=== PATIENT | female | born 1945 | race Caucasian/White ===

== ENCOUNTER → 2016-02-26 | Outpatient (CLI) | payer BC ==
[~2016-02-26] MED LIST: ALD2525 PO; ANAS1TAB19 PO; ASPEC81 PO; ATOR-22 PO; BECL1AER5; CLTP PO; EFLO13.925 TOP; KETO0.5S33 OPB; LORA10CA2 PO; MELATAB2 PO; METHPOW7 PO; POLYSOL4 OP
[2016-02-26 09:31] LABS: BASO % 0.6 %; BASO ABS # 0.05 K/uL (0-0.2); COMPLETE YES; EOS % 2.5 %; HEMATOCRIT 47.1 % (37-47); IG% 0.2 %; LYMPH % 18.5 %; LYMPH ABS # 1.62 K/uL (1.2-3.4); MEAN CELL VOLUME 93.3 fL (80-100); MEAN CORPUSCULAR HEMOGLOBIN 31.5 pg (25-34); MEAN CORPUSCULAR HGB CONC 33.8 g/dl (32-36); MEAN PLATELET VOLUME 10.3 fL (7.4-10.4); MONO % 10.3 %; NEUT % 67.9 %; PLATELET COUNT 350 K/uL (130-400); RED BLOOD COUNT 5.05 M/uL (4.2-5.4); WHITE BLOOD COUNT 8.78 K/uL (4.8-10.8)
[2016-02-26 10:05] LABS: ALT/SGPT 47 U/L (12-78); AST/SGOT 28 U/L (15-37); BLOOD UREA NITROGEN 12 mg/dl (7-18); BUN/CREATININE RATIO 15.2 (10-20); CALCIUM 9.2 mg/dl (8.5-10.1); CARBON DIOXIDE 29 mmol/L (21-32); CHLORIDE 101 mmol/L (98-107); CHOLESTEROL 156 mg/dl (0-200); CREATININE 0.79 mg/dl (0.60-1.20); GLUCOSE 99 mg/dl (70-99); MAGNESIUM 2.3 mg/dl (1.8-2.4); POTASSIUM 3.7 mmol/L (3.5-5.1); SODIUM 139 mmol/L (136-145)
[2016-02-26 10:10] LABS: HDL CHOLESTEROL 80 mg/dl; LDL CHOLESTEROL CALCULATED 53 mg/dl; TRIGLYCERIDES 114 mg/dl (0-150); VERY LOW DENSITY LIPOPROT CALC 23 mg/dl
[2016-02-26 10:32] LABS: ESTIMATED AVERAGE GLUCOSE 131 mg/dl; HA1C FLAG Normal (Normal)
== END | disposition home or self-care (01) ==
LOC: C.LAB1850 08:01
PROVIDERS: ATTEND Internal Medicine
DX: E11.9 Type 2 diabetes mellitus without complications (principal)

== ENCOUNTER → 2016-03-31 | Outpatient (CLI) | payer BC ==
[~2016-03-31] MED LIST changes: -EFLO13.925 TOP; +EFLO13.94 TOP
== END | disposition home or self-care (01) ==
LOC: C.PAPS 16:40
PROVIDERS: ATTEND Obstetrics & Gynecology
DX: N85.02 Endometrial intraepithelial neoplasia [EIN] (principal)

== ENCOUNTER → 2016-05-26 | Outpatient (CLI) | payer BC ==
[~2016-05-26] MED LIST changes: +EFLO13.925 TOP; -EFLO13.94 TOP
[2016-05-26 13:30] LABS: ESTIMATED AVERAGE GLUCOSE 131 mg/dl; HA1C FLAG Normal (Normal)
== END | disposition home or self-care (01) ==
LOC: C.LABPBG 08:09
PROVIDERS: ATTEND Internal Medicine
DX: E11.9 Type 2 diabetes mellitus without complications (principal)

== ENCOUNTER → 2016-07-14 | Outpatient (CLI) | payer BC | END | disposition home or self-care (01) | LOC: C.PAPS 16:27 | PROVIDERS: ATTEND Obstetrics & Gynecology | DX: N85.02 Endometrial intraepithelial neoplasia [EIN] (principal) ==

== ENCOUNTER → 2016-09-01 | Outpatient (CLI) | payer BC ==
[~2016-09-01] MED LIST changes: -EFLO13.925 TOP; +EFLO13.94 TOP
[2016-09-01 12:25] LABS: BASO % 1.1 %; BASO ABS # 0.07 K/uL (0-0.2); COMPLETE YES; EOS % 3.6 %; IG% 0.2 %; LYMPH % 24.2 %; LYMPH ABS # 1.53 K/uL (1.2-3.4); MEAN CELL VOLUME 93.6 fL (80-100); MEAN CORPUSCULAR HEMOGLOBIN 31.6 pg (25-34); MEAN CORPUSCULAR HGB CONC 33.8 g/dl (32-36); MEAN PLATELET VOLUME 10.4 fL (7.4-10.4); NEUT % 60.9 %; PLATELET COUNT 315 K/uL (130-400); RED BLOOD COUNT 5.34 M/uL (4.2-5.4); WHITE BLOOD COUNT 6.32 K/uL (4.8-10.8)
[2016-09-01 12:56] LABS: ESTIMATED AVERAGE GLUCOSE 126 mg/dl; HA1C FLAG Normal (Normal)
[2016-09-01 13:06] LABS: ALT/SGPT 38 U/L (12-78); AST/SGOT 25 U/L (15-37); BLOOD UREA NITROGEN 13 mg/dl (7-18); BUN/CREATININE RATIO 14.9 (10-20); CALCIUM 9.5 mg/dl (8.5-10.1); CARBON DIOXIDE 29 mmol/L (21-32); CHLORIDE 102 mmol/L (98-107); CHOLESTEROL 149 mg/dl (0-200); CREATININE 0.85 mg/dl (0.60-1.20); GLUCOSE 109 mg/dl (70-99); POTASSIUM 3.5 mmol/L (3.5-5.1); SODIUM 138 mmol/L (136-145); TRIGLYCERIDES 94 mg/dl (0-150); VERY LOW DENSITY LIPOPROT CALC 19 mg/dl
[2016-09-01 13:16] LABS: CHOLESTEROL/HDL RATIO 1.9; HDL CHOLESTEROL 79 mg/dl; LDL CHOLESTEROL CALCULATED 51 mg/dl
== END | disposition home or self-care (01) ==
LOC: C.LABPBG 08:07
PROVIDERS: ATTEND Physician Assistant
DX: E78.5 Hyperlipidemia, unspecified (principal); I10 Essential (primary) hypertension; E11.9 Type 2 diabetes mellitus without complications

== ENCOUNTER → 2016-10-04 | Outpatient (CLI) | payer BC ==
[2016-10-04 12:22] LABS: BASO % 0.9 %; BASO ABS # 0.07 K/uL (0-0.2); COMPLETE YES; HEMATOCRIT 49.3 % (37-47); IG% 0.1 %; LYMPH % 21.1 %; MEAN CELL VOLUME 92.8 fL (80-100); MEAN CORPUSCULAR HEMOGLOBIN 30.9 pg (25-34); MEAN CORPUSCULAR HGB CONC 33.3 g/dl (32-36); MEAN PLATELET VOLUME 10.8 fL (7.4-10.4); MONO % 11.4 %; NEUT % 62.5 %; PLATELET COUNT 323 K/uL (130-400); RED BLOOD COUNT 5.31 M/uL (4.2-5.4); WHITE BLOOD COUNT 7.57 K/uL (4.8-10.8)
[2016-10-04 12:52] LABS: ALB/GLOB RATIO 1.2 (0.9-2); ALKALINE PHOSPHATASE 102 U/L (45-117); AST/SGOT 27 U/L (15-37); BLOOD UREA NITROGEN 12 mg/dl (7-18); BUN/CREATININE RATIO 17.4 (10-20); CALCIUM 9.3 mg/dl (8.5-10.1); CARBON DIOXIDE 28 mmol/L (21-32); CHLORIDE 103 mmol/L (98-107); CREATININE 0.71 mg/dl (0.60-1.20); GLUCOSE 105 mg/dl (70-99); POTASSIUM 3.6 mmol/L (3.5-5.1); SODIUM 138 mmol/L (136-145)
[2016-10-04 12:59] LABS: ALT/SGPT 39 U/L (12-78)
== END | disposition home or self-care (01) ==
LOC: C.LABPBG 07:46
PROVIDERS: ATTEND Nurse Practitioner Family
DX: C50.919 Malignant neoplasm of unspecified site of unspecified female breast (principal)

== ENCOUNTER → 2016-11-04 | Outpatient (CLI) | payer BC ==
[2015-10-23 13:08] VITALS: BP 149/93; PULSE 74
[2016-11-04 13:03] VITALS: BP 137/79; PULSE 80; TEMP 36.8; O2SAT 98
--- NOTE | 2016-11-04 14:26 | Radiation Oncology Follow-Up ---
Radiation Oncology Follow-Up Date of Visit Nov 04, 2016. Reason For Visit Annual follow-up Radiation Completion Date 03/15/14 Diagnosis (1) Personal history of breast cancer Status: Resolved Onset Date: ~ 1988 Stage: l Permanent Comment: Status post ductal carcinoma in situ 1988, status post partial mastectomy with sentinel lymph node biopsy, status post radiation therapy completed June 1988 received 4930 cGy Abnormal mammogram 05/09/2012. 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 She has noticed no changes to her chest wall. She has noted no masses or tenderness and no changes of the axilla. She's had no problems with swelling of her arm. With a bilateral nipple sparing mastectomies she does not require mammography. She is seen regularly by medical oncology. She is on Arimidex. She denies any side effects. DEXA scanning is being followed by medical oncology. She recently had a pelvic examination and Pap smear by her functional skills tutor Dr. Vásquez. This was performed on 07/14/2016. Pap smear was negative for intraepithelial lesion or malignancy. Specimen [id number]. Allergies Coded Allergies: Chlorhexidine (Verified Allergy, Severe, ITCHING, 12/11/15) Cephalexin (Verified Allergy, Unknown, SICK, 12/11/15) Edetic Acid (Verified Allergy, Unknown, nausea, 12/11/15) Propylene Glycol (Verified Allergy, Unknown, nausea, 12/11/15) Regadenoson (Verified Allergy, Unknown, nausea, 12/11/15) Codeine (Verified Adverse Reaction, Intermediate, N/V, 12/11/15) Home Medications Scheduled Anastrozole (Arimidex), 1 MG PO QAM Aspirin Enteric Coated (Ecotrin Or Generic *), 81 MG PO QAM Atorvastatin (Lipitor), 20 MG PO QPM Calcium/Vitamin D (Caltrate 600 Plus *), 1 TAB PO BID Hctz/Spironolactone (Aldactazide 25MG/25MG *), 1 TAB PO BID Loratadine (Claritin), 10 MG PO QAM Methylcellulose (Laxative) (Citrucel Fiber Laxative), 1 TBS PO TID Polyethylene Glycol-Propylene (Systane), 1 DROPS OP BID Scheduled PRN Beclomethasone Dipropionate (N (Qnasl), 1-2 SPRAY NA DAILY PRN for ALLERGIES Ketorolac Tromethamine (Ophth) (Acular Oph), 1 DROPS OPB DAILY PRN for ALLERGIES Melatonin (Melatonin Maximum Strengt), 1 TAB PO HS PRN for Sleep Review of Systems Gastrointestinal: Symptoms: WNL Oral: Symptoms: No Problems Respiratory: Symptoms: WNL Urinary: Symptoms: WNL Skin: Symptoms: No Problems Breast: Right Upper Arm Measurement: 32.0 Right Mid Arm Measurement: 26.5 Right Wrist Measurement: 16.0 Left Upper Arm Measurement: 32.0 Left Mid Arm Measurement: 26.5 Left Wrist Measurement: 16.5 Arm Dominence: Right Physical Exam Vital Signs Date Time Temp Pulse Resp B/P (MAP) Pulse Ox O2 Delivery O2 Flow Rate FiO2 11/04/16 13:03 36.8 80 12 137/79 98 Pain: Pain Onset: 6 months Pain Duration: intermet Side: Bilateral Pain Location: Ribs Patient Pain Scale: 0 - 10 Initial Pain Intensity: 0.0 Pain Description: Soreness Additional Comments: pain ranges 2-6 Fatigue: None General Appearance: no apparent distress, + pertinent finding (slight facial droop on the right from her previous parotid surgery. This is improved compared to last year.) Eyes: normal inspection, EOMI ENT: normal ENT inspection, hearing grossly normal Neck: no adenopathy, thyroid normal Respiratory/Chest: lungs clear, no respiratory distress, no accessory muscle use Breast: Breast examination reveals bilateral breast implants. There are no masses or tenderness no axillary adenopathy. There is no tenderness. There is no telangiectasia. She has no axillary adenopathy. Using the Taylor score cosmesis she has a good outcome. Cardiovascular: regular rate, rhythm, no gallop, no murmur Extremities: no pedal edema Neurologic/Psychiatric: no motor/sensory deficits, alert, normal mood/affect Skin: warm/dry Laboratory Studies Test 09/01/16 08:09 10/04/16 07:56 White Blood Count 6.32 K/uL (4.8-10.8) 7.57 K/uL (4.8-10.8) Red Blood Count 5.34 M/uL (4.2-5.4) 5.31 M/uL (4.2-5.4) Hemoglobin 16.9 g/dL (12.0-16.0) 16.4 g/dL (12.0-16.0) Hematocrit 50.0 % (37-47) 49.3 % (37-47) Mean Corpuscular Volume 93.6 fL (80-100) 92.8 fL (80-100) Mean Corpuscular Hemoglobin 31.6 pg (25-34) 30.9 pg (25-34) Mean Corpuscular Hemoglobin Concent 33.8 g/dl (32-36) 33.3 g/dl (32-36) Platelet Count 315 K/uL (130-400) 323 K/uL (130-400) Mean Platelet Volume 10.4 fL (7.4-10.4) 10.8 fL (7.4-10.4) Neutrophils (%) (Auto) 60.9 % 62.5 % Lymphocytes (%) (Auto) 24.2 % 21.1 % Monocytes (%) (Auto) 10.0 % 11.4 % Eosinophils (%) (Auto) 3.6 % 4.0 % Basophils (%) (Auto) 1.1 % 0.9 % Neutrophils # (Auto) 3.85 K/uL (1.4-6.5) 4.73 K/uL (1.4-6.5) Lymphocytes # (Auto) 1.53 K/uL (1.2-3.4) 1.60 K/uL (1.2-3.4) Monocytes # (Auto) 0.63 K/uL (0.11-0.59) 0.86 K/uL (0.11-0.59) Eosinophils # (Auto) 0.23 K/uL (0-0.5) 0.30 K/uL (0-0.5) Basophils # (Auto) 0.07 K/uL (0-0.2) 0.07 K/uL (0-0.2) RDW Standard Deviation 47.1 fL (36.4-46.3) 45.8 fL (36.4-46.3) RDW Coefficient of Variation 13.7 % (11.5-14.5) 13.4 % (11.5-14.5) Immature Granulocyte % (Auto) 0.2 % 0.1 % Immature Granulocyte # (Auto) 0.01 K/uL (0.00-0.02) 0.01 K/uL (0.00-0.02) Sodium Level 138 mmol/L (136-145) 138 mmol/L (136-145) Potassium Level 3.5 mmol/L (3.5-5.1) 3.6 mmol/L (3.5-5.1) Chloride Level 102 mmol/L (98-107) 103 mmol/L (98-107) Carbon Dioxide Level 29 mmol/L (21-32) 28 mmol/L (21-32) Anion Gap 7.0 mmol/L (3-11) 7.0 mmol/L (3-11) Blood Urea Nitrogen 13 mg/dl (7-18) 12 mg/dl (7-18) Creatinine 0.85 mg/dl (0.60-1.20) 0.71 mg/dl (0.60-1.20) Estimated GFR () 81.0 100.7 Estimated GFR (Non- 69.9 86.9 BUN/Creatinine Ratio 14.9 (10-20) 17.4 (10-20) Random Glucose 109 mg/dl (70-99) 105 mg/dl (70-99) Estimated Average Glucose 126 mg/dl Hemoglobin A1c 6.0 % (4.5-5.6) Calcium Level 9.5 mg/dl (8.5-10.1) 9.3 mg/dl (8.5-10.1) Aspartate Amino Transferase (AST) 25 U/L (15-37) 27 U/L (15-37) Alanine Aminotransferase (ALT) 38 U/L (12-78) 39 U/L (12-78) Total Creatine Kinase 89 U/L (26-192) Triglycerides Level 94 mg/dl (0-150) Cholesterol Level 149 mg/dl (0-200) HDL Cholesterol 79 mg/dl LDL Cholesterol, Calculated 51 mg/dl VLDL Cholesterol, Calculated 19 mg/dl Cholesterol/HDL Ratio 1.9 Thyroid Stimulating Hormone (TSH) 3.300 uIu/ml (0.300-4.500) Total Bilirubin 0.7 mg/dl (0.2-1) Alkaline Phosphatase 102 U/L (45-117) Lactate Dehydrogenase 203 U/L (84-246) Total Protein 7.1 gm/dl (6.4-8.2) Albumin 3.9 gm/dl (3.4-5.0) Globulin 3.2 gm/dl (2.5-4.0) Albumin/Globulin Ratio 1.2 (0.9-2) Assessment & Plan Plan: Continue regular follow-up with medical oncology and her primary care physician. She continues on anastrozole. We asked her to return to our office in 1 year. She may call if she has any questions or concerns in the interim. Total Time In Follow-Up I spent 20 minutes speaking to the patient and performing examination. I spent 15 minutes reviewing information and completing this note. Copy To Rad Tobias M.D.; Emile Griffin D.O.
== END | disposition home or self-care (01) ==
LOC: C.ONC 12:40
PROVIDERS: ATTEND Physician Assistant Medical
DX: Z08 Encounter for follow-up examination after completed treatment for malignant neoplasm (principal); Z92.3 Personal history of irradiation; Z86.000 Personal history of in-situ neoplasm of breast

== ENCOUNTER → 2017-01-17 | Outpatient (CLI) | payer BC ==
[~2017-01-17] MED LIST changes: -EFLO13.94 TOP
== END | disposition home or self-care (01) ==
LOC: C.PATHSPEC 16:21
PROVIDERS: ATTEND Dermatology
DX: L82.1 Other seborrheic keratosis (principal); L91.8 Other hypertrophic disorders of the skin

== ENCOUNTER → 2017-01-18 | Outpatient (CLI) | payer BC | END | disposition home or self-care (01) | LOC: C.PAPS 14:05 | PROVIDERS: ATTEND Obstetrics & Gynecology | DX: N85.02 Endometrial intraepithelial neoplasia [EIN] (principal) ==

== ENCOUNTER → 2017-03-29 | Outpatient (CLI) | payer BC ==
[2017-03-29 12:58] LABS: BASO % 1.1 %; BASO ABS # 0.07 K/uL (0-0.2); EOS % 3.5 %; EOS ABS # 0.23 K/uL (0-0.5); HEMATOCRIT 47.9 % (37-47); HEMOGLOBIN 16.4 g/dL (12.0-16.0); IG# 0.01 K/uL (0.00-0.02); LYMPH % 22.3 %; LYMPH ABS # 1.46 K/uL (1.2-3.4); MEAN CELL VOLUME 94.1 fL (80-100); MEAN CORPUSCULAR HEMOGLOBIN 32.2 pg (25-34); MEAN CORPUSCULAR HGB CONC 34.2 g/dl (32-36); MEAN PLATELET VOLUME 11.1 fL (7.4-10.4); MONO ABS # 0.72 K/uL (0.11-0.59); NEUT % 61.9 %; NEUT ABS # 4.05 K/uL (1.4-6.5); PLATELET COUNT 303 K/uL (130-400); RED CELL DISTRIBUTION WIDTH CV 13.3 % (11.5-14.5); WHITE BLOOD COUNT 6.54 K/uL (4.8-10.8)
[2017-03-29 13:09] LABS: HEMOGLOBIN A1C 6.1 % (4.5-5.6)
[2017-03-29 14:27] LABS: ALKALINE PHOSPHATASE 92 U/L (45-117); ALT/SGPT 42 U/L (12-78); AST/SGOT 29 U/L (15-37); BLOOD UREA NITROGEN 15 mg/dl (7-18); CALCIUM 9.3 mg/dl (8.5-10.1); CARBON DIOXIDE 29 mmol/L (21-32); CREATININE 0.78 mg/dl (0.60-1.20); GLUCOSE 106 mg/dl (70-99); POTASSIUM 3.3 mmol/L (3.5-5.1); SODIUM 136 mmol/L (136-145); TOTAL PROTEIN 7.5 gm/dl (6.4-8.2)
== END | disposition home or self-care (01) ==
LOC: C.LABPBG 07:57
PROVIDERS: ATTEND Internal Medicine
DX: C50.911 Malignant neoplasm of unspecified site of right female breast (principal); E11.9 Type 2 diabetes mellitus without complications

== ENCOUNTER → 2017-04-25 | Outpatient (CLI) | payer BC ==
--- NOTE | 2017-04-25 15:57 | DIAGNOSTIC IMAGING REPORT ---
CHEST 2 VIEWS ROUTINE HISTORY: 71 years-old Female R05 [id number] acute cough with headache COMPARISON: Chest radiographs 01/09/2015 TECHNIQUE: PA and lateral views of the chest FINDINGS: Cardiomediastinal and hilar silhouettes are within normal limits. There is no pneumothorax, pleural effusion, focal airspace consolidation or overt pulmonary edema. Surgical clips project over the right axillary chest wall. Surgical clips are also seen within the abdominal right upper quadrant suggesting prior cholecystectomy. Bones of the chest appear grossly intact. IMPRESSION: No acute process. The above report was generated using voice recognition software. It may contain grammatical, syntax or spelling errors. Electronically signed by: Tadeo Farfan M.D. 04/25/2017 3:55 PM Dictated Date/Time: 04/25/2017 3:54 PM
== END | disposition home or self-care (01) ==
LOC: C.RAD1850 15:45
PROVIDERS: ATTEND Physician Assistant Medical
DX: R05 Cough (principal)

== ENCOUNTER → 2017-04-25 | Outpatient (CLI) | payer BC ==
[2017-04-25 18:19] LABS: INFLUENZA B ANTIGEN POS for Influ B (NEG)
== END | disposition home or self-care (01) ==
LOC: C.LAB1850 16:04
PROVIDERS: ATTEND Physician Assistant Medical
DX: R68.89 Other general symptoms and signs (principal)

== ENCOUNTER → 2017-05-02 | Outpatient (CLI) | payer BC ==
--- NOTE | 2017-05-02 16:52 | DIAGNOSTIC IMAGING REPORT ---
CHEST 2 VIEWS ROUTINE HISTORY: 71 years-old Female J10.1 acute influenza COMPARISON: Chest radiographs 04/25/2017 TECHNIQUE: PA and lateral views of the chest FINDINGS: Cardiomediastinal and hilar silhouettes are within normal limits. There is no pneumothorax, pleural effusion, focal airspace consolidation or overt pulmonary edema. Surgical clips project over the bilateral axillary regions. Bones of the chest appear grossly intact. IMPRESSION: No acute process. The above report was generated using voice recognition software. It may contain grammatical, syntax or spelling errors. Electronically signed by: Tadeo Farfan M.D. 05/02/2017 4:50 PM Dictated Date/Time: 05/02/2017 4:49 PM
[2017-05-02 16:54] LABS: BASO % 0.2 %; BASO ABS # 0.03 K/uL (0-0.2); EOS % 1.8 %; EOS ABS # 0.25 K/uL (0-0.5); HEMATOCRIT 43.6 % (37-47); HEMOGLOBIN 15.2 g/dL (12.0-16.0); IG# 0.05 K/uL (0.00-0.02); LYMPH % 16.4 %; LYMPH ABS # 2.24 K/uL (1.2-3.4); MEAN CELL VOLUME 91.4 fL (80-100); MEAN CORPUSCULAR HEMOGLOBIN 31.9 pg (25-34); MEAN CORPUSCULAR HGB CONC 34.9 g/dl (32-36); MEAN PLATELET VOLUME 9.8 fL (7.4-10.4); MONO % 11.7 %; NEUT % 69.5 %; NEUT ABS # 9.53 K/uL (1.4-6.5); PLATELET COUNT 313 K/uL (130-400); RED CELL DISTRIBUTION WIDTH CV 12.7 % (11.5-14.5)
== END | disposition home or self-care (01) ==
LOC: C.RAD1850 15:52
PROVIDERS: ATTEND Internal Medicine
DX: J10.1 Influenza due to other identified influenza virus with other respiratory manifestations (principal)

== ENCOUNTER → 2017-10-04 | Outpatient (CLI) | payer BC ==
[~2017-10-04] MED LIST changes: -ANAS1TAB19 PO; +ANAS1TAB59 PO
== END | disposition home or self-care (01) ==
LOC: C.MAMM 15:08
PROVIDERS: ATTEND Nurse Practitioner Family
DX: R92.8 Other abnormal and inconclusive findings on diagnostic imaging of breast (principal); Z85.3 Personal history of malignant neoplasm of breast

== ENCOUNTER → 2017-10-05 | Outpatient (CLI) | payer BC ==
[2017-10-05 13:05] LABS: BASO % 1.1 %; BASO ABS # 0.07 K/uL (0-0.2); EOS % 3.4 %; EOS ABS # 0.22 K/uL (0-0.5); HEMATOCRIT 50.4 % (37-47); HEMOGLOBIN 17.2 g/dL (12.0-16.0); IG# 0.01 K/uL (0.00-0.02); LYMPH % 27.4 %; LYMPH ABS # 1.79 K/uL (1.2-3.4); MEAN CELL VOLUME 92.5 fL (80-100); MEAN CORPUSCULAR HEMOGLOBIN 31.6 pg (25-34); MEAN CORPUSCULAR HGB CONC 34.1 g/dl (32-36); MEAN PLATELET VOLUME 11.3 fL (7.4-10.4); MONO % 10.9 %; MONO ABS # 0.71 K/uL (0.11-0.59); NEUT ABS # 3.73 K/uL (1.4-6.5); PLATELET COUNT 278 K/uL (130-400); RED CELL DISTRIBUTION WIDTH CV 13.5 % (11.5-14.5); RED CELL DISTRIBUTION WIDTH SD 45.5 fL (36.4-46.3); WHITE BLOOD COUNT 6.53 K/uL (4.8-10.8)
[2017-10-05 13:39] LABS: ALBUMIN 3.9 gm/dl (3.4-5.0); ALKALINE PHOSPHATASE 93 U/L (45-117); ALT/SGPT 34 U/L (12-78); AST/SGOT 29 U/L (15-37); BLOOD UREA NITROGEN 15 mg/dl (7-18); CALCIUM 9.3 mg/dl (8.5-10.1); CARBON DIOXIDE 28 mmol/L (21-32); CREATININE 0.74 mg/dl (0.60-1.20); GLUCOSE 91 mg/dl (70-99); POTASSIUM 3.7 mmol/L (3.5-5.1); SODIUM 136 mmol/L (136-145); TOTAL PROTEIN 7.5 gm/dl (6.4-8.2)
== END | disposition home or self-care (01) ==
LOC: C.LABPBG 07:47
PROVIDERS: ATTEND Internal Medicine Hematology & Oncology
DX: C50.911 Malignant neoplasm of unspecified site of right female breast (principal)

== ENCOUNTER 2019-02-15 14:40 | Observation (INO) ==
[2019-02-15 16:44] LABS: Basophils # (auto) 0.07 K/uL (0-0.2); Eosinophils # (auto) 0.25 K/uL (0-0.5); Eosinophils % (auto) 3.4 %; Hematocrit (blood only) 45.4 % (37-47); Hemoglobin 15.1 g/dL (12.0-16.0); Immature Granulocytes # (auto) 0.01 K/uL (0.00-0.02); Immature Granulocytes % (auto) 0.1 %; Lymphocytes # (auto) 1.64 K/uL (1.2-3.4); Lymphocytes % (auto) 22.6 %; Mean Corpuscular Hemoglobin 31.2 pg (25-34); Mean Corpuscular Hgb Conc 33.3 g/dL (32-36); Mean Corpuscular Volume 93.8 fL (80-100); Mean Platelet Volume 9.8 fL (7.4-10.4); Monocytes # (auto) 0.73 K/uL (0.11-0.59); Monocytes % (auto) 10.1 %; Neutrophils # (auto) 4.55 K/uL (1.4-6.5); Neutrophils % (auto) 62.8 %; Platelet Count 330 K/uL (130-400); RDW Coefficient of Variation 13.7 % (11.5-14.5); RDW Standard Deviation 46.9 fL (36.4-46.3); Red Blood Count 4.84 M/uL (4.2-5.4); White Blood Count 7.25 K/uL (4.8-10.8)
[2019-02-15 16:44] LABS: Appearance Urine Clear (Clear); Bilirubin Urine Negative (Negative); Blood Urine Negative (Negative); Color Urine Yellow; Glucose Urine UA Negative (Negative); Ketones Urine Negative (Negative); Leukocyte Esterase Urine Negative (Negative); Nitrite Urine Negative (Negative); Protein Urine Negative (Negative); Specific Gravity Urine 1.009 (1.000-1.030); Urobilinogen Urine Negative (Negative); pH Urine 7.5 (4.5-7.5)
[2019-02-15 16:57] LABS: Albumin Level 3.8 gm/dl (3.4-5.0); BUN Creatinine Ratio 17.7 (10-20); Calcium 9.6 mg/dl (8.5-10.1); Creatinine Clr Calc Pharmacy 61.9 ml/min; Est GFR (African American) 88.6; Est GFR (Non-African American) 76.5; Potassium 3.4 mmol/L (3.5-5.1)
[2019-02-15 17:00] LABS: Bilirubin,Total 0.4 mg/dl (0.2-1); Globulin 3.8 gm/dl (2.5-4.0); Total Protein 7.6 gm/dl (6.4-8.2)
[2019-02-15] MEDS ORDERED: IOVERSOL 100ml IV PRN (17:17)
--- NOTE | 2019-02-15 17:49 | CT Scan Report ---
CT OF THE ABDOMEN AND PELVIS WITH CONTRAST CLINICAL HISTORY: Right upper quadrant abdominal pain. COMPARISON STUDY: Right upper quadrant ultrasound August 01, 2007. PET/CT April 03, 2014 TECHNIQUE: Following IV administration of 94 mL of Optiray-320, axial images of the abdomen and pelvi s were obtained from the lung bases to the proximal femurs. Images were reviewed in the axial, sagitt al, and coronal planes. IV contrast was administered without complication. Automated exposure contro l was utilized for the study. A dose lowering technique was utilized adhering to the principles of A RIVER. CT DOSE: 283.65 mGy.cm FINDINGS: Numerous liver lesions are noted, including a 2.2 cm segment 8 lesion, a 1.2 cm segment 6 l esion and a 1.6 cm segment 8 lesion. Several these lesions were present on prior ultrasound and PET/C T. A lateral segment hepatic cyst is noted. The spleen, adrenal glands, kidneys and pancreas are norm al. There is no evidence for a bowel obstruction. A moderate amount of stool within the colon is note d. The appendix is normal. No pneumatosis, free air or portal venous gas is present. No enlarged abdo víctor or pelvic lymph nodes are present. A previous left femoral internal fixation is partially image d. The hardware has been removed. Innumerable lytic lesions are noted within visualized skeletal stru ctures which are new since PET/CT of April 03, 2014. There is a mild fracture with minimal adjacen t infiltration of the T12 vertebral body. There is a suspected additional pathologic fracture of the anterior aspect of the T10 vertebral body. No additional pathologic fractures are noted. A large femo ral neck lesion is noted. IMPRESSION: 1. Interval development of innumerable lytic skeletal lesions since PET/CT of April 03, 2014. Give n the history of breast cancer, metastatic disease is favored. Multiple myeloma could appear similar. Pathologic fracture of T12 with suspected additional pathologic fracture of T10. 2. Numerous hepatic lesions, many of which were present on prior PET/CT of April 03, 2014. While n ot definitive, these favor hemangiomas. 3. Moderate amount stool within the colon. No bowel obstruction. Normal appendix. ACT 112: Negative or not required by law. Electronically signed by: Jay Jay Roldan M.D. 02/15/2019 5:48 PM
[2019-02-15] MEDS ORDERED: HYDROmorphone INJ 0.5 MG/0.5 ML SYR IV PRN (19:11)
[2019-02-15] MEDS ORDERED: ONDANSETRON INJ 2 MG/ML 2 ML VIAL IV STA (19:11)
--- NOTE | 2019-02-15 21:06 | Emergency Department Note ---
Entered by Tahira Angulo acting as a scribe for Trevor Lechuga MD ED Provider Note CHIEF COMPLAINT: abdominal pain HISTORY OF PRESENT ILLNESS: The patient is a 73 year old F who presents to the Emergency Room with complaints of intermittent abdominal pain that started 3-4 weeks ago. She notes that her abdominal pain is located in her LLQ and RUQ. She states that her pain radiates into her shoulder and neck. She adds that her pain is worse at night. She denies that her pain gets worse with eating and exertion. She adds that she always takes a Tylenol at night. She notes that she had a cholecystectomy, in 1997, after a blockage was found. She denies a history of cardiac issues. Pt denies LOC, headache, fevers, chills, diaphoresis, visual changes, chest pain, breathing difficulties, nausea, vomiting, back pain, melena, hematochezia, urinary symptoms, numbness, weakness, lymphadenopathy, rash, or other complaints. REVIEW OF SYSTEMS: See HPI for pertinent positives and negatives. A total of ten systems were reviewed and were otherwise negative. PMHx/PSHx: GERD, breast cancer, hyperglycemia SOCIAL HISTORY: Patient lives at home. PHYSICAL EXAM: GENERAL: Awake, alert, well-appearing, in no distress HENT: Normocephalic, atraumatic. Oropharynx unremarkable. EYES: PERRL. Normal conjunctiva. Sclera non-icteric. NECK: Inspection normal. Non-tender. Supple. No nuchal rigidity. FROM. No masses. RESPIRATORY: Clear to auscultation. No wheezes. No rales. Normal respiratory effort. CARDIAC: Normal rate. Normal rhythm. No murmurs. No rubs. Extremities warm and well perfused. Pulses equal. No JVD. GI: Soft, non-distended. Left lower and right upper abdominal tenderness to palpation. No rebound or guarding. No masses. RECTAL: Deferred. MUSCULOSKELETAL: Atraumatic. Chest examination reveals no tenderness. The back is symmetrical on inspection without obvious abnormality. There is no CVA tenderness to palpation. No joint edema. LOWER EXTREMITIES: Calves are equal size bilaterally and non-tender. No edema. No discoloration. NEURO: Normal sensorium. No sensory or motor deficits noted. SKIN: No rash or jaundice noted. EMERGENCY DEPARTMENT COURSE: 1627: The patient was evaluated in room C9, and a complete history and physical examination were performed. 183: I re-checked the patient and updated her on her test results. 1934: I reviewed the patient's case with Dr. Michael Flores, [facility] Hospitalist. He will evaluate the patient for further management. MEDICAL DECISION MAKING: Triage Nursing notes reviewed and agree them. Additional history obtained from patient's . The patient's history was concerning for abdominal pain. Differential diagnosis: Etiologies such as biliary pathology, appendicitis, diverticulitis, PUD, UTI, pancreatitis, obstruction, mesenteric ischemia, aortic pathology, infections, inflammatory bowel disease, renal colic, as well as others were entertained. Physical examination findings: As above. ER treatment provided: IV Dilaudid IV Zofran On reassessment the patient felt better. Diagnostics interpreted by me: ECG: No ischemia The labs revealed an unremarkable CBC and chemistry panel except for elevation of alkaline phosphatase. Urinalysis negative. Imaging studies: CT scan of the abdomen pelvis was performed. There are numerous lesions in the liver. Skeletal findings and compression fractures that are pathologic concerning for malignancy. Consultation: A consultation was placed with the oncologist on-call, Dr. Griffin. Given the findings he recommended pain management, liver biopsy, and consultation with orthopedic spine/radiation oncology. Consultation was made with internal medicine. Patient was evaluated in the ER for further management. The case was discussed and diagnostics were reviewed. The patient was evaluated in the ER for further treatment. IMPRESSION: upper abdominal pain, multiple liver lesions, pathologic compression fracture t 12 and t10, back pain, hx of breast cancer PLAN: Admitted as inpatient The scribe's documentation has been prepared under my direction and personally reviewed by me in its entirety. I confirm that the note above accurately reflects all work, treatment, procedures, and medical decision making performed by me. Impression & Plan Upper abdominal pain, History of breast cancer, Liver lesion, Pathologic compression fracture of spine, Back pain Past Med/Surg History Medical History (Updated 02/15/19 @ 20:57 by Tahira Angulo) GERD (gastroesophageal reflux disease) History of breast cancer (Chronic) Hyperglycemia (Chronic) Surgical History (Updated 01/06/19 @ 14:37 by CAROL Schmidt) History of hysterectomy with bilateral oophorectomy History of total left knee replacement Hx of cholecystectomy Hx of tonsillectomy S/P bilateral mastectomy (Resolved 07/06/13) Family History (Updated 01/06/19 @ 14:16 by CAROL Schmidt) Other Breast cancer Melanoma Social History (Updated 01/06/19 @ 14:22 by CAROL Schmidt) Preferred Language: Uzbek Communication Ability: Effective marital status: Current Living Situation: Spouse Feels Safe at Home: Yes Smoking Status: Never smoker Hx Alcohol Use: Yes ( social) Dental Care, Regularly: Yes Results & Data Vital Signs Vital Signs - 24 hr 02/15/19 15:17 02/15/19 16:28 02/15/19 16:30 Temperature 36.9 C Temperature Source Oral Pulse Rate 78 78 Pulse Rate [Finger] Pulse Rhythm Regular Pulse Strength Normal Respiratory Rate 20 18 Respiratory Effort / Characteristics Non-Labored Spontaneous Respiratory Depth Normal Respiratory Pattern Regular Blood Pressure 168/78 H 162/99 H Blood Pressure [Left Arm] Blood Pressure Mean 108 110 Blood Pressure Mean [Left Arm] Blood Pressure Position Sitting Pulse Oximetry 100 100 Oxygen Delivery Method Room Air Room Air Sepsis Recent Fever Within 48 Hours No Sepsis New/Unexplained Change in Mental Status No Sepsis Action Taken by Nursing No Action Required 02/15/19 16:33 02/15/19 19:27 Temperature Temperature Source Pulse Rate 73 Pulse Rate [Finger] 84 Pulse Rhythm Pulse Strength Respiratory Rate 16 20 Respiratory Effort / Characteristics Non-Labored Respiratory Depth Normal Respiratory Pattern Blood Pressure Blood Pressure [Left Arm] 152/88 H Blood Pressure Mean Blood Pressure Mean [Left Arm] 109 Blood Pressure Position Pulse Oximetry 97 Oxygen Delivery Method Room Air Sepsis Recent Fever Within 48 Hours Sepsis New/Unexplained Change in Mental Status Sepsis Action Taken by Usp Medications Current Medication List: was personally reviewed by me Laboratory Data Attestation: I reviewed the patient's lab results. Result diagrams: 02/15/19 16:23 02/15/19 16:23 Lab Results 02/15/19 02/15/19 02/15/19 Range/Units 16:23 16:23 16:24 WBC 7.25 (4.8-10.8) K/uL RBC 4.84 (4.2-5.4) M/uL Hgb 15.1 (12.0-16.0) g/dL Hct 45.4 (37-47) % MCV 93.8 (80-100) fL MCH 31.2 (25-34) pg MCHC 33.3 (32-36) g/dL RDW Std Deviation 46.9 H (36.4-46.3) fL RDW Coeff of Jermaine 13.7 (11.5-14.5) % Plt Count 330 (130-400) K/uL MPV 9.8 (7.4-10.4) fL Immature Gran % (Auto) 0.1 % Neut % (Auto) 62.8 % Lymph % (Auto) 22.6 % Harper % (Auto) 10.1 % Eos % (Auto) 3.4 % Baso % (Auto) 1.0 % Immature Gran # (Auto) 0.01 (0.00-0.02) K/uL Neut # (Auto) 4.55 (1.4-6.5) K/uL Lymph # (Auto) 1.64 (1.2-3.4) K/uL Harper # (Auto) 0.73 H (0.11-0.59) K/uL Eos # (Auto) 0.25 (0-0.5) K/uL Baso # (Auto) 0.07 (0-0.2) K/uL Sodium 140 (136-145) mmol/L Potassium 3.4 L (3.5-5.1) mmol/L Chloride 103 (98-107) mmol/L Carbon Dioxide 31 (21-32) mmol/L Anion Gap 5.0 (3-11) BUN 14 (7-18) mg/dl Creatinine 0.78 (0.6-1.2) mg/dl Est Cr Clr Drug Dosing 61.9 ml/min Est GFR ( Amer) 88.6 Est GFR (Non-Af Amer) 76.5 BUN/Creatinine Ratio 17.7 (10-20) Glucose 91 (70-99) mg/dl Calcium 9.6 (8.5-10.1) mg/dl Total Bilirubin 0.4 (0.2-1) mg/dl AST 29 (15-37) U/L ALT 27 (12-78) U/L Alkaline Phosphatase 204 H (45-117) U/L Total Protein 7.6 (6.4-8.2) gm/dl Albumin 3.8 (3.4-5.0) gm/dl Globulin 3.8 (2.5-4.0) gm/dl Albumin/Globulin Ratio 1.0 (0.9-2) Lipase 194 (73-393) U/L Urine Color Yellow Urine Appearance Clear (Clear) Urine pH 7.5 (4.5-7.5) Ur Specific [place] 1.009 (1.000-1.030) Urine Protein Negative (Negative) Urine Glucose (UA) Negative (Negative) Urine Ketones Negative (Negative) Urine Blood Negative (Negative) Urine Nitrite Negative (Negative) Urine Bilirubin Negative (Negative) Urine Urobilinogen Negative (Negative) Ur Leukocyte Esterase Negative (Negative) Administered Medications Hydromorphone HCl (Dilaudid) 0.5 mg IV Q15M PRN PRN Reason: Pain Stop: 03/01/19 19:10 Last Admin: 02/15/19 19:21 Dose: 0.5 mg Documented by: [id number] Ioversol (Optiray 320 100ml) 94 ml IV ONCE PRN PRN Reason: Interaction Checking Stop: 02/19/19 17:16 Last Admin: 02/15/19 17:18 Dose: 94 ml Documented by: [id number] Discontinued Medications Ondansetron HCl (Zofran) 4 mg IV NOW STA Stop: 02/15/19 19:12 Last Admin: 02/15/19 19:21 Dose: 4 mg Documented by: [id number] Imaging Data Radiologist's Impression: Radiology results as stated below per my review and the radiologist's interpretation: CT OF THE ABDOMEN AND PELVIS WITH CONTRAST CLINICAL HISTORY: Right upper quadrant abdominal pain. COMPARISON STUDY: Right upper quadrant ultrasound August 01, 2007. PET/CT April 03, 2014 TECHNIQUE: Following IV administration of 94 mL of Optiray-320, axial images of the abdomen and pelvis were obtained from the lung bases to the proximal femurs. Images were reviewed in the axial, sagittal, and coronal planes. IV contrast was administered without complication. Automated exposure control was utilized for the study. A dose lowering technique was utilized adhering to the principles of ALARA. CT DOSE: 283.65 mGy.cm FINDINGS: Numerous liver lesions are noted, including a 2.2 cm segment 8 lesion, a 1.2 cm segment 6 lesion and a 1.6 cm segment 8 lesion. Several these lesions were present on prior ultrasound and PET/CT. A lateral segment hepatic cyst is noted. The spleen, adrenal glands, kidneys and pancreas are normal. There is no evidence for a bowel obstruction. A moderate amount of stool within the colon is noted. The appendix is normal. No pneumatosis, free air or portal venous gas is present. No enlarged abdominal or pelvic lymph nodes are present. A previous left femoral internal fixation is partially imaged. The hardware has been removed. Innumerable lytic lesions are noted within visualized skeletal structures which are new since PET/CT of April 03, 2014. There is a mild fracture with minimal adjacent infiltration of the T12 vertebral body. There is a suspected additional pathologic fracture of the anterior aspect of the T10 vertebral body. No additional pathologic fractures are noted. A large femoral neck lesion is noted. IMPRESSION: 1. Interval development of innumerable lytic skeletal lesions since PET/CT of April 03, 2014. Given the history of breast cancer, metastatic disease is favored. Multiple myeloma could appear similar. Pathologic fracture of T12 with suspected additional pathologic fracture of T10. 2. Numerous hepatic lesions, many of which were present on prior PET/CT of April 03, 2014. While not definitive, these favor hemangiomas. 3. Moderate amount stool within the colon. No bowel obstruction. Normal appendix. ACT 112: Negative or not required by law. Electronically signed by: Jay Jay Roldan M.D. 02/15/2019 5:48 PM ECG Data Attestation: I personally reviewed and interpreted this ECG as follows: Indication: + abdominal pain Rate (beats per minute): 71 Rhythm: normal sinus ECG Intervals/blocks: + Normal QRS ECG [place]: + Normal ECG ST segments: no ST depression and no ST elevation ECG Findings: no PACs and no PVCs Blood Pressure Blood Pressure Findings: Elevated blood pressure Blood Pressure Disposition: further management by hospitalist Discharge Plan Visit Data Chief Complaint: Abdominal Pain Stated Complaint: STOMACH, SIDE, NECK PAIN ED Provider: Trevor Lechuga Discharge Problem: Upper abdominal pain, History of breast cancer, Liver lesion, Pathologic compression fracture of spine, Back pain Patient Disposition: Admitted As Inpatient Forms Stand Alone Forms: Call Back Authorization, [facility] Prescriptions Prescriptions: No Action fluticasone propionate 50 mcg/actuation spray,suspension 2 sprays INTNAS DAILY PRN (Reason: allergy symptoms) RF: 0 atorvastatin 20 mg tablet 20 mg PO QPM Qty: 90 RF: 0 spironolacton-hydrochlorothiaz 25-25 mg tablet 1 tab PO BID Qty: 180 RF: 0 ketorolac 0.5 % drops 1 drp OP DIRECTED PRN (Reason: Pain) RF: 0 anastrozole 1 mg tablet 1 mg PO DAILY RF: 0 calcium citrate-vitamin D3 [Citracal Regular] 250 mg calcium- 200 unit tablet 1 tab PO QID RF: 0 loratadine 10 mg tablet 10 mg PO DAILY RF: 0 melatonin 5 mg capsule 5 mg PO HS PRN (Reason: sleep) RF: 0 acetaminophen [Tylenol Extra Strength] 500 mg Tablet 1,000 mg PO Q6H RF: 0 diphenhydramine-acetaminophen [Tylenol PM Extra Strength] 25-500 mg Tablet 2 tab PO HS PRN (Reason: Sleep) RF: 0 Calcium 600 + D(3) 600 mg calcium- 200 unit Capsule 1 cap PO BID RF: 0 ibuprofen-diphenhydramine cit [Advil PM] 200-38 mg Tablet 1 cap PO HS PRN (Reason: Sleep) RF: 0 Referrals Referrals: Rad Tobias MD [Primary Care Provider] - Discharge Problem: Pathologic compression fracture of spine Qualifiers: Encounter type: initial encounter Qualified Code(s): M48.50XA - Collapsed vertebra, not elsewhere classified, site unspecified, initial encounter for fracture Back pain Qualifiers: Back pain location: thoracic back pain Chronicity: unspecified Back pain laterality: unspecified Qualified Code(s): M54.6 - Pain in thoracic spine The scribe's documentation has been prepared under my direction and personally reviewed by me in its entirety. I confirm that the note above accurately reflects all work, treatment, procedures, and medical decision making performed by me.
[2019-02-15] MEDS ORDERED: KETOROLAC 0.5% OP SOLN PER DROP CHARGE OP PRN (21:57)
[2019-02-15] MEDS ORDERED: ONDANSETRON INJ 2 MG/ML 2 ML VIAL IV PRN (21:57)
[2019-02-15] MEDS ORDERED: POLYETHYLENE (MIRALAX) 17 GM PACK PO PRN (21:57)
[2019-02-15] MEDS ORDERED: NON-FORMULARY MEDICATION (Melatonin 5 MG) PO PRN (21:57)
[2019-02-15] MEDS ORDERED: FLUTICASONE PROPIONATE NA SPR 16 GM BTL NAE PRN (21:57)
[2019-02-15] MEDS ORDERED: ATORVASTATIN 20 MG TAB PO SCH (21:57)
[2019-02-15] MEDS ORDERED: ACETAMINOPHEN 500 MG TAB PO PRN (22:21)
--- NOTE | 2019-02-15 23:20 | History & Physical Report ---
Date of Service February 15, 2019 Assessment & Plan (1) History of breast cancer: The patient last underwent radiation therapy in 2014, and since that time is been on anastrozole. Her last PET/CT of reference was in 2014. She presents to the emergency department with abdominal discomfort, which is likely related to fecal load. She also presents with multiple areas of bone pain, which are noted on imaging as lytic bone lesions suggestive of metastases. The liver lesions that are noted, many of which were present on previous CT of 2014, per radiology are more suggestive of hemangiomas. We will consult oncology Dr. Mccabe, who has asked that radiology be consulted for possible biopsy of liver lesions. Present on Admission?: Yes (2) Lytic bone lesions on xray: See above Present on Admission?: Yes (3) Liver lesion: See above Present on Admission?: Yes (4) Pathologic compression fracture of spine: There are new T12 and possibly T10 pathologic compression fractures. Present on Admission?: Yes (5) GERD (gastroesophageal reflux disease): No active medications or complaints at this time. Present on Admission?: Yes (6) Hypercholesteremia: Continue atorvastatin 20 mg daily. Present on Admission?: Yes (7) Hypertension: Hold spironolactone/HCTZ, as patient is relatively dehydrated, and potassium is borderline low at 3.4. Present on Admission?: Yes History of Present Illness Chief Complaint: The patient presents to the emergency department with abdominal pain that began about 4 weeks ago that spreads across her upper abdomen to both sides.she also reports pain in her right shoulder and neck. Primary Care Provider: Rad Tobias MD The patient is a 73-year-old female with a past medical history including breast cancer, hyperlipidemia, allergic rhinitis, hypertension, and insomnia, who presents with the above symptoms. She reports that her pain is worse at nighttime and worse with exertion. She has not had any recent travels or sick exposures. She does take either Tylenol PM or Advil PM at nighttime to help with sleep Allergies Allergy/AdvReac Type Severity Reaction Status Date / Time chlorhexidine Allergy Severe ITCHING Verified 02/15/19 15:57 cephalexin Allergy Unknown SICK Verified 02/15/19 15:57 edetic acid Allergy Unknown nausea Verified 02/15/19 15:57 propylene glycol Allergy Unknown nausea Verified 02/15/19 15:57 regadenoson Allergy Unknown nausea Verified 02/15/19 15:57 codeine AdvReac Intermediate N/V Verified 02/15/19 15:57 Home Medications Home Medications Medication Instructions Recorded Confirmed Type anastrozole 1 mg tablet 1 mg PO DAILY 11/16/18 02/15/19 History atorvastatin 20 mg tablet 20 mg PO QPM #90 tab 11/16/18 02/15/19 History calcium citrate 250 mg 1 tab PO QID tab 11/16/18 02/15/19 History calcium-vitamin D3 200 unit tablet ketorolac 0.5 % eye drops 1 drp OP DIRECTED PRN ml 11/16/18 02/15/19 History loratadine 10 mg tablet 10 mg PO DAILY tab 11/16/18 02/15/19 History spironolactone 25 1 tab PO BID #180 tab 11/16/18 02/15/19 History mg-hydrochlorothiazide 25 mg tablet fluticasone propionate 50 2 sprays INTNAS DAILY PRN 01/04/19 02/15/19 History mcg/actuation nasal spray,suspension melatonin 5 mg capsule 5 mg PO HS PRN cap 01/04/19 02/15/19 History acetaminophen [Tylenol Extra 1,000 mg PO Q6H 02/15/19 02/15/19 History Strength] calcium carbonate-vitamin D3 1 cap PO BID 02/15/19 02/15/19 History [Calcium 600 + D(3)] diphenhydramine-acetaminophen 2 tab PO HS PRN 02/15/19 02/15/19 History [Tylenol PM Extra Strength] ibuprofen-diphenhydramine cit 1 cap PO HS PRN 02/15/19 02/15/19 History [Advil PM] Past Med/Surg History Medical History (Updated 02/16/19 @ 03:58 by Michael Flores MD) GERD (gastroesophageal reflux disease) History of breast cancer (Chronic) Hyperglycemia (Chronic) Surgical History (Updated 01/06/19 @ 14:37 by CAROL Schmidt) History of hysterectomy with bilateral oophorectomy History of total left knee replacement Hx of cholecystectomy Hx of tonsillectomy S/P bilateral mastectomy (Resolved 07/06/13) Family History (Updated 01/06/19 @ 14:16 by CAROL Schmidt) Other Breast cancer Melanoma Social History (Updated 01/06/19 @ 14:22 by KEV Schmidt Preferred Language: Belarusian Communication Ability: Effective 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: No Beliefs That Will Affect Care: Nondenominational Nondenominational Beliefs: Adventist marital status: Current Living Situation: Spouse Other Information That Helps Us Care for You: No Feels Safe at Home: Yes Safety Concerns: Feels Safe At This Time Smoking Status: Never smoker Do You Dip or Chew Tobacco: No ; Second Hand Exposure: Yes ; Tobacco Cessation Education Requested by Patient: No Hx Alcohol Use: Yes Alcohol type: wine Hx Substance Use: No Dental Care, Regularly: Yes Review of Systems Review of Systems: The patient denies chest pain, palpitations, cough, lower extremity swelling, sore throat, fevers, chills, sweats, nausea, vomiting, diarrhea , constipation, pelvic pain, blood in urine or stool, dysuria, urinary frequency or urgency, lightheadedness, dizziness, headache, memory loss, loss of consciousness, rash, abnormal bruising or bleeding, imbalance, focal or generalized weakness, numbness or tingling in arms or legs, generalized arthralgias or myalgias, or night sweats. The review of systems is otherwise negative other than for that already noted above, and at least 10 systems have been reviewed. Physical Exam Physical Exam: The patient is awake, alert and oriented 3, well developed and well nourished, normocephalic and atraumatic, lying in bed and in no acute dist ress. HEENT--PERRL, EOMI, mucous membranes and oropharynx normal. Neck--supple. No JVD. No bruits. Thyroid normal, trachea midline, no adenopathy. Heart--normal S1 and S2. No murmurs, rubs or gallops. Lungs--clear bilaterally, no respiratory distress, no accessory muscle use. Abdomen--normal bowel sounds and soft. Nontender. Nondistended. Extremities--no cyanosis or clubbing. No edema. Dermatologic--normal skin turgor, normal color, no abnormal lymph nodes, no rash. Neurologic--cranial nerves II through XII grossly intact. Rheumatologic--normal range of motion. Psychiatric--normal affect. Results & Data Vital Signs (Past 12 Hours) Vital Signs Temp Pulse Pulse Resp BP BP Pulse Ox 02/15/19 21:58 97.7 F 84 20 162/89 H 99 12/26/19 21:00 80 20 120/81 97 02/15/19 19:27 84 20 152/88 H 97 02/15/19 16:33 73 16 02/15/19 16:30 78 18 162/99 H 02/15/19 16:28 100 02/15/19 15:17 98.4 F 78 20 168/78 H 100 Laboratory Results Laboratory Results WBC 7.25 K/uL (4.8-10.8) 02/15/19 16:23 RBC 4.84 M/uL (4.2-5.4) 02/15/19 16:23 Hgb 15.1 g/dL (12.0-16.0) 02/15/19 16:23 Hct 45.4 % (37-47) 02/15/19 16:23 MCV 93.8 fL (80-100) 02/15/19 16:23 MCH 31.2 pg (25-34) 02/15/19 16:23 MCHC 33.3 g/dL (32-36) 02/15/19 16:23 RDW Std Deviation 46.9 fL (36.4-46.3) H 02/15/19 16:23 RDW Coeff of Jermaine 13.7 % (11.5-14.5) 02/15/19 16:23 Plt Count 330 K/uL (130-400) 02/15/19 16:23 MPV 9.8 fL (7.4-10.4) 02/15/19 16:23 Immature Gran % (Auto) 0.1 % 02/15/19 16:23 Neut % (Auto) 62.8 % 02/15/19 16:23 Lymph % (Auto) 22.6 % 02/15/19 16:23 [place] % (Auto) 10.1 % 02/15/19 16:23 Eos % (Auto) 3.4 % 02/15/19 16:23 Baso % (Auto) 1.0 % 02/15/19 16:23 Immature Gran # (Auto) 0.01 K/uL (0.00-0.02) 02/15/19 16:23 Neut # (Auto) 4.55 K/uL (1.4-6.5) 02/15/19 16:23 Lymph # (Auto) 1.64 K/uL (1.2-3.4) 02/15/19 16:23 [place] # (Auto) 0.73 K/uL (0.11-0.59) H 02/15/19 16:23 Eos # (Auto) 0.25 K/uL (0-0.5) 02/15/19 16:23 Baso # (Auto) 0.07 K/uL (0-0.2) 02/15/19 16:23 Sodium 140 mmol/L (136-145) 02/15/19 16:23 Potassium 3.4 mmol/L (3.5-5.1) L 02/15/19 16:23 Chloride 103 mmol/L (98-107) 02/15/19 16:23 Carbon Dioxide 31 mmol/L (21-32) 02/15/19 16:23 Anion Gap 5.0 (3-11) 02/15/19 16:23 BUN 14 mg/dl (7-18) 02/15/19 16:23 Creatinine 0.78 mg/dl (0.6-1.2) 02/15/19 16:23 Est Cr Clr Drug Dosing 61.9 ml/min 02/15/19 16:23 Est GFR ( Amer) 88.6 02/15/19 16:23 Est GFR (Non-Af Amer) 76.5 02/15/19 16:23 BUN/Creatinine Ratio 17.7 (10-20) 02/15/19 16:23 Glucose 91 mg/dl (70-99) 02/15/19 16:23 Calcium 9.6 mg/dl (8.5-10.1) 02/15/19 16:23 Total Bilirubin 0.4 mg/dl (0.2-1) 02/15/19 16:23 AST 29 U/L (15-37) 02/15/19 16:23 ALT 27 U/L (12-78) 02/15/19 16:23 Alkaline Phosphatase 204 U/L (45-117) H 02/15/19 16:23 Total Protein 7.6 gm/dl (6.4-8.2) 02/15/19 16:23 Albumin 3.8 gm/dl (3.4-5.0) 02/15/19 16:23 Globulin 3.8 gm/dl (2.5-4.0) 02/15/19 16:23 Albumin/Globulin Ratio 1.0 (0.9-2) 02/15/19 16:23 Lipase 194 U/L (73-393) 02/15/19 16:23 Urine Color Yellow 02/15/19 16:24 Urine Appearance Clear (Clear) 02/15/19 16:24 Urine pH 7.5 (4.5-7.5) 02/15/19 16:24 Ur Specific [place] 1.009 (1.000-1.030) 02/15/19 16:24 Urine Protein Negative (Negative) 02/15/19 16:24 Urine Glucose (UA) Negative (Negative) 02/15/19 16:24 Urine Ketones Negative (Negative) 02/15/19 16:24 Urine Blood Negative (Negative) 02/15/19 16:24 Urine Nitrite Negative (Negative) 02/15/19 16:24 Urine Bilirubin Negative (Negative) 02/15/19 16:24 Urine Urobilinogen Negative (Negative) 02/15/19 16:24 Ur Leukocyte Esterase Negative (Negative) 02/15/19 16:24 Diagnostic Findings [place], [place] [phone] CT Scan Report Patient: TORRIE KERN Date: 02/15/19 MR#: [id number]: [address] Acct ID:[id number]: Date: 1945[facility] Zip: [place] [address] Age: 73Location: ED Sex: F Room/Bed: Att Phy:Diagnosis: STOMACH, SIDE, NECK PAIN Tori Phy: Rad Tobias MDService Date: 02/15/19 Fam Phy:Interpreting Phy: Jay Jay Roldan MD Admit Phy: Ordering Phy: Trevor Lechuga MD cc: ~ CT OF THE ABDOMEN AND PELVIS WITH CONTRAST CLINICAL HISTORY: Right upper quadrant abdominal pain. COMPARISON STUDY: Right upper quadrant ultrasound August 01, 2007. PET/CT April 03, 2014 TECHNIQUE: Following IV administration of 94 mL of Optiray-320, axial images of the abdomen and pelvis were obtained from the lung bases to the proximal femurs. Images were reviewed in the axial, sagittal, and coronal planes. IV contrast was administered without complication. Automated exposure control was utilized for the study. A dose lowering technique was utilized adhering to the principles of ALARA. CT DOSE: 283.65 mGy.cm FINDINGS: Numerous liver lesions are noted, including a 2.2 cm segment 8 lesion, a 1.2 cm segment 6 lesion and a 1.6 cm segment 8 lesion. Several these lesions were present on prior ultrasound and PET/CT. A lateral segment hepatic cyst is noted. The spleen, adrenal glands, kidneys and pancreas are normal. There is no evidence for a bowel obstruction. A moderate amount of stool within the colon is noted. The appendix is normal. No pneumatosis, free air or portal venous gas is present. No enlarged abdominal or pelvic lymph nodes are present. A previous left femoral internal fixation is partially imaged. The hardware has been removed. Innumerable lytic lesions are noted within visualized skeletal structures which are new since PET/CT of April 03, 2014. There is a mild fracture with minimal adjacent infiltration of the T12 vertebral body. There is a suspected additional pathologic fracture of the anterior aspect of the T10 vertebral body. No additional pathologic fractures are noted. A large femoral neck lesion is noted. IMPRESSION: 1. Interval development of innumerable lytic skeletal lesions since PET/CT of April 03, 2014. Given the history of breast cancer, metastatic disease is favored. Multiple myeloma could appear similar. Pathologic fracture of T12 with suspected additional pathologic fracture of T10. 2. Numerous hepatic lesions, many of which were present on prior PET/CT of April 03, 2014. While not definitive, these favor hemangiomas. 3. Moderate amount stool within the colon. No bowel obstruction. Normal appendix. ACT 112: Negative or not required by law. Electronically signed by: Jay Jay Roldan M.D. 02/15/2019 5:48 PM Dictated: 02/15/19 1725 Transcribed: 02/15/19 172 Code Status & VTE Plan Code Status Full code VTE Prophylaxis Plan VTE Prophylaxis will be ordered: Yes PG Care Time/CCT Total # of Minutes Spent Total Time Spent with Patient: Total time spent is greater than 50% in coordination of care (as documented) at patient's floor/unit and/or counseling patient: (1) Pathologic compression fracture of spine Encounter type: initial encounter Qualified Code(s): M48.50XA - Collapsed vertebra, not elsewhere classified, site unspecified, initial encounter for fracture
[2019-02-15] MEDS: ACETAMINOPHEN 500 MG TAB PO SCH (23:29)
[2019-02-15] MEDS: CALCIUM 600MG + VIT D 400 IU TAB PO SCH (23:29)
[2019-02-16] MEDS: ACETAMINOPHEN 500 MG TAB PO SCH ×2 (06:01→13:49)
[2019-02-16] MEDS ORDERED: bisacodyL 5 MG TABEC PO PRN (08:05)
[2019-02-16] MEDS ORDERED: POLYETHYLENE (MIRALAX) 17 GM PACK PO PRN (08:05)
[2019-02-16] MEDS ORDERED: LORATADINE 10 MG TAB PO SCH (09:00)
[2019-02-16] MEDS ORDERED: ANASTROZOLE 1 MG TAB PO SCH (09:00)
--- NOTE | 2019-02-16 09:11 | Radiation OncologyConsultation ---
Date of Consultation February 16, 2019 Assessment & Plan (1) History of breast cancer: Assessment: Ms. Golden is a 73-year-old female who presents with potential metastatic breast cancer to bone and potentially to liver as well. The patient was recently doing quite well with no evidence of recurrence however she presented several days ago with midepigastric pain and back pain as well too and was directed to the emergency room. Imaging studies revealed metastatic disease involving the thoracic spine with potential involvement of the liver as well. Dr. Griffin from medical oncology has seen the patient and recommended completion of the staging work-up and a biopsy of a bone metastasis for metastasis to confirm metastatic disease. I have been asked to evaluate the patient for consideration of radiation therapy. During my examination, the patient did not present with any significant tenderness to palpation in her cervical or thoracic spine. She does continue to complain of midepigastric pain radiating around her entire abdomen. Recommendations/Plan: 1. Completion of staging work-up including MRI of thoracic spine. CT of neck may also be warranted given patient's complaints of neck pain. Will defer to medical oncology at this point. 2. Biopsy of bone metastasis and/or liver metastasis. 3. Dr. Griffin has requested orthopedic surgery consultation for consideration of bone biopsy as well as kyphoplasty. 4. Radiation oncology will reevaluate patient on Tuesday after completion of studies and consultations from orthopedic surgery. There is no urgent need for radiation therapy at this point. 5. Continue all other medical management as per primary team. 6. Please call us with any further questions or concerns. History of Present Illness Attending Physician: Michael Flores MD History of Present Illness Status post ductal carcinoma in situ 1988, status post partial mastectomy with sentinel lymph node biopsy, status post radiation therapy completed June 1988 received 4930 cGy Abnormal mammogram 05/09/2012. Recheck in 6 months 11/13/2012 biopsy recommended Status post bilateral biopsies revealing invasive ductal carcinoma Status post bilateral mastectomies revealing invasive ductal carcinoma on the right [id number] Invasive ductal carcinoma on the left [id number](i+) M0 Status post systemic chemotherapy with 4 cycles of Taxol and Cytoxan 03/15/2014. Status post completion of radiation therapy to left chest wall and regional lymph nodes. Patient received 6120 cGy. 04/03/2014. PET/CT. IMPRESSION:1. No convincing PET CT evidence of metastatic disease.2. Stable 1 cm sclerotic lesion within the T9 vertebral body. This isunchanged since prior PET CT. This remains nonspecific and should beassessed on subsequent imaging studies to ensure stability. 10/18/2018. Medical oncology follow-up with Georgie Cobb. Recommendation was to continue on anastrozole. No evidence of recurrence. 02/15/2019. Patient presents to emergency room due to abdominal pain and discomfort. Patient admitted to hospital for further work-up and evaluation. 02/15/2019. CT of abdomen/pelvis. IMPRESSION: 1. Interval development of innumerable lytic skeletal lesions since PET/CT of April 03, 2014. Given the history of breast cancer, metastatic disease is favored. Multiple myeloma could appear similar. Pathologic fracture of T12 with suspected additional pathologic fracture of T10. 2. Numerous hepatic lesions, many of which were present on prior PET/CT of April 03, 2014. While not definitive, these favor hemangiomas. 3. Moderate amount stool within the colon. No bowel obstruction. Normal appendix. Patient does complain of some neck pain and does complain of mid epigastric pain that wraps around her entire abdomen. Allergies Allergy/AdvReac Type Severity Reaction Status Date / Time chlorhexidine Allergy Severe ITCHING Verified 02/15/19 15:57 cephalexin Allergy Unknown SICK Verified 02/15/19 15:57 edetic acid Allergy Unknown nausea Verified 02/15/19 15:57 propylene glycol Allergy Unknown nausea Verified 02/15/19 15:57 regadenoson Allergy Unknown nausea Verified 02/15/19 15:57 codeine AdvReac Intermediate N/V Verified 02/15/19 15:57 Home Medications Home Medications Medication Instructions Recorded Confirmed Type anastrozole 1 mg tablet 1 mg PO DAILY 11/16/18 02/15/19 History atorvastatin 20 mg tablet 20 mg PO QPM #90 tab 11/16/18 02/15/19 History calcium citrate 250 mg 1 tab PO QID tab 11/16/18 02/15/19 History calcium-vitamin D3 200 unit tablet ketorolac 0.5 % eye drops 1 drp OP DIRECTED PRN ml 11/16/18 02/15/19 History loratadine 10 mg tablet 10 mg PO DAILY tab 11/16/18 02/15/19 History spironolactone 25 1 tab PO BID #180 tab 11/16/18 02/15/19 History mg-hydrochlorothiazide 25 mg tablet fluticasone propionate 50 2 sprays INTNAS DAILY PRN 01/04/19 02/15/19 History mcg/actuation nasal spray,suspension melatonin 5 mg capsule 5 mg PO HS PRN cap 01/04/19 02/15/19 History acetaminophen [Tylenol Extra 1,000 mg PO Q6H 02/15/19 02/15/19 History Strength] calcium carbonate-vitamin D3 1 cap PO BID 02/15/19 02/15/19 History [Calcium 600 + D(3)] diphenhydramine-acetaminophen 2 tab PO HS PRN 02/15/19 02/15/19 History [Tylenol PM Extra Strength] ibuprofen-diphenhydramine cit 1 cap PO HS PRN 02/15/19 02/15/19 History [Advil PM] Patient History Medical History (Updated 02/16/19 @ 03:58 by Michael Flores MD) GERD (gastroesophageal reflux disease) History of breast cancer (Chronic) Hyperglycemia (Chronic) Surgical History (Updated 01/06/19 @ 14:37 by CAROL Schmidt) History of hysterectomy with bilateral oophorectomy History of total left knee replacement Hx of cholecystectomy Hx of tonsillectomy S/P bilateral mastectomy (Resolved 07/06/13) Family History (Updated 01/06/19 @ 14:16 by CAROL Schmidt) Other Breast cancer Melanoma Social History (Updated 01/06/19 @ 14:22 by CAROL Schmidt) Preferred Language: Romansh Communication Ability: Effective 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 Beliefs That Will Affect Care: Restorationism Restorationism Beliefs: Oriental Orthodox marital status: Current Living Situation: Spouse Other Information That Helps Us Care for You: No Feels Safe at Home: Yes Safety Concerns: Feels Safe At This Time Smoking Status: Never smoker Do You Dip or Chew Tobacco: No ; Second Hand Exposure: Yes ; Tobacco Cessation Education Requested by Patient: No Hx Alcohol Use: Yes Alcohol type: wine Hx Substance Use: No Dental Care, Regularly: Yes Review of Systems Review of Systems: All systems reviewed & are unremarkable except as noted in HPI & below Physical Exam Constitutional: WD/WN, vitals as above well developed and well nourished Eyes: PERRL, conjunctivae normal, anicteric sclerae ENMT: external ear and nose normal, oropharynx normal Neck: trachea midline, no thyromegaly Respiratory: normal respiratory effort, lungs clear to auscultation Cardiovascular: RRR, no murmur, no edema Gastrointestinal (Abdomen): normal bowel sounds, soft, nontender, no hepatosplenomegaly Musculoskeletal: no cyanosis or clubbing, extremities motor strength 5/5 Skin: no rashes, warm and dry Neurologic: patellar DTR's 2+ bilat, sensation intact and PERRL, EOMI, accommodation nl, no face palsy, no dysarthria Psychiatric: A+Ox3, euthymic affect Results Additional Studies 02/15/19 16:03 ECG 12 lead EKG Stat 02/15/19 16:35 CT abd pelvis IV con only Stat 02/16/19 07:47 MR thoracic spine wo/w con Routine Time Spent Attending This documentation has been prepared in part by, Guera Bee PA-C, acting as a scribe under my direction. I, Clement Vásquez MD, personally performed the services described and have reviewed the documentation to ensure its accuracy. I spent 35 minutes for this consultation, which included obtaining clinical information, performing a physical exam, recommending a plan of action and answering questions. I did also spent 15 minutes discussing the case with Dr. Griffin. Greater than 50% of the time spent was direct face to face interaction with the patient.
--- NOTE | 2019-02-16 09:18 | Consultation Report ---
DATE OF CONSULTATION: 02/16/2019 REASON FOR CONSULTATION: Musculoskeletal pain with new diagnosis of bony metastatic disease. HISTORY OF PRESENT ILLNESS: Brittney is a very pleasant 73-year-old postmenopausal female well known to [facility], currently under my care for remotely diagnosed breast cancer and history of DCIS. Brittney presented yesterday because of worsening skeletal pain. She estimates battling for several weeks leading up to admission. She describes her pain as dull ache which is not improved and tends to be migratory. 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 The patient had been compliant with anastrozole. Her disease was stage I at diagnosis. She was given adjuvant chemotherapy consisting of Taxol and Cytoxan x4 cycles followed by radiation therapy. On presentation, the patient underwent a CT scan of the abdomen and pelvis which revealed interval development of numeral lytic skeletal lesions as compared to a PET scan done in 2014. There is also a pathologic fracture of T12 and also a T11. Numerous hepatic lesions, many of these which were present on previous PET from 2014, well not definite favor hemangiomas. I was subsequently contacted by the Emergency Room doctor and thought because it is a holiday time, be best served to admit her for pain management and to start working her up for suspected metastatic breast cancer. She is otherwise clinically doing well, maintaining a vigorous appetite and denies weight loss. PAST MEDICAL HISTORY: Again, positive for invasive breast cancer, hypercholesterolemia, hypertension and gastroesophageal reflux disease. 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 PAST SURGICAL HISTORY: Includes hysterectomy, bilateral oophorectomy, total bilateral knee replacements, cholecystectomy, tonsillectomy and bilateral mastectomies. MEDICATIONS: Prior to admission include anastrozole 1 mg p.o. daily, atorvastatin 20 mg p.o. daily, calcium citrate 1 tablet p.o. q.i.d., loratadine 10 mg p.o. daily, spironolactone/hydrochlorothiazide 1 tablet p.o. b.i.d., Flonase 2 sprays intranasally p.r.n., melatonin 5 mg p.o. at bedtime p.r.n., Extra strength Tylenol 1000 mg p.o. q. 6 hours p.r.n. ALLERGIES: CHLORHEXIDINE, CEPHALEXIN, PROPYLENE GLYCOL, REGADENOSON AND CODEINE. FAMILY HISTORY: Positive for both breast cancer and melanoma. SOCIAL HISTORY: The patient is and lives with her spouse. She is retired. She is nonsmoker. Positive for social alcohol, negative for substance abuse. REVIEW OF SYSTEMS: GENERAL: Negative for fevers, chills or sweats. Her appetite and weight are stable. SKIN: No rashes or lesions. No history of dermatoses. HEENT: Negative for headaches, lightheadedness or dizziness. No acute visual or hearing deficits. No sinus symptoms, sore throat or dysphagia. LYMPH: No history of lymphoproliferative disease. CARDIAC: Negative for coronary artery disease, no angina or palpitations. PULMONARY: Negative for COPD. She is not short of breath, dyspneic or orthopneic. No cough or hemoptysis. GASTROINTESTINAL: Negative for abdominal pain, nausea, vomiting, diarrhea or constipation, hematochezia or melena stools. GENITOURINARY: No hematuria, dysuria, urinary incontinence. PSYCHIATRIC: Negative for anxiety, depression or psychoses. ENDOCRINE: Positive for hypothyroidism. MUSCULOSKELETAL: Diffuse musculoskeletal pain with a documented radiographic compression fractures at T10 and T12. NEUROLOGIC: Negative for seizure, stroke, or migraine headache. HEMATOLOGIC: Negative for anemia, thrombophilia or bleeding diathesis. PHYSICAL EXAMINATION: GENERAL: A very pleasant 73-year-old female, awake, alert and appropriate, in no acute distress. VITAL SIGNS: Temperature 36.6, pulse 66, respiratory rate 18, blood pressure 138/85. SKIN: Warm, dry, noncyanotic without petechia, rash or ecchymosis. HEENT: Head is atraumatic, normocephalic. Eyes: PERRLA, EOMI. Sclerae nonicteric. No conjunctival injection. Nares are patent without rhinorrhea or discharge. Throat is clear. Tongue is midline. Mucous membranes are moist. NECK: Supple without JVD or thyromegaly. LYMPHATICS: No cervical, supraclavicular, axillary or inguinal palpable nodes. HEART: Regular rate and rhythm. No clicks, rubs or murmurs or gallops. LUNGS: Clear to auscultation bilaterally. ABDOMEN: Soft, nontender, nondistended, without palpable hepatosplenomegaly. EXTREMITIES: No calf tenderness or swelling. No clubbing, cyanosis or edema. NEUROLOGICALLY: She is awake, alert and oriented x3. Cranial nerves II-XII are intact. No gross motor or sensory deficits are noted. LABORATORY DATA: WBC count 7250, hemoglobin 15.1, platelet count 330,000. Sodium 140, potassium 3.4, chloride 103, carbon dioxide 31, creatinine 0.78, BUN 14. IMPRESSION: 1. Intractable musculoskeletal pain. 2. Suspected osseous metastatic disease. 3. History of breast cancer. 4. History of ductal carcinoma in situ. PLAN: I had the pleasure of visiting Brittney at bedside this morning. I last saw Brittney in the outpatient clinic in late September at which time she was doing well and compliant with anastrozole. I am somewhat surprised that she now presents to [facility] with what appears to be diffuse skeletal disease. The patient had been experiencing skeletal pain over the past several weeks and finally got to the point that she sought medical attention. CT scan of the abdomen and pelvis reveals scattered osseous disease including pathologic fractures of T10 and T12. The lesions in question are characterized as lytic which is not necessarily consistent with metastatic breast cancer. Bony lesions are generally sclerotic. Lytic disease is associated with multiple myeloma; however, with the patient's hemoglobin at 15.1, the likelihood of an underlying plasma cell dyscrasia is remote. Nonetheless, we will pursue a biopsy, perhaps one of these vertebral bodies involved. I have asked Dr. Sherman to see her to biopsy and kyphoplasty if indicated. Additionally, I have asked radiation oncology to evaluate her films and perhaps provide palliative relief for her pain, specifically at either a T10 or T12. From an oncologic standpoint, if breast cancer is confirmed, we will need to consider a salvage therapy moving forward with the addition of bisphosphonate therapy. I have nothing further to add at this time. We will continue to follow Brittney periodically during her hospital stay. We will also ensure she has appropriate outpatient followup. Thank you very much for allowing me to participate in her care. MIGUEL
[2019-02-16] MEDS ORDERED: GADOBUTROL 65ML VIAL IV PRN (09:52)
--- NOTE | 2019-02-16 10:13 | Magnetic Resonance Report ---
MR thoracic spine wo/w con CLINICAL HISTORY: Long-standing back pain. History of breast carcinoma. COMPARISON STUDY: CT scan abdomen pelvis dated 02/15/2019 FINDINGS: Imaging was performed in the axial and sagittal planes, before and after the administration of 6.5 cc of intravenous Gadavist. There are foci of pathologic marrow replacement involving nearly all of the thoracic vertebral bodies . These lesions demonstrate post gadolinium enhancement and are consistent with widespread metastatic disease. No spinal cord lesions are visualized. There is no evidence of pathologic cord enhancement. There is no evidence for significant epidural spread of neoplasm. No disc herniations are visualized. There is an L1-2 disc bulge with minor spinal canal narrowing. Th ere is a minor T8-9 disc bulge. There is a minor T6-7 disc bulge. There is no significant spinal sten osis within the thoracic spine. Posterior element neoplastic involvement is also visualized at several levels. IMPRESSION: 1. Extensive multifocal areas of pathologic marrow replacement consistent with widespread skeletal me tastasis 2. No evidence of significant epidural tumor spread 3. No cord lesions identified. ACT 112: Negative or not required by law. Electronically signed by: Renato Gates M.D. 02/16/2019 10:12 AM
[2019-02-16] MEDS: CALCIUM CITRATE 950 MG TAB PO SCH ×2 (10:38→13:48)
[2019-02-16] MEDS: CALCIUM 600MG + VIT D 400 IU TAB PO SCH (10:38)
--- NOTE | 2019-02-16 12:29 | Orthopedic Progress Note ---
Date of Service February 16, 2019 Assessment & Plan (1) Thoracic back pain: Images: No evidence of acute compression fracture of the thoracic spine. Unfortunate there is some evidence of some fairly widespread metastatic disease Plan: I would hold off on the kyphoplasty procedure. It is not indicated and there is a risk quotient with the procedure itself. If tissue biopsy is required in the future could be some help with that aspect to her care if radiology could not do a needle aspirate I spoke at length with the patient here today. Like her to get back into the office to be seen and evaluated in 6 days. The office number is [phone] Subjective Chief complaint: Midthoracic back pain Streak: Is delightful and meeting her for the first time 16 February. He has midthoracic back pain for 3 to 4 weeks in duration. Also history of breast carcinoma. I was consulted and that there are some lytic lesions the thoracic area could be degenerative or could be a metastatic focus. I was asked to see her in regard to the possibility of a kyphoplasty procedure to the thoracic spine which certainly is possible Review of Systems Review of Systems: She denies any fever sweats chills. Weight loss gain negative. HEENT examination normal No chest pain or shortness of breath No bowel bladder dysfunction Is musculoskeletal back pain as described No neurological deficits Physical Exam Physical Exam: Vital signs stable and she is afebrile 36 6 temperature HEENT examination essentially normal Heart lungs not auscultated Is musculoskeletal back pain slight pain with percussion Neuro sensory intact including perfect reflexes without deficit Skin intact and no lymphadenopathy Results & Data Vital Signs (Past 12 Hours) Vital Signs Temp Pulse Resp BP Pulse Ox 02/16/19 08:03 36.6 C 66 18 138/85 97 PG Care Time/CCT Total # of Minutes Spent Total Time Spent with Patient: Total time spent is greater than 50% in coordination of care (as documented) at patient's floor/unit and/or counseling patient:
[2019-02-16 15:58] VITALS: BP 152/84; PULSE 73; TEMP 98.4; O2SAT 95
--- NOTE | 2019-02-16 18:47 | Discharge Summary ---
Date of Service February 16, 2019 Admission HPI Per Admitting Provider The patient is a 73-year-old female with a past medical history including breast cancer, hyperlipidemia, allergic rhinitis, hypertension, and insomnia, who presents with the above symptoms. She reports that her pain is worse at nighttime and worse with exertion. She has not had any recent travels or sick exposures. She does take either Tylenol PM or Advil PM at nighttime to help with sleep Principal Diagnosis Pathological Fx of T12 and possible T10; Constipation; Discharge Exam Constitutional WD/WN, vitals as above Eyes + anicteric sclerae ENMT Ears: + hearing impairment Neck trachea midline Respiratory normal respiratory effort, lungs clear to auscultation Cardiovascular RRR, no murmur, no edema Gastrointestinal (Abdomen) Inspection/Auscultation: normal bowel sounds Percussion/Palpation: abdomen soft; abdomen nontender Musculoskeletal Head/Neck/Chest: normocephalic and head atraumatic Skin no rashes, warm and dry Neurologic moves all extremities Psychiatric A+Ox3, euthymic affect Discharge Data Allergies Allergy/AdvReac Type Severity Reaction Status Date / Time chlorhexidine Allergy Severe ITCHING Verified 02/15/19 15:57 cephalexin Allergy Unknown SICK Verified 02/15/19 15:57 edetic acid Allergy Unknown nausea Verified 02/15/19 15:57 propylene glycol Allergy Unknown nausea Verified 02/15/19 15:57 regadenoson Allergy Unknown nausea Verified 02/15/19 15:57 codeine AdvReac Intermediate N/V Verified 02/15/19 15:57 Consultations 02/15/19 19:53 ED Decision to Admit Stat 02/15/19 21:57 Consult Hematology Routine 02/16/19 07:38 Consult Radiation Oncology Routine 02/16/19 07:43 Consult Orthopedic Surgery Routine Ordered Studies 02/15/19 16:35 CT abd pelvis IV con only Stat 02/16/19 07:47 MR thoracic spine wo/w con Routine Hospital Course (1) History of breast cancer: - Last radiation in 2014 and last PET/CT of reference was in 2014; Current treatment with anastrozole - Discussed with Dr. Griffin who is familiar with her case and will continue to follow and arrange further workup - ultimately will need a bx whether bone maybe even liver is possible to determine if this could be her breast primary -- Per his note - lytic lesions not commonly consistent with metastatic breast CA and tend to be more sclerotic; low suspicion for plasma cell dyscrasia given labs but lytic lesions common with multiple myeloma - CA 15-3/CA 27-29 ordered and reference labs - Will discuss with Dr. Griffin as patient was feeling better and would like to return home about arranging outpatient bx as currently no plan for surgical intervention on her back (2) Upper abdominal pain: - Does not seem to correlate with her discovered thoracic fractures - Reviewed CT with patient and the moderate stool on imaging - Reports having regular bowel movements and remains very active - Did discuss options such as Miralax or Dulcolax over the next couple days to try and promote further BMs and see if this resolves her pain - She has been utilizing Tylenol with relief. Did provide Rx for Tramadol PRN for more severe pain but did warn about constipation (3) Lytic bone lesions on xray: - MRI with extensive multifocal areas of pathologic marrow replacement consistent with widespread skeletal metastasis; no evidence of significant epidural tumor spread; no cord lesions (4) Liver lesion: CT - numerous hepatic lesions many which were present on prior PET/CT (2014) - possibility of hemangiomas (5) Pathologic compression fracture of spine: - There are new T12 and possibly T10 pathologic compression fractures - Dr Sherman consulted - discussed with him - no current indication for surgery at this time - would like to F/U in 6 days and will assist with arrangements for patient -- States may be able to assist with biopsy if radiology cannot perform needle aspiration (6) Hypercholesteremia: - Continue atorvastatin 20 mg daily (7) Hypertension: - Continue spironolactone/HCTZ Total Time Total Time Spent Total Time Spent (In Minutes): Greater than 30 minutes Discharge Plan Discharge Items Patient Disposition: Home - Self-Care Reason For Visit: METASTATIC BREAST CA Discharge Diagnosis: Constipation; Fracture of T12/T10 Vertebrae Activity: Resume your previous activity Non-emergency contact: Primary Care Provider Call non-emergency contact if: you have any medication questions, your symptoms worsen and you have a fever Follow-up/Referrals: Rad Tobias MD [Primary Care Provider] - Diet: Regular Addtl Attending Provider Instructions: Constipation: - It appears you have a moderate amount of stool in your colon as shown on your images. Recommend to try and stay active (walking) and to have a healthy diet with good fiber. - For the next couple days you might want to use Miralax which is over the counter. You can do this once or twice a day every day until you have more bowel movements. If you pain completely resolves after these bowel movements then it is likely the main reason for your pain. Your CAT scan did not reveal any other issues in the abdomen. - Another option would be to use Dulcolax as another laxative option Fracture of T12 and Possible T10: - This is the lower part of your mid back vertebrae. This is not surgical but Dr. Sherman (orthopedic back surgeon) would like to see you in a close follow-up. - You could try a back brace to see if this help with any pain - YOu can continue to use Tylenol to help with your pain. If this does the trick then I would stick with this. - Will give a prescription for Tramadol as needed for more severe pain. Be mindful that this can increase constipation Spine Lesions: - Your images are concerning for lytic skeletal lesions. Given a history of breast cancer we need to be more mindful of a cancerous process in the back. Your oncologist (cancer doctor) sent out some tests to look at this. Ultimately will need a full workup to better understand what this is in the back. This may include some biopsies to take a look at the cells. Pending Studies at Discharge: No Stand-Alone Forms: Call Back Authorization, [facility], Smoking Cessation Medications and DC Order Prescriptions: New tramadol 50 mg tablet 50 mg PO Q6H PRN (Reason: pain) 3 Days Qty: 12 RF: 0 Continued fluticasone propionate 50 mcg/actuation spray,suspension 2 sprays INTNAS DAILY PRN (Reason: allergy symptoms) RF: 0 atorvastatin 20 mg tablet 20 mg PO QPM Qty: 90 RF: 0 spironolacton-hydrochlorothiaz 25-25 mg tablet 1 tab PO BID Qty: 180 RF: 0 ketorolac 0.5 % drops 1 drp OP DIRECTED PRN (Reason: Pain) RF: 0 anastrozole 1 mg tablet 1 mg PO DAILY RF: 0 calcium citrate-vitamin D3 [Citracal Regular] 250 mg calcium- 200 unit tablet 1 tab PO QID RF: 0 loratadine 10 mg tablet 10 mg PO DAILY RF: 0 melatonin 5 mg capsule 5 mg PO HS PRN (Reason: sleep) RF: 0 acetaminophen [Tylenol Extra Strength] 500 mg Tablet 1,000 mg PO Q6H RF: 0 diphenhydramine-acetaminophen [Tylenol PM Extra Strength] 25-500 mg Tablet 2 tab PO HS PRN (Reason: Sleep) RF: 0 Calcium 600 + D(3) 600 mg calcium- 200 unit Capsule 1 cap PO BID RF: 0 ibuprofen-diphenhydramine cit [Advil PM] 200-38 mg Tablet 1 cap PO HS PRN (Reason: Sleep) RF: 0 Discharge Orders: Discharge Order (Routine); Ordered 02/16/19 Ordered By: Ximena Allen Admission Data Admit Date/Time: 02/15/19 20:36 Attending Provider: Michael Flores Admit Provider: Michael Flores Primary Care Provider: Rad Tobias Other Providers: Michael Flores ; Emile Griffin V ; Clement Vásquez ; Trevor Sherman Other Interventions: Discharge Summary Assessment (RN) Last Done: 02/16/19 16:41 DC Date/Time DO NOT enter until pt leaves facility: 02/16/19 16:57 Supervising Physician Co-Signing Physician Notes Pt chart reviewed and d/w PA Ortho with no plans for OR intervention for compression fx Pt initially planning for overnight, however appears to have decided for d/c late in the day Bowel regimen for abd pain Uncertain etiology of anabela met, Dr. Griffin feels this can be worked up as an outpt
[2019-02-18 22:55] LABS: CA 27.29 36 U/mL (<38); CA15-3 Breast Antigen 19 U/mL (<32)
== END 2019-02-16 16:57 | disposition home or self-care (01) ==
LOC: 4W 14:40 → ED 14:40 → 4W 21:23

== ENCOUNTER 2020-08-07 10:11 | Inpatient (IN) ==
[2020-08-07] MEDS ORDERED: PIPERACILLIN/TAZOBACTAM 4.5 GM/120 ML BAG IV ONE (11:05)
[2020-08-07] MEDS ORDERED: VANCOMYCIN HCL 1,500 MG in SODIUM CHLORIDE 0.9% 500 ML IV ONE (11:05)
[2020-08-07] MEDS ORDERED: PIPERACILL/TAZOBAC CONSULT ACTIVE PRN ×2 (11:05→17:00)
[2020-08-07] MEDS ORDERED: VANCOMYCIN CONSULT ACTIVE PRN ×2 (11:05→17:00)
[2020-08-07] MEDS ORDERED: ONDANSETRON INJ 2 MG/ML 2 ML VIAL IV STA ×2 (11:05→11:50)
[2020-08-07] MEDS ORDERED: SODIUM CHLORIDE 0.9% 1000ML 2,000 ML IV ONE (11:05)
--- NOTE | 2020-08-07 11:10 | Emergency Department Note ---
Impression & Plan Sepsis, Acute hypokalemia, Acute knee pain, Acute hip pain ED Provider Note NAME: TORRIE KERN AGE: 75 SEX: F : 1945 ARRIVES VIA: Walk-In INFORMANT: Patient ED PROVIDER(S): Jerzy Sanchez DO CHIEF COMPLAINT: Right leg pain and fever HPI: Patient is a 75-year-old female with a past medical history of metastatic breast cancer undergoing chemo and has not started radiation yet. She presents the ER as she has not been feeling well having significant worsening right leg pain. She is having right leg pain for quite some time now but had an MRI yesterday as the pain got worse. Pain is focal in the right femur and tracks down to the right knee. She does have some swelling. She denies any tingling or numbness. Pain is worsened with movement. She denies any chest pain or shortness of breath. No cough or runny nose. No loss of taste or smell. No belly pain. No dysuria, urgency, or frequency. She does note a new rash over her anterior chest and neck and has some new redness over the right hip. ROS: See above HPI for pertinent positives & negatives. A total of 10 systems reviewed and were otherwise negative. PAST MEDICAL HISTORY:See Below PAST SURGICAL HISTORY:See Below FAMILY HISTORY:See Below SOCIAL HISTORY:See Below HOME MEDICATIONS:See Below ALLERGIES:See Below VITALS:See Below PHYSICAL EXAMINATION: GENERAL: Sitting up in bed, alert, chronically ill-appearing, disheveled EYE EXAM: normal conjunctiva. PERRL and EOM's grossly intact. OROPHARYNX: no exudate, no erythema, lips, buccal mucosa, and tongue normal and mucous membranes are dry NECK: supple, no nuchal rigidity, no adenopathy, non-tender LUNGS: Clear to auscultation. Normal chest wall mechanics HEART: no murmurs, S1 normal and S2 normal ABDOMEN: abdomen soft, non-tender, normo-active bowel sounds, no masses, no rebound or guarding. SKIN: Erythema over the anterior neck tracking up over to the right cheek of the face. Patient also has a subtle blanching erythema over the right anterior thigh UPPER EXTREMITIES: upper extremities are grossly normal. LOWER EXTREMITIES: Calves are equal bilateral. DPs are 2 out of 4. Gross sensation intact. Significant pain over right hip/thigh and right knee with knee held in partial flexion at 30 degrees. NEURO EXAM: Normal sensorium, cranial nerves II-XII grossly intact, normal speech, no gross weakness of arms, no gross weakness of legs. MEDICAL DECISION MAKING: Patient is a 75-year-old female who presents ER febrile tachycardic with right leg pain. IV was established blood was obtained.Labs show leukocytosis of 15,000. No significant anemia. BMP with mild hyponatremia 131 and mild hypokalemia 3.1. LFTs bilirubin was slightly elevated at 1.6. CRP and sed were up. Pro-Luis was up at 0.9. UA had trace leuks but was slightly contaminated. Patient was covered with Zosyn and vancomycin. Discussed with hospitalist admitted for further work-up. Patient was given IV morphine and pain medications will while in the ER. Triage Nursing notes reviewed. Limited review of prior medical records performed Vital Signs: reviewed and remarkable for febrile tachycardic Differential diagnosis: Differential diagnosis includes etiologies such as sepsis, UTI, pneumonia, metabolic, electrolyte abnormalities, cardiac sources, intracerebral event, toxicologic, neurological, as well as others were entertained. ER treatment provided: See below Diagnostics interpreted by me: ECG: Sinus rhythm rate of 87 Left axis No PVCs QTC 447 Cardiac Monitoring: An order was placed for continuous cardiac monitoring. The monitor shows a rate of 92 with Sinus rhythm. Laboratory studies: As stated above and show below. Imaging studies: Portable AP upright 1 view chest shows no focal infiltrate or pneumothorax Consultation(s): Discussed with Dr. 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; Ductal carcinoma dx'ed per bx again in 2012- s/p bilateral mastectomy with chemo; XRT in 2014 Hyperlipidemia Hypertension Liver lesion JUST WATCHING Lytic bone lesions on xray Pathologic compression fracture of spine 01/2019 abdominal/pelvis CT report Surgical History History of breast biopsy History of colonoscopy History of dilatation and curettage History of esophagogastroduodenoscopy (EGD) History of hysterectomy with bilateral oophorectomy History of loop electrosurgical excision procedure (LEEP) History of myringotomy History of tooth extraction History of total left knee replacement History of tubal ligation Hx of cholecystectomy Hx of fracture of femur WITH REPAIR TO LEFT Hx of tonsillectomy Port-A-Cath in place (04/09/19) Insertion of Mediport Left Cephalic vein Dr. Gabriel 04/09/19 S/P bilateral mastectomy (07/06/13) Family History Other Breast cancer Melanoma Denies family history of Ovarian cancer Colorectal cancer Social History Smoking Status: Never smoker Second Hand Exposure: No; Hx Alcohol Use: Yes Alcohol type: wine Hx Substance Use: No Preferred Language: Syriac Communication Ability: Effective Visual Impairment: No Limitations Rubber Washer Required: No Beliefs That Will Affect Care: None marital status: Current Living Situation: Spouse Feels Safe at Home: Yes Dental Care, Regularly: Yes Assistive Devices: Hearing Aid - Bilateral Allergies Allergies Allergy/AdvReac Type Severity Reaction Status Date / Time chlorhexidine Allergy Intermediate ITCHING Verified 08/07/20 13:52 cephalexin Allergy Mild SICK Verified 08/07/20 13:52 edetic acid Allergy Mild nausea Verified 08/07/20 13:52 propylene glycol Allergy Mild nausea Verified 08/07/20 13:52 regadenoson Allergy Mild nausea Verified 08/07/20 13:52 codeine AdvReac Intermediate N/V Verified 08/07/20 13:52 Home Meds Home Medications Medication Instructions Recorded Confirmed fluticasone propionate 50 2 sprays INTNAS DAILY PRN 01/04/19 08/07/20 mcg/actuation nasal spray,suspension Calcium 600 + D(3) 1 cap PO BID 02/15/19 08/07/20 diphenhydramine-acetaminophen 2 tab PO HS PRN 02/15/19 08/07/20 [Tylenol PM Extra Strength] Systane (PF) 1 drp OPHTHALMIC (EYE) BID 04/06/19 08/07/20 prochlorperazine maleate 10 mg 10 mg PO Q6H PRN 10/25/19 08/07/20 tablet vit C 250 mg-vit E 90 mg-zinc 40 1 tab PO BID 10/25/19 08/07/20 mg-copper 1 [id number] capsule fentanyl 25 mcg/hr transdermal 1 patch TRANSDERMAL Q72H 03/17/20 08/07/20 patch tramadol 50 mg tablet 50 mg PO DAILY PRN 05/26/20 08/07/20 atorvastatin 20 mg PO DAILY 08/07/20 08/07/20 cetirizine 10 mg PO DAILY 08/07/20 08/07/20 clobetasol 1 applic TOPICAL BID PRN 08/07/20 08/07/20 denosumab [Xgeva] 120 mg SUBCUT UD 08/07/20 08/07/20 fentanyl 1 patch TRANSDERMAL Q72H 08/07/20 08/07/20 gabapentin 300 mg PO TID 08/07/20 08/07/20 methylcellulose (laxative) 500 mg PO QID 08/07/20 08/07/20 [Citrucel] ondansetron HCl 8 mg PO DAILY PRN 08/07/20 08/07/20 oxycodone 10 mg PO Q6 PRN 08/07/20 08/07/20 pantoprazole 40 mg PO DAILY 08/07/20 08/07/20 potassium chloride 20 meq PO BID 08/07/20 08/07/20 sennosides-docusate sodium 1 tab-cap PO HS PRN 08/07/20 08/07/20 [Senokot-S] triamcinolone acetonide 1 applic TOPICAL DAILY PRN 08/07/20 08/07/20 vitamin B comp and C no.3 [B 1 cap PO DAILY 08/07/20 08/07/20 Complex Plus Vitamin C] Previous Rx's Medication Instructions Recorded spironolactone 25 1 tab PO BID #180 tab 12/12/19 mg-hydrochlorothiazide 25 mg tablet Results & Data (ED) Vital Signs Vital Signs - 24 hr 08/07/20 10:14 08/07/20 12:15 08/07/20 12:16 Temperature 38.1 C H Temperature Source Oral Pulse Rate 104 H 94 H Pulse Rate from SpO2 Sensor Pulse Rhythm Regular Regular Pulse Strength Normal Respiratory Rate 18 19 17 Respiratory Effort / Characteristics Non-Labored Spontaneous Non-Labored Respiratory Depth Normal Respiratory Pattern Regular Blood Pressure 133/73 Blood Pressure Mean 93 Blood Pressure Position Sitting Pulse Oximetry 96 92 94 Oxygen Delivery Method Room Air Room Air Room Air Sepsis Recent Fever Within 48 Hours No Sepsis New/Unexplained Change in Mental Status No Sepsis Action Taken by Nursing No Action Required 08/07/20 12:26 08/07/20 12:30 08/07/20 13:10 Temperature Temperature Source Pulse Rate 97 H 94 H 99 H Pulse Rate from SpO2 Sensor 97 H 96 H 98 H Pulse Rhythm Pulse Strength Respiratory Rate 22 16 20 Respiratory Effort / Characteristics Respiratory Depth Respiratory Pattern Blood Pressure 129/74 126/66 156/68 H Blood Pressure Mean 92 86 97 Blood Pressure Position Pulse Oximetry 98 95 99 Oxygen Delivery Method Sepsis Recent Fever Within 48 Hours Sepsis New/Unexplained Change in Mental Status Sepsis Action Taken by Nursing 08/07/20 13:30 08/07/20 14:01 08/07/20 14:30 Temperature Temperature Source Pulse Rate 94 H 91 H 90 Pulse Rate from SpO2 Sensor 94 H 90 89 Pulse Rhythm Pulse Strength Respiratory Rate 16 16 20 Respiratory Effort / Characteristics Respiratory Depth Respiratory Pattern Blood Pressure 137/71 128/64 130/75 Blood Pressure Mean 93 85 93 Blood Pressure Position Pulse Oximetry 97 95 98 Oxygen Delivery Method Sepsis Recent Fever Within 48 Hours Sepsis New/Unexplained Change in Mental Status Sepsis Action Taken by Nursing 08/07/20 15:01 Temperature Temperature Source Pulse Rate 87 Pulse Rate from SpO2 Sensor 88 Pulse Rhythm Pulse Strength Respiratory Rate 16 Respiratory Effort / Characteristics Respiratory Depth Respiratory Pattern Blood Pressure 144/65 H Blood Pressure Mean 91 Blood Pressure Position Pulse Oximetry 98 Oxygen Delivery Method Sepsis Recent Fever Within 48 Hours Sepsis New/Unexplained Change in Mental Status Sepsis Action Taken by Nursing Laboratory Data Result diagrams: 08/07/20 12:07 08/07/20 11:39 Lab Results 08/07/20 08/07/20 08/07/20 Range/Units 11:39 11:39 11:55 WBC (4.8-10.8) K/uL RBC (4.2-5.4) M/uL Hgb (12.0-16.0) g/dL Hct (37-47) % MCV (80-100) fL MCH (25-34) pg MCHC (32-36) g/dL RDW Std Deviation (36.4-46.3) fL RDW Coeff of Jermaine (11.5-14.5) % Plt Count (130-400) K/uL MPV (7.4-10.4) fL Immature Gran % (Auto) % Neut % (Auto) % Lymph % (Auto) % [place] % (Auto) % Eos % (Auto) % Baso % (Auto) % Neut # (Auto) (1.4-6.5) K/uL Lymph # (Auto) (1.2-3.4) K/uL [place] # (Auto) (0.11-0.59) K/uL Eos # (Auto) (0-0.5) K/uL Baso # (Auto) (0-0.2) K/uL Immature Gran # (Auto) (0.00-0.02) K/uL ESR (0-30) mm/hr PT 11.3 (9.0-12.0) Seconds INR 1.1 (0.9-1.1) APTT 27.5 (21.0-31.0) Seconds PTT Ratio 1.0 Sodium 131 L (136-145) mmol/L Potassium 3.1 L (3.5-5.1) mmol/L Chloride 93 L (98-107) mmol/L Carbon Dioxide 28 (21-32) mmol/L Anion Gap 10.0 (3-11) BUN 18 (7-18) mg/dl Creatinine 0.72 (0.6-1.2) mg/dl Est Cr Clr Drug Dosing 65.1 ml/min Est GFR ( Amer) 96.3 ml/min Est GFR (Non-Af Amer) 83.1 ml/min BUN/Creatinine Ratio 25.2 H (10-20) Glucose 156 H (70-99) mg/dl Lactate (0.4-2.0) mmol/L Uric Acid (2.6-7.2) mg/dl Calcium 9.0 (8.5-10.1) mg/dl Magnesium 2.0 (1.8-2.4) mg/dl Total Bilirubin 1.6 H (0.2-1) mg/dl AST 35 (15-37) U/L ALT 35 (12-78) U/L Alkaline Phosphatase 121 H (45-117) U/L C-Reactive Protein (0-0.29) mg/dl Total Protein 6.8 (6.4-8.2) gm/dl Albumin 3.1 L (3.4-5.0) gm/dl Globulin 3.7 (2.5-4.0) gm/dl Albumin/Globulin Ratio 0.8 L (0.9-2) Procalcitonin (0-0.5) ng/ml Urine Color Urine Appearance (Clear) Urine pH (4.5-7.5) Ur Specific Clancy (1.000-1.030) Urine Protein (Negative) Urine Glucose (UA) (Negative) Urine Ketones (Negative) Urine Blood (Negative) Urine Nitrite (Negative) Urine Bilirubin (Negative) Urine Urobilinogen (Negative) Ur Leukocyte Esterase (Negative) Urine WBC (Auto) (0-5) /hpf Urine RBC (Auto) (0-4) /hpf U Hyaline Cast (Auto) (0-5) /lpf U Epithel Cells (Auto) (0-5) /lpf Urine Bacteria (Auto) (Negative) Fluid Comment COVID-19 Eval Order Covid19 at [facility] SARS-CoV-2 (PCR) (Negative) 08/07/20 08/07/20 08/07/20 Range/Units 11:55 12:07 12:07 WBC 15.83 H (4.8-10.8) K/uL RBC 3.91 L (4.2-5.4) M/uL Hgb 12.7 (12.0-16.0) g/dL Hct 38.3 (37-47) % MCV 98.0 (80-100) fL MCH 32.5 (25-34) pg MCHC 33.2 (32-36) g/dL RDW Std Deviation 54.5 H (36.4-46.3) fL RDW Coeff of Jermaine 15.4 H (11.5-14.5) % Plt Count 238 (130-400) K/uL MPV 9.4 (7.4-10.4) fL Immature Gran % (Auto) 0.3 % Neut % (Auto) 79.0 % Lymph % (Auto) 6.9 % [place] % (Auto) 13.7 % Eos % (Auto) 0.0 % Baso % (Auto) 0.1 % Neut # (Auto) 12.50 H (1.4-6.5) K/uL Lymph # (Auto) 1.09 L (1.2-3.4) K/uL [place] # (Auto) 2.17 H (0.11-0.59) K/uL Eos # (Auto) 0.00 (0-0.5) K/uL Baso # (Auto) 0.02 (0-0.2) K/uL Immature Gran # (Auto) 0.05 H (0.00-0.02) K/uL ESR (0-30) mm/hr PT (9.0-12.0) Seconds INR (0.9-1.1) APTT (21.0-31.0) Seconds PTT Ratio Sodium (136-145) mmol/L Potassium (3.5-5.1) mmol/L Chloride (98-107) mmol/L Carbon Dioxide (21-32) mmol/L Anion Gap (3-11) BUN (7-18) mg/dl Creatinine (0.6-1.2) mg/dl Est Cr Clr Drug Dosing ml/min Est GFR ( Amer) ml/min Est GFR (Non-Af Amer) ml/min BUN/Creatinine Ratio (10-20) Glucose (70-99) mg/dl Lactate 2.7 H* (0.4-2.0) mmol/L Uric Acid (2.6-7.2) mg/dl Calcium (8.5-10.1) mg/dl Magnesium (1.8-2.4) mg/dl Total Bilirubin (0.2-1) mg/dl AST (15-37) U/L ALT (12-78) U/L Alkaline Phosphatase (45-117) U/L C-Reactive Protein (0-0.29) mg/dl Total Protein (6.4-8.2) gm/dl Albumin (3.4-5.0) gm/dl Globulin (2.5-4.0) gm/dl Albumin/Globulin Ratio (0.9-2) Procalcitonin (0-0.5) ng/ml Urine Color Urine Appearance (Clear) Urine pH (4.5-7.5) Ur Specific Clancy (1.000-1.030) Urine Protein (Negative) Urine Glucose (UA) (Negative) Urine Ketones (Negative) Urine Blood (Negative) Urine Nitrite (Negative) Urine Bilirubin (Negative) Urine Urobilinogen (Negative) Ur Leukocyte Esterase (Negative) Urine WBC (Auto) (0-5) /hpf Urine RBC (Auto) (0-4) /hpf U Hyaline Cast (Auto) (0-5) /lpf U Epithel Cells (Auto) (0-5) /lpf Urine Bacteria (Auto) (Negative) Fluid Comment COVID-19 Eval Order SARS-CoV-2 (PCR) NEGATIVE (Negative) 08/07/20 08/07/20 08/07/20 Range/Units 13:12 14:52 14:52 WBC (4.8-10.8) K/uL RBC (4.2-5.4) M/uL Hgb (12.0-16.0) g/dL Hct (37-47) % MCV (80-100) fL MCH (25-34) pg MCHC (32-36) g/dL RDW Std Deviation (36.4-46.3) fL RDW Coeff of Jermaine (11.5-14.5) % Plt Count (130-400) K/uL MPV (7.4-10.4) fL Immature Gran % (Auto) % Neut % (Auto) % Lymph % (Auto) % [place] % (Auto) % Eos % (Auto) % Baso % (Auto) % Neut # (Auto) (1.4-6.5) K/uL Lymph # (Auto) (1.2-3.4) K/uL [place] # (Auto) (0.11-0.59) K/uL Eos # (Auto) (0-0.5) K/uL Baso # (Auto) (0-0.2) K/uL Immature Gran # (Auto) (0.00-0.02) K/uL ESR (0-30) mm/hr PT (9.0-12.0) Seconds INR (0.9-1.1) APTT (21.0-31.0) Seconds PTT Ratio Sodium (136-145) mmol/L Potassium (3.5-5.1) mmol/L Chloride (98-107) mmol/L Carbon Dioxide (21-32) mmol/L Anion Gap (3-11) BUN (7-18) mg/dl Creatinine (0.6-1.2) mg/dl Est Cr Clr Drug Dosing ml/min Est GFR ( Amer) ml/min Est GFR (Non-Af Amer) ml/min BUN/Creatinine Ratio (10-20) Glucose (70-99) mg/dl Lactate 1.4 (0.4-2.0) mmol/L Uric Acid 4.0 (2.6-7.2) mg/dl Calcium (8.5-10.1) mg/dl Magnesium (1.8-2.4) mg/dl Total Bilirubin (0.2-1) mg/dl AST (15-37) U/L ALT (12-78) U/L Alkaline Phosphatase (45-117) U/L C-Reactive Protein 11.70 H (0-0.29) mg/dl Total Protein (6.4-8.2) gm/dl Albumin (3.4-5.0) gm/dl Globulin (2.5-4.0) gm/dl Albumin/Globulin Ratio (0.9-2) Procalcitonin (0-0.5) ng/ml Urine Color Dark Yellow Urine Appearance Clear (Clear) Urine pH 7.0 (4.5-7.5) Ur Specific Clancy 1.015 (1.000-1.030) Urine Protein Negative (Negative) Urine Glucose (UA) Negative (Negative) Urine Ketones Trace H (Negative) Urine Blood 1+ H (Negative) Urine Nitrite Negative (Negative) Urine Bilirubin Negative (Negative) Urine Urobilinogen Negative (Negative) Ur Leukocyte Esterase Trace H (Negative) Urine WBC (Auto) 1-5 (0-5) /hpf Urine RBC (Auto) 5-10 H (0-4) /hpf U Hyaline Cast (Auto) 1-5 (0-5) /lpf U Epithel Cells (Auto) 5-10 H (0-5) /lpf Urine Bacteria (Auto) Negative (Negative) Fluid Comment COVID-19 Eval Order SARS-CoV-2 (PCR) (Negative) 08/07/20 08/07/20 08/07/20 Range/Units 14:52 14:52 Unknown WBC (4.8-10.8) K/uL RBC (4.2-5.4) M/uL Hgb (12.0-16.0) g/dL Hct (37-47) % MCV (80-100) fL MCH (25-34) pg MCHC (32-36) g/dL RDW Std Deviation (36.4-46.3) fL RDW Coeff of Jermaine (11.5-14.5) % Plt Count (130-400) K/uL MPV (7.4-10.4) fL Immature Gran % (Auto) % Neut % (Auto) % Lymph % (Auto) % [place] % (Auto) % Eos % (Auto) % Baso % (Auto) % Neut # (Auto) (1.4-6.5) K/uL Lymph # (Auto) (1.2-3.4) K/uL [place] # (Auto) (0.11-0.59) K/uL Eos # (Auto) (0-0.5) K/uL Baso # (Auto) (0-0.2) K/uL Immature Gran # (Auto) (0.00-0.02) K/uL ESR 55 H (0-30) mm/hr PT (9.0-12.0) Seconds INR (0.9-1.1) APTT (21.0-31.0) Seconds PTT Ratio Sodium (136-145) mmol/L Potassium (3.5-5.1) mmol/L Chloride (98-107) mmol/L Carbon Dioxide (21-32) mmol/L Anion Gap (3-11) BUN (7-18) mg/dl Creatinine (0.6-1.2) mg/dl Est Cr Clr Drug Dosing ml/min Est GFR ( Amer) ml/min Est GFR (Non-Af Amer) ml/min BUN/Creatinine Ratio (10-20) Glucose (70-99) mg/dl Lactate (0.4-2.0) mmol/L Uric Acid (2.6-7.2) mg/dl Calcium (8.5-10.1) mg/dl Magnesium (1.8-2.4) mg/dl Total Bilirubin (0.2-1) mg/dl AST (15-37) U/L ALT (12-78) U/L Alkaline Phosphatase (45-117) U/L C-Reactive Protein (0-0.29) mg/dl Total Protein (6.4-8.2) gm/dl Albumin (3.4-5.0) gm/dl Globulin (2.5-4.0) gm/dl Albumin/Globulin Ratio (0.9-2) Procalcitonin 0.91 H (0-0.5) ng/ml Urine Color Urine Appearance (Clear) Urine pH (4.5-7.5) Ur Specific Clancy (1.000-1.030) Urine Protein (Negative) Urine Glucose (UA) (Negative) Urine Ketones (Negative) Urine Blood (Negative) Urine Nitrite (Negative) Urine Bilirubin (Negative) Urine Urobilinogen (Negative) Ur Leukocyte Esterase (Negative) Urine WBC (Auto) (0-5) /hpf Urine RBC (Auto) (0-4) /hpf U Hyaline Cast (Auto) (0-5) /lpf U Epithel Cells (Auto) (0-5) /lpf Urine Bacteria (Auto) (Negative) Fluid Comment COVID-19 Eval Order SARS-CoV-2 (PCR) (Negative) Administered Medications Discontinued Medications Acetaminophen (Acetaminophen 325 Mg Tab) 650 mg PO NOW STA Stop: 08/07/20 11:51 Last Admin: 08/07/20 11:57 Dose: 650 mg Documented by: [id number] Piperacillin Sod/Tazobactam Sod (Zosyn) 4.5 gm in 120 mls @ 240 mls/hr IV NOW ONE Stop: 08/07/20 11:34 Last Infusion: 08/07/20 13:16 Dose: 0 mls/hr Documented by: [id number] Admin: 08/07/20 11:56 Dose: 240 mls/hr Documented by: [id number] Sodium Chloride (Nss 1000ml) 2,000 mls @ 999 mls/hr IV .Q2H1M ONE Stop: 08/07/20 13:05 Last Admin: 08/07/20 11:30 Dose: 999 mls/hr Documented by: [id number] Vancomycin HCl 1,500 mg/ (Sodium Chloride) 530 mls @ 200 mls/hr IV NOW ONE Stop: 08/07/20 13:43 Last Infusion: 08/07/20 15:44 Dose: 0 mls/hr Documented by: [id number] Admin: 08/07/20 12:52 Dose: 200 mls/hr Documented by: [id number] Ioversol (Optiray 320 125ml) 93 ml IV ONCE ONE Stop: 08/07/20 15:55 Last Admin: 08/07/20 15:56 Dose: 93 ml Documented by: [id number] Morphine Sulfate (Morphine Sulfate 4 Mg/Ml 1 Ml Carp\Vial) 4 mg IV NOW STA Stop: 08/07/20 11:51 Last Admin: 08/07/20 11:57 Dose: 4 mg Documented by: [id number] Ondansetron HCl (Ondansetron Inj 2 Mg/Ml 2 Ml Vial) 4 mg IV NOW STA Stop: 08/07/20 11:06 Last Admin: 08/07/20 11:58 Dose: 4 mg Documented by: [id number] Ondansetron HCl (Ondansetron Inj 2 Mg/Ml 2 Ml Vial) 4 mg IV NOW STA Stop: 08/07/20 11:51 Last Admin: 08/07/20 13:34 Dose: Not Given Documented by: [id number] Imaging Data Radiologist's Impression: Chest X-Ray 08/07/20 10:52 XR chest 1V portable CLINICAL HISTORY: SEPSIS COMPARISON STUDY: Chest CT June 06, 2020. PET/CT July 14, 2020. FINDINGS: Left subclavian Bhyjrs-h-Vaix is in place. Bilateral accessory surgical clips are noted. Bilateral breast implants account for hazy densities projecting over the chest. There are old left rib fractures. There is no consolidation or evidence for pulmonary edema. There is no pneumothorax or pleural effusion. IMPRESSION: No acute cardiopulmonary findings. ACT 112: Negative or not required by law. Electronically signed by: Jay Jay Roldan M.D. 08/07/2020 1:22 PM Discharge Plan Visit Data Chief Complaint: Leg Injury/Pain Stated Complaint: R LEG PAIN/ESPECIALLY PAINFUL FROM THE KNEE DOWN ED Provider: Jerzy Sanchez Discharge Problem: Sepsis, Acute hypokalemia, Acute knee pain, Acute hip pain Patient Disposition: Admitted As Inpatient Forms Stand Alone Forms: My [facility] Prescriptions Prescriptions: No Action fluticasone propionate 50 mcg/actuation spray,suspension 2 sprays INTNAS DAILY PRN (Reason: allergy symptoms) RF: 0 fentanyl 25 mcg/hr patch 72 hour 1 patch transdermal Q72H RF: 0 spironolacton-hydrochlorothiaz 25-25 mg tablet 1 tab PO BID Qty: 180 RF: 3 prochlorperazine maleate 10 mg tablet 10 mg PO Q6H PRN (Reason: Nausea And Vomiting) RF: 0 PreserVision AREDS-2 [id number] yb-[id number]-hw-mg capsule 1 tab PO BID RF: 0 tramadol 50 mg tablet 50 mg PO DAILY PRN (Reason: Pain) RF: 0 Systane (PF) 0.4-0.3 % Dropperette 1 drp OPHTHALMIC (EYE) BID RF: 0 diphenhydramine-acetaminophen [Tylenol PM Extra Strength] 25-500 mg Tablet 2 tab PO HS PRN (Reason: Sleep) RF: 0 Calcium 600 + D(3) 600 mg calcium- 200 unit Capsule 1 cap PO BID RF: 0 fentanyl 50 mcg/hr patch 72 hour 1 patch transdermal Q72H RF: 0 ondansetron HCl 8 mg tablet 8 mg PO DAILY PRN (Reason: Nausea And Vomiting) RF: 0 sennosides-docusate sodium [Senokot-S] 8.6-50 mg Tablet 1 tab-cap PO HS PRN (Reason: Constipation) RF: 0 pantoprazole 40 mg tablet,delayed release (DR/EC) 40 mg PO DAILY RF: 0 gabapentin 300 mg capsule 300 mg PO TID RF: 0 clobetasol 0.05 % Ointment 1 applic TOPICAL BID PRN (Reason: Skin Irritation) RF: 0 B Complex Plus Vitamin C 24-56-68-5-300 mg Capsule 1 cap PO DAILY RF: 0 oxycodone 10 mg tablet 10 mg PO Q6 PRN (Reason: Pain) RF: 0 Xgeva 120 mg/1.7 mL (70 mg/mL) Solution 120 mg SUBCUT UD RF: 0 potassium chloride 20 mEq tablet extended release 20 meq PO BID RF: 0 cetirizine 10 mg Tablet 10 mg PO DAILY RF: 0 triamcinolone acetonide 0.1 % Ointment 1 applic TOPICAL DAILY PRN (Reason: Skin Irritation) RF: 0 atorvastatin 20 mg tablet 20 mg PO DAILY RF: 0 Citrucel 500 mg tablet 500 mg PO QID RF: 0 Referrals Referrals: Rad Tobias MD [Primary Care Provider] - Discharge Problem: Sepsis Qualifiers: Sepsis type: sepsis due to unspecified organism Sepsis acute organ dysfunction status: unspecified Qualified Code(s): A41.9 - Sepsis, unspecified organism Acute knee pain Qualifiers: Laterality: right Qualified Code(s): M25.561 - Pain in right knee Acute hip pain Qualifiers: Laterality: right Qualified Code(s): M25.551 - Pain in right hip
[2020-08-07] MEDS ORDERED: ACETAMINOPHEN 325 MG TAB PO STA (11:50)
[2020-08-07] MEDS ORDERED: MoRPHine SULFATE 4 MG/ML 1 ML CARP\\VIAL IV STA (11:50)
[2020-08-07 12:08] LABS: INR 1.1 (0.9-1.1); Partial Thromboplastin Time 27.5 Seconds (21.0-31.0); Prothrombin Time 11.3 Seconds (9.0-12.0)
[2020-08-07 12:15] LABS: Hematocrit (blood only) 38.3 % (37-47); Hemoglobin 12.7 g/dL (12.0-16.0); Mean Corpuscular Hemoglobin 32.5 pg (25-34); Mean Corpuscular Hgb Conc 33.2 g/dL (32-36); Mean Platelet Volume 9.4 fL (7.4-10.4); Platelet Count 238 K/uL (130-400); RDW Coefficient of Variation 15.4 % (11.5-14.5); RDW Standard Deviation 54.5 fL (36.4-46.3); Red Blood Count 3.91 M/uL (4.2-5.4); White Blood Count 15.83 K/uL (4.8-10.8)
[2020-08-07 12:29] LABS: Albumin Level 3.1 gm/dl (3.4-5.0); BUN Creatinine Ratio 25.2 (10-20); Creatinine Clr Calc Pharmacy 65.1 ml/min; Est GFR (African American) 96.3 ml/min; Est GFR (Non-African American) 83.1 ml/min; Potassium 3.1 mmol/L (3.5-5.1)
[2020-08-07 12:32] LABS: Albumin Globulin Ratio 0.8 (0.9-2); Bilirubin,Total 1.6 mg/dl (0.2-1); Globulin 3.7 gm/dl (2.5-4.0); Total Protein 6.8 gm/dl (6.4-8.2)
[2020-08-07 12:37] LABS: Basophils # (auto) 0.02 K/uL (0-0.2); Basophils % (auto) 0.1 %; Immature Granulocytes # (auto) 0.05 K/uL (0.00-0.02); Immature Granulocytes % (auto) 0.3 %; Lymphocytes # (auto) 1.09 K/uL (1.2-3.4); Lymphocytes % (auto) 6.9 %; Monocytes # (auto) 2.17 K/uL (0.11-0.59); Monocytes % (auto) 13.7 %
--- NOTE | 2020-08-07 13:24 | XRay Report ---
XR chest 1V portable CLINICAL HISTORY: SEPSIS COMPARISON STUDY: Chest CT June 06, 2020. PET/CT July 14, 2020. FINDINGS: Left subclavian Okyvey-d-Cmqb is in place. Bilateral accessory surgical clips are noted. Bi lateral breast implants account for hazy densities projecting over the chest. There are old left rib fractures. There is no consolidation or evidence for pulmonary edema. There is no pneumothorax or ple ural effusion. IMPRESSION: No acute cardiopulmonary findings. ACT 112: Negative or not required by law. Electronically signed by: Jay Jay Roldan M.D. 08/07/2020 1:22 PM
[2020-08-07 13:34] LABS: Appearance Urine Clear (Clear); Bacteria Urine Automated Negative (Negative); Bilirubin Urine Negative (Negative); Blood Urine 1+ (Negative); Color Urine Dark Yellow; Glucose Urine UA Negative (Negative); Ketones Urine Trace (Negative); Leukocyte Esterase Urine Trace (Negative); Nitrite Urine Negative (Negative); Protein Urine Negative (Negative); Specific Gravity Urine 1.015 (1.000-1.030); Urobilinogen Urine Negative (Negative)
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
[2020-08-07 15:28] LABS: C Reactive Protein 11.7 mg/dl (0-0.29)
[2020-08-07] MEDS ORDERED: OPTIRAY 320 125ml IV ONE (15:54)
--- NOTE | 2020-08-07 15:59 | Orthopedic Consultation ---
Date of Consultation August 07, 2020 Assessment & Plan (1) Septic arthritis of knee, right: Discussed diagnosis and treatment options with patient. Recommend right knee arthroscopy, irrigation and debridement. Reviewed risks/benefits of surgery, alternatives, and expected outcomes. All questions answered. Patient elects to proceed with surgery. Informed consent signed. Spoke with her , Teja, , by phone. He agrees with the plan. Proceed to OR this evening. Re-admit to floor after surgery. Will plan on leaving a drain in. Present on Admission?: Yes Supervising Physician Co-Signing Physician Notes I saw and examined the patient, agree with the above note. I reviewed her CT scan and synovial fluid analysis, and formulated the plan. History of Present Illness Reason for Consultation: right knee swelling, and fever History of Present Illness 75 y/o female KTH metastatic breast Ca on chemo, (last session in june), presenting to the ED with right knee swelling that started yesterday in the afternoon. the patient experienced fever and night sweats with inability to bear weight. she has a history of a left TKA and right knee unknown surgery(attributed to a fall)but no hardware can be seen on a xray done in february. Allergies Allergy/AdvReac Type Severity Reaction Status Date / Time chlorhexidine Allergy Intermediate ITCHING Verified 08/07/20 13:52 cephalexin Allergy Mild SICK Verified 08/07/20 13:52 edetic acid Allergy Mild nausea Verified 08/07/20 13:52 propylene glycol Allergy Mild nausea Verified 08/07/20 13:52 regadenoson Allergy Mild nausea Verified 08/07/20 13:52 codeine AdvReac Intermediate N/V Verified 08/07/20 13:52 Home Medications Medication Instructions Recorded Confirmed Type fluticasone propionate 50 2 sprays INTNAS DAILY PRN 01/04/19 08/07/20 History mcg/actuation nasal spray,suspension Calcium 600 + D(3) 1 cap PO BID 02/15/19 08/07/20 History diphenhydramine-acetaminophen 2 tab PO HS PRN 02/15/19 08/07/20 History [Tylenol PM Extra Strength] Systane (PF) 1 drp OPHTHALMIC (EYE) BID 04/06/19 08/07/20 History prochlorperazine maleate 10 mg 10 mg PO Q6H PRN 10/25/19 08/07/20 History tablet vit C 250 mg-vit E 90 mg-zinc 40 1 tab PO BID 10/25/19 08/07/20 History mg-copper 1 [id number] capsule spironolactone 25 1 tab PO BID #180 tab 12/12/19 08/07/20 Rx mg-hydrochlorothiazide 25 mg tablet fentanyl 25 mcg/hr transdermal 1 patch TRANSDERMAL Q72H 03/17/20 08/07/20 History patch tramadol 50 mg tablet 50 mg PO DAILY PRN 05/26/20 08/07/20 History atorvastatin 20 mg PO DAILY 08/07/20 08/07/20 History cetirizine 10 mg PO DAILY 08/07/20 08/07/20 History clobetasol 1 applic TOPICAL BID PRN 08/07/20 08/07/20 History denosumab [Xgeva] 120 mg SUBCUT UD 08/07/20 08/07/20 History fentanyl 1 patch TRANSDERMAL Q72H 08/07/20 08/07/20 History gabapentin 300 mg PO TID 08/07/20 08/07/20 History methylcellulose (laxative) 500 mg PO QID 08/07/20 08/07/20 History [Citrucel] ondansetron HCl 8 mg PO DAILY PRN 08/07/20 08/07/20 History oxycodone 10 mg PO Q6 PRN 08/07/20 08/07/20 History pantoprazole 40 mg PO DAILY 08/07/20 08/07/20 History potassium chloride 20 meq PO BID 08/07/20 08/07/20 History sennosides-docusate sodium 1 tab-cap PO HS PRN 08/07/20 08/07/20 History [Senokot-S] triamcinolone acetonide 1 applic TOPICAL DAILY PRN 08/07/20 08/07/20 History vitamin B comp and C no.3 [B 1 cap PO DAILY 08/07/20 08/07/20 History Complex Plus Vitamin C] Patient History Medical History BRCA1 positive GERD (gastroesophageal reflux disease) Hearing deficit History of breast cancer 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; Ductal carcinoma dx'ed per bx again in 2012- s/p bilateral mastectomy with chemo; XRT in 2014 Hyperlipidemia Hypertension Liver lesion JUST WATCHING Lytic bone lesions on xray Pathologic compression fracture of spine 01/2019 abdominal/pelvis CT report Surgical History History of breast biopsy History of colonoscopy History of dilatation and curettage History of esophagogastroduodenoscopy (EGD) History of hysterectomy with bilateral oophorectomy History of loop electrosurgical excision procedure (LEEP) History of myringotomy History of tooth extraction History of total left knee replacement History of tubal ligation Hx of cholecystectomy Hx of fracture of femur WITH REPAIR TO LEFT Hx of tonsillectomy Port-A-Cath in place (04/09/19) Insertion of Mediport Left Cephalic vein Dr. 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 range of motion could be examined properly due to severe swelling. she has the knee in 20 dgrees of flexion over a pillow. neurovascularly intact. Results & Data ([facility]) Vital Signs (Past 12 Hours) Vital Signs Temp Pulse Resp BP Pulse Ox 08/07/20 15:01 87 16 144/65 H 98 08/07/20 14:30 90 20 130/75 98 08/07/20 14:01 91 H 16 128/64 95 06/17/21 13:30 94 H 16 137/71 97 08/07/20 13:10 99 H 20 156/68 H 99 08/07/20 12:30 94 H 16 126/66 95 08/07/20 12:26 97 H 22 129/74 98 08/07/20 12:16 94 H 17 94 08/07/20 12:15 19 92 08/07/20 10:14 38.1 C H 104 H 18 133/73 96 Laboratory Results Synovial fluid analysis: turbid, WBC 67,000, 98% PMN's. Findings consistent with septic arthritis.
--- NOTE | 2020-08-07 16:30 | CT Scan Report ---
CT femur RT w con CT DOSE: 414.59 mGy.cm CLINICAL HISTORY: effusion, trauma, sepsis R/O INECTION/EFFUSION TECHNIQUE: A dose lowering technique was utilized adhering to the principles of ALARA. COMPARISON STUDY: None. FINDINGS: No acute fracture or dislocation seen. Multiple blastic and lytic lesions are seen within visualized aspect of the right and left pubic/feliciano c bones and within right femoral head and intratrochanteric area. No significant hip joint effusion is seen. Subcutaneous edema is seen of the right thigh is seen. Visualized portion of the pelvic viscera shows fluid-filled urinary bladder and nondilated loops of b owel. There is possible mesenteric edema within lower pelvic region versus partial volume averaging. IMPRESSION: 1. No definite acute fracture or dislocation. 2. Multiple extensive blastic and lytic metastatic disease. No significant right hip joint effusion is seen. 3. Soft tissue edema. 4. Additional findings as detailed above. ACT 112: Negative or not required by law. The above report was generated using voice recognition software. It may contain grammatical, syntax o r spelling errors. Electronically signed by: Valery Johnson DO 08/07/2020 4:29 PM
[2020-08-07] MEDS ORDERED: ONDANSETRON INJ 2 MG/ML 2 ML VIAL IV PRN ×4 (16:31→20:33)
[2020-08-07] MEDS ORDERED: diphenhydrAMINE 50 MG/ML VIAL IV PRN (16:31)
[2020-08-07] MEDS ORDERED: METOCLOPRAMIDE HCL INJ 5 MG/ML 2 ML VIAL IV PRN ×2 (16:31→20:33)
[2020-08-07] MEDS ORDERED: SODIUM CHLORIDE 0.9% 1000ML 1,000 ML IV SCH ×2 (16:45→20:45)
--- NOTE | 2020-08-07 16:54 | Ultrasound Report ---
ULTRASOUND RIGHT LOWER EXTREMITY VENOUS CLINICAL HISTORY: Right leg pain and erythema. COMPARISON STUDY: No priors. TECHNIQUE: Real-time, grayscale, and color Doppler sonography of the deep veins of the right lower ex tremity was performed from the inguinal crease to the calf. Compression and augmentation were utilize d. FINDINGS: There is no sonographic evidence of deep venous thrombosis identified in the right lower ex tremity. The common femoral, superficial femoral, and popliteal veins are patent and normally jeaneth sible. The greater saphenous vein and the profunda femoris vein at the junction with the common femor al vein are clear. The visualized calf veins are patent. IMPRESSION: There is no sonographic evidence of deep venous thrombosis identified in the right lower extremity. ACT 112: Negative or not required by law. Electronically signed by: Jose Moore M.D. 08/07/2020 4:52 PM
[2020-08-07] MEDS ORDERED: DEXTROSE 50% 50 ML SYRINGE IV PRN (17:00)
[2020-08-07] MEDS ORDERED: GLUCOSE 40% GEL 15 GM TUBE PO PRN (17:00)
[2020-08-07] MEDS ORDERED: GLUCOSE 10 TABS/TUBE PO PRN (17:00)
[2020-08-07] MEDS ORDERED: FLUTICASONE PROPIONATE NA SPR 16 GM BTL PRN (17:00)
[2020-08-07] MEDS ORDERED: PROCHLORPERAZINE MALEATE 10 MG TAB PO PRN (17:00)
[2020-08-07] MEDS ORDERED: fentaNYL 25 MCG/HR TDSY TD SCH (17:00)
[2020-08-07] MEDS ORDERED: CARBOHYDRATES FOR HYPOGLYCEMIA PO PRN (17:00)
[2020-08-07] MEDS ORDERED: GLUCAGON FOR INJ 1 MG VIAL SQ PRN (17:00)
[2020-08-07 17:07] LABS: Appearance Synovial Fluid TURBID; Color Synovial Fluid YELLOW; Mononuclear WBC Synovial 6.6 %; Polynuclear WBC Synovial 93.4 %; RBC Synovial Fluid (A) 3000 /uL; Source Synovial Fluid KNEE; WBC Synovial Fluid (A) 67533 /ul (0-200)
[2020-08-07] MEDS ORDERED: ePHEDrine sulfate 50 MG/ML AMP IV PRN (17:07)
[2020-08-07] MEDS ORDERED: fentaNYL citrate 100 MCG/2 ML VIAL IV PRN (17:07)
[2020-08-07] MEDS ORDERED: ATROPINE SULFATE 0.1 MG/ML 10ML SYR IV PRN (17:07)
--- NOTE | 2020-08-07 17:13 | Anesthesiology Consultation ---
Date of Service August 07, 2020 Assessment & Plan (1) Encounter for pre-operative examination: Chart Review Chart Review: Acceptable Risk for Surgery and Patient NOT seen in Pre Admission Testing Consults Requested none History Surgery Operation Date: 08/07/20 17:30 Proposed Procedures p Incision and Drainage Right Knee(Right) - Evangelist Booker MD Height/Weight Height: 5 ft 6 in Weight: 64.6 kg Allergies Allergy/AdvReac Type Severity Reaction Status Date / Time chlorhexidine Allergy Intermediate ITCHING Verified 08/07/20 13:52 cephalexin Allergy Mild SICK Verified 08/07/20 13:52 edetic acid Allergy Mild nausea Verified 08/07/20 13:52 propylene glycol Allergy Mild nausea Verified 08/07/20 13:52 regadenoson Allergy Mild nausea Verified 08/07/20 13:52 codeine AdvReac Intermediate N/V Verified 08/07/20 13:52 Medications Home Medications Medication Instructions Recorded Confirmed Last Taken fluticasone propionate 50 2 sprays INTNAS DAILY PRN 01/04/19 08/07/20 04/07/19 mcg/actuation nasal spray,suspension Calcium 600 + D(3) 1 cap PO BID 02/15/19 08/07/20 08/07/20 diphenhydramine-acetaminophen 2 tab PO HS PRN 02/15/19 08/07/20 02/13/19 [Tylenol PM Extra Strength] Systane (PF) 1 drp OPHTHALMIC (EYE) BID 04/06/19 08/07/20 08/07/20 prochlorperazine maleate 10 mg 10 mg PO Q6H PRN 10/25/19 08/07/20 Unknown tablet vit C 250 mg-vit E 90 mg-zinc 40 1 tab PO BID 10/25/19 08/07/20 08/07/20 mg-copper 1 [id number]-njuqjh-owcsyi capsule spironolactone 25 1 tab PO BID #180 tab 12/12/19 08/07/20 08/07/20 mg-hydrochlorothiazide 25 mg tablet fentanyl 25 mcg/hr transdermal 1 patch TRANSDERMAL Q72H 03/17/20 08/07/20 08/07/20 patch tramadol 50 mg tablet 50 mg PO DAILY PRN 05/26/20 08/07/20 Unknown atorvastatin 20 mg PO DAILY 08/07/20 08/07/2021 cetirizine 10 mg PO DAILY 08/07/20 08/07/20 08/07/20 clobetasol 1 applic TOPICAL BID PRN 08/07/20 08/07/20 Unknown denosumab [Xgeva] 120 mg SUBCUT UD 08/07/20 08/07/20 07/15/20 fentanyl 1 patch TRANSDERMAL Q72H 08/07/20 08/07/20 Unknown gabapentin 300 mg PO TID 08/07/20 08/07/20 08/07/20 methylcellulose (laxative) 500 mg PO QID 08/07/20 08/07/20 08/07/20 [Citrucel] ondansetron HCl 8 mg PO DAILY PRN 08/07/20 08/07/20 Unknown oxycodone 10 mg PO Q6 PRN 08/07/20 08/07/20 08/07/20 pantoprazole 40 mg PO DAILY 08/07/20 08/07/20 08/07/20 potassium chloride 20 meq PO BID 08/07/20 08/07/20 08/07/20 sennosides-docusate sodium 1 tab-cap PO HS PRN 08/07/20 08/07/20 Unknown [Senokot-S] triamcinolone acetonide 1 applic TOPICAL DAILY PRN 08/07/20 08/07/20 Unknown vitamin B comp and C no.3 [B 1 cap PO DAILY 08/07/20 08/07/20 08/07/20 Complex Plus Vitamin C] Active Medications Generic Name Dose Route Start Last Admin Trade Name Kulwinder PRN Reason Stop Dose Admin Gabapentin 300 mg 08/07/20 17:00 08/07/20 18:15 Gabapentin 300 Mg Cap PO 09/06/20 16:59 Not Given TID ISHA Lactated Ringer's 1,000 mls @ 80 mls/hr 08/07/20 17:00 08/07/20 18:14 Lr IV 09/06/20 16:59 80 mls/hr .[id number] ISHA Administration Miscellaneous 1 ea 08/07/20 18:00 08/07/20 18:15 Check Fentanyl Patch Placement N/A 09/06/20 17:59 1 ea QS ISHA Administration Past Medical History Medical History BRCA1 positive GERD (gastroesophageal reflux disease) Hearing deficit History of breast cancer 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; Ductal carcinoma dx'ed per bx again in 2012- s/p bilateral mastectomy with chemo; XRT in 2014 Hyperlipidemia Hypertension Liver lesion JUST WATCHING Lytic bone lesions on xray Pathologic compression fracture of spine 01/2019 abdominal/pelvis CT report Exercise / Class Metabolic Activity II 4-5 Yardwork/Stairs/Walk up hill Past Family History Family History Other Breast cancer Melanoma Denies family history of Ovarian cancer Colorectal cancer Past Surgical History Surgical History History of breast biopsy History of colonoscopy History of dilatation and curettage History of esophagogastroduodenoscopy (EGD) History of hysterectomy with bilateral oophorectomy History of loop electrosurgical excision procedure (LEEP) History of myringotomy History of tooth extraction History of total left knee replacement History of tubal ligation Hx of cholecystectomy Hx of fracture of femur WITH REPAIR TO LEFT Hx of tonsillectomy Port-A-Cath in place (04/09/19) Insertion of Mediport Left Cephalic vein Dr. Gabriel 04/09/19 S/P bilateral mastectomy (07/06/13) Social History Smoking Status: Never smoker Hx Alcohol Use: Yes Alcohol type: wine alcohol intake frequency: holidays/special occasions only Hx Substance Use: Yes substance use type: painkillers and prescription drug Physical Exam Vital Signs Last Vital Signs Temp 37.2 C 08/07/20 16:53 Pulse 102 H 08/07/20 16:53 Resp 20 08/07/20 16:53 BP 164/70 H 08/07/20 16:53 Pulse Ox 96 08/07/20 16:53 Testing Laboratory Results 08/07/20 12:07 08/07/20 11:39 PT 11.3 Seconds (9.0-12.0) 08/07/20 11:39 INR 1.1 (0.9-1.1) 08/07/20 11:39 APTT 27.5 Seconds (21.0-31.0) 08/07/20 11:39 Urine Color Dark Yellow 08/07/20 13:12 Urine Appearance Clear (Clear) 08/07/20 13:12 Urine pH 7.0 (4.5-7.5) 08/07/20 13:12 Ur Specific [place] 1.015 (1.000-1.030) 08/07/20 13:12 Urine Protein Negative (Negative) 08/07/20 13:12 Urine Glucose (UA) Negative (Negative) 08/07/20 13:12 Urine Ketones Trace (Negative) H 08/07/20 13:12 Urine Nitrite Negative (Negative) 08/07/20 13:12 Ur Leukocyte Esterase Trace (Negative) H 08/07/20 13:12 Urine WBC (Auto) 1-5 /hpf (0-5) 08/07/20 13:12 Urine RBC (Auto) 5-10 /hpf (0-4) H 08/07/20 13:12 U Hyaline Cast (Auto) 1-5 /lpf (0-5) 08/07/20 13:12 U Epithel Cells (Auto) 5-10 /lpf (0-5) H 08/07/20 13:12 Urine Bacteria (Auto) Negative (Negative) 08/07/20 13:12 08/07/20 Unknown Gram Stain - Final Joint Fluid,Knee Electrocardiogram Date: 08/07/20 HR 97. Accelerated junctional rhythm. Septal infarct, age undetermined. Chest X-Ray Date: 08/07/20 XR chest 1V portable CLINICAL HISTORY: SEPSIS COMPARISON STUDY: Chest CT June 06, 2020. PET/CT July 14, 2020. FINDINGS: Left subclavian Dkdphm-y-Hddi is in place. Bilateral accessory surgical clips are noted. Bilateral breast implants account for hazy densities projecting over the chest. There are old left rib fractures. There is no consolidation or evidence for pulmonary edema. There is no pneumothorax or pleural effusion. IMPRESSION: No acute cardiopulmonary findings.
[2020-08-07] MEDS ORDERED: PROPOFOL IV EMULSION 10 MG/ML 20 ML VIAL IV ONE (17:19)
[2020-08-07] MEDS ORDERED: SUCCINYLCHOLINE CHLORIDE 20 MG/ML 10 ML VIAL IV ONE (17:19)
[2020-08-07] MEDS ORDERED: ONDANSETRON INJ 2 MG/ML 2 ML VIAL ONE (17:19)
[2020-08-07] MEDS ORDERED: fentaNYL citrate 100 MCG/2 ML VIAL ONE ×4 (17:20→20:49)
[2020-08-07] MEDS ORDERED: MIDAZOLAM HCL 1 MG/ML 2ML VIAL ONE (17:20)
[2020-08-07] MEDS ORDERED: CLOBETASOL PROPIONATE 0.05% OINT 15 GM TUBE EXT PRN (17:23)
[2020-08-07] MEDS ORDERED: ONDANSETRON 8MG OD TAB PO PRN (17:23)
[2020-08-07] MEDS: LACTATED RINGER'S 1,000 ML IV SCH (18:14)
[2020-08-07] MEDS: CHECK fentaNYL PATCH PLACEMENT SCH ×2 (18:15→23:10)
[2020-08-07] MEDS: GABAPENTIN 300 MG CAP PO SCH ×2 (18:15→21:50)
[2020-08-07] MEDS ORDERED: LIDOCAINE/EPINEPHRINE 1% 20 ML VIAL ONE (18:29)
[2020-08-07] MEDS ORDERED: EpINEphrine HCL INJ 1 MG/ML 1ML SYRINGE ONE (18:30)
--- NOTE | 2020-08-07 20:35 | Post Operative Brief Note ---
Immediate Post Op Note v1 Date of Surgery August 07, 2020 Pre & Post Diagnosis Operation Date: 08/07/20 17:30 Pre-Op Diagnosis: Septic arthritis of knee, right Post-Op Diagnosis: Septic arthritis of knee, right; Medial and Lateral Meniscus Tears I identified the patient and participated in the time-out.: Yes Procedure Operation Date: 08/07/20 17:30 Actual Procedures p Right Arthroscopy Knee Irrigation and Debridement, Partial Medial and Lateral Menisectomies(Right) - Evangelist Booker MD Surgeon Evangelist Booker MD Inspector Coated Fabrics Rita Villalpando MD Estimated Blood Loss 25 Findings Consistent with Post-Op Diagnosis Fluids 600 Drains Hemovac Drain (10fr, right knee) Anesthesia Type General Complications none Disposition Accompanied Patient To Recovery: No Disposition: Recovery Room
[2020-08-07] MEDS ORDERED: ROPIVACAINE 0.5% 5 MG/ML 30 ML VIAL INSTIL ONE (20:40)
--- NOTE | 2020-08-07 20:47 | Operative Report ---
Post Operative Report Pre & Post Diagnosis Operation Date: 08/07/20 17:30 Pre-Op Diagnosis: Septic arthritis of knee, right Post-Op Diagnosis: Septic arthritis of knee, right; Medial and Lateral Meniscus Tears I identified the patient and participated in the time-out.: Yes Procedure Operation Date: 08/07/20 17:30 Actual Procedures p Right Arthroscopy Knee Irrigation and Debridement, Partial Medial and Lateral Menisectomies(Right) - Evangelist Booker MD Surgeon Evangelist Booker MD Podiatric Technician Rita Villalpando MD Estimated Blood Loss 25 Findings Consistent with Post-Op Diagnosis Specimens culture and stain Drains hemovac Anesthesia Type General Complications none Disposition Accompanied Patient To Recovery: Yes Disposition: Recovery Room Description of Procedure As per 's note, I assisted in prepping and draping, instruments handling certain parts of the procedure and wound closure. I attest to the content of the Intraoperative Record and any orders documented therein. Any exceptions are noted below.
--- NOTE | 2020-08-07 20:52 | Anesthesiology Progress Note ---
Date of Service August 07, 2020 Anesthesia Post Procedure Vital Signs Vital Signs: Temp Pulse Pulse Pulse Resp BP BP 08/07/20 20:40 104 H 15 156/87 H 08/07/20 20:33 36.4 C L 111 H 18 178/107 H 08/07/20 18:45 37.4 C 101 H 20 156/75 H 08/07/20 16:53 37.2 C 102 H 20 164/70 H 08/07/20 15:30 90 23 108/90 08/07/20 15:01 87 16 144/65 H 08/07/20 14:30 90 20 130/75 08/07/20 14:01 91 H 16 128/64 08/07/20 13:30 94 H 16 137/71 08/07/20 13:10 99 H 20 156/68 H 08/07/20 12:30 94 H 16 126/66 08/07/20 12:26 97 H 22 129/74 08/07/20 12:16 94 H 17 08/07/20 12:15 19 08/07/20 10:14 38.1 C H 104 H 18 133/73 Pulse Ox 08/07/20 20:40 100 08/07/20 20:33 100 08/07/20 18:45 98 08/07/20 16:53 96 08/07/20 15:30 99 08/07/20 15:01 98 08/07/20 14:30 98 08/07/20 14:01 95 08/07/20 13:30 97 08/07/20 13:10 99 08/07/20 12:30 95 08/07/20 12:26 98 08/07/20 12:16 94 08/07/20 12:15 92 08/07/20 10:14 96 Pain Intensity Right Hip: Pain Intensity: 4 Transfer of Care Handoff Completed per policy Notes Mental Status: alert / awake / arousable and participated in evaluation Patient Amnestic to Procedure: Yes Nausea / Vomiting: adequately controlled Pain: adequately controlled Airway Patency, RR, SpO2: stable & adequate BP & HR: stable & adequate Hydration State: stable & adequate Anesthetic Complications: no major complications apparent and Pt Satisfied with anesthetic care
[2020-08-07] MEDS: cefTRIAXone SODIUM 2,000 MG/70 ML BAG IV SCH (21:48)
[2020-08-07] MEDS: fentaNYL 50 MCG/HR TDSY TD SCH (21:49)
[2020-08-07] MEDS: POTASSIUM CHLORIDE CRTAB 20 MEQ TABCR PO SCH (21:49)
[2020-08-07] MEDS: DOCUSATE SODIUM/SENNA 50/8.6MG TAB PO PRN ×2 (21:50→21:59)
[2020-08-07] MEDS: INSULIN ASPART 100 UNITS/ML 3 ML PEN SC SCH (21:55)
[2020-08-07] MEDS: METHYLCELLULOSE POWDER 454 GM JAR PO SCH (21:55)
[2020-08-07] MEDS: HEPARIN SOD 5,000 UNIT/0.5 ML VIAL SQ SCH (21:59)
[2020-08-07] MEDS: SENNA 8.6 MG TAB PO SCH (22:01)
[2020-08-08] MEDS ORDERED: VANCOMYCIN HCL 1,000 MG in SODIUM CHLORIDE 0.9% 250 ML IV SCH (01:00)
[2020-08-08] MEDS: LACTATED RINGER'S 1,000 ML IV SCH ×2 (02:49→18:11)
[2020-08-08] MEDS: HEPARIN SOD 5,000 UNIT/0.5 ML VIAL SQ SCH ×3 (05:32→21:47)
[2020-08-08] MEDS: oxyCODONE HCL IR 5 MG TAB (IMMEDIATE RELEASE) PO PRN ×2 (05:35→13:40)
[2020-08-08] MEDS ORDERED: ceFAZolin 2000MG 2,000 MG/15 ML SYR IV SCH (06:00)
[2020-08-08 06:02] LABS: Basophils # (auto) 0.01 K/uL (0-0.2); Basophils % (auto) 0.1 %; Eosinophils # (auto) 0.02 K/uL (0-0.5); Eosinophils % (auto) 0.2 %; Hematocrit (blood only) 32.1 % (37-47); Hemoglobin 10.1 g/dL (12.0-16.0); Immature Granulocytes # (auto) 0.02 K/uL (0.00-0.02); Immature Granulocytes % (auto) 0.2 %; Lymphocytes # (auto) 1.15 K/uL (1.2-3.4); Lymphocytes % (auto) 13.2 %; Mean Corpuscular Hemoglobin 31.6 pg (25-34); Mean Corpuscular Hgb Conc 31.5 g/dL (32-36); Mean Corpuscular Volume 100.3 fL (80-100); Mean Platelet Volume 9.5 fL (7.4-10.4); Monocytes # (auto) 1.08 K/uL (0.11-0.59); Monocytes % (auto) 12.4 %; Neutrophils # (auto) 6.43 K/uL (1.4-6.5); Neutrophils % (auto) 73.9 %; Platelet Count 228 K/uL (130-400); RDW Coefficient of Variation 15.2 % (11.5-14.5); RDW Standard Deviation 56.1 fL (36.4-46.3); White Blood Count 8.71 K/uL (4.8-10.8)
[2020-08-08 06:35] LABS: BUN Creatinine Ratio 28.2 (10-20); Calcium 8.2 mg/dl (8.5-10.1); Creatinine Clr Calc Pharmacy 114.4 ml/min; Est GFR (African American) 118.8 ml/min; Est GFR (Non-African American) 102.5 ml/min; Potassium 2.9 mmol/L (3.5-5.1)
--- NOTE | 2020-08-08 07:24 | Orthopedic Progress Note ---
Date of Service August 08, 2020 Assessment & Plan (1) Septic arthritis of knee, right: 1. Ordered Daily C-reactive protein labs to start this AM 2. Drain left in place 3. Spoke with Dr. Hernandez, who will be injection molding process technician this weekend, covering for me. Plan is to put her on OR schedule for tomorrow for repeat right knee arthroscopy, irrigation and debridement. He will see her Tuesday AM and make the final call as to whether to proceed tomorrow AM with surgery. NPO after midnight tonight. 4. Continue IV antibiotics as per internal medicine. 5. WBAT RLE, but limit activity bed to chair/bathroom. Admission and Anticipated Discharge Date Admission Date: August 07, 2020 Subjective Did well overnight. No fevers/chills. Pain well controlled. Physical Exam Physical Exam: No drain output. Dressing c/d/i. Distally NVI. Results & Data ([facility]) Vital Signs (Past 12 Hours) Vital Signs Temp Pulse Pulse Resp BP Pulse Ox 08/08/20 03:04 36.7 C 91 H 17 127/72 96 08/07/20 23:22 94 H 08/07/20 21:10 37.6 C H 99 H 15 156/75 H 99 08/07/20 21:03 37.2 C 105 H 20 153/79 H 100 08/07/20 21:00 97 H 12 143/77 H 100 08/07/20 20:50 104 H 18 143/80 H 100 08/07/20 20:40 104 H 15 156/87 H 100 08/07/20 20:33 36.4 C L 111 H 18 178/107 H 100 Laboratory Results WBC count down to 8 this morning (normal)
--- NOTE | 2020-08-08 07:55 | Operative Report (OR) ---
DATE OF PROCEDURE: 08/07/2020 PREOPERATIVE DIAGNOSIS: Right knee septic arthritis. POSTOPERATIVE DIAGNOSIS: Right knee septic arthritis and medial and lateral meniscus tears. OPERATIONS PERFORMED: 1. Right knee arthroscopic irrigation and debridement. 2. Right knee partial medial and lateral meniscectomies. SURGEON: Evangelist Booker MD LACE WINDER: Rita Villalpando MD ESTIMATED BLOOD LOSS: 25 mL. INTRAVENOUS FLUIDS: 600 mL of crystalloid. SPECIMENS: Right knee joint fluid sent for aerobic and anaerobic cultures as well as for fungal and AFB. COMPLICATIONS: None. IMPLANTS: None. INDICATIONS: Ms. Golden is a 75-year-old female with a medical history significant for breast cancer, metastatic disease since 1988. She is on chemotherapy. she started getting fevers as well as knee pain yesterday following an MRI of her spine. This worsened to the point where she is having difficulty to bear weight. She presented to the emergency room this afternoon where she had laboratories drawn that showed an elevated white count as well as elevated sed rate. She was noted to have a warm and tense knee with limited range of motion. Orthopedics was consulted for concern of septic arthritis. We tapped the knee in the ER. The knee aspiration showed 67,000 white blood cells with 98% polys. The fluid was turbid and purulent. All these findings were consistent with a septic joint. She did have a CT scan as well as recent x-rays that showed a moderately severe arthritis in the knee. However, she definitely had an acute change in her symptoms within the last 48 hours. I had a long discussion with her about the risks and benefits of surgery, alternatives to surgery, and expected outcomes. After reviewing all these, she elected to proceed with surgery. All questions were answered, informed consent was signed. OPERATIVE FINDINGS: 1. The knee was aspirated at the beginning of the case and again the fluid had a purulent appearance. 2. The suprapatellar pouch showed some calcification likely from previous corticosteroid injections. There was extensive synovitis. 3. Undersurface of the patella showed diffuse grade 1-2 chondromalacia. 4. The trochlea showed grade 2 chondromalacia. 5. Medial and lateral gutters were free of any loose bodies. 6. The medial compartment of the knee showed grade 4 chondromalacia of the medial tibial plateau. This involved approximately 30% of the medial tibial plateau. The remainder was grade 3 chondromalacia. The medial femoral condyle had diffuse grade 1 chondromalacia. She had degenerative meniscus tear of the posterior horn and body as well as fraying of the anterior horn. 7. The notch showed the ACL to be intact. PCL was intact as well. 8. Lateral compartment showed degenerative tear of the lateral meniscus posterior horn. There was grade 1 chondromalacia of the lateral femoral condyle and lateral tibial plateau. The medial and lateral meniscus tears were debrided back to a stable margin. The areas of calcification within the knee were debrided with the arthroscopic shaver. We ran a total of 12 liters of fluid through the knee and debrided any pathologic appearing tissue. A medium Hemovac drain was placed at the conclusion of the case. DESCRIPTION OF THE OPERATION: The patient was identified in the preoperative holding area where surgical site was marked. She was brought back to the main operating room where she was placed on the operating room table and general anesthesia was administered. All bony prominences were padded. Perioperative antibiotics were administered. She was prepped and draped in normal sterile fashion. Prior to incision, a multidisciplinary timeout was called. All in the room were in agreement. We began by performing a sterile aspiration of the knee. A 12 mL of purulent- appearing fluid was aspirated through a superolateral approach. This was sent off for cultures as stated above. Next, an anterolateral portal was created. The arthroscope was placed up in the suprapatellar pouch. A superolateral outflow portal was created. An anteromedial portal was created under direct visualization. A diagnostic arthroscopy was then performed revealing the above findings. Once our diagnostic arthroscopy was complete, we then introduced the arthroscopic shaver, which was used to debride the medial meniscus tear back to a stable margin. The remainder of the meniscus was probed and there were no further unstable flaps, although the tissue was somewhat degenerated. We then moved into the notch. The ligamentum mucosum was debrided until we had reached a healthy-appearing ACL. There were some small calcifications within the ligamentum mucosum. We then moved into the lateral compartment where we used arthroscopic shaver to debride the lateral meniscus tear back to a stable margin. The shaver was then introduced through the superolateral portal and was used to shave any calcifications up in the suprapatellar pouch. We then passed a medium Hemovac drain through the anteromedial portal up into the suprapatellar pouch and pulled this out through the superolateral portal. This was hooked up to the medium Hemovac drain. Portals were closed with 3-0 nylon sutures. The drain was held with a pursestring. Sterile dressings were then applied. Of note, 0.5% Naropin 20 mL was injected in the subcutaneous tissue at the portal sites for postoperative pain control. The patient was then awoken from anesthesia and transferred to the recovery room in stable condition. POSTOPERATIVE COURSE: The patient will be readmitted to the floor. She will continue on IV antibiotics per the internal medicine service. We will monitor drain output and plan on pulling the drain sometime in the next 24-48 hours. She was counseled that she may need a repeat irrigation and debridement depending on her clinical response. Job ID: [id number] [facility]
[2020-08-08] MEDS: CHECK fentaNYL PATCH PLACEMENT SCH ×3 (08:55→23:10)
[2020-08-08] MEDS: INSULIN ASPART 100 UNITS/ML 3 ML PEN SC SCH ×4 (08:55→22:13)
[2020-08-08] MEDS: ATORVASTATIN 20 MG TAB PO SCH (08:56)
[2020-08-08] MEDS: CETIRIZINE HCL 10 MG TABLET PO SCH (08:56)
[2020-08-08] MEDS: GABAPENTIN 300 MG CAP PO SCH ×3 (08:56→21:47)
[2020-08-08] MEDS: PANTOprazole 40 MG TAB PO SCH (08:56)
[2020-08-08] MEDS: METHYLCELLULOSE POWDER 454 GM JAR PO SCH ×4 (08:57→21:46)
[2020-08-08] MEDS: POTASSIUM CHLORIDE CRTAB 20 MEQ TABCR PO SCH ×2 (08:57→21:48)
[2020-08-08] MEDS: MULTIVITAMIN TAB PO SCH (08:57)
--- NOTE | 2020-08-08 09:21 | Pharmacy Report ---
Pharmacy Abx Dose Short Note - Date of Service August 08, 2020 - Assessment & Plan Assessment 75 year old F started on vancomycin and rocephin for possible septic knee. PMHx significant for breast cancer. Presenting with increased pain in R knee and R hip and febrile on admission. Ortho consulted and plan for OR tomorrow. Cultures pending. Plan Vancomycin * Received loading dose of vancomycin 1500 mg x 1 yesterday in ED (~23 mg/kg/dose) * Was started on vancomycin 1 gm iv q 12 hr based upon vanco AUC nomogram dosing. Scr improving today 0.72 to 0.41 mg/dL - estimated t1/2~ closer to 8 hr. Appears baseline Scr 0.5-0.6 mg/dL. Will adjust vancomycin interval to Q10 hr to target higher trough level (goal 15-20 mcg/ml for bone/joint infection) * Plan to obtain a level prior to the 0700 dose tomorrow to ensure therapeutic Pharmacy will continue to follow and will adjust dose/frequency as necessary. Thank you.
[2020-08-08] MEDS: VANCOMYCIN HCL 1,000 MG in SODIUM CHLORIDE 0.9% 250 ML IV SCH ×2 (11:06→21:46)
--- NOTE | 2020-08-08 16:54 | Electrocardiogram Report ---
Test Reason : Blood Pressure : / mmHG Vent. Rate : 097 BPM Atrial Rate : 096 BPM P-R Int : 000 ms QRS Dur : 078 ms QT Int : 352 ms P-R-T Axes : 000 -06 013 degrees QTc Int : 447 ms Poor data quality, interpretation may be adversely affected Normal sinus rhythm Nonspecific ST abnormality Abnormal ECG When compared with ECG of 15-FEB-2019 16:14, Nonspecific T wave abnormality now evident in Inferior leads Confirmed by Maximo Calix ([id number]) on 08/08/2020 4:54:22 PM Referred By: REFERRED SELF Confirmed By:Slick Calix
[2020-08-08] MEDS: ACETAMINOPHEN 325 MG TAB PO PRN (18:42)
[2020-08-08] MEDS: cefTRIAXone SODIUM 2,000 MG/70 ML BAG IV SCH (21:46)
[2020-08-08] MEDS: SENNA 8.6 MG TAB PO SCH (21:47)
--- NOTE | 2020-08-08 22:06 | Hospitalist Progress Note ---
Date of Service August 08, 2020 Assessment & Plan (1) Sepsis: Immunocompromised- septic knee vs. hip necrosis vs. skin/soft tissue - Blood Cultures pending - Urine non-specific - Received Zosyn and Vancomycin in the EMD - Will change Zosyn to Rocephin 2GM daily start tomorrow for bone/joint - Her medi-port site looks good with no surrounding errythema - De-access her port for now and obtain peripheral - Continue Vancomycin while cultures are pending - PIV access Will re-evaluate her chest erythema following defervesce- currently covered with Vanc and Rocephin - de-escalate Vanc when appropriate On 08/08 1. Right knee arthroscopic irrigation and debridement. 2. Right knee partial medial and lateral meniscectomies. Patient tolerated the procedure. (2) Acute knee pain: Sepsis vs. Gout As above - presumably source as of now - Uric acid sent pending - Orthopaedics consulted- appreciate their assistance and recommendations (3) Metastatic breast cancer: As per HPI- Continues on Gemcitabine and Paclitaxel - Continue with Oncology (4) Back pain: Chronic with metastatic disease - 25mcg fentanyl patch on her back - 50 mcg fentanyl patch this evening - Continue with oxycodone - Continue with Tramadol (5) Liver lesion: As above (6) GERD (gastroesophageal reflux disease): Continue pantoprazole 40 mg daily - patient feels as symptoms are controlled (7) Hypokalemia: She is on home potassium chloride with her spironolactone - will continue to- follow daily with BMP- currently 3.1 (8) Hyperglycemia: Place on loose sliding scale with infection- follow - Aspart sliding scale - CF 35, 0 carb coverage for now - Goal <180 Admission and Anticipated Discharge Date Admission Date: August 07, 2020 Subjective Patient is 75 yo female who reports feeling well. Her knee has some pain but it is better than earlier. Review of Systems Review of Systems: All systems reviewed & are unremarkable except as noted in HPI & below Physical Exam Physical Exam: General: awake, alert, no apparent distress Head: Normocephalic, atraumatic ENT: PERRL, EOMI, no pharyngeal exudate, mucous membranes dry Neuro: AAO x 3, speech clear and appropriate, strength intact bilaterally 5/5, sensation intact and equal all extremities and dermatomes, no pronator drift Chest: equal rise and fall of the chest, no accessory muscle use, no heaves or thrills, Clear to auscultation, on room air, Cardiac: Regular rate and rhythm, telemetry reviewed, skin warm dry, cap refill <3 seconds, peripheral pulses +2 no JVD, no murmur, no edema GI: NABS x 4 quadrants, soft, nontender to palpation, no rebound, guarding or tenderness Psych: Normal mood and affect Skin: erythema to chest, non tender, right leg erythema to medial aspect upper 1/3. Results & Data Results & Data ([facility]) Vital Signs (Past 12 Hours) Vital Signs Temp Pulse Resp BP Pulse Ox 08/08/20 19:48 38.2 C H 111 H 18 114/67 93 08/08/20 19:12 38.1 C H 08/08/20 18:41 38.4 C H 08/08/20 16:43 37.6 C H 112 H 20 117/68 92 08/08/20 12:31 36.7 C 111 H 18 121/65 97 PG Care Time/CCT Total # of Minutes Spent Total Time Spent with Patient: Total time spent is greater than 50% in coordination of care (as documented) at patient's floor/unit and/or counseling patient: Coding Level of Care Code 22801 Subseq Hosp Care Lvl 2 Diagnoses Sepsis A41.9 Sepsis acute organ dysfunction status: unspecified Sepsis type: sepsis due to unspecified organism Acute knee pain M25.561 Laterality: right Metastatic breast cancer C50.919 Back pain M54.6 Back pain laterality: unspecified Back pain location: thoracic back pain Chronicity: unspecified Liver lesion K76.9 GERD (gastroesophageal reflux disease) K21.9 Esophagitis presence: with esophagitis Hypokalemia E87.6 Hyperglycemia R73.9 Time Spent (min) 25 (1) Acute knee pain Laterality: right Qualified Code(s): M25.561 - Pain in right knee (2) Back pain Back pain laterality: unspecified Back pain location: thoracic back pain Chronicity: unspecified Qualified Code(s): M54.6 - Pain in thoracic spine (3) Sepsis Sepsis acute organ dysfunction status: unspecified Sepsis type: sepsis due to unspecified organism Qualified Code(s): A41.9 - Sepsis, unspecified organism (4) GERD (gastroesophageal reflux disease) Esophagitis presence: with esophagitis
[2020-08-09] MEDS ORDERED: VANCOMYCIN TROUGH ONE ×2 (00:30→06:30)
[2020-08-09] MEDS: HEPARIN SOD 5,000 UNIT/0.5 ML VIAL SQ SCH ×3 (05:02→21:38)
[2020-08-09 06:41] LABS: Basophils # (auto) 0.02 K/uL (0-0.2); Basophils % (auto) 0.2 %; Eosinophils # (auto) 0.01 K/uL (0-0.5); Eosinophils % (auto) 0.1 %; Hematocrit (blood only) 34.2 % (37-47); Immature Granulocytes # (auto) 0.02 K/uL (0.00-0.02); Immature Granulocytes % (auto) 0.2 %; Lymphocytes % (auto) 5.3 %; Mean Corpuscular Hgb Conc 32.2 g/dL (32-36); Mean Corpuscular Volume 99.4 fL (80-100); Monocytes # (auto) 1.48 K/uL (0.11-0.59); Monocytes % (auto) 15.7 %; Neutrophils # (auto) 7.41 K/uL (1.4-6.5); Neutrophils % (auto) 78.5 %; Platelet Count 252 K/uL (130-400); RDW Coefficient of Variation 15.1 % (11.5-14.5); RDW Standard Deviation 54.5 fL (36.4-46.3); Red Blood Count 3.44 M/uL (4.2-5.4); White Blood Count 9.44 K/uL (4.8-10.8)
--- NOTE | 2020-08-09 07:11 | Anesthesiology Consultation ---
Date of Service August 09, 2020 Assessment & Plan (1) Encounter for pre-operative examination: Chart Review Chart Review: Acceptable Risk for Surgery History Surgery Operation Date: 08/07/20 17:30 Proposed Procedures p Incision and Drainage Right Knee(Right) - Evangelist Booker MD Operation Date: 08/09/20 07:30 Proposed Procedures p Right Knee Arthroscopic Incision and Drainage - Yoseph Hernandez MD Height/Weight Height: 5 ft 6 in Weight: 64.6 kg Allergies Allergy/AdvReac Type Severity Reaction Status Date / Time chlorhexidine Allergy Intermediate ITCHING Verified 08/07/20 13:52 cephalexin Allergy Mild SICK Verified 08/07/20 13:52 edetic acid Allergy Mild nausea Verified 08/07/20 13:52 propylene glycol Allergy Mild nausea Verified 08/07/20 13:52 regadenoson Allergy Mild nausea Verified 08/07/20 13:52 codeine AdvReac Intermediate N/V Verified 08/07/20 13:52 Medications Home Medications Medication Instructions Recorded Confirmed Last Taken fluticasone propionate 50 2 sprays INTNAS DAILY PRN 01/04/19 08/07/20 04/07/19 mcg/actuation nasal spray,suspension Calcium 600 + D(3) 1 cap PO BID 02/15/19 08/07/20 08/07/20 diphenhydramine-acetaminophen 2 tab PO HS PRN 02/15/19 08/07/20 02/13/19 [Tylenol PM Extra Strength] Systane (PF) 1 drp OPHTHALMIC (EYE) BID 04/06/19 08/07/20 08/07/20 prochlorperazine maleate 10 mg 10 mg PO Q6H PRN 10/25/19 08/07/20 Unknown tablet vit C 250 mg-vit E 90 mg-zinc 40 1 tab PO BID 10/25/19 08/07/20 08/07/20 mg-copper 1 [id number] capsule spironolactone 25 1 tab PO BID #180 tab 12/12/19 08/07/20 08/07/20 mg-hydrochlorothiazide 25 mg tablet fentanyl 25 mcg/hr transdermal 1 patch TRANSDERMAL Q72H 03/17/20 08/07/20 patch tramadol 50 mg tablet 50 mg PO DAILY PRN 05/26/20 08/07/20 Unknown atorvastatin 20 mg PO DAILY 08/07/20 08/07/20 08/07/20 cetirizine 10 mg PO DAILY 08/07/20 08/07/20 08/07/20 clobetasol 1 applic TOPICAL BID PRN 08/07/20 08/07/20 Unknown denosumab [Xgeva] 120 mg SUBCUT UD 08/07/20 08/07/20 07/15/20 fentanyl 1 patch TRANSDERMAL Q72H 08/07/20 08/07/20 Unknown gabapentin 300 mg PO TID 08/07/20 08/07/20 08/07/20 methylcellulose (laxative) 500 mg PO QID 08/07/20 08/07/20 08/07/20 [Citrucel] ondansetron HCl 8 mg PO DAILY PRN 08/07/20 08/07/20 Unknown oxycodone 10 mg PO Q6 PRN 08/07/20 08/07/20 08/07/20 pantoprazole 40 mg PO DAILY 08/07/20 08/07/20 08/07/20 potassium chloride 20 meq PO BID 08/07/20 08/07/20 08/07/20 sennosides-docusate sodium 1 tab-cap PO HS PRN 08/07/20 08/07/20 Unknown [Senokot-S] triamcinolone acetonide 1 applic TOPICAL DAILY PRN 08/07/20 08/07/20 Unknown vitamin B comp and C no.3 [B 1 cap PO DAILY 08/07/20 08/07/20 08/07/20 Complex Plus Vitamin C] Active Medications Generic Name Dose Route Start Last Admin Trade Name Freq PRN Reason Stop Dose Admin Acetaminophen 650 mg 08/07/20 17:00 08/08/20 18:42 Acetaminophen 325 Mg Tab PO 09/06/20 16:59 650 mg Q4H PRN Administration Pain or Fever Atorvastatin Calcium 20 mg 08/08/20 09:00 08/08/20 08:56 Atorvastatin 20 Mg Tab PO 09/07/20 08:59 20 mg DAILY ISHA Administration Cetirizine HCl 10 mg 08/08/20 09:00 08/08/20 08:56 Cetirizine Hcl 10 Mg Tablet PO 09/07/20 08:59 10 mg DAILY ISHA Administration Fentanyl 50 mcg 08/07/20 21:00 08/07/20 21:49 Fentanyl 50 Mcg/Hr Tdsy TD 08/21/20 20:59 50 mcg Q3D@2100 ISHA Administration Gabapentin 300 mg 08/07/20 17:00 08/08/20 21:47 Gabapentin 300 Mg Cap PO 09/06/20 16:59 300 mg TID ISHA Administration Heparin Sodium (Porcine) 5,000 units 08/07/20 22:00 08/09/20 05:02 Heparin Sod 5,000 Unit/0.5 Ml Vial SQ 09/06/20 21:59 Not Given Q8 ISHA Protocol Ceftriaxone Sodium 2,000 mg in 70 mls @ 140 mls/hr 08/07/20 22:00 08/08/20 22:20 Rocephin IV 09/18/20 21:59 Infused Q24H ISHA Infusion Vancomycin HCl 1,000 mg/ 270 mls @ 200 mls/hr 08/08/20 11:00 08/08/20 23:10 Sodium Chloride IV 08/15/20 10:59 Infused Q10H [facility] Infusion Protocol Insulin Aspart 0 units 08/07/20 21:00 08/08/20 22:13 Insulin Aspart 100 Units/Ml 3 Ml Pen SC 09/06/20 20:59 Not Given ACHS ISHA Methylcellulose 2 gm 08/07/20 21:00 08/08/20 21:46 Methylcellulose Powder 454 Gm Jar PO 09/06/20 20:59 2 gm QID ISHA Administration Miscellaneous 1 ea 08/07/20 20:59 08/07/20 21:49 Fentanyl Patch Remove & Waste N/A 09/06/20 20:58 1 ea Q3D@2059 ISHA Administration Miscellaneous 1 ea 08/07/20 18:00 08/08/20 23:10 Check Fentanyl Patch Placement N/A 09/06/20 17:59 1 ea QS ISHA Administration Multivitamins 1 tab 08/08/20 09:00 08/08/20 08:57 Multivitamin Tab PO 09/07/20 08:59 1 tab QAM ISHA Administration Oxycodone HCl 10 mg 08/07/20 17:00 08/08/20 13:40 Oxycodone Hcl Ir 5 Mg Tab (Immediate Release) PO 08/21/20 16:59 10 mg Q6 PRN Administration Pain Pantoprazole Sodium 40 mg 08/08/20 09:00 08/08/20 08:56 Pantoprazole 40 Mg Tab PO 09/07/20 08:59 40 mg DAILY ISHA Administration Potassium Chloride 20 meq 08/07/20 21:00 08/08/20 21:48 Potassium Chloride Crtab 20 Meq Tabcr PO 09/06/20 20:59 20 meq BID ISHA Administration Senna/Docusate Sodium 1 tab 08/07/20 17:00 08/07/20 21:59 Docusate Sodium/Senna 50/8.6mg Tab PO 09/06/20 16:59 1 tab HS PRN Administration Constipation Sennosides 17.2 mg 08/07/20 21:00 08/08/20 21:47 Senna 8.6 Mg Tab PO 09/06/20 20:59 17.2 mg HS ISHA Administration NPO Date Last Intake of Fluids: 08/07/20 Time Last Intake of Fluids: 12:00 Date Last Intake of Solids: 08/07/20 Time Last Intake of Solids: 09:00 Past Medical History Medical History BRCA1 positive GERD (gastroesophageal reflux disease) Hearing deficit History of breast cancer 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; Ductal carcinoma dx'ed per bx again in 2012- s/p bilateral mastectomy with chemo; XRT in 2014 Hyperlipidemia Hypertension Liver lesion JUST WATCHING Lytic bone lesions on xray Pathologic compression fracture of spine 01/2019 abdominal/pelvis CT report Past Family History Family History Other Breast cancer Melanoma Denies family history of Ovarian cancer Colorectal cancer Past Surgical History Surgical History History of breast biopsy History of colonoscopy History of dilatation and curettage History of esophagogastroduodenoscopy (EGD) History of hysterectomy with bilateral oophorectomy History of loop electrosurgical excision procedure (LEEP) History of myringotomy History of tooth extraction History of total left knee replacement History of tubal ligation Hx of cholecystectomy Hx of fracture of femur WITH REPAIR TO LEFT Hx of tonsillectomy Port-A-Cath in place (04/09/19) Insertion of Mediport Left Cephalic vein Dr. Gabriel 04/09/19 S/P bilateral mastectomy (07/06/13) Social History Smoking Status: Never smoker Hx Alcohol Use: Yes Alcohol type: wine alcohol intake frequency: holidays/special occasions only Hx Substance Use: Yes substance use type: painkillers and prescription drug Physical Exam Vital Signs Last Vital Signs Temp 36.9 C 08/09/20 03:24 Pulse 102 H 08/09/20 03:24 Resp 16 08/09/20 03:24 BP 131/76 08/09/20 03:24 Pulse Ox 96 08/09/20 03:24 Testing Laboratory Results 08/09/20 06:24 PT 11.3 Seconds (9.0-12.0) 08/07/20 11:39 INR 1.1 (0.9-1.1) 08/07/20 11:39 APTT 27.5 Seconds (21.0-31.0) 08/07/20 11:39 Urine Color Dark Yellow 08/07/20 13:12 Urine Appearance Clear (Clear) 08/07/20 13:12 Urine pH 7.0 (4.5-7.5) 08/07/20 13:12 Ur Specific [place] 1.015 (1.000-1.030) 08/07/20 13:12 Urine Protein Negative (Negative) 08/07/20 13:12 Urine Glucose (UA) Negative (Negative) 08/07/20 13:12 Urine Ketones Trace (Negative) H 08/07/20 13:12 Urine Nitrite Negative (Negative) 08/07/20 13:12 Ur Leukocyte Esterase Trace (Negative) H 08/07/20 13:12 Urine WBC (Auto) 1-5 /hpf (0-5) 08/07/20 13:12 Urine RBC (Auto) 5-10 /hpf (0-4) H 08/07/20 13:12 U Hyaline Cast (Auto) 1-5 /lpf (0-5) 08/07/20 13:12 U Epithel Cells (Auto) 5-10 /lpf (0-5) H 08/07/20 13:12 Urine Bacteria (Auto) Negative (Negative) 08/07/20 13:12 08/07/20 11:39 Aerobic Blood Culture - Preliminary Blood No growth in Aerobic bottle after 24 hours. Anaerobic Blood Culture - Final 08/07/20 11:35 Aerobic Blood Culture - Preliminary Blood No growth in Aerobic bottle after 24 hours. Anaerobic Blood Culture - Final 08/07/20 19:22 Gram Stain - Final Knee,Right Aerobic and Anaerobic Culture - Preliminary No growth to date. 08/07/20 Unknown Gram Stain - Final Joint Fluid,Knee Aerobic and Anaerobic Culture - Preliminary No growth to date. 08/07/20 19:22 Fungal Smear - Final Knee,Right 08/08/20 21:56 POC Glucose 146 H Electrocardiogram Date: 08/07/20 Findings: + NSR @ (97) and + NSST changes Chest X-Ray Date: 08/07/20 Findings: + NAD Echocardiogram Date: 04/04/19 EF: 55-60% LV Function: normal Valvular Disease: + no significant valvular disease
[2020-08-09] MEDS: VANCOMYCIN HCL 1,000 MG in SODIUM CHLORIDE 0.9% 250 ML IV SCH ×3 (07:15→21:37)
[2020-08-09 07:23] LABS: BUN Creatinine Ratio 24.5 (10-20); C Reactive Protein 15.7 mg/dl (0-0.29); Calcium 7.8 mg/dl (8.5-10.1); Creatinine Clr Calc Pharmacy 109.1 ml/min; Est GFR (African American) 116.9 ml/min; Est GFR (Non-African American) 100.9 ml/min; Magnesium 2.2 mg/dl (1.8-2.4); Potassium 3.4 mmol/L (3.5-5.1)
[2020-08-09] MEDS: GABAPENTIN 300 MG CAP PO SCH ×3 (07:30→21:39)
[2020-08-09] MEDS: INSULIN ASPART 100 UNITS/ML 3 ML PEN SC SCH ×4 (07:30→20:29)
--- NOTE | 2020-08-09 07:49 | Orthopedic Progress Note ---
Date of Service August 09, 2020 Assessment & Plan (1) Septic arthritis of knee, right: Brittney is postop day 2 from a knee arthroscopy for irrigation debridement by Dr. Olsen. Clinically she is improved, but she still remains today with significant warmth, persistent pain, knee irritability on exam, edema, and uptrending white count and CRP. We discussed that often septic arthritis require serial irrigation debridement. Today's findings and her history of chemotherapeutics and likely depressed immune system, I recommend repeat irrigation debridement for her today to eradicate the infection. There are no cultured agents yet. Plan for right knee arthroscopy and extensive debridement this morning. Will consider need for drain after the washout. Plan to remain on inpatient IV antibiotics. We discussed risk-benefit surgery in detail, and the risk profile similar to what she has been through already. Informed consent was documented in the preop area. Subjective Brittney reports that the knee remains achy. She denies any feelings of fevers or chills since yesterday. She has not been able to move the knee much due to discomfort. Review of Systems All systems reviewed & are unremarkable except as noted in HPI & below. Physical Exam Right knee: The right knee has diffuse edema about it. Wounds are well approximated with nylon suture with no active drainage. The Hemovac drain appears to be clotted with no evidence of purulent material. Output has been minimal. She is extremely irritable with any attempts at range of motion and she directs the pain in the suprapatellar pouch. She is diffusely tender along the joint lines. She is neurovascularly intact distally with free range of motion about the ankle and toes. Constitutional WD/WN, vitals as above no acute distress and not intoxicated appearing Respiratory normal respiratory effort; no labored breathing Cardiovascular Extremities: normal capillary refill Results & Data Results & Data Laboratory Results . H & H 08/07/20 08/08/20 08/09/20 Range/Units 12:07 05:20 06:24 Hgb 12.7 10.1 L 11.0 L (12.0-16.0) g/dL Hct 38.3 32.1 L 34.2 L (37-47) % Coagulation 08/07/20 Range/Units 11:39 INR 1.1 (0.9-1.1) Laboratory Tests 08/07/20 08/07/20 08/08/20 12:07 14:52 05:20 WBC 15.83 H 8.71 Neut # (Auto) 12.50 H 6.43 C-Reactive Protein 11.70 H 08/08/20 08/09/20 08/09/20 05:20 06:24 06:24 WBC 9.44 Neut # (Auto) 7.41 H C-Reactive Protein 15.20 H 15.70 H Diagnostic Findings . PG Care Time/CCT Total # of Minutes Spent Total Time Spent with Patient: Total time spent is greater than 50% in coordination of care (as documented) at patient's floor/unit and/or counseling patient: Coding Level of Care Code 90148 Subseq Hosp Care Lvl 3 Diagnoses Septic arthritis of knee, right M00.9
[2020-08-09] MEDS ORDERED: LIDOCAINE 2% 2 ML VIAL/AMP(20MG/ML) INFIL ONE (07:51)
[2020-08-09] MEDS ORDERED: PROPOFOL IV EMULSION 10 MG/ML 20 ML VIAL IV ONE (07:51)
[2020-08-09] MEDS ORDERED: ONDANSETRON INJ 2 MG/ML 2 ML VIAL ONE (07:51)
[2020-08-09] MEDS ORDERED: fentaNYL citrate 100 MCG/2 ML VIAL ONE ×4 (07:52→10:08)
[2020-08-09] MEDS ORDERED: ATROPINE SULFATE 0.1 MG/ML 10ML SYR IV PRN (08:08)
[2020-08-09] MEDS ORDERED: ONDANSETRON INJ 2 MG/ML 2 ML VIAL IV PRN (08:08)
[2020-08-09] MEDS ORDERED: fentaNYL citrate 100 MCG/2 ML VIAL IV PRN (08:08)
[2020-08-09] MEDS ORDERED: EPINEPHrine INJ 1 MG/ML AMP ONE (08:20)
[2020-08-09] MEDS ORDERED: BUPIVACAINE 0.25% 30 ML VIAL ONE (08:21)
--- NOTE | 2020-08-09 08:32 | Pharmacy Report ---
Pharmacy Abx Dose Short Note - Date of Service August 09, 2020 - Assessment & Plan Assessment 75 year old F receiving vancomycin and rocephin for treatment of septic knee. Day #3 of antimicrobial therapy. Blood and knee cultures show no growth to date. Ortho consulted- plan for right knee arthroscopy and extensive debridement today. Plan Vancomycin * Trough level of 11.6 mcg/mL is subtherapeutic * Change to 1000 mg IV every 8 hours * Goal trough level: 15 to 20 mcg/mL * Trough ordered for: 08/10 @1330 Pharmacy will continue to follow and will adjust dose/frequency as necessary. Thank you.
--- NOTE | 2020-08-09 09:43 | Operative Report ---
PG Post Operative Report Pre & Post Diagnosis Operation Date: 08/09/20 07:30 Pre-Op Diagnosis: Septic arthritis of knee, right Post-Op Diagnosis: Septic arthritis of knee, right I identified the patient and participated in the time-out.: Yes Procedure Operation Date: 08/09/20 07:30 Actual Procedures p Right Knee Arthroscopic Incision and Drainage(Right) - Yoseph Hernandez MD Surgeon Yoseph Hernandez MD Metal Furnace Operator Rita Villalpando MD Estimated Blood Loss 25 Findings See Below The knee had full passive range of motion of EUA. The knee was aspirated to the superior lateral incision preoperatively and this produced 15 cc of mostly bloody aspirate with some flocculent purulent material. Knee arthroscopy without extensive synovitis once again which was debrided back -the most involvement was the suprapatellar pouch and medial lateral gutters. The intracondylar notch was pristine. There was a single 1 cm round loose body that was debrided from the joint. 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 Specimens None Anesthesia Type General Complications none Disposition Accompanied Patient To Recovery: Yes Disposition: Recovery Room Indications 75-year-old female with a history of chemotherapy related immune suppression and development of the knee septic arthritis that undergone previous arthroscopic irrigation debridement 2 days prior. This morning on exam, she has recurrent and persistent pain, warmth, and edema. Her laboratory evaluation was concerning for persistent infection. Given the previous findings on arthroscopy and the recommendations of Dr. Olsen, there was a low threshold to repeat this arthroscopy. I discussed the indications, risks and benefits with the patient this morning at the bedside. I did recommend repeat irrigation debridement and arthroscopic procedure. She was agreeable to proceed. Informed consent was documented this morning. Description of Procedure On the day of surgery was greeted in the preoperative holding area with informed consent was reviewed and confirmed. The surgical site was identified by the patient and signed by myself. The patient was turned over to the anesthesia team. The patient was taken to the operating place upon the OR table and anesthesia was induced. The position was supine for knee arthroscopy with a lateral post. All bony prominences what were well-padded. A nonsterile tourniquet was placed high in the thigh. Brief timeout was called. All were in agreement on the procedure. The nylon sutures were removed in the arthroscopic portals and the drain was removed. I then performed an aspiration using a sterile 18-gauge needle and syringe. The operative extremity was prepped and draped in usual sterile fashion for knee arthroscopy. Surgical timeout was called by the circulating nurse verified all present. Antibiotics been infused, and equipment was available and functional. Using the previously established portals incisions, the trocar was used to enter the joint and the camera was then introduced. The medial portal was established using a motorized shaver. Diagnostic arthroscopy was carried out. Immediately begun irrigation using a motorized shaver and generalized debridement of synovitis that was evident in the suprapatellar pouch. Once adequate visualization was established, I proceeded to the diagnostic arthroscopy. Attention was directed to the medial compartment. The previous arthroscopic findings were noted. A motorized shaver was introduced to clear out fibrinous clot. The medial gutter was entered and the shaver was placed in the area to ensure no loose bodies introducing a synovitis in the gutter. The lateral compartment was entered in the [id number] position. Similarly, there was some clotted material that was cleared out using a motorized shaver. There was extensive chondromalacia as noted previously. The intracondylar notch was evaluated in this position as well. There is no synovitis about the cruciate ligaments. The anterior compartment was addressed. This is where the majority irrigation debridement was conducted using motorized shaver and high flow irrigation. The synovitis on the anterior capsule was debrided back all the way through the retropatellar fat pad. There was a loose body that was round and osteochondral nature. It was debrided back using the double cut motorized shaver while I continue with the irrigation. The superior lateral portal was used for additional access with a motorized shaver and high suction. The diagnostic arthroscopy was completed in the anterior compartment, the gutters, and the lateral compartment. The knee was then thoroughly irrigated with arthroscopic fluid and drained of arthroscopic fluid. A total of 9 L of arthroscopic fluid was used to irrigate the knee during the synovectomy. The wounds were then closed with interrupted 3-0 nylon suture. 10 [place] round drain was placed into the knee and exiting the superior lateral portal that was previously established. Drain was secured with 3-0 nylon suture. The wounds are dressed with sterile Xeroform, sterile gauze, ABD, and contained by web roll followed by an Michael wrap. The patient tolerated procedure well, was asked with the operative without complication, and transferred to the recovery area in stable condition. Disposition: The patient will be weightbearing and range of motion as tolerated. She will remain an inpatient for parenteral IV therapy for her infection. Drain will remain for 24-48 hours depending on output. She returned to her previous pain and VTE prophylaxis regimen. Follow-up is scheduled in 10 to 14 days for postoperative examination. I attest to the content of the Intraoperative Record and any orders documented therein. Any exceptions are noted below.
[2020-08-09] MEDS ORDERED: diphenhydrAMINE Capsule 25 MG CAP PO PRN (11:06)
[2020-08-09] MEDS: oxyCODONE HCL IR 5 MG TAB (IMMEDIATE RELEASE) PO PRN ×2 (11:08→17:04)
--- NOTE | 2020-08-09 12:02 | Anesthesiology Progress Note ---
Date of Service August 09, 2020 Anesthesia Post Procedure Vital Signs Vital Signs: Temp Pulse Pulse Resp BP Pulse Ox 08/09/20 11:58 36.6 C 110 H 119/62 96 08/09/20 11:00 37.6 C H 103 H 20 134/73 96 08/09/20 10:25 94 H 14 157/87 H 96 08/09/20 10:15 37.5 C 96 H 19 147/86 H 99 08/09/20 10:07 103 H 18 144/82 H 98 08/09/20 07:06 36.6 C 104 H 16 132/83 96 08/09/20 03:24 36.9 C 102 H 16 131/76 96 08/08/20 23:16 89 08/08/20 22:55 37.4 C 93 H 18 125/72 96 08/08/20 19:48 38.2 C H 111 H 18 114/67 93 08/08/20 19:12 38.1 C H 08/08/20 18:41 38.4 C H 08/08/20 16:43 37.6 C H 112 H 20 117/68 92 08/08/20 12:31 36.7 C 111 H 18 121/65 97 Pain Intensity Right Hip: Pain Intensity: 4 Right Knee: Pain Intensity: 4 Transfer of Care Handoff Completed per policy Notes Mental Status: alert / awake / arousable Patient Amnestic to Procedure: Yes Nausea / Vomiting: adequately controlled Pain: adequately controlled Airway Patency, RR, SpO2: stable & adequate BP & HR: stable & adequate Hydration State: stable & adequate Anesthetic Complications: no major complications apparent
[2020-08-09] MEDS: METHYLCELLULOSE POWDER 454 GM JAR PO SCH ×4 (12:20→21:40)
[2020-08-09] MEDS: CHECK fentaNYL PATCH PLACEMENT SCH ×2 (12:20→17:05)
[2020-08-09] MEDS: CETIRIZINE HCL 10 MG TABLET PO SCH (12:21)
[2020-08-09] MEDS: ATORVASTATIN 20 MG TAB PO SCH (12:21)
[2020-08-09] MEDS: POTASSIUM CHLORIDE CRTAB 20 MEQ TABCR PO SCH ×2 (12:21→21:38)
[2020-08-09] MEDS: PANTOprazole 40 MG TAB PO SCH (12:23)
[2020-08-09] MEDS: MULTIVITAMIN TAB PO SCH (12:23)
[2020-08-09] MEDS: traMADol HCL 50 MG TABLET PO PRN (14:52)
[2020-08-09] MEDS: SENNA 8.6 MG TAB PO SCH (21:38)
[2020-08-09] MEDS: SPIRONOLACTONE/HCTZ 25-25 PO SCH (21:38)
--- NOTE | 2020-08-09 22:53 | Hospitalist Progress Note ---
Date of Service August 09, 2020 Assessment & Plan (1) Sepsis: Immunocompromised- septic knee vs. hip necrosis vs. skin/soft tissue - Blood Cultures pending - Urine non-specific - Received Zosyn and Vancomycin in the EMD - Will change Zosyn to Rocephin 2GM daily start tomorrow for bone/joint - Her medi-port site looks good with no surrounding errythema - De-access her port for now and obtain peripheral - Continue Vancomycin while cultures are pending - PIV access Will re-evaluate her chest erythema following defervesce- currently covered with Vanc and Rocephin - de-escalate Vanc when appropriate On 08/08 1. Right knee arthroscopic irrigation and debridement. 2. Right knee partial medial and lateral meniscectomies. Patient tolerated the procedure. On 08/09 Right Knee Arthroscopic Incision and Drainage(Right) Patient tolerated this procedure. Will continue to monitor Continue current antibiotics. (2) Acute knee pain: Sepsis vs. Gout As above - presumably source as of now - Uric acid sent pending - Orthopaedics consulted- appreciate their assistance and recommendations (3) Metastatic breast cancer: As per HPI- Continues on Gemcitabine and Paclitaxel - Continue with Oncology (4) Back pain: Chronic with metastatic disease - 25mcg fentanyl patch on her back - 50 mcg fentanyl patch this evening - Continue with oxycodone - Continue with Tramadol (5) Liver lesion: As above (6) GERD (gastroesophageal reflux disease): Continue pantoprazole 40 mg daily - patient feels as symptoms are controlled (7) Hypokalemia: She is on home potassium chloride with her spironolactone - will continue to- follow daily with BMP (8) Hyperglycemia: Place on loose sliding scale with infection- follow - Aspart sliding scale - CF 35, 0 carb coverage for now - Goal <180 Admission and Anticipated Discharge Date Admission Date: August 07, 2020 Subjective Patient is a 75 yo female who reports feeling well. She has no new complaints. Review of Systems Review of Systems: All systems reviewed & are unremarkable except as noted in HPI & below Physical Exam Physical Exam: General: awake, alert, no apparent distress Head: Normocephalic, atraumatic ENT: PERRL, EOMI, no pharyngeal exudate, mucous membranes dry Neuro: AAO x 3, speech clear and appropriate, strength intact bilaterally 5/5, sensation intact and equal all extremities and dermatomes, no pronator drift Chest: equal rise and fall of the chest, no accessory muscle use, no heaves or thrills, Clear to auscultation, on room air, Cardiac: Regular rate and rhythm, telemetry reviewed, skin warm dry, cap refill <3 seconds, peripheral pulses +2 no JVD, no murmur, no edema GI: NABS x 4 quadrants, soft, nontender to palpation, no rebound, guarding or tenderness Psych: Normal mood and affect Skin: erythema to chest, non tender, right leg erythema to medial aspect upper 1/3. Results & Data Results & Data ([facility]) Vital Signs (Past 12 Hours) Vital Signs Temp Pulse Resp BP Pulse Ox 08/09/20 19:51 37.1 C 101 H 20 122/64 98 08/09/20 16:30 36.7 C 105 H 18 120/64 95 08/09/20 12:46 36.8 C 102 H 20 115/61 96 08/09/20 12:05 36.6 C 100 H 20 129/76 97 08/09/20 11:58 36.6 C 110 H 119/62 96 08/09/20 11:10 37.6 C H 103 H 20 134/73 96 08/09/20 11:00 37.6 C H 103 H 20 134/73 96 PG Care Time/CCT Total # of Minutes Spent Total Time Spent with Patient: Total time spent is greater than 50% in coordination of care (as documented) at patient's floor/unit and/or counseling patient: Coding Level of Care Code 95125 Subseq Hosp Care Lvl 3 Diagnoses Sepsis A41.9 Sepsis acute organ dysfunction status: unspecified Sepsis type: sepsis due to unspecified organism Acute knee pain M25.561 Laterality: right Metastatic breast cancer C50.919 Back pain M54.6 Back pain laterality: unspecified Back pain location: thoracic back pain Chronicity: unspecified Liver lesion K76.9 GERD (gastroesophageal reflux disease) K21.9 Esophagitis presence: with esophagitis Hypokalemia E87.6 Hyperglycemia R73.9 Time Spent (min) 35 (1) Acute knee pain Laterality: right Qualified Code(s): M25.561 - Pain in right knee (2) Back pain Back pain laterality: unspecified Back pain location: thoracic back pain Chronicity: unspecified Qualified Code(s): M54.6 - Pain in thoracic spine (3) Sepsis Sepsis acute organ dysfunction status: unspecified Sepsis type: sepsis due to unspecified organism Qualified Code(s): A41.9 - Sepsis, unspecified organism (4) GERD (gastroesophageal reflux disease) Esophagitis presence: with esophagitis
[2020-08-10 06:04] LABS: Basophils # (auto) 0.02 K/uL (0-0.2); Basophils % (auto) 0.3 %; Eosinophils # (auto) 0.06 K/uL (0-0.5); Eosinophils % (auto) 0.8 %; Immature Granulocytes # (auto) 0.01 K/uL (0.00-0.02); Immature Granulocytes % (auto) 0.1 %; Lymphocytes # (auto) 0.63 K/uL (1.2-3.4); Mean Corpuscular Hemoglobin 31.5 pg (25-34); Mean Corpuscular Hgb Conc 32.1 g/dL (32-36); Mean Corpuscular Volume 97.9 fL (80-100); Mean Platelet Volume 8.6 fL (7.4-10.4); Monocytes # (auto) 1.29 K/uL (0.11-0.59); Monocytes % (auto) 16.3 %; Neutrophils # (auto) 5.88 K/uL (1.4-6.5); Neutrophils % (auto) 74.5 %; Platelet Count 237 K/uL (130-400); RDW Standard Deviation 54.4 fL (36.4-46.3); Red Blood Count 2.86 M/uL (4.2-5.4); White Blood Count 7.89 K/uL (4.8-10.8)
[2020-08-10] MEDS: HEPARIN SOD 5,000 UNIT/0.5 ML VIAL SQ SCH ×3 (06:15→21:42)
[2020-08-10] MEDS: VANCOMYCIN HCL 1,000 MG in SODIUM CHLORIDE 0.9% 250 ML IV SCH ×2 (06:15→14:07)
[2020-08-10 06:36] LABS: BUN Creatinine Ratio 24.8 (10-20); Calcium 7.3 mg/dl (8.5-10.1); Creatinine Clr Calc Pharmacy 113.2 ml/min; Est GFR (African American) 115.2 ml/min; Est GFR (Non-African American) 99.4 ml/min; Magnesium 2.4 mg/dl (1.8-2.4); Potassium 3.6 mmol/L (3.5-5.1)
[2020-08-10 06:37] LABS: C Reactive Protein 15.6 mg/dl (0-0.29)
[2020-08-10] MEDS: INSULIN ASPART 100 UNITS/ML 3 ML PEN SC SCH ×3 (08:56→16:49)
--- NOTE | 2020-08-10 08:57 | Orthopedic Progress Note ---
Date of Service August 10, 2020 Assessment & Plan (1) Septic arthritis of knee, right: Making uncomplicated progress on postoperative day 1 from her second arthroscopic irrigation debridement for right knee septic arthritis. -Continue to monitor cultures. Continue current antibiotics. -Continue daily laboratory exam. Would like to see CRP decreased before transitioning to an oral antibiotic regimen. -Appreciate hospitalist care and and the medical assistance with her septic arthritis. -Is cleared to begin PT/OT for gentle active assisted range of motion to that knee. She can be weightbearing as tolerated but pain will be inhibiting for some time. Ambulation should be limited at this point for activities of daily living. -We will continue to follow. Subjective Reports tolerable pain and minimal drain output. She has not been out of bed. She reports she is had some left ankle pain, but it is similar to her previous peripheral neuropathy-like pain. She said her left ankle pain is not like her right knee pain that she presented with when it was infected. Review of Systems All systems reviewed & are unremarkable except as noted in HPI & below. Physical Exam Right lower extremity: The knee had a clean and dry dressing. Given the low drain output, I rolled back the Michael wrap to expose the drain site. The sutured tail was clipped and the drain was removed. She is guarded but active range of motion through the ankle and toes. She is neurovascular intact. I reposition the pillows to allow her knee to fall into more extension and asked her to continue work on achieving full extension. Left lower extremity: The ankle has no erythema or warmth. She is full active range of motion. Constitutional WD/WN, vitals as above no acute distress and not intoxicated appearing Respiratory normal respiratory effort; no labored breathing Cardiovascular Extremities: normal capillary refill Results & Data Results & Data Laboratory Results . Diagnostic Findings Microbiology 08/07/20 11:39 Blood Aerobic Blood Culture - Preliminary No growth in Aerobic bottle after 48 hours. 08/07/20 11:39 Blood Anaerobic Blood Culture - Final 08/07/20 11:35 Blood Aerobic Blood Culture - Preliminary No growth in Aerobic bottle after 48 hours. 08/07/20 11:35 Blood Anaerobic Blood Culture - Final 08/09/20 Unknown Knee,Right Gram Stain - Final 08/07/20 19:22 Knee,Right Gram Stain - Final 08/07/20 19:22 Knee,Right Aerobic and Anaerobic Culture - Preliminary No growth to date. 08/07/20 Unknown Joint Fluid,Knee Gram Stain - Final 08/07/20 Unknown Joint Fluid,Knee Aerobic and Anaerobic Culture - Preliminary No growth to date. 08/07/20 19:22 Knee,Right Fungal Smear - Final Laboratory Tests 08/09/20 08/09/20 08/10/20 06:24 06:24 05:54 WBC 9.44 7.89 Neut # (Auto) 7.41 H 5.88 C-Reactive Protein 15.70 H 08/10/20 05:54 WBC Neut # (Auto) C-Reactive Protein 15.60 H PG Care Time/CCT Total # of Minutes Spent Total Time Spent with Patient: Total time spent is greater than 50% in coordination of care (as documented) at patient's floor/unit and/or counseling patient: Coding Level of Care Code 19874 Post Operative Follow-Up Diagnoses Septic arthritis of knee, right M00.9
[2020-08-10] MEDS: GABAPENTIN 300 MG CAP PO SCH ×3 (09:28→20:08)
[2020-08-10] MEDS: oxyCODONE HCL IR 5 MG TAB (IMMEDIATE RELEASE) PO PRN ×2 (09:28→16:02)
[2020-08-10] MEDS: SPIRONOLACTONE/HCTZ 25-25 PO SCH ×2 (09:29→20:08)
[2020-08-10] MEDS: VITAMIN B COMPLEX TAB PO SCH (09:29)
[2020-08-10] MEDS: POTASSIUM CHLORIDE CRTAB 20 MEQ TABCR PO SCH ×2 (09:29→20:08)
[2020-08-10] MEDS: CETIRIZINE HCL 10 MG TABLET PO SCH (09:29)
[2020-08-10] MEDS: MULTIVITAMIN TAB PO SCH (09:29)
[2020-08-10] MEDS: CHECK fentaNYL PATCH PLACEMENT SCH ×4 (09:29→23:58)
[2020-08-10] MEDS: PANTOprazole 40 MG TAB PO SCH (09:29)
[2020-08-10] MEDS: METHYLCELLULOSE POWDER 454 GM JAR PO SCH ×4 (09:29→20:09)
[2020-08-10] MEDS: ATORVASTATIN 20 MG TAB PO SCH (09:29)
[2020-08-10] MEDS ORDERED: VANCOMYCIN TROUGH ONE (13:30)
--- NOTE | 2020-08-10 14:49 | Pharmacy Report ---
Pharmacy Abx Dose Short Note - Date of Service August 10, 2020 - Assessment & Plan Assessment 75 year old F receiving vancomycin for treatment of septic knee. Day #4 of antimicrobial therapy. Blood and knee cultures show no growth to date. Ortho consulted- plans to transition to PO antibiotics once CRP decreases Plan Vancomycin * Trough level of 21.0 mcg/mL is supratherapeutic * Change to 1000 mg IV every 10 hours * Goal trough level: 15 to 20 mcg/mL * Trough ordered for: 0730 on 08/12 Pharmacy will continue to follow and will adjust dose/frequency as necessary. Thank you.
[2020-08-10] MEDS: HEPARIN 100 UNIT/ML 5ML FLUSH FLUSH PRN (15:58)
[2020-08-10] MEDS: NALOXONE HCL 0.4 MG/1 ML VIAL/CARP IV PRN ×2 (17:10→18:41)
[2020-08-10] MEDS ORDERED: OPTIRAY 320 125ml IV ONE (17:18)
[2020-08-10 17:21] LABS: Basophils # (auto) 0.02 K/uL (0-0.2); Basophils % (auto) 0.2 %; Eosinophils # (auto) 0.08 K/uL (0-0.5); Hematocrit (blood only) 28.4 % (37-47); Hemoglobin 9.1 g/dL (12.0-16.0); Immature Granulocytes # (auto) 0.01 K/uL (0.00-0.02); Immature Granulocytes % (auto) 0.1 %; Lymphocytes # (auto) 0.84 K/uL (1.2-3.4); Lymphocytes % (auto) 10.2 %; Mean Corpuscular Hemoglobin 31.7 pg (25-34); Mean Platelet Volume 8.7 fL (7.4-10.4); Monocytes # (auto) 0.83 K/uL (0.11-0.59); Monocytes % (auto) 10.1 %; Neutrophils # (auto) 6.45 K/uL (1.4-6.5); Neutrophils % (auto) 78.4 %; Platelet Count 284 K/uL (130-400); RDW Coefficient of Variation 14.8 % (11.5-14.5); RDW Standard Deviation 53.6 fL (36.4-46.3); Red Blood Count 2.87 M/uL (4.2-5.4); White Blood Count 8.23 K/uL (4.8-10.8)
[2020-08-10 17:22] LABS: Base Excess VBG 3.4 mEq/L; pH VBG 7.46 (7.36-7.41)
[2020-08-10 17:41] LABS: Creatinine Clr Calc Pharmacy 115.7 ml/min; Est GFR (African American) 116.1 ml/min; Est GFR (Non-African American) 100.1 ml/min; Potassium 3.6 mmol/L (3.5-5.1)
--- NOTE | 2020-08-10 18:07 | CT Scan Report ---
HEAD CTA HISTORY: CONFUSION/ SYNCOPE TECHNIQUE: Multiaxial CT images of the head were performed both before and after the intravenous admi nistration of contrast to evaluate the major cerebral vessels. Maximum intensity projection images we re also obtained. A dose lowering technique was utilized adhering to the principles of ALARA. COMPARISON: None. FINDINGS: There is no mass, hematoma, midline shift, or acute infarct. Visualized intracranial pr intern al carotid arteries, distal vertebral arteries, and basilar artery are widely patent. There is no sig nificant stenosis, occlusion, or aneurysm seen within the bilateral ACAs, MCAs, or loan operations manager. The major du ral venous sinuses are patent. Mild calcified plaque within the bilateral carotid siphons. IMPRESSION: No acute intracranial abnormality. No significant stenosis, occlusion, or aneurysm within the [place]. ACT 112: Negative or not required by law. Electronically signed by: Edgardo Reina M.D. 08/10/2020 6:05 PM
--- NOTE | 2020-08-10 18:09 | CT Scan Report ---
NECK CTA HISTORY: CONFUSION TECHNIQUE: Multiaxial CT images of the neck were performed following the intravenous administration o f contrast to evaluate the major cervical vessels. Maximum intensity projection images were also obta ined. All measurements were calculated based on NASCET criteria. A dose lowering technique was utili zed adhering to the principles of ALARA. COMPARISON STUDY: None. FINDINGS: The aortic arch and proximal great vessels are widely patent. There is no significant sten osis, occlusion, or dissection identified within the bilateral common carotid, internal carotid, or v ertebral arteries. Next lytic and sclerotic skeletal metastases are again noted. IMPRESSION: No significant stenosis, occlusion, or dissection identified within the carotid or vertebral arteries . Scattered skeletal metastases are again noted. ACT 112: Negative or not required by law. Electronically signed by: Edgardo Reina M.D. 08/10/2020 6:08 PM
--- NOTE | 2020-08-10 18:15 | CT Scan Report ---
CHEST CTA for PULMONARY ARTERIES CT DOSE: 1129.65 mGy.cm HISTORY: Confusion. Syncope. Breast cancer. TECHNIQUE: Multiaxial CT images of the chest were performed following the intravenous administration of contrast to evaluate the pulmonary arteries. Maximal intensity projection images were also obtaine d. A dose lowering technique was utilized adhering to the principles of ALARA. COMPARISON STUDY: Chest CT 06/06/2020. FINDINGS: The patient's previously identified hepatic metastases have essentially resolved in the int erval. The visualized adrenal glands and spleen are unremarkable. Bilateral breast implant reconstruc tion is again noted. There are small bilateral pleural effusions. Left subclavian Port-A-Cath termina ayaan at the right atrium. The heart is normal in size. Subcentimeter mediastinal and bilateral hilar l ymph nodes are not simply changed. Normal esophagus. Normal caliber thoracic aorta with no evidence f or dissection. No filling defects within the pulmonary arteries to suggest a pulmonary embolus. Densi ties within the lower lobes posteriorly favor compressive atelectasis from the effusions. No pneumoth orax. The central airways are patent. Mild subpleural reticulation within the left upper lobe favors post radiation changes. IMPRESSION: 1. No evidence for pulmonary embolus. 2. Interval development of small bilateral pleural effusions with associated atelectasis within the b ilateral lower lobes. 3. No significant change in the scattered skeletal metastases. ACT 112: Negative or not required by law. Electronically signed by: Edgardo Reina M.D. 08/10/2020 6:14 PM
[2020-08-10] MEDS: ACETAMINOPHEN 325 MG TAB PO PRN (20:06)
[2020-08-10] MEDS: SENNA 8.6 MG TAB PO SCH (20:08)
[2020-08-10] MEDS: SYSTANE OP SCH (21:43)
[2020-08-10] MEDS: fentaNYL 50 MCG/HR TDSY TD SCH (21:43)
--- NOTE | 2020-08-10 23:39 | Hospitalist Progress Note ---
Date of Service August 10, 2020 Assessment & Plan (1) Sepsis: Immunocompromised- septic knee vs. hip necrosis vs. skin/soft tissue - Blood Cultures pending - Urine non-specific - Received Zosyn and Vancomycin in the EMD - Will change Zosyn to Rocephin 2GM daily start tomorrow for bone/joint - Her medi-port site looks good with no surrounding errythema - De-access her port for now and obtain peripheral - Continue Vancomycin while cultures are pending - PIV access Will re-evaluate her chest erythema following defervesce- currently covered with Vanc and Rocephin - de-escalate Vanc when appropriate On 08/08 1. Right knee arthroscopic irrigation and debridement. 2. Right knee partial medial and lateral meniscectomies. Patient tolerated the procedure. On 08/09 Right Knee Arthroscopic Incision and Drainage(Right) Patient tolerated this procedure. Will continue to monitor Continue current antibiotics On 08/10 Patient has been getting intermittent fevers, will obtain repeat blood cultures. (2) Acute knee pain: Sepsis vs. Gout As above - presumably source as of now - Uric acid sent pending - Orthopaedics consulted- appreciate their assistance and recommendations (3) Metastatic breast cancer: As per HPI- Continues on Gemcitabine and Paclitaxel - Continue with Oncology (4) Back pain: Chronic with metastatic disease - 25mcg fentanyl patch on her back - 50 mcg fentanyl patch this evening - Continue with oxycodone - Continue with Tramadol (5) Liver lesion: As above (6) GERD (gastroesophageal reflux disease): Continue pantoprazole 40 mg daily - patient feels as symptoms are controlled (7) Hypokalemia: She is on home potassium chloride with her spironolactone - will continue to- follow daily with BMP (8) Hyperglycemia: Place on loose sliding scale with infection- follow - Aspart sliding scale - CF 35, 0 carb coverage for now - Goal <180 (9) Acute metabolic encephalopathy: Perhaps may be a combination of sepsis and medications. will give narcan and monitor. also ordered multiple images CTA head and neck. Updated . Admission and Anticipated Discharge Date Admission Date: August 07, 2020 Subjective Patient reports feelig well. However during the afternoon, patient was having episodes of being intermittently confused. Nurse felt her face was grayish for a few seconds but she responded. Ordered CTA-head neck and P/E protoco. Patient was also given narcan. She appears to have responded to the narcan. Will try to hold some medications Review of Systems Review of Systems: All systems reviewed & are unremarkable except as noted in HPI & below Physical Exam Physical Exam: General: awake, alert, no apparent distress Head: Normocephalic, atraumatic ENT: PERRL, EOMI, no pharyngeal exudate, mucous membranes dry Neuro: AAO x 3, speech clear and appropriate, strength intact bilaterally 5/5, sensation intact and equal all extremities and dermatomes, no pronator drift Chest: equal rise and fall of the chest, no accessory muscle use, no heaves or thrills, Clear to auscultation, on room air, Cardiac: Regular rate and rhythm, telemetry reviewed, skin warm dry, cap refill <3 seconds, peripheral pulses +2 no JVD, no murmur, no edema GI: NABS x 4 quadrants, soft, nontender to palpation, no rebound, guarding or tenderness Psych: Normal mood and affect Results & Data Results & Data ([facility]) Vital Signs (Past 12 Hours) Vital Signs Temp Pulse Pulse Resp BP Pulse Ox 08/10/20 19:59 38 C H 112 H 18 131/70 93 08/10/20 16:14 37.9 C H 104 H 20 132/71 97 08/10/20 11:42 37.3 C 92 H 18 112/69 93 PG Care Time/CCT Total # of Minutes Spent Total Time Spent with Patient: Total time spent is greater than 50% in coordination of care (as documented) at patient's floor/unit and/or counseling patient: Coding Level of Care Code 09113 Subseq Hosp Care Lvl 3 Diagnoses Sepsis A41.9 Sepsis acute organ dysfunction status: unspecified Sepsis type: sepsis due to unspecified organism Acute knee pain M25.561 Laterality: right Metastatic breast cancer C50.919 Back pain M54.6 Back pain laterality: unspecified Back pain location: thoracic back pain Chronicity: unspecified Liver lesion K76.9 GERD (gastroesophageal reflux disease) K21.9 Esophagitis presence: with esophagitis Hypokalemia E87.6 Hyperglycemia R73.9 Acute metabolic encephalopathy G93.41 Time Spent (min) 35 (1) Acute knee pain Laterality: right Qualified Code(s): M25.561 - Pain in right knee (2) Back pain Back pain laterality: unspecified Back pain location: thoracic back pain Chronicity: unspecified Qualified Code(s): M54.6 - Pain in thoracic spine (3) Sepsis Sepsis acute organ dysfunction status: unspecified Sepsis type: sepsis due to unspecified organism Qualified Code(s): A41.9 - Sepsis, unspecified organism (4) GERD (gastroesophageal reflux disease) Esophagitis presence: with esophagitis
[2020-08-11] MEDS: VANCOMYCIN HCL 1,000 MG in SODIUM CHLORIDE 0.9% 250 ML IV SCH ×3 (02:35→20:36)
[2020-08-11] MEDS: HEPARIN SOD 5,000 UNIT/0.5 ML VIAL SQ SCH ×3 (06:22→20:37)
[2020-08-11 06:40] LABS: Hematocrit (blood only) 28.5 % (37-47); Hemoglobin 9.4 g/dL (12.0-16.0); Mean Corpuscular Hemoglobin 31.6 pg (25-34); Mean Platelet Volume 8.9 fL (7.4-10.4); Platelet Count 293 K/uL (130-400); RDW Coefficient of Variation 14.8 % (11.5-14.5); RDW Standard Deviation 52.4 fL (36.4-46.3); Red Blood Count 2.97 M/uL (4.2-5.4); White Blood Count 7.48 K/uL (4.8-10.8)
[2020-08-11 07:07] LABS: Basophils # (auto) 0.03 K/uL (0-0.2); Basophils % (auto) 0.4 %; Eosinophils # (auto) 0.14 K/uL (0-0.5); Eosinophils % (auto) 1.9 %; Immature Granulocytes # (auto) 0.02 K/uL (0.00-0.02); Immature Granulocytes % (auto) 0.3 %; Lymphocytes # (auto) 0.88 K/uL (1.2-3.4); Lymphocytes % (auto) 11.8 %; Monocytes # (auto) 0.83 K/uL (0.11-0.59); Monocytes % (auto) 11.1 %; Neutrophils # (auto) 5.58 K/uL (1.4-6.5); Neutrophils % (auto) 74.5 %; Polychromasia 1+; Tear Drop Cells 1+
[2020-08-11 07:12] LABS: BUN Creatinine Ratio 22.6 (10-20); Calcium 7.5 mg/dl (8.5-10.1); Creatinine Clr Calc Pharmacy 134.3 ml/min; Est GFR (African American) 121.8 ml/min; Est GFR (Non-African American) 105.1 ml/min; Potassium 3.6 mmol/L (3.5-5.1)
[2020-08-11 07:15] LABS: Albumin Globulin Ratio 0.6 (0.9-2); Bilirubin,Total 0.7 mg/dl (0.2-1); Globulin 3.3 gm/dl (2.5-4.0); Total Protein 5.3 gm/dl (6.4-8.2)
[2020-08-11] MEDS: VITAMIN B COMPLEX TAB PO SCH (08:23)
[2020-08-11] MEDS: PANTOprazole 40 MG TAB PO SCH (08:23)
[2020-08-11] MEDS: CHECK fentaNYL PATCH PLACEMENT SCH ×3 (08:23→23:30)
[2020-08-11] MEDS: ATORVASTATIN 20 MG TAB PO SCH (08:23)
[2020-08-11] MEDS: GABAPENTIN 300 MG CAP PO SCH ×3 (08:24→20:35)
[2020-08-11] MEDS: POTASSIUM CHLORIDE CRTAB 20 MEQ TABCR PO SCH ×2 (08:24→20:36)
[2020-08-11] MEDS: CETIRIZINE HCL 10 MG TABLET PO SCH (08:24)
[2020-08-11] MEDS: MULTIVITAMIN TAB PO SCH (08:24)
[2020-08-11] MEDS: METHYLCELLULOSE POWDER 454 GM JAR PO SCH ×4 (08:25→20:36)
[2020-08-11] MEDS: SYSTANE OP SCH ×2 (08:25→20:34)
[2020-08-11] MEDS: SPIRONOLACTONE/HCTZ 25-25 PO SCH ×2 (09:41→20:36)
[2020-08-11] MEDS: ACETAMINOPHEN 325 MG TAB PO PRN ×2 (09:41→18:34)
--- NOTE | 2020-08-11 13:07 | Orthopedic Progress Note ---
Date of Service August 11, 2020 Assessment & Plan (1) Septic arthritis of knee, right: Making progress on postoperative day 2 from her second arthroscopic irrigation debridement for right knee septic arthritis. -Recommend mobilizing to see if she can tolerate it. ROMAT, WBAT. -Continue daily laboratory exam. Would like to see CRP decreased before transitioning to an oral antibiotic regimen. -Appreciate hospitalist care and and the medical assistance with her septic arthritis. -Is cleared to begin PT/OT for gentle active assisted range of motion to that knee. She can be weightbearing as tolerated but pain will be inhibiting for some time. Ambulation should be limited at this point for activities of daily living. -We will continue to follow. Subjective Reports improvement. Less pain overall. Left ankle pain is 'getting better'. Review of Systems All systems reviewed & are unremarkable except as noted in HPI & below. Physical Exam RLE: knee dressing take down. Can achieve full passive ROM. ROM 0-25. Mild edema. Trace effusion. DNVI. Constitutional WD/WN, vitals as above no acute distress and not intoxicated appearing Respiratory normal respiratory effort; no labored breathing Cardiovascular Extremities: normal capillary refill Results & Data Results & Data Laboratory Results . Diagnostic Findings H & H 08/07/20 08/08/20 08/09/20 Range/Units 12:07 05:20 06:24 Hgb 12.7 10.1 L 11.0 L (12.0-16.0) g/dL Hct 38.3 32.1 L 34.2 L (37-47) % 08/10/20 08/10/20 08/11/20 Range/Units 05:54 17:05 06:27 Hgb 9.0 L 9.1 L 9.4 L (12.0-16.0) g/dL Hct 28.0 L 28.4 L 28.5 L (37-47) % Coagulation 08/07/20 Range/Units 11:39 INR 1.1 (0.9-1.1) WBC normal CRP ? PG Care Time/CCT Total # of Minutes Spent Total Time Spent with Patient: Total time spent is greater than 50% in coordination of care (as documented) at patient's floor/unit and/or counseling patient: Coding Level of Care Code 17618 Post Operative Follow-Up Diagnoses Septic arthritis of knee, right M00.9
[2020-08-11] MEDS: SENNA 8.6 MG TAB PO SCH (20:35)
--- NOTE | 2020-08-11 22:08 | Hospitalist Progress Note ---
Date of Service August 11, 2020 Assessment & Plan (1) Sepsis: Immunocompromised- septic knee most likely source - Blood Cultures have been negative, twice - continue Vancomycin, was going to place on Rocephin but has ceph allergy - Her medi-port site looks good with no surrounding erythema - De-access her port for now - PIV access On 08/08 1. Right knee arthroscopic irrigation and debridement. 2. Right knee partial medial and lateral meniscectomies. Patient tolerated the procedure. On 08/09 Right Knee Arthroscopic Incision and Drainage(Right) Patient tolerated this procedure. synovial fluid cultures have all been NEGATIVE although initial tap with 67k WBC h/o trauma to the right knee and patella fracture repair (2) Acute knee pain: Sepsis vs. Gout As above - presumably source as of now - Uric acid sent pending - Orthopaedics consulted- appreciate their assistance and recommendations order PT/OT, WBAT on right leg (3) Metastatic breast cancer: As per HPI- Continues on Gemcitabine and Paclitaxel - Continue with Oncology (4) Back pain: Chronic with metastatic disease - Fentanyl had been increased to 50mcg - Continue with oxycodone - Continue with Tramadol needed Narcan over the weekend, she and her request pain management consultation (5) Liver lesion: As above (6) GERD (gastroesophageal reflux disease): Continue pantoprazole 40 mg daily - patient feels as symptoms are controlled (7) Hypokalemia: She is on home potassium chloride with her spironolactone - will continue to- follow daily with BMP, K is 3.6 (8) Hyperglycemia: Place on loose sliding scale with infection- follow - Aspart sliding scale - CF 35, 0 carb coverage for now - Goal <180 monitor for hypoglycemia, no episodes (9) Acute metabolic encephalopathy: though to be due to narcotic toxic encephalopathy treated with Narcan mental status is normal today Admission and Anticipated Discharge Date Admission Date: August 07, 2020 Subjective overall patient says she is doing better, pain in right knee reduced she is eating better, no chest pain, no cough, no dyspnea, no fever she would like to start therapy, per ortho she can be WBAT on the right leg, limit walking to ADL reviewed chart, irrigation of right knee for septic joint, no growth on cultures no fever she and her would like a pain management consultation as she needed Narcan the other day Review of Systems Review of Systems: All systems reviewed & are unremarkable except as noted in Subjective Musculoskeletal: + joint pain (right knee) Physical Exam Constitutional: WD/WN, vitals as above Neck: trachea midline, no thyromegaly Respiratory: normal respiratory effort, lungs clear to auscultation Cardiovascular: RRR, no murmur, no edema Gastrointestinal (Abdomen): normal bowel sounds, soft, nontender, no hepatosplenomegaly Musculoskeletal: Head/Neck/Chest: normocephalic, head atraumatic and neck supple Extremities: strength 5/5 throughout; + extremities abnormal to inspection (right knee swollen, tender), no cyanosis, no clubbing and no petechiae Skin: no rashes, warm and dry Neurologic: patellar DTR's 2+ bilat, sensation intact and PERRL, EOMI, accommodation nl, no face palsy, no dysarthria Psychiatric: A+Ox3, euthymic affect Lymphatic: no cervical or axillary lymphadenopathy Results & Data Results & Data ([facility]) Vital Signs (Past 12 Hours) Vital Signs Temp Pulse Pulse Resp BP Pulse Ox 08/11/20 19:30 37.3 C 101 H 18 139/82 96 08/11/20 15:42 36.9 C 90 18 133/78 98 08/11/20 15:40 88 08/11/20 10:26 37.2 C 92 H 17 123/77 97 08/11/20 10:22 90 Laboratory Results Laboratory Results - last 24 hr 08/11/20 08/11/20 08/11/20 06:27 06:27 11:21 WBC 7.48 RBC 2.97 L Hgb 9.4 L Hct 28.5 L MCV 96.0 MCH 31.6 MCHC 33.0 RDW Std Deviation 52.4 H RDW Coeff of Jermaine 14.8 H Plt Count 293 MPV 8.9 Immature Gran % (Auto) 0.3 Neut % (Auto) 74.5 Lymph % (Auto) 11.8 Randolph % (Auto) 11.1 Eos % (Auto) 1.9 Baso % (Auto) 0.4 Neut # (Auto) 5.58 Lymph # (Auto) 0.88 L Randolph # (Auto) 0.83 H Eos # (Auto) 0.14 Baso # (Auto) 0.03 Immature Gran # (Auto) 0.02 Polychromasia 1+ Tear Drop Cells 1+ Sodium 135 L Potassium 3.6 Chloride 101 Carbon Dioxide 31 Anion Gap 3.0 BUN 8 Creatinine 0.38 L Est Cr Clr Drug Dosing 134.3 Est GFR ( Amer) 121.8 Est GFR (Non-Af Amer) 105.1 BUN/Creatinine Ratio 22.6 H Glucose 98 Calcium 7.5 L Total Bilirubin 0.7 AST 169 H ALT 155 H Alkaline Phosphatase 124 H Total Protein 5.3 L Albumin 2.0 L Globulin 3.3 Albumin/Globulin Ratio 0.6 L Vancomycin Trough 13.1 Medications Administered Current Inpatient Medications Acetaminophen (Acetaminophen 325 Mg Tab) 650 mg PO Q4H PRN PRN Reason: Pain or Fever Stop: 09/06/20 16:59 Last Admin: 08/11/20 18:34 Dose: 650 mg Documented by: Acetaminophen (Acetaminophen 500 Mg Tab) 1,000 mg PO HS PRN PRN Reason: Sleep Stop: 09/08/20 11:05 Atorvastatin Calcium (Atorvastatin 20 Mg Tab) 20 mg PO DAILY ISHA Stop: 09/07/20 08:59 Last Admin: 08/11/20 08:23 Dose: 20 mg Documented by: Cetirizine HCl (Cetirizine Hcl 10 Mg Tablet) 10 mg PO DAILY ISHA Stop: 09/07/20 08:59 Last Admin: 08/11/20 08:24 Dose: 10 mg Documented by: Clobetasol Propionate (Clobetasol Propionate 0.05% Oint 15 Gm Tube) 1 appln EXT BID PRN PRN Reason: Skin Irritation Stop: 09/06/20 17:22 Diphenhydramine HCl (Diphenhydramine 50 Mg/Ml Vial) 25 mg IV Q8H PRN PRN Reason: Itching Stop: 09/06/20 16:30 Diphenhydramine HCl (Diphenhydramine Capsule 25 Mg Cap) 50 mg PO HS PRN PRN Reason: Sleep Stop: 09/08/20 11:05 Fentanyl (Fentanyl 50 Mcg/Hr Tdsy) 50 mcg TD Q3D@2100 ISHA Stop: 08/21/20 20:59 Last Admin: 08/10/20 21:43 Dose: 50 mcg Documented by: Fluticasone Propionate (Fluticasone Propionate Na Spr 16 Gm Btl) 2 sprays NA DAILY PRN PRN Reason: allergy symptoms Stop: 09/06/20 16:59 Gabapentin (Gabapentin 300 Mg Cap) 300 mg PO TID [facility] Stop: 09/06/20 16:59 Last Admin: 08/11/20 20:35 Dose: 300 mg Documented by: HCTZ/Spironolactone (Spironolactone/Hctz 25-25) 1 tab PO BID [facility] Stop: 09/08/20 20:59 Last Admin: 08/11/20 20:36 Dose: 1 tab Documented by: Heparin Sodium (Porcine) (Heparin Sod 5,000 Unit/0.5 Ml Vial) 5,000 units SQ Q8 [facility]; Protocol Stop: 09/06/20 21:59 Last Admin: 08/11/20 20:37 Dose: 5,000 units Documented by: Heparin Sodium (Porcine) (Heparin 100 Unit/Ml 5ml Flush) 5 ml FLUSH PRN PRN PRN Reason: Flush Stop: 09/07/20 08:05 Last Admin: 08/10/20 15:58 Dose: 5 ml Documented by: Vancomycin HCl 1,000 mg/ (Sodium Chloride) 270 mls @ 200 mls/hr IV Q10H [facility]; Protocol Stop: 08/15/20 01:59 Last Admin: 08/11/20 20:36 Dose: 200 mls/hr Documented by: Methylcellulose (Methylcellulose Powder 454 Gm Jar) 2 gm PO QID [facility] Stop: 09/06/20 20:59 Last Admin: 08/11/20 20:36 Dose: Not Given Documented by: Metoclopramide HCl (Metoclopramide Hcl Inj 5 Mg/Ml 2 Ml Vial) 10 mg IV Q6H PRN PRN Reason: Nausea And Vomiting Stop: 09/06/20 20:32 Miscellaneous (Denosumab [Xgeva] - Order Awaiting Action) 1 ea N/A QS [facility] Stop: 09/10/20 00:00 Last Admin: 08/11/20 15:41 Dose: Not Given Documented by: Miscellaneous (Fentanyl Patch Remove & Waste) 1 ea N/A Q3D@2058 [facility] Stop: 09/06/20 20:58 Last Admin: 08/10/20 21:43 Dose: 1 ea Documented by: Miscellaneous (Check Fentanyl Patch Placement) 1 ea N/A QS [facility] Stop: 09/06/20 17:59 Last Admin: 08/11/20 15:41 Dose: 1 ea Documented by: Miscellaneous Information (Vancomycin Consult Active) 1 ea N/A UD PRN PRN Reason: Consult Stop: 09/06/20 16:59 Multivitamins (Multivitamin Tab) 1 tab PO QAM [facility] Stop: 09/07/20 08:59 Last Admin: 08/11/20 08:24 Dose: 1 tab Documented by: Naloxone HCl (Naloxone Hcl 0.4 Mg/1 Ml Vial/Carp) 0.1 mg IV Q5M PRN PRN Reason: Oversedation/Resp Depression Stop: 09/06/20 20:32 Last Admin: 08/10/20 18:41 Dose: 0.1 mg Documented by: Systane: Non- Formulary Patient's Own Med 1 ea OP BID [facility] Stop: 09/09/20 20:59 Last Admin: 08/11/20 20:34 Dose: 1 drops Documented by: Ondansetron HCl (Ondansetron Inj 2 Mg/Ml 2 Ml Vial) 4 mg IV Q6H PRN PRN Reason: Nausea And Vomiting Stop: 09/06/20 20:32 Oxycodone HCl (Oxycodone Hcl Ir 5 Mg Tab (Immediate Release)) 10 mg PO Q6 PRN PRN Reason: Pain Stop: 08/21/20 16:59 Last Admin: 08/10/20 16:02 Dose: 10 mg Documented by: Pantoprazole Sodium (Pantoprazole 40 Mg Tab) 40 mg PO DAILY [facility] Stop: 09/07/20 08:59 Last Admin: 08/11/20 08:23 Dose: 40 mg Documented by: Potassium Chloride (Potassium Chloride Crtab 20 Meq Tabcr) 20 meq PO BID [facility] Stop: 09/06/20 20:59 Last Admin: 08/11/20 20:36 Dose: 20 meq Documented by: Prochlorperazine (Prochlorperazine Maleate 10 Mg Tab) 10 mg PO Q6H PRN PRN Reason: Nausea And Vomiting Stop: 09/06/20 16:59 Senna/Docusate Sodium (Docusate Sodium/Senna 50/8.6mg Tab) 1 tab PO HS PRN PRN Reason: Constipation Stop: 09/06/20 16:59 Last Admin: 08/07/20 21:59 Dose: 1 tab Documented by: Sennosides (Senna 8.6 Mg Tab) 17.2 mg PO HS ISHA Stop: 09/06/20 20:59 Last Admin: 08/11/20 20:35 Dose: 17.2 mg Documented by: Tramadol HCl (Tramadol Hcl 50 Mg Tablet) 50 mg PO DAILY PRN PRN Reason: Pain Stop: 09/06/20 16:59 Last Admin: 08/09/20 14:52 Dose: 50 mg Documented by: Vitamin B Complex (Vitamin B Complex Tab) 1 tab PO DAILY ISHA Stop: 09/09/20 08:59 Last Admin: 08/11/20 08:23 Dose: 1 tab Documented by: PG Care Time/CCT Total # of Minutes Spent Total Time Spent with Patient: Total time spent is greater than 50% in coordination of care (as documented) at patient's floor/unit and/or counseling patient: Coding Level of Care Code 27077 Subseq Hosp Care Lvl 3 Diagnoses Sepsis A41.9 Sepsis acute organ dysfunction status: unspecified Sepsis type: sepsis due to unspecified organism Acute knee pain M25.561 Laterality: right Metastatic breast cancer C50.919 Back pain M54.6 Back pain laterality: unspecified Back pain location: thoracic back pain Chronicity: unspecified Liver lesion K76.9 GERD (gastroesophageal reflux disease) K21.9 Esophagitis presence: with esophagitis Hypokalemia E87.6 Hyperglycemia R73.9 Acute metabolic encephalopathy G93.41 (1) Sepsis Sepsis acute organ dysfunction status: unspecified Sepsis type: sepsis due to unspecified organism Qualified Code(s): A41.9 - Sepsis, unspecified organism (2) Acute knee pain Laterality: right Qualified Code(s): M25.561 - Pain in right knee (3) Back pain Back pain laterality: unspecified Back pain location: thoracic back pain Chronicity: unspecified Qualified Code(s): M54.6 - Pain in thoracic spine (4) GERD (gastroesophageal reflux disease) Esophagitis presence: with esophagitis
[2020-08-12] MEDS: HEPARIN SOD 5,000 UNIT/0.5 ML VIAL SQ SCH ×3 (06:11→20:40)
[2020-08-12] MEDS ORDERED: VANCOMYCIN TROUGH ONE (07:30)
[2020-08-12 07:53] LABS: Hematocrit (blood only) 28.4 % (37-47); Mean Corpuscular Hemoglobin 31.3 pg (25-34); Mean Corpuscular Hgb Conc 31.7 g/dL (32-36); Mean Corpuscular Volume 98.6 fL (80-100); Mean Platelet Volume 8.9 fL (7.4-10.4); Platelet Count 344 K/uL (130-400); RDW Coefficient of Variation 15.1 % (11.5-14.5); Red Blood Count 2.88 M/uL (4.2-5.4); White Blood Count 7.66 K/uL (4.8-10.8)
[2020-08-12 08:18] LABS: BUN Creatinine Ratio 24.5 (10-20); Calcium 7.9 mg/dl (8.5-10.1); Creatinine Clr Calc Pharmacy 134.1 ml/min; Est GFR (African American) 121.8 ml/min; Est GFR (Non-African American) 105.1 ml/min
[2020-08-12] MEDS: VANCOMYCIN HCL 1,000 MG in SODIUM CHLORIDE 0.9% 250 ML IV SCH (09:52)
[2020-08-12] MEDS: SPIRONOLACTONE/HCTZ 25-25 PO SCH ×2 (10:05→20:39)
[2020-08-12] MEDS: ATORVASTATIN 20 MG TAB PO SCH (10:05)
[2020-08-12] MEDS: POTASSIUM CHLORIDE CRTAB 20 MEQ TABCR PO SCH ×2 (10:05→20:39)
[2020-08-12] MEDS: MULTIVITAMIN TAB PO SCH (10:06)
[2020-08-12] MEDS: CETIRIZINE HCL 10 MG TABLET PO SCH (10:06)
[2020-08-12] MEDS: GABAPENTIN 300 MG CAP PO SCH ×3 (10:06→20:39)
[2020-08-12] MEDS: VITAMIN B COMPLEX TAB PO SCH (10:06)
[2020-08-12] MEDS: PANTOprazole 40 MG TAB PO SCH (10:06)
[2020-08-12] MEDS: SYSTANE OP SCH ×2 (10:07→20:40)
[2020-08-12] MEDS: cefTRIAXone SODIUM 2,000 MG in DEXTROSE 5% 50 ML IV SCH (10:08)
[2020-08-12] MEDS: METHYLCELLULOSE POWDER 454 GM JAR PO SCH ×4 (10:08→20:40)
[2020-08-12] MEDS: fentaNYL 12 MCG/HR TDSY TD SCH (10:10)
[2020-08-12] MEDS: fentaNYL 25 MCG/HR TDSY TD SCH (10:11)
[2020-08-12] MEDS: CHECK fentaNYL PATCH PLACEMENT SCH ×3 (10:12→23:09)
--- NOTE | 2020-08-12 11:01 | Pain Management Consultation ---
Date of Consultation August 12, 2020 Assessment & Plan (1) Septic arthritis of knee, right: (2) Metastatic breast cancer: The recent increase of the Fentanyl dosage may be the cause to the confusion episode 2 days ago. I have decreased the Fentanyl dosage down to 37mcg/hr. She will continue Tylenol and Oxycodone if needed for breakthrough pain. Given the history, I would recommend that the patient be discharged with a Narcan prescription. Patient is agreeable to this plan. That you for the consultation. Please call with any questions or concerns. History of Present Illness Reason for Consultation: accidental opioid overdose Attending Physician: Diogo Nava DO History of Present Illness Mrs. Golden is a 75 year old female with a significant history of breast cancer. She has had multiple bouts of breast cancer since 1988 and with the most recent recurrence in 2012. Last year she developed metastatic disease into the bones and liver. For these pains she has been on Fentanyl patch for 6 months. It was increased from 25 to 50mcg/hr on 08/06/20, the day before admission. She has been admitted for septic right knee joint that has required #3 debridement procedures and a drain placement. The drain has been removed and she is to work with physical therapy today to work on weight bearing and ROM. She does have Oxycodone 10mg ordered x 6 hours which she typically takes twice daily. She will also supplement with Tylenol for pain. Over the weekend she was shell in color of the face and confused. She was allow to respond and was not aware of the correct time. Person and place was appropriate. She was given two doses of Narcan and responded well. Patient does not recall this episode at all. Today the patient states that her pain in the knee is tolerable, improved over the past 3 days. 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 Pain Assessment Full Body Front + Back: 1. Allergies Allergy/AdvReac Type Severity Reaction Status Date / Time chlorhexidine Allergy Intermediate ITCHING Verified 08/07/20 13:52 cephalexin Allergy Mild SICK Verified 08/07/20 13:52 edetic acid Allergy Mild nausea Verified 08/07/20 13:52 propylene glycol Allergy Mild nausea Verified 08/07/20 13:52 regadenoson Allergy Mild nausea Verified 08/07/20 13:52 codeine AdvReac Intermediate N/V Verified 08/07/20 13:52 Home Medications Medication Instructions Recorded Confirmed Type fluticasone propionate 50 2 sprays INTNAS DAILY PRN 01/04/19 08/07/20 History mcg/actuation nasal spray,suspension Calcium 600 + D(3) 1 cap PO BID 02/15/19 08/07/20 History diphenhydramine-acetaminophen 2 tab PO HS PRN 02/15/19 08/07/20 History [Tylenol PM Extra Strength] Systane (PF) 1 drp OPHTHALMIC (EYE) BID 04/06/19 08/07/20 History prochlorperazine maleate 10 mg 10 mg PO Q6H PRN 10/25/19 08/07/20 History tablet vit C 250 mg-vit E 90 mg-zinc 40 1 tab PO BID 10/25/19 08/07/20 History mg-copper 1 [id number] capsule spironolactone 25 1 tab PO BID #180 tab 12/12/19 08/07/20 Rx mg-hydrochlorothiazide 25 mg tablet fentanyl 25 mcg/hr transdermal 1 patch TRANSDERMAL Q72H 03/17/20 08/07/20 History patch tramadol 50 mg tablet 50 mg PO DAILY PRN 05/26/20 08/07/20 History atorvastatin 20 mg PO DAILY 08/07/20 08/07/20 History cetirizine 10 mg PO DAILY 08/07/20 08/07/20 History clobetasol 1 applic TOPICAL BID PRN 08/07/20 08/07/20 History denosumab [Xgeva] 120 mg SUBCUT UD 08/07/20 08/07/20 History fentanyl 1 patch TRANSDERMAL Q72H 08/07/20 08/07/20 History gabapentin 300 mg PO TID 08/07/20 08/07/20 History methylcellulose (laxative) 500 mg PO QID 08/07/20 08/07/20 History [Citrucel] ondansetron HCl 8 mg PO DAILY PRN 08/07/20 08/07/20 History oxycodone 10 mg PO Q6 PRN 08/07/20 08/07/20 History pantoprazole 40 mg PO DAILY 08/07/20 08/07/20 History potassium chloride 20 meq PO BID 08/07/20 08/07/20 History sennosides-docusate sodium 1 tab-cap PO HS PRN 08/07/20 08/07/20 History [Senokot-S] triamcinolone acetonide 1 applic TOPICAL DAILY PRN 08/07/20 08/07/20 History vitamin B comp and C no.3 [B 1 cap PO DAILY 08/07/20 08/07/20 History Complex Plus Vitamin C] Patient History Medical History BRCA1 positive GERD (gastroesophageal reflux disease) Hearing deficit History of breast cancer 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; Ductal carcinoma dx'ed per bx again in 2012- s/p bilateral mastectomy with chemo; XRT in 2014 Hyperlipidemia Hypertension Liver lesion JUST WATCHING Lytic bone lesions on xray Pathologic compression fracture of spine 01/2019 abdominal/pelvis CT report Surgical History History of breast biopsy History of colonoscopy History of dilatation and curettage History of esophagogastroduodenoscopy (EGD) History of hysterectomy with bilateral oophorectomy History of loop electrosurgical excision procedure (LEEP) History of myringotomy History of tooth extraction History of total left knee replacement History of tubal ligation Hx of cholecystectomy Hx of fracture of femur WITH REPAIR TO LEFT Hx of tonsillectomy Port-A-Cath in place (04/09/19) Insertion of Mediport Left Cephalic vein Dr. 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 Nontoxic. Does not appear in acute distress. HEAD/FACE: Normocephalic and atraumatic. EYES: No drainage or conjunctival injection. ENT: Nose without bleeding or discharge. Oral mucosa moist. NECK: Full ROM without apparent pain. No swelling or masses noted. RESPIRATORY: Patient with unlabored breathing. No signs of respiratory distress. CHEST/AXILLA: Chest movement symmetrical. No deformities noted. BACK: Moves without difficulty SKIN: [place], warm and dry. No rash noted. MS/EXTREMITY: Right leg is wrapped/bandaged. No warmth of the leg to the touch. NEURO: Alert and appears oriented. Speech is fluent. Cranial Nerves are grossly intact. PSYCH: Alert, pleasant, affect is calm
[2020-08-12] MEDS: ACETAMINOPHEN 325 MG TAB PO PRN (12:38)
--- NOTE | 2020-08-12 17:59 | Hospitalist Progress Note ---
Date of Service August 12, 2020 Assessment & Plan (1) Sepsis: Immunocompromised- septic knee most likely source - Blood Cultures have been negative, twice - continue Rocephin 2gm IV daily - Her medi-port site looks good with no surrounding erythema - De-access her port for now - PIV access On 08/08 1. Right knee arthroscopic irrigation and debridement. 2. Right knee partial medial and lateral meniscectomies. Patient tolerated the procedure. On 08/09 Right Knee Arthroscopic Incision and Drainage(Right) Patient tolerated this procedure. synovial fluid cultures have all been NEGATIVE although initial tap with 67k WBC h/o trauma to the right knee and patella fracture repair will discuss with orthopedics how long they want antibiotics move to medical floor today (2) Acute knee pain: Sepsis vs. Gout As above - presumably source as of now - serum Uric acid only 4 - Orthopaedics consulted- appreciate their assistance and recommendations order PT/OT, WBAT on right leg (3) Metastatic breast cancer: As per HPI- Continues on Gemcitabine and Paclitaxel - Continue with Oncology (4) Back pain: Chronic with metastatic disease appreciate pain management consultation decrease Fentanyl to 37mcg, use Tylenol and Oxycodone for breakthrough give prescription for Narcan on discharge (5) Liver lesion: As above (6) GERD (gastroesophageal reflux disease): Continue pantoprazole 40 mg daily - patient feels as symptoms are controlled (7) Hypokalemia: She is on home potassium chloride with her spironolactone - will continue to- follow daily with BMP, K is 4.0 (8) Hyperglycemia: Place on loose sliding scale with infection- follow - Aspart sliding scale - CF 35, 0 carb coverage for now - Goal <180 monitor for hypoglycemia, no episodes (9) Acute metabolic encephalopathy: thought to be due to narcotic toxic encephalopathy treated with Narcan mental status is normal today Admission and Anticipated Discharge Date Admission Date: August 07, 2020 Subjective patient feeling a little better today, only pain is in her right knee, no pain in hip d/w Dr. Vásquez with radiation oncology, no further need for radiation treatment she is eating well, big lunch, no nausea, no constipation no dyspnea, no fever, no chest pain reviewed labs, WBC and plts normal, Hb 9 Cr and electrolytes stable she is doing more with PT/OT, will move her to medical floor Review of Systems Review of Systems: All systems reviewed & are unremarkable except as noted in Subjective Musculoskeletal: + joint pain (right knee) Physical Exam Constitutional: WD/WN, vitals as above Neck: trachea midline, no thyromegaly Respiratory: normal respiratory effort, lungs clear to auscultation Cardiovascular: RRR, no murmur, no edema Gastrointestinal (Abdomen): normal bowel sounds, soft, nontender, no hepatosplenomegaly Musculoskeletal: Head/Neck/Chest: normocephalic, head atraumatic and neck supple Extremities: strength 5/5 throughout; + extremities abnormal to inspection (right knee swollen, tender), no cyanosis, no clubbing and no petec hiae Skin: no rashes, warm and dry Neurologic: patellar DTR's 2+ bilat, sensation intact and PERRL, EOMI, accommodation nl, no face palsy, no dysarthria Psychiatric: A+Ox3, euthymic affect Lymphatic: no cervical or axillary lymphadenopathy Results & Data Results & Data ([facility]) Vital Signs (Past 12 Hours) Vital Signs Temp Pulse Pulse Resp BP Pulse Ox 08/12/20 15:01 36.8 C 96 H 16 116/67 96 08/12/20 10:31 36.8 C 98 H 17 148/81 H 99 08/12/20 08:00 90 08/12/20 07:32 37.1 C 90 18 117/71 97 Laboratory Results Laboratory Results - last 24 hr 08/12/20 08/12/20 08/12/20 07:40 07:40 07:40 WBC 7.66 RBC 2.88 L Hgb 9.0 L Hct 28.4 L MCV 98.6 MCH 31.3 MCHC 31.7 L RDW Std Deviation 54.0 H RDW Coeff of Jermaine 15.1 H Plt Count 344 MPV 8.9 Sodium 135 L Potassium 4.0 Chloride 102 Carbon Dioxide 27 Anion Gap 5.0 BUN 9 Creatinine 0.38 L Est Cr Clr Drug Dosing 134.1 Est GFR ( Amer) 121.8 Est GFR (Non-Af Amer) 105.1 BUN/Creatinine Ratio 24.5 H Glucose 94 Calcium 7.9 L Vancomycin Trough 13.2 Medications Administered Current Inpatient Medications Acetaminophen (Acetaminophen 325 Mg Tab) 650 mg PO Q4H PRN PRN Reason: Pain or Fever Stop: 09/06/20 16:59 Last Admin: 08/12/20 12:38 Dose: 650 mg Documented by: Acetaminophen (Acetaminophen 500 Mg Tab) 1,000 mg PO HS PRN PRN Reason: Sleep Stop: 09/08/20 11:05 Atorvastatin Calcium (Atorvastatin 20 Mg Tab) 20 mg PO DAILY [facility] Stop: 09/07/20 08:59 Last Admin: 08/12/20 10:05 Dose: 20 mg Documented by: Cetirizine HCl (Cetirizine Hcl 10 Mg Tablet) 10 mg PO DAILY [facility] Stop: 09/07/20 08:59 Last Admin: 08/12/20 10:06 Dose: 10 mg Documented by: Clobetasol Propionate (Clobetasol Propionate 0.05% Oint 15 Gm Tube) 1 appln EXT BID PRN PRN Reason: Skin Irritation Stop: 09/06/20 17:22 Diphenhydramine HCl (Diphenhydramine 50 Mg/Ml Vial) 25 mg IV Q8H PRN PRN Reason: Itching Stop: 09/06/20 16:30 Diphenhydramine HCl (Diphenhydramine Capsule 25 Mg Cap) 50 mg PO HS PRN PRN Reason: Sleep Stop: 09/08/20 11:05 Fentanyl (Fentanyl 25 Mcg/Hr Tdsy) 25 mcg TD Q3D@0900 [facility] Stop: 08/26/20 08:59 Last Admin: 08/12/20 10:11 Dose: 25 mcg Documented by: Fentanyl (Fentanyl 12 Mcg/Hr Tdsy) 12 mcg TD Q3D@0900 [facility] Stop: 08/26/20 08:59 Last Admin: 08/12/20 10:10 Dose: 12 mcg Documented by: Fluticasone Propionate (Fluticasone Propionate Na Spr 16 Gm Btl) 2 sprays NA DAILY PRN PRN Reason: allergy symptoms Stop: 09/06/20 16:59 Gabapentin (Gabapentin 300 Mg Cap) 300 mg PO TID [facility] Stop: 09/06/20 16:59 Last Admin: 08/12/20 14:06 Dose: 300 mg Documented by: HCTZ/Spironolactone (Spironolactone/Hctz 25-25) 1 tab PO BID [facility] Stop: 09/08/20 20:59 Last Admin: 08/12/20 10:05 Dose: 1 tab Documented by: Heparin Sodium (Porcine) (Heparin Sod 5,000 Unit/0.5 Ml Vial) 5,000 units SQ Q8 [facility]; Protocol Stop: 09/06/20 21:59 Last Admin: 08/12/20 14:06 Dose: 5,000 units Documented by: Heparin Sodium (Porcine) (Heparin 100 Unit/Ml 5ml Flush) 5 ml FLUSH PRN PRN PRN Reason: Flush Stop: 09/07/20 08:05 Last Admin: 08/10/20 15:58 Dose: 5 ml Documented by: Ceftriaxone Sodium 2,000 mg/ (Dextrose) 70 mls @ 140 mls/hr IV Q24H [facility] Stop: 09/23/20 09:59 Last Infusion: 08/12/20 10:55 Dose: Infused Documented by: Methylcellulose (Methylcellulose Powder 454 Gm Jar) 2 gm PO QID [facility] Stop: 09/06/20 20:59 Last Admin: 08/12/20 17:38 Dose: Not Given Documented by: Metoclopramide HCl (Metoclopramide Hcl Inj 5 Mg/Ml 2 Ml Vial) 10 mg IV Q6H PRN PRN Reason: Nausea And Vomiting Stop: 09/06/20 20:32 Miscellaneous (Denosumab [Xgeva] - Order Awaiting Action) 1 ea N/A QS [facility] Stop: 09/10/20 00:00 Last Admin: 08/12/20 17:36 Dose: Not Given Documented by: Miscellaneous (Check Fentanyl Patch Placement) 1 ea N/A QS [facility] Stop: 09/06/20 17:59 Last Admin: 08/12/20 17:35 Dose: 1 ea Documented by: Miscellaneous (Fentanyl Patch Remove & Waste) 1 ea N/A Q3D@0859 [facility] Stop: 09/11/20 08:58 Last Admin: 08/12/20 10:12 Dose: 1 ea Documented by: Multivitamins (Multivitamin Tab) 1 tab PO QAM [facility] Stop: 09/07/20 08:59 Last Admin: 08/12/20 10:06 Dose: 1 tab Documented by: Naloxone HCl (Naloxone Hcl 0.4 Mg/1 Ml Vial/Carp) 0.1 mg IV Q5M PRN PRN Reason: Oversedation/Resp Depression Stop: 09/06/20 20:32 Last Admin: 08/10/20 18:41 Dose: 0.1 mg Documented by: Systane: Non- Formulary Patient's Own Med 1 ea OP BID [facility] Stop: 09/09/20 20:59 Last Admin: 08/12/20 10:07 Dose: 1 drops Documented by: Ondansetron HCl (Ondansetron Inj 2 Mg/Ml 2 Ml Vial) 4 mg IV Q6H PRN PRN Reason: Nausea And Vomiting Stop: 09/06/20 20:32 Oxycodone HCl (Oxycodone Hcl Ir 5 Mg Tab (Immediate Release)) 10 mg PO Q6 PRN PRN Reason: Pain Stop: 08/21/20 16:59 Last Admin: 08/10/20 16:02 Dose: 10 mg Documented by: Pantoprazole Sodium (Pantoprazole 40 Mg Tab) 40 mg PO DAILY [facility] Stop: 09/07/20 08:59 Last Admin: 08/12/20 10:06 Dose: 40 mg Documented by: Potassium Chloride (Potassium Chloride Crtab 20 Meq Tabcr) 20 meq PO BID [facility] Stop: 09/06/20 20:59 Last Admin: 08/12/20 10:05 Dose: 20 meq Documented by: Prochlorperazine (Prochlorperazine Maleate 10 Mg Tab) 10 mg PO Q6H PRN PRN Reason: Nausea And Vomiting Stop: 09/06/20 16:59 Senna/Docusate Sodium (Docusate Sodium/Senna 50/8.6mg Tab) 1 tab PO HS PRN PRN Reason: Constipation Stop: 09/06/20 16:59 Last Admin: 08/07/20 21:59 Dose: 1 tab Documented by: Sennosides (Senna 8.6 Mg Tab) 17.2 mg PO HS [facility] Stop: 09/06/20 20:59 Last Admin: 08/11/20 20:35 Dose: 17.2 mg Documented by: Tramadol HCl (Tramadol Hcl 50 Mg Tablet) 50 mg PO DAILY PRN PRN Reason: Pain Stop: 09/06/20 16:59 Last Admin: 08/09/20 14:52 Dose: 50 mg Documented by: Vitamin B Complex (Vitamin B Complex Tab) 1 tab PO DAILY [facility] Stop: 09/09/20 08:59 Last Admin: 08/12/20 10:06 Dose: 1 tab Documented by: PG Care Time/CCT Total # of Minutes Spent Total Time Spent with Patient: Total time spent is greater than 50% in coordination of care (as documented) at patient's floor/unit and/or counseling patient: Coding Level of Care Code 18076 Subseq Hosp Care Lvl 2 Diagnoses Sepsis A41.9 Sepsis acute organ dysfunction status: unspecified Sepsis type: sepsis due to unspecified organism Acute knee pain M25.561 Laterality: right Metastatic breast cancer C50.919 Back pain M54.6 Back pain laterality: unspecified Back pain location: thoracic back pain Chronicity: unspecified Liver lesion K76.9 GERD (gastroesophageal reflux disease) K21.9 Esophagitis presence: with esophagitis Hypokalemia E87.6 Hyperglycemia R73.9 Acute metabolic encephalopathy G93.41 (1) Sepsis Sepsis acute organ dysfunction status: unspecified Sepsis type: sepsis due to unspecified organism Qualified Code(s): A41.9 - Sepsis, unspecified organism (2) Acute knee pain Laterality: right Qualified Code(s): M25.561 - Pain in right knee (3) Back pain Back pain laterality: unspecified Back pain location: thoracic back pain Chronicity: unspecified Qualified Code(s): M54.6 - Pain in thoracic spine (4) GERD (gastroesophageal reflux disease) Esophagitis presence: with esophagitis
[2020-08-12] MEDS: SENNA 8.6 MG TAB PO SCH (21:09)
--- NOTE | 2020-08-12 22:02 | Orthopedic Progress Note ---
Date of Service August 12, 2020 Assessment & Plan (1) Septic arthritis of knee, right: Making progress on postoperative day 3 from her second arthroscopic irrigation debridement for right knee septic arthritis. -Continue to mobilize with PT/OT: ROMAT, WBAT. -Consider transition to oral antibiotic. -Consider consistent anti-inflammatory treatment for CPPD -Appreciate hospitalist care and and the medical assistance with her septic arthritis. -We will continue to follow, call with questions. Subjective Seen this afternoon in her bed. She reports overall improvement. She thinks her knee pain has lessened. She is encouraged. She says her left ankle pain is much better. Denies any fevers. Review of Systems All systems reviewed & are unremarkable except as noted in HPI & below. Physical Exam RLE: The CALISTA hose was rolled back to expose her dressing. There is no active drainage from her portal sites. Sutures are intact. There is diffuse but improving edema. There is no dried drainage on her ABD dressing from yesterday. She can passively achieve full extension with coaching. She can flex about 30 degrees intensity is limited by discomfort, as expected. Left ankle: Left ankle has near full active range of motion with minimal discomfort. There is no increased edema. Constitutional WD/WN, vitals as above no acute distress and not intoxicated appearing Respiratory normal respiratory effort; no labored breathing Cardiovascular Extremities: normal capillary refill Results & Data Results & Data Laboratory Results . Diagnostic Findings Stable white blood cell count PG Care Time/CCT Total # of Minutes Spent Total Time Spent with Patient: Total time spent is greater than 50% in coordination of care (as documented) at patient's floor/unit and/or counseling patient: Coding Level of Care Code 38986 Post Operative Follow-Up Diagnoses Septic arthritis of knee, right M00.9
[2020-08-12] MEDS: ACETAMINOPHEN 500 MG TAB PO PRN (22:47)
[2020-08-13] MEDS: HEPARIN SOD 5,000 UNIT/0.5 ML VIAL SQ SCH ×3 (05:54→21:58)
[2020-08-13] MEDS: METHYLCELLULOSE POWDER 454 GM JAR PO SCH ×4 (08:48→21:55)
[2020-08-13] MEDS: SYSTANE OP SCH ×2 (08:49→21:58)
[2020-08-13] MEDS: SPIRONOLACTONE/HCTZ 25-25 PO SCH ×2 (08:50→21:56)
[2020-08-13] MEDS: MULTIVITAMIN TAB PO SCH (08:50)
[2020-08-13] MEDS: CETIRIZINE HCL 10 MG TABLET PO SCH (08:50)
[2020-08-13] MEDS: PANTOprazole 40 MG TAB PO SCH (08:50)
[2020-08-13] MEDS: POTASSIUM CHLORIDE CRTAB 20 MEQ TABCR PO SCH ×2 (08:50→22:13)
[2020-08-13] MEDS: GABAPENTIN 300 MG CAP PO SCH ×3 (08:50→21:57)
[2020-08-13] MEDS: CHECK fentaNYL PATCH PLACEMENT SCH ×3 (08:50→22:15)
[2020-08-13] MEDS: VITAMIN B COMPLEX TAB PO SCH (08:50)
[2020-08-13] MEDS: ATORVASTATIN 20 MG TAB PO SCH (08:50)
[2020-08-13] MEDS: ACETAMINOPHEN 325 MG TAB PO PRN ×2 (08:56→13:25)
[2020-08-13] MEDS: cefTRIAXone SODIUM 2,000 MG in DEXTROSE 5% 50 ML IV SCH (09:01)
[2020-08-13] MEDS: HEPARIN 100 UNIT/ML 5ML FLUSH FLUSH PRN (09:38)
[2020-08-13] MEDS: SENNA 8.6 MG TAB PO SCH (21:56)
[2020-08-13] MEDS: ACETAMINOPHEN 500 MG TAB PO PRN (22:12)
--- NOTE | 2020-08-13 22:47 | Hospitalist Progress Note ---
Date of Service August 13, 2020 Assessment & Plan (1) Sepsis: Immunocompromised- septic knee most likely source - Blood Cultures have been negative, twice - continue Rocephin 2gm IV daily, will change to PO on discharge, continue for a few weeks - Her medi-port site looks good with no surrounding erythema On 08/08 1. Right knee arthroscopic irrigation and debridement. 2. Right knee partial medial and lateral meniscectomies. Patient tolerated the procedure. On 08/09 Right Knee Arthroscopic Incision and Drainage(Right) Patient tolerated this procedure. synovial fluid cultures have all been NEGATIVE although initial tap with 67k WBC h/o trauma to the right knee and patella fracture repair (2) Acute knee pain: Sepsis as well as pseudogout As above - presumably source as of now - serum Uric acid only 4 - Orthopaedics consulted- appreciate their assistance and recommendations will treat CPPD with NSAIDs order PT/OT, WBAT on right leg (3) Metastatic breast cancer: As per HPI- Continues on Gemcitabine and Paclitaxel - Continue with Oncology (4) Back pain: Chronic with metastatic disease appreciate pain management consultation decrease Fentanyl to 37mcg, use Tylenol and Oxycodone for breakthrough give prescription for Narcan on discharge (5) Liver lesion: As above (6) GERD (gastroesophageal reflux disease): Continue pantoprazole 40 mg daily - patient feels as symptoms are controlled (7) Hypokalemia: She is on home potassium chloride with her spironolactone (8) Hyperglycemia: Place on loose sliding scale with infection- follow - Aspart sliding scale - CF 35, 0 carb coverage for now - Goal <180 monitor for hypoglycemia, no episodes (9) Acute metabolic encephalopathy: thought to be due to narcotic toxic encephalopathy treated with Narcan mental status is normal today Admission and Anticipated Discharge Date Admission Date: August 07, 2020 Subjective patient doing well today, minimal pain in knee eating very well, moving her bowels, making urine appreciate note from ortho, can change to PO antibiotics, use anti-inflammatory for CPPD discussed disposition with patient and her , they would like to refer to [facility] and then go to [facility] as back up option spoke with CM about plan would be ready to discharge tomorrow Review of Systems Review of Systems: All systems reviewed & are unremarkable except as noted in Subjective Physical Exam Constitutional: WD/WN, vitals as above Neck: trachea midline, no thyromegaly Respiratory: normal respiratory effort, lungs clear to auscultation Cardiovascular: RRR, no murmur, no edema Gastrointestinal (Abdomen): normal bowel sounds, soft, nontender, no hepatosplenomegaly Musculoskeletal: Head/Neck/Chest: normocephalic, head atraumatic and neck supple Extremities: strength 5/5 throughout; + extremities abnormal to inspection (right knee swollen, tender), no cyanosis, no clubbing and no petechiae Skin: no rashes, warm and dry Neurologic: patellar DTR's 2+ bilat, sensation intact and PERRL, EOMI, accommodation nl, no face palsy, no dysarthria Psychiatric: A+Ox3, euthymic affect Lymphatic: no cervical or axillary lymphadenopathy Results & Data Results & Data ([facility]) Vital Signs (Past 12 Hours) Vital Signs Temp Pulse Pulse Resp BP Pulse Ox 08/13/20 21:53 98 H 128/72 08/13/20 15:16 36.5 C 79 18 114/71 95 Medications Administered Current Inpatient Medications Acetaminophen (Acetaminophen 325 Mg Tab) 650 mg PO Q4H PRN PRN Reason: Pain or Fever Stop: 09/06/20 16:59 Last Admin: 08/13/20 13:25 Dose: 650 mg Documented by: Acetaminophen (Acetaminophen 500 Mg Tab) 1,000 mg PO HS PRN PRN Reason: Sleep Stop: 09/08/20 11:05 Last Admin: 08/13/20 22:12 Dose: 1,000 mg Documented by: Atorvastatin Calcium (Atorvastatin 20 Mg Tab) 20 mg PO DAILY ISHA Stop: 09/07/20 08:59 Last Admin: 08/13/20 08:50 Dose: 20 mg Documented by: Cetirizine HCl (Cetirizine Hcl 10 Mg Tablet) 10 mg PO DAILY ISHA Stop: 09/07/20 08:59 Last Admin: 08/13/20 08:50 Dose: 10 mg Documented by: Clobetasol Propionate (Clobetasol Propionate 0.05% Oint 15 Gm Tube) 1 appln EXT BID PRN PRN Reason: Skin Irritation Stop: 09/06/20 17:22 Diphenhydramine HCl (Diphenhydramine 50 Mg/Ml Vial) 25 mg IV Q8H PRN PRN Reason: Itching Stop: 09/06/20 16:30 Diphenhydramine HCl (Diphenhydramine Capsule 25 Mg Cap) 50 mg PO HS PRN PRN Reason: Sleep Stop: 09/08/20 11:05 Fentanyl (Fentanyl 25 Mcg/Hr Tdsy) 25 mcg TD Q3D@0900 [facility] Stop: 08/26/20 08:59 Last Admin: 08/12/20 10:11 Dose: 25 mcg Documented by: Fentanyl (Fentanyl 12 Mcg/Hr Tdsy) 12 mcg TD Q3D@0900 [facility] Stop: 08/26/20 08:59 Last Admin: 08/12/20 10:10 Dose: 12 mcg Documented by: Fluticasone Propionate (Fluticasone Propionate Na Spr 16 Gm Btl) 2 sprays NA DAILY PRN PRN Reason: allergy symptoms Stop: 09/06/20 16:59 Gabapentin (Gabapentin 300 Mg Cap) 300 mg PO TID [facility] Stop: 09/06/20 16:59 Last Admin: 08/13/20 21:57 Dose: 300 mg Documented by: HCTZ/Spironolactone (Spironolactone/Hctz 25-25) 1 tab PO BID [facility] Stop: 09/08/20 20:59 Last Admin: 08/13/20 21:56 Dose: 1 tab Documented by: Heparin Sodium (Porcine) (Heparin Sod 5,000 Unit/0.5 Ml Vial) 5,000 units SQ Q8 [facility]; Protocol Stop: 09/06/20 21:59 Last Admin: 08/13/20 21:58 Dose: 5,000 units Documented by: Heparin Sodium (Porcine) (Heparin 100 Unit/Ml 5ml Flush) 5 ml FLUSH PRN PRN PRN Reason: Flush Stop: 09/07/20 08:05 Last Admin: 08/13/20 09:38 Dose: 5 ml Documented by: Ceftriaxone Sodium 2,000 mg/ (Dextrose) 70 mls @ 140 mls/hr IV Q24H [facility] Stop: 09/23/20 09:59 Last Infusion: 08/13/20 09:37 Dose: Infused Documented by: Methylcellulose (Methylcellulose Powder 454 Gm Jar) 2 gm PO QID [facility] Stop: 09/06/20 20:59 Last Admin: 08/13/20 21:55 Dose: Not Given Documented by: Metoclopramide HCl (Metoclopramide Hcl Inj 5 Mg/Ml 2 Ml Vial) 10 mg IV Q6H PRN PRN Reason: Nausea And Vomiting Stop: 09/06/20 20:32 Miscellaneous (Denosumab [Xgeva] - Order Awaiting Action) 1 ea N/A QS [facility] Stop: 09/10/20 00:00 Last Admin: 08/13/20 15:13 Dose: Not Given Documented by: Fificellaneous (Check Fentanyl Patch Placement) 1 ea N/A QS [facility] Stop: 09/06/20 17:59 Last Admin: 08/13/20 22:15 Dose: 1 ea Documented by: Fificellaneous (Fentanyl Patch Remove & Waste) 1 ea N/A Q3D@0859 [facility] Stop: 09/11/20 08:58 Last Admin: 08/12/20 10:12 Dose: 1 ea Documented by: Multivitamins (Multivitamin Tab) 1 tab PO QAM [facility] Stop: 09/07/20 08:59 Last Admin: 08/13/20 08:50 Dose: 1 tab Documented by: Naloxone HCl (Naloxone Hcl 0.4 Mg/1 Ml Vial/Carp) 0.1 mg IV Q5M PRN PRN Reason: Oversedation/Resp Depression Stop: 09/06/20 20:32 Last Admin: 08/10/20 18:41 Dose: 0.1 mg Documented by: Systane: Non- Formulary Patient's Own Med 1 ea OP BID [facility] Stop: 09/09/20 20:59 Last Admin: 08/13/20 21:58 Dose: 1 drops Documented by: Ondansetron HCl (Ondansetron Inj 2 Mg/Ml 2 Ml Vial) 4 mg IV Q6H PRN PRN Reason: Nausea And Vomiting Stop: 09/06/20 20:32 Oxycodone HCl (Oxycodone Hcl Ir 5 Mg Tab (Immediate Release)) 10 mg PO Q6 PRN PRN Reason: Pain Stop: 08/21/20 16:59 Last Admin: 08/10/20 16:02 Dose: 10 mg Documented by: Pantoprazole Sodium (Pantoprazole 40 Mg Tab) 40 mg PO DAILY [facility] Stop: 09/07/20 08:59 Last Admin: 08/13/20 08:50 Dose: 40 mg Documented by: Potassium Chloride (Potassium Chloride Crtab 20 Meq Tabcr) 20 meq PO BID [facility] Stop: 09/06/20 20:59 Last Admin: 08/13/20 22:13 Dose: 20 meq Documented by: Prochlorperazine (Prochlorperazine Maleate 10 Mg Tab) 10 mg PO Q6H PRN PRN Reason: Nausea And Vomiting Stop: 09/06/20 16:59 Senna/Docusate Sodium (Docusate Sodium/Senna 50/8.6mg Tab) 1 tab PO HS PRN PRN Reason: Constipation Stop: 09/06/20 16:59 Last Admin: 08/07/20 21:59 Dose: 1 tab Documented by: Sennosides (Senna 8.6 Mg Tab) 17.2 mg PO HS [facility] Stop: 09/06/20 20:59 Last Admin: 08/13/20 21:56 Dose: 17.2 mg Documented by: Tramadol HCl (Tramadol Hcl 50 Mg Tablet) 50 mg PO DAILY PRN PRN Reason: Pain Stop: 09/06/20 16:59 Last Admin: 08/09/20 14:52 Dose: 50 mg Documented by: Vitamin B Complex (Vitamin B Complex Tab) 1 tab PO DAILY [facility] Stop: 09/09/20 08:59 Last Admin: 08/13/20 08:50 Dose: 1 tab Documented by: PG Care Time/CCT Total # of Minutes Spent Total Time Spent with Patient: Total time spent is greater than 50% in coordination of care (as documented) at patient's floor/unit and/or counseling patient: Coding Level of Care Code 56949 Subseq Hosp Care Lvl 2 Diagnoses Sepsis A41.9 Sepsis acute organ dysfunction status: unspecified Sepsis type: sepsis due to unspecified organism Acute knee pain M25.561 Laterality: right Metastatic breast cancer C50.919 Back pain M54.6 Back pain laterality: unspecified Back pain location: thoracic back pain Chronicity: unspecified Liver lesion K76.9 GERD (gastroesophageal reflux disease) K21.9 Esophagitis presence: with esophagitis Hypokalemia E87.6 Hyperglycemia R73.9 Acute metabolic encephalopathy G93.41 (1) Sepsis Sepsis acute organ dysfunction status: unspecified Sepsis type: sepsis due to unspecified organism Qualified Code(s): A41.9 - Sepsis, unspecified organism (2) Acute knee pain Laterality: right Qualified Code(s): M25.561 - Pain in right knee (3) Back pain Back pain laterality: unspecified Back pain location: thoracic back pain Chronicity: unspecified Qualified Code(s): M54.6 - Pain in thoracic spine (4) GERD (gastroesophageal reflux disease) Esophagitis presence: with esophagitis
[2020-08-14] MEDS: HEPARIN SOD 5,000 UNIT/0.5 ML VIAL SQ SCH ×3 (06:16→21:31)
[2020-08-14] MEDS: CHECK fentaNYL PATCH PLACEMENT SCH ×2 (07:48→15:34)
[2020-08-14] MEDS: METHYLCELLULOSE POWDER 454 GM JAR PO SCH ×4 (07:49→21:37)
[2020-08-14] MEDS: SPIRONOLACTONE/HCTZ 25-25 PO SCH ×2 (07:49→21:33)
[2020-08-14] MEDS: CETIRIZINE HCL 10 MG TABLET PO SCH (07:50)
[2020-08-14] MEDS: VITAMIN B COMPLEX TAB PO SCH (07:50)
[2020-08-14] MEDS: MULTIVITAMIN TAB PO SCH (07:50)
[2020-08-14] MEDS: SYSTANE OP SCH ×2 (07:51→21:32)
[2020-08-14] MEDS: PANTOprazole 40 MG TAB PO SCH (07:51)
[2020-08-14] MEDS: ATORVASTATIN 20 MG TAB PO SCH (07:51)
[2020-08-14] MEDS: GABAPENTIN 300 MG CAP PO SCH ×3 (07:51→21:32)
[2020-08-14] MEDS: POTASSIUM CHLORIDE CRTAB 20 MEQ TABCR PO SCH ×2 (07:55→21:30)
[2020-08-14] MEDS ORDERED: NAPROXEN 250 MG TAB PO STA (08:43)
[2020-08-14] MEDS ORDERED: NAPROXEN 250 MG TAB PO SCH (09:00)
[2020-08-14] MEDS: cefTRIAXone SODIUM 2,000 MG in DEXTROSE 5% 50 ML IV SCH (09:25)
[2020-08-14] MEDS: traMADol HCL 50 MG TABLET PO PRN (10:03)
[2020-08-14] MEDS: HEPARIN 100 UNIT/ML 5ML FLUSH FLUSH PRN (10:04)
--- NOTE | 2020-08-14 16:28 | Hospitalist Progress Note ---
Date of Service August 14, 2020 Assessment & Plan (1) Sepsis: Immunocompromised- septic knee most likely source - Blood Cultures have been negative, twice - treated with Rocephin 2gm IV daily, change to Cefdinir, complete 4 weeks total - Her medi-port site looks good with no surrounding erythema On 08/08 1. Right knee arthroscopic irrigation and debridement. 2. Right knee partial medial and lateral meniscectomies. Patient tolerated the procedure. On 08/09 Right Knee Arthroscopic Incision and Drainage(Right) Patient tolerated this procedure. synovial fluid cultures have all been NEGATIVE although initial tap with 67k WBC h/o trauma to the right knee and patella fracture repair (2) Acute knee pain: Sepsis as well as pseudogout As above - presumably source as of now - serum Uric acid only 4 - Orthopaedics consulted- appreciate their assistance and recommendations will treat CPPD with Naproxen 500mg BID order PT/OT, WBAT on right leg (3) Pseudogout of knee: diagnosed on synovial fluid analysis treat with Naproxen 500mg BID with food (4) Metastatic breast cancer: As per HPI- Continues on Gemcitabine and Paclitaxel - Continue with Oncology (5) Back pain: Chronic with metastatic disease appreciate pain management consultation decrease Fentanyl to 37mcg, use Tylenol and Oxycodone for breakthrough give prescription for Narcan on discharge (6) Liver lesion: As above (7) GERD (gastroesophageal reflux disease): Continue pantoprazole 40 mg daily - patient feels as symptoms are controlled (8) Hypokalemia: She is on home potassium chloride with her spironolactone (9) Hyperglycemia: Place on loose sliding scale with infection- follow - Aspart sliding scale - CF 35, 0 carb coverage for now - Goal <180 monitor for hypoglycemia, no episodes (10) Acute metabolic encephalopathy: thought to be due to narcotic toxic encephalopathy treated with Narcan mental status is normal today Admission and Anticipated Discharge Date Admission Date: August 07, 2020 Subjective patient doing well, pain in knee controlled, ambulating in room with therapy eating well again today changed Rocephin to Cefdinir after discussing options with pharmacy explained to patient that we will use Naproxen for knee pseudogout spoke with CM, [facility] will not be able to take her, [facility] has no female beds until next week will try for [facility] tomorrow Review of Systems Review of Systems: All systems reviewed & are unremarkable except as noted in Subjective Physical Exam Constitutional: WD/WN, vitals as above Neck: trachea midline, no thyromegaly Respiratory: normal respiratory effort, lungs clear to auscultation Cardiovascular: RRR, no murmur, no edema Gastrointestinal (Abdomen): normal bowel sounds, soft, nontender, no hepatosplenomegaly Musculoskeletal: Head/Neck/Chest: normocephalic, head atraumatic and neck supple Extremities: strength 5/5 throughout; + extremities abnormal to inspection (right knee swollen, tender), no cyanosis, no clubbing and no petechiae Skin: no rashes, warm and dry Neurologic: patellar DTR's 2+ bilat, sensation intact and PERRL, EOMI, accommodation nl, no face palsy, no dysarthria Psychiatric: A+Ox3, euthymic affect Lymphatic: no cervical or axillary lymphadenopathy Results & Data Results & Data ([facility]) Vital Signs (Past 12 Hours) Vital Signs Temp Pulse Resp BP Pulse Ox 08/14/20 15:50 36.4 C L 80 17 127/73 99 08/14/20 07:35 36.6 C 88 18 118/71 99 Medications Administered Current Inpatient Medications Acetaminophen (Acetaminophen 325 Mg Tab) 650 mg PO Q4H PRN PRN Reason: Pain or Fever Stop: 09/06/20 16:59 Last Admin: 08/13/20 13:25 Dose: 650 mg Documented by: Acetaminophen (Acetaminophen 500 Mg Tab) 1,000 mg PO HS PRN PRN Reason: Sleep Stop: 09/08/20 11:05 Last Admin: 08/13/20 22:12 Dose: 1,000 mg Documented by: Atorvastatin Calcium (Atorvastatin 20 Mg Tab) 20 mg PO DAILY ISHA Stop: 09/07/20 08:59 Last Admin: 08/14/20 07:51 Dose: 20 mg Documented by: Cefdinir (Cefdinir 300 Mg Cap) 300 mg PO Q12 [facility] Stop: 08/22/20 08:59 Cetirizine HCl (Cetirizine Hcl 10 Mg Tablet) 10 mg PO DAILY [facility] Stop: 09/07/20 08:59 Last Admin: 08/14/20 07:50 Dose: 10 mg Documented by: Clobetasol Propionate (Clobetasol Propionate 0.05% Oint 15 Gm Tube) 1 appln EXT BID PRN PRN Reason: Skin Irritation Stop: 09/06/20 17:22 Diphenhydramine HCl (Diphenhydramine 50 Mg/Ml Vial) 25 mg IV Q8H PRN PRN Reason: Itching Stop: 09/06/20 16:30 Diphenhydramine HCl (Diphenhydramine Capsule 25 Mg Cap) 50 mg PO HS PRN PRN Reason: Sleep Stop: 09/08/20 11:05 Fentanyl (Fentanyl 25 Mcg/Hr Tdsy) 25 mcg TD Q3D@0900 [facility] Stop: 08/26/20 08:59 Last Admin: 08/12/20 10:11 Dose: 25 mcg Documented by: Fentanyl (Fentanyl 12 Mcg/Hr Tdsy) 12 mcg TD Q3D@0900 [facility] Stop: 08/26/20 08:59 Last Admin: 08/12/20 10:10 Dose: 12 mcg Documented by: Fluticasone Propionate (Fluticasone Propionate Na Spr 16 Gm Btl) 2 sprays NA DAILY PRN PRN Reason: allergy symptoms Stop: 09/06/20 16:59 Gabapentin (Gabapentin 300 Mg Cap) 300 mg PO TID [facility] Stop: 09/06/20 16:59 Last Admin: 08/14/20 13:22 Dose: 300 mg Documented by: HCTZ/Spironolactone (Spironolactone/Hctz 25-25) 1 tab PO BID [facility] Stop: 09/08/20 20:59 Last Admin: 08/14/20 07:49 Dose: 1 tab Documented by: Heparin Sodium (Porcine) (Heparin Sod 5,000 Unit/0.5 Ml Vial) 5,000 units SQ Q8 [facility]; Protocol Stop: 09/06/20 21:59 Last Admin: 08/14/20 13:22 Dose: 5,000 units Documented by: Heparin Sodium (Porcine) (Heparin 100 Unit/Ml 5ml Flush) 5 ml FLUSH PRN PRN PRN Reason: Flush Stop: 09/07/20 08:05 Last Admin: 08/14/20 10:04 Dose: 5 ml Documented by: Methylcellulose (Methylcellulose Powder 454 Gm Jar) 2 gm PO QID [facility] Stop: 09/06/20 20:59 Last Admin: 08/14/20 15:34 Dose: Not Given Documented by: Metoclopramide HCl (Metoclopramide Hcl Inj 5 Mg/Ml 2 Ml Vial) 10 mg IV Q6H PRN PRN Reason: Nausea And Vomiting Stop: 09/06/20 20:32 Miscellaneous (Denosumab [Xgeva] - Order Awaiting Action) 1 ea N/A QS [facility] Stop: 09/10/20 00:00 Last Admin: 08/14/20 15:33 Dose: Not Given Documented by: Miscellaneous (Check Fentanyl Patch Placement) 1 ea N/A QS [facility] Stop: 09/06/20 17:59 Last Admin: 08/14/20 15:34 Dose: 1 ea Documented by: Miscellaneous (Fentanyl Patch Remove & Waste) 1 ea N/A Q3D@0859 [facility] Stop: 09/11/20 08:58 Last Admin: 08/12/20 10:12 Dose: 1 ea Documented by: Multivitamins (Multivitamin Tab) 1 tab PO QAM [facility] Stop: 09/07/20 08:59 Last Admin: 08/14/20 07:50 Dose: 1 tab Documented by: Naloxone HCl (Naloxone Hcl 0.4 Mg/1 Ml Vial/Carp) 0.1 mg IV Q5M PRN PRN Reason: Oversedation/Resp Depression Stop: 09/06/20 20:32 Last Admin: 08/10/20 18:41 Dose: 0.1 mg Documented by: Naproxen (Naproxen 250 Mg Tab) 500 mg PO BID [facility] Stop: 09/13/20 20:59 Systane: Non- Formulary Patient's Own Med 1 ea OP BID [facility] Stop: 09/09/20 20:59 Last Admin: 08/14/20 07:51 Dose: 1 drops Documented by: Ondansetron HCl (Ondansetron Inj 2 Mg/Ml 2 Ml Vial) 4 mg IV Q6H PRN PRN Reason: Nausea And Vomiting Stop: 09/06/20 20:32 Oxycodone HCl (Oxycodone Hcl Ir 5 Mg Tab (Immediate Release)) 10 mg PO Q6 PRN PRN Reason: Pain Stop: 08/21/20 16:59 Last Admin: 08/10/20 16:02 Dose: 10 mg Documented by: Pantoprazole Sodium (Pantoprazole 40 Mg Tab) 40 mg PO DAILY [facility] Stop: 09/07/20 08:59 Last Admin: 08/14/20 07:51 Dose: 40 mg Documented by: Potassium Chloride (Potassium Chloride Crtab 20 Meq Tabcr) 20 meq PO BID [facility] Stop: 09/06/20 20:59 Last Admin: 08/14/20 07:55 Dose: 20 meq Documented by: Prochlorperazine (Prochlorperazine Maleate 10 Mg Tab) 10 mg PO Q6H PRN PRN Reason: Nausea And Vomiting Stop: 09/06/20 16:59 Senna/Docusate Sodium (Docusate Sodium/Senna 50/8.6mg Tab) 1 tab PO HS PRN PRN Reason: Constipation Stop: 09/06/20 16:59 Last Admin: 08/07/20 21:59 Dose: 1 tab Documented by: Sennosides (Senna 8.6 Mg Tab) 17.2 mg PO HS [facility] Stop: 09/06/20 20:59 Last Admin: 08/13/20 21:56 Dose: 17.2 mg Documented by: Tramadol HCl (Tramadol Hcl 50 Mg Tablet) 50 mg PO DAILY PRN PRN Reason: Pain Stop: 09/06/20 16:59 Last Admin: 08/14/20 10:03 Dose: 50 mg Documented by: Vitamin B Complex (Vitamin B Complex Tab) 1 tab PO DAILY [facility] Stop: 09/09/20 08:59 Last Admin: 08/14/20 07:50 Dose: 1 tab Documented by: PG Care Time/CCT Total # of Minutes Spent Total Time Spent with Patient: Total time spent is greater than 50% in coordination of care (as documented) at patient's floor/unit and/or counseling patient: Coding Level of Care Code 12595 Subseq Hosp Care Lvl 2 Diagnoses Sepsis A41.9 Sepsis acute organ dysfunction status: unspecified Sepsis type: sepsis due to unspecified organism Acute knee pain M25.561 Laterality: right Pseudogout of knee M11.269 Metastatic breast cancer C50.919 Back pain M54.6 Back pain laterality: unspecified Back pain location: thoracic back pain Chronicity: unspecified Liver lesion K76.9 GERD (gastroesophageal reflux disease) K21.9 Esophagitis presence: with esophagitis Hypokalemia E87.6 Hyperglycemia R73.9 Acute metabolic encephalopathy G93.41 (1) Acute knee pain Laterality: right Qualified Code(s): M25.561 - Pain in right knee (2) Back pain Back pain laterality: unspecified Back pain location: thoracic back pain Chronicity: unspecified Qualified Code(s): M54.6 - Pain in thoracic spine (3) Sepsis Sepsis acute organ dysfunction status: unspecified Sepsis type: sepsis due to unspecified organism Qualified Code(s): A41.9 - Sepsis, unspecified organism (4) GERD (gastroesophageal reflux disease) Esophagitis presence: with esophagitis
[2020-08-14] MEDS: ACETAMINOPHEN 500 MG TAB PO PRN (19:56)
[2020-08-14] MEDS: NAPROXEN 250 MG TAB PO SCH (21:31)
[2020-08-14] MEDS: SENNA 8.6 MG TAB PO SCH (21:32)
[2020-08-15] MEDS: CHECK fentaNYL PATCH PLACEMENT SCH ×4 (00:04→23:20)
[2020-08-15] MEDS: HEPARIN SOD 5,000 UNIT/0.5 ML VIAL SQ SCH ×3 (05:59→21:00)
[2020-08-15] MEDS: fentaNYL 25 MCG/HR TDSY TD SCH (08:48)
[2020-08-15] MEDS: fentaNYL 12 MCG/HR TDSY TD SCH (08:49)
[2020-08-15] MEDS: CEFDINIR 300 MG CAP PO SCH ×2 (08:55→20:54)
[2020-08-15] MEDS: ATORVASTATIN 20 MG TAB PO SCH (08:55)
[2020-08-15] MEDS: GABAPENTIN 300 MG CAP PO SCH ×3 (08:56→20:56)
[2020-08-15] MEDS: SPIRONOLACTONE/HCTZ 25-25 PO SCH ×2 (08:56→20:56)
[2020-08-15] MEDS: CETIRIZINE HCL 10 MG TABLET PO SCH (08:56)
[2020-08-15] MEDS: MULTIVITAMIN TAB PO SCH (08:57)
[2020-08-15] MEDS: METHYLCELLULOSE POWDER 454 GM JAR PO SCH ×4 (08:57→21:01)
[2020-08-15] MEDS: PANTOprazole 40 MG TAB PO SCH (08:57)
[2020-08-15] MEDS: NAPROXEN 250 MG TAB PO SCH ×2 (08:58→20:57)
[2020-08-15] MEDS: VITAMIN B COMPLEX TAB PO SCH (08:58)
[2020-08-15] MEDS: POTASSIUM CHLORIDE CRTAB 20 MEQ TABCR PO SCH ×2 (08:58→20:54)
[2020-08-15] MEDS: SYSTANE OP SCH ×2 (09:05→20:52)
[2020-08-15] MEDS: ACETAMINOPHEN 500 MG TAB PO PRN (20:51)
[2020-08-15] MEDS: SENNA 8.6 MG TAB PO SCH (20:54)
--- NOTE | 2020-08-15 22:32 | Hospitalist Progress Note ---
Date of Service August 15, 2020 Assessment & Plan (1) Sepsis: Immunocompromised- septic knee most likely source - Blood Cultures have been negative, twice - treated with Rocephin 2gm IV daily, change to Cefdinir, complete 4 weeks total from 08/08/20 last day at home would be 09/05 - Her medi-port site looks good with no surrounding erythema On 08/08 1. Right knee arthroscopic irrigation and debridement. 2. Right knee partial medial and lateral meniscectomies. Patient tolerated the procedure. On 08/09 Right Knee Arthroscopic Incision and Drainage(Right) Patient tolerated this procedure. synovial fluid cultures have all been NEGATIVE although initial tap with 67k WBC h/o trauma to the right knee and patella fracture repair (2) Acute knee pain: Septic joint as well as pseudogout - serum Uric acid only 4 - Orthopaedics consulted- appreciate their assistance and recommendations will treat CPPD with Naproxen 500mg BID order PT/OT, WBAT on right leg (3) Pseudogout of knee: diagnosed on synovial fluid analysis treat with Naproxen 500mg BID with food (4) Metastatic breast cancer: As per HPI- Continues on Gemcitabine and Paclitaxel - Continue with Oncology next treatment due some time in August (5) Back pain: Chronic with metastatic disease appreciate pain management consultation decrease Fentanyl to 37mcg, use Tylenol and Oxycodone for breakthrough give prescription for Narcan on discharge (6) Liver lesion: As above (7) GERD (gastroesophageal reflux disease): Continue pantoprazole 40 mg daily - patient feels as symptoms are controlled (8) Hypokalemia: She is on home potassium chloride with her spironolactone (9) Hyperglycemia: Place on loose sliding scale with infection- follow - Aspart sliding scale - CF 35, 0 carb coverage for now - Goal <180 monitor for hypoglycemia, no episodes (10) Acute metabolic encephalopathy: thought to be due to narcotic toxic encephalopathy treated with Narcan mental status is normal today Admission and Anticipated Discharge Date Admission Date: August 07, 2020 Subjective no luck in getting patient to [facility] today, no beds she is doing better, less pain in right knee but still weak, only walking in the room tolerating diet, tolerating PO antibiotics and Naproxen hoping she can go this weekend, not sure Review of Systems Review of Systems: All systems reviewed & are unremarkable except as noted in Subjective Musculoskeletal: + joint pain (right knee) Physical Exam Constitutional: WD/WN, vitals as above Neck: trachea midline, no thyromegaly Respiratory: normal respiratory effort, lungs clear to auscultation Cardiovascular: RRR, no murmur, no edema Gastrointestinal (Abdomen): normal bowel sounds, soft, nontender, no hepatosplenomegaly Musculoskeletal: Head/Neck/Chest: normocephalic, head atraumatic and neck supple Extremities: strength 5/5 throughout; + extremities abnormal to inspection (right knee swollen, tender), no cyanosis, no clubbing and no petechiae Skin: no rashes, warm and dry Neurologic: patellar DTR's 2+ bilat, sensation intact and PERRL, EOMI, accommodation nl, no face palsy, no dysarthria Psychiatric: A+Ox3, euthymic affect Lymphatic: no cervical or axillary lymphadenopathy Results & Data Results & Data ([facility]) Vital Signs (Past 12 Hours) Vital Signs Temp Pulse Pulse Resp BP Pulse Ox 08/15/20 22:02 36.5 C 82 16 126/76 98 08/15/20 17:08 36.7 C 82 16 108/67 98 08/15/20 11:15 36.4 C L 76 14 123/75 99 Medications Administered Current Inpatient Medications Acetaminophen (Acetaminophen 325 Mg Tab) 650 mg PO Q4H PRN PRN Reason: Pain or Fever Stop: 09/06/20 16:59 Last Admin: 08/13/20 13:25 Dose: 650 mg Documented by: Acetaminophen (Acetaminophen 500 Mg Tab) 1,000 mg PO HS PRN PRN Reason: Sleep Stop: 09/08/20 11:05 Last Admin: 08/15/20 20:51 Dose: 1,000 mg Documented by: Atorvastatin Calcium (Atorvastatin 20 Mg Tab) 20 mg PO DAILY ISHA Stop: 09/07/20 08:59 Last Admin: 08/15/20 08:55 Dose: 20 mg Documented by: Cefdinir (Cefdinir 300 Mg Cap) 300 mg PO Q12 ISHA Stop: 08/22/20 08:59 Last Admin: 08/15/20 20:54 Dose: 300 mg Documented by: Cetirizine HCl (Cetirizine Hcl 10 Mg Tablet) 10 mg PO DAILY ISHA Stop: 09/07/20 08:59 Last Admin: 08/15/20 08:56 Dose: 10 mg Documented by: Clobetasol Propionate (Clobetasol Propionate 0.05% Oint 15 Gm Tube) 1 appln EXT BID PRN PRN Reason: Skin Irritation Stop: 09/06/20 17:22 Diphenhydramine HCl (Diphenhydramine 50 Mg/Ml Vial) 25 mg IV Q8H PRN PRN Reason: Itching Stop: 09/06/20 16:30 Diphenhydramine HCl (Diphenhydramine Capsule 25 Mg Cap) 50 mg PO HS PRN PRN Reason: Sleep Stop: 09/08/20 11:05 Fentanyl (Fentanyl 25 Mcg/Hr Tdsy) 25 mcg TD Q3D@0900 ISHA Stop: 08/26/20 08:59 Last Admin: 08/15/20 08:48 Dose: 25 mcg Documented by: Fentanyl (Fentanyl 12 Mcg/Hr Tdsy) 12 mcg TD Q3D@0900 ISHA Stop: 08/26/20 08:59 Last Admin: 08/15/20 08:49 Dose: 12 mcg Documented by: Fluticasone Propionate (Fluticasone Propionate Na Spr 16 Gm Btl) 2 sprays NA DAILY PRN PRN Reason: allergy symptoms Stop: 09/06/20 16:59 Gabapentin (Gabapentin 300 Mg Cap) 300 mg PO TID ISHA Stop: 09/06/20 16:59 Last Admin: 08/15/20 20:56 Dose: 300 mg Documented by: HCTZ/Spironolactone (Spironolactone/Hctz 25-25) 1 tab PO BID ISHA Stop: 09/08/20 20:59 Last Admin: 08/15/20 20:56 Dose: 1 tab Documented by: Heparin Sodium (Porcine) (Heparin Sod 5,000 Unit/0.5 Ml Vial) 5,000 units SQ Q8 ISHA; Protocol Stop: 09/06/20 21:59 Last Admin: 08/15/20 21:00 Dose: 5,000 units Documented by: Heparin Sodium (Porcine) (Heparin 100 Unit/Ml 5ml Flush) 5 ml FLUSH PRN PRN PRN Reason: Flush Stop: 09/07/20 08:05 Last Admin: 08/14/20 10:04 Dose: 5 ml Documented by: Methylcellulose (Methylcellulose Powder 454 Gm Jar) 2 gm PO QID ISHA Stop: 09/06/20 20:59 Last Admin: 08/15/20 21:01 Dose: Not Given Documented by: Metoclopramide HCl (Metoclopramide Hcl Inj 5 Mg/Ml 2 Ml Vial) 10 mg IV Q6H PRN PRN Reason: Nausea And Vomiting Stop: 09/06/20 20:32 Miscellaneous (Denosumab [Xgeva] - Order Awaiting Action) 1 ea N/A QS [facility] Stop: 09/10/20 00:00 Last Admin: 08/15/20 17:11 Dose: Not Given Documented by: Miscellaneous (Check Fentanyl Patch Placement) 1 ea N/A QS [facility] Stop: 09/06/20 17:59 Last Admin: 08/15/20 17:11 Dose: 1 ea Documented by: Mary Grace (Fentanyl Patch Remove & Waste) 1 ea N/A Q3D@0859 [facility] Stop: 09/11/20 08:58 Last Admin: 08/15/20 08:45 Dose: 1 ea Documented by: Multivitamins (Multivitamin Tab) 1 tab PO QAM [facility] Stop: 09/07/20 08:59 Last Admin: 08/15/20 08:57 Dose: 1 tab Documented by: Naloxone HCl (Naloxone Hcl 0.4 Mg/1 Ml Vial/Carp) 0.1 mg IV Q5M PRN PRN Reason: Oversedation/Resp Depression Stop: 09/06/20 20:32 Last Admin: 08/10/20 18:41 Dose: 0.1 mg Documented by: Naproxen (Naproxen 250 Mg Tab) 500 mg PO BID [facility] Stop: 09/13/20 20:59 Last Admin: 08/15/20 20:57 Dose: 500 mg Documented by: Systane: Non- Formulary Patient's Own Med 1 ea OP BID [facility] Stop: 09/09/20 20:59 Last Admin: 08/15/20 20:52 Dose: 1 drops Documented by: Ondansetron HCl (Ondansetron Inj 2 Mg/Ml 2 Ml Vial) 4 mg IV Q6H PRN PRN Reason: Nausea And Vomiting Stop: 09/06/20 20:32 Oxycodone HCl (Oxycodone Hcl Ir 5 Mg Tab (Immediate Release)) 10 mg PO Q6 PRN PRN Reason: Pain Stop: 08/21/20 16:59 Last Admin: 08/10/20 16:02 Dose: 10 mg Documented by: Pantoprazole Sodium (Pantoprazole 40 Mg Tab) 40 mg PO DAILY ISHA Stop: 09/07/20 08:59 Last Admin: 08/15/20 08:57 Dose: 40 mg Documented by: Potassium Chloride (Potassium Chloride Crtab 20 Meq Tabcr) 20 meq PO BID IS[facility] Stop: 09/06/20 20:59 Last Admin: 08/15/20 20:54 Dose: 20 meq Documented by: Prochlorperazine (Prochlorperazine Maleate 10 Mg Tab) 10 mg PO Q6H PRN PRN Reason: Nausea And Vomiting Stop: 09/06/20 16:59 Senna/Docusate Sodium (Docusate Sodium/Senna 50/8.6mg Tab) 1 tab PO HS PRN PRN Reason: Constipation Stop: 09/06/20 16:59 Last Admin: 08/07/20 21:59 Dose: 1 tab Documented by: Sennosides (Senna 8.6 Mg Tab) 17.2 mg PO HS ISHA Stop: 09/06/20 20:59 Last Admin: 08/15/20 20:54 Dose: 17.2 mg Documented by: Tramadol HCl (Tramadol Hcl 50 Mg Tablet) 50 mg PO DAILY PRN PRN Reason: Pain Stop: 09/06/20 16:59 Last Admin: 08/14/20 10:03 Dose: 50 mg Documented by: Vitamin B Complex (Vitamin B Complex Tab) 1 tab PO DAILY ISHA Stop: 09/09/20 08:59 Last Admin: 08/15/20 08:58 Dose: 1 tab Documented by: PG Care Time/CCT Total # of Minutes Spent Total Time Spent with Patient: Total time spent is greater than 50% in coordination of care (as documented) at patient's floor/unit and/or counseling patient: Coding Level of Care Code 42748 Subseq Hosp Care Lvl 2 Diagnoses Sepsis A41.9 Sepsis acute organ dysfunction status: unspecified Sepsis type: sepsis due to unspecified organism Acute knee pain M25.561 Laterality: right Pseudogout of knee M11.269 Metastatic breast cancer C50.919 Back pain M54.6 Back pain laterality: unspecified Back pain location: thoracic back pain Chronicity: unspecified Liver lesion K76.9 GERD (gastroesophageal reflux disease) K21.9 Esophagitis presence: with esophagitis Hypokalemia E87.6 Hyperglycemia R73.9 Acute metabolic encephalopathy G93.41 (1) Sepsis Sepsis acute organ dysfunction status: unspecified Sepsis type: sepsis due to unspecified organism Qualified Code(s): A41.9 - Sepsis, unspecified organism (2) Acute knee pain Laterality: right Qualified Code(s): M25.561 - Pain in right knee (3) Back pain Back pain laterality: unspecified Back pain location: thoracic back pain Chronicity: unspecified Qualified Code(s): M54.6 - Pain in thoracic spine (4) GERD (gastroesophageal reflux disease) Esophagitis presence: with esophagitis
[2020-08-16] MEDS: HEPARIN SOD 5,000 UNIT/0.5 ML VIAL SQ SCH ×3 (05:35→21:33)
[2020-08-16] MEDS: CHECK fentaNYL PATCH PLACEMENT SCH ×3 (08:33→23:14)
[2020-08-16] MEDS: CEFDINIR 300 MG CAP PO SCH ×2 (08:35→20:02)
[2020-08-16] MEDS: NAPROXEN 250 MG TAB PO SCH ×2 (08:35→20:03)
[2020-08-16] MEDS: SPIRONOLACTONE/HCTZ 25-25 PO SCH ×2 (08:36→20:04)
[2020-08-16] MEDS: CETIRIZINE HCL 10 MG TABLET PO SCH (08:36)
[2020-08-16] MEDS: GABAPENTIN 300 MG CAP PO SCH ×3 (08:36→20:04)
[2020-08-16] MEDS: ATORVASTATIN 20 MG TAB PO SCH (08:37)
[2020-08-16] MEDS: VITAMIN B COMPLEX TAB PO SCH (08:37)
[2020-08-16] MEDS: PANTOprazole 40 MG TAB PO SCH (08:38)
[2020-08-16] MEDS: MULTIVITAMIN TAB PO SCH (08:38)
[2020-08-16] MEDS: SYSTANE OP SCH ×2 (08:39→20:01)
[2020-08-16] MEDS: METHYLCELLULOSE POWDER 454 GM JAR PO SCH ×4 (08:40→20:05)
[2020-08-16] MEDS: POTASSIUM CHLORIDE CRTAB 20 MEQ TABCR PO SCH ×2 (08:44→20:04)
--- NOTE | 2020-08-16 14:18 | Hospitalist Progress Note ---
Date of Service August 16, 2020 Assessment & Plan (1) Sepsis: Immunocompromised- septic knee most likely source - Blood Cultures have been negative, twice - treated with Rocephin 2gm IV daily, change to Cefdinir, complete 4 weeks total from 08/08/20 last day at home would be 09/05 - Her medi-port site looks good with no surrounding erythema On 08/08 1. Right knee arthroscopic irrigation and debridement. 2. Right knee partial medial and lateral meniscectomies. Patient tolerated the procedure. On 08/09 Right Knee Arthroscopic Incision and Drainage(Right) Patient tolerated this procedure. 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 order PT/OT, WBAT on right leg (3) Metastatic breast cancer: As per HPI- Continues on Gemcitabine and Paclitaxel - Continue with Oncology next treatment due some time in August (4) Back pain: Chronic with metastatic disease appreciate pain management consultation decrease Fentanyl to 37mcg, use Tylenol and Oxycodone for breakthrough give prescription for Narcan on discharge (5) Liver lesion: As above (6) GERD (gastroesophageal reflux disease): Continue pantoprazole 40 mg daily - patient feels as symptoms are controlled (7) Hypokalemia: She is on home potassium chloride with her spironolactone (8) Hyperglycemia: Place on loose sliding scale with infection- follow - Aspart sliding scale - CF 35, 0 carb coverage for now - Goal <180 monitor for hypoglycemia, no episodes Admission and Anticipated Discharge Date Admission Date: August 07, 2020 Subjective patient is doing well, mild to moderate right knee pain eating well, breathing stable 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, won't get insurance auth this weekend patient understands the situation Review of Systems Review of Systems: All systems reviewed & are unremarkable except as noted in Subjective Physical Exam Constitutional: WD/WN, vitals as above Neck: trachea midline, no thyromegaly Respiratory: normal respiratory effort, lungs clear to auscultation Cardiovascular: RRR, no murmur, no edema Gastrointestinal (Abdomen): normal bowel sounds, soft, nontender, no hepatosplenomegaly Musculoskeletal: Head/Neck/Chest: normocephalic, head atraumatic and neck supple Extremities: strength 5/5 throughout; + extremities abnormal to inspection (right knee swollen, tender), no cyanosis, no clubbing and no petechiae Skin: no rashes, warm and dry Neurologic: patellar DTR's 2+ bilat, sensation intact and PERRL, EOMI, accommodation nl, no face palsy, no dysarthria Psychiatric: A+Ox3, euthymic affect Lymphatic: no cervical or axillary lymphadenopathy Results & Data Results & Data ([facility]) Vital Signs (Past 12 Hours) Vital Signs Temp Pulse Resp BP Pulse Ox 08/16/20 07:22 36.5 C 84 16 99/61 L 99 Medications Administered Current Inpatient Medications Acetaminophen (Acetaminophen 325 Mg Tab) 650 mg PO Q4H PRN PRN Reason: Pain or Fever Stop: 09/06/20 16:59 Last Admin: 08/13/20 13:25 Dose: 650 mg Documented by: Acetaminophen (Acetaminophen 500 Mg Tab) 1,000 mg PO HS PRN PRN Reason: Sleep Stop: 09/08/20 11:05 Last Admin: 08/15/20 20:51 Dose: 1,000 mg Documented by: Atorvastatin Calcium (Atorvastatin 20 Mg Tab) 20 mg PO DAILY [facility] Stop: 09/07/20 08:59 Last Admin: 08/16/20 08:37 Dose: 20 mg Documented by: Cefdinir (Cefdinir 300 Mg Cap) 300 mg PO Q12 ISHA Stop: 08/22/20 08:59 Last Admin: 08/16/20 08:35 Dose: 300 mg Documented by: Cetirizine HCl (Cetirizine Hcl 10 Mg Tablet) 10 mg PO DAILY ISHA Stop: 09/07/20 08:59 Last Admin: 08/16/20 08:36 Dose: 10 mg Documented by: Clobetasol Propionate (Clobetasol Propionate 0.05% Oint 15 Gm Tube) 1 appln EXT BID PRN PRN Reason: Skin Irritation Stop: 09/06/20 17:22 Diphenhydramine HCl (Diphenhydramine 50 Mg/Ml Vial) 25 mg IV Q8H PRN PRN Reason: Itching Stop: 09/06/20 16:30 Diphenhydramine HCl (Diphenhydramine Capsule 25 Mg Cap) 50 mg PO HS PRN PRN Reason: Sleep Stop: 09/08/20 11:05 Fentanyl (Fentanyl 25 Mcg/Hr Tdsy) 25 mcg TD Q3D@0900 [facility] Stop: 08/26/20 08:59 Last Admin: 08/15/20 08:48 Dose: 25 mcg Documented by: Fentanyl (Fentanyl 12 Mcg/Hr Tdsy) 12 mcg TD Q3D@0900 [facility] Stop: 08/26/20 08:59 Last Admin: 08/15/20 08:49 Dose: 12 mcg Documented by: Fluticasone Propionate (Fluticasone Propionate Na Spr 16 Gm Btl) 2 sprays NA DAILY PRN PRN Reason: allergy symptoms Stop: 09/06/20 16:59 Gabapentin (Gabapentin 300 Mg Cap) 300 mg PO TID [facility] Stop: 09/06/20 16:59 Last Admin: 08/16/20 14:09 Dose: 300 mg Documented by: HCTZ/Spironolactone (Spironolactone/Hctz 25-25) 1 tab PO BID [facility] Stop: 09/08/20 20:59 Last Admin: 08/16/20 08:36 Dose: 1 tab Documented by: Heparin Sodium (Porcine) (Heparin Sod 5,000 Unit/0.5 Ml Vial) 5,000 units SQ Q8 [facility]; Protocol Stop: 09/06/20 21:59 Last Admin: 08/16/20 14:08 Dose: 5,000 units Documented by: Heparin Sodium (Porcine) (Heparin 100 Unit/Ml 5ml Flush) 5 ml FLUSH PRN PRN PRN Reason: Flush Stop: 09/07/20 08:05 Last Admin: 08/14/20 10:04 Dose: 5 ml Documented by: Methylcellulose (Methylcellulose Powder 454 Gm Jar) 2 gm PO QID [facility] Stop: 09/06/20 20:59 Last Admin: 08/16/20 14:10 Dose: Not Given Documented by: Metoclopramide HCl (Metoclopramide Hcl Inj 5 Mg/Ml 2 Ml Vial) 10 mg IV Q6H PRN PRN Reason: Nausea And Vomiting Stop: 09/06/20 20:32 Miscellaneous (Denosumab [Xgeva] - Order Awaiting Action) 1 ea N/A QS [facility] Stop: 09/10/20 00:00 Last Admin: 08/16/20 08:34 Dose: Not Given Documented by: Miscellaneous (Check Fentanyl Patch Placement) 1 ea N/A QS [facility] Stop: 09/06/20 17:59 Last Admin: 08/16/20 08:33 Dose: 1 ea Documented by: Miscellaneous (Fentanyl Patch Remove & Waste) 1 ea N/A Q3D@0859 [facility] Stop: 09/11/20 08:58 Last Admin: 08/15/20 08:45 Dose: 1 ea Documented by: Multivitamins (Multivitamin Tab) 1 tab PO QAM [facility] Stop: 09/07/20 08:59 Last Admin: 08/16/20 08:38 Dose: 1 tab Documented by: Naloxone HCl (Naloxone Hcl 0.4 Mg/1 Ml Vial/Carp) 0.1 mg IV Q5M PRN PRN Reason: Oversedation/Resp Depression Stop: 09/06/20 20:32 Last Admin: 08/10/20 18:41 Dose: 0.1 mg Documented by: Naproxen (Naproxen 250 Mg Tab) 500 mg PO BID [facility] Stop: 09/13/20 20:59 Last Admin: 08/16/20 08:35 Dose: 500 mg Documented by: Systane: Non- Formulary Patient's Own Med 1 ea OP BID [facility] Stop: 09/09/20 20:59 Last Admin: 08/16/20 08:39 Dose: 1 drops Documented by: Ondansetron HCl (Ondansetron Inj 2 Mg/Ml 2 Ml Vial) 4 mg IV Q6H PRN PRN Reason: Nausea And Vomiting Stop: 09/06/20 20:32 Oxycodone HCl (Oxycodone Hcl Ir 5 Mg Tab (Immediate Release)) 10 mg PO Q6 PRN PRN Reason: Pain Stop: 08/21/20 16:59 Last Admin: 08/10/20 16:02 Dose: 10 mg Documented by: Pantoprazole Sodium (Pantoprazole 40 Mg Tab) 40 mg PO DAILY [facility] Stop: 09/07/20 08:59 Last Admin: 08/16/20 08:38 Dose: 40 mg Documented by: Potassium Chloride (Potassium Chloride Crtab 20 Meq Tabcr) 20 meq PO BID [facility] Stop: 09/06/20 20:59 Last Admin: 08/16/20 08:44 Dose: 20 meq Documented by: Prochlorperazine (Prochlorperazine Maleate 10 Mg Tab) 10 mg PO Q6H PRN PRN Reason: Nausea And Vomiting Stop: 09/06/20 16:59 Senna/Docusate Sodium (Docusate Sodium/Senna 50/8.6mg Tab) 1 tab PO HS PRN PRN Reason: Constipation Stop: 09/06/20 16:59 Last Admin: 08/07/20 21:59 Dose: 1 tab Documented by: Sennosides (Senna 8.6 Mg Tab) 17.2 mg PO HS ISHA Stop: 09/06/20 20:59 Last Admin: 08/15/20 20:54 Dose: 17.2 mg Documented by: Tramadol HCl (Tramadol Hcl 50 Mg Tablet) 50 mg PO DAILY PRN PRN Reason: Pain Stop: 09/06/20 16:59 Last Admin: 08/14/20 10:03 Dose: 50 mg Documented by: Vitamin B Complex (Vitamin B Complex Tab) 1 tab PO DAILY ISHA Stop: 09/09/20 08:59 Last Admin: 08/16/20 08:37 Dose: 1 tab Documented by: PG Care Time/CCT Total # of Minutes Spent Total Time Spent with Patient: Total time spent is greater than 50% in coordination of care (as documented) at patient's floor/unit and/or counseling patient: Coding Level of Care Code 39607 Subseq Hosp Care Lvl 2 Diagnoses Sepsis A41.9 Sepsis acute organ dysfunction status: unspecified Sepsis type: sepsis due to unspecified organism Acute knee pain M25.561 Laterality: right Metastatic breast cancer C50.919 Back pain M54.6 Back pain laterality: unspecified Back pain location: thoracic back pain Chronicity: unspecified Liver lesion K76.9 GERD (gastroesophageal reflux disease) K21.9 Esophagitis presence: with esophagitis Hypokalemia E87.6 Hyperglycemia R73.9 (1) Sepsis Sepsis acute organ dysfunction status: unspecified Sepsis type: sepsis due to unspecified organism Qualified Code(s): A41.9 - Sepsis, unspecified organism (2) Acute knee pain Laterality: right Qualified Code(s): M25.561 - Pain in right knee (3) Back pain Back pain laterality: unspecified Back pain location: thoracic back pain Chronicity: unspecified Qualified Code(s): M54.6 - Pain in thoracic spine (4) GERD (gastroesophageal reflux disease) Esophagitis presence: with esophagitis
[2020-08-16] MEDS: HEPARIN 100 UNIT/ML 5ML FLUSH FLUSH PRN ×2 (16:21→21:42)
[2020-08-16] MEDS: SENNA 8.6 MG TAB PO SCH (20:03)
[2020-08-16] MEDS: ACETAMINOPHEN 500 MG TAB PO PRN (21:32)
[2020-08-17] MEDS: HEPARIN SOD 5,000 UNIT/0.5 ML VIAL SQ SCH ×3 (06:16→22:13)
[2020-08-17] MEDS: CHECK fentaNYL PATCH PLACEMENT SCH ×3 (07:42→23:10)
[2020-08-17] MEDS: METHYLCELLULOSE POWDER 454 GM JAR PO SCH ×4 (07:43→20:21)
[2020-08-17] MEDS: SPIRONOLACTONE/HCTZ 25-25 PO SCH ×2 (07:44→20:23)
[2020-08-17] MEDS: GABAPENTIN 300 MG CAP PO SCH ×3 (07:44→20:25)
[2020-08-17] MEDS: ATORVASTATIN 20 MG TAB PO SCH (07:44)
[2020-08-17] MEDS: MULTIVITAMIN TAB PO SCH (07:45)
[2020-08-17] MEDS: POTASSIUM CHLORIDE CRTAB 20 MEQ TABCR PO SCH ×2 (07:45→20:23)
[2020-08-17] MEDS: CEFDINIR 300 MG CAP PO SCH ×2 (07:45→20:25)
[2020-08-17] MEDS: NAPROXEN 250 MG TAB PO SCH ×2 (07:46→20:23)
[2020-08-17] MEDS: CETIRIZINE HCL 10 MG TABLET PO SCH (07:46)
[2020-08-17] MEDS: SYSTANE OP SCH ×2 (07:47→20:21)
[2020-08-17] MEDS: PANTOprazole 40 MG TAB PO SCH (07:47)
[2020-08-17] MEDS: VITAMIN B COMPLEX TAB PO SCH (07:47)
[2020-08-17] MEDS: HEPARIN 100 UNIT/ML 5ML FLUSH FLUSH PRN (08:06)
--- NOTE | 2020-08-17 13:08 | Hospitalist Progress Note ---
Date of Service August 17, 2020 Assessment & Plan (1) Sepsis: Immunocompromised- septic knee most likely source - Blood Cultures have been negative, twice - treated with Rocephin 2gm IV daily, change to Cefdinir, complete 4 weeks total from 08/08/20 last day at home would be 09/05 - Her medi-port site looks good with no surrounding erythema On 08/08 1. Right knee arthroscopic irrigation and debridement. 2. Right knee partial medial and lateral meniscectomies. Patient tolerated the procedure. On 08/09 Right Knee Arthroscopic Incision and Drainage(Right) Patient tolerated this procedure. 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 order PT/OT, WBAT on right leg, walking much better past few days (3) Metastatic breast cancer: As per HPI- Continues on Gemcitabine and Paclitaxel - Continue with Oncology next treatment due some time in August (4) Back pain: Chronic with metastatic disease appreciate pain management consultation decrease Fentanyl to 37mcg, use Tylenol and Oxycodone for breakthrough give prescription for Narcan on discharge (5) Liver lesion: As above (6) GERD (gastroesophageal reflux disease): Continue pantoprazole 40 mg daily - patient feels as symptoms are controlled (7) Hypokalemia: She is on home potassium chloride with her spironolactone (8) Hyperglycemia: Place on loose sliding scale with infection- follow - Aspart sliding scale - CF 35, 0 carb coverage for now - Goal <180 monitor for hypoglycemia, no episodes Admission and Anticipated Discharge Date Admission Date: August 07, 2020 Subjective patient doing great, eating well, walked into the hallway with therapy today, less pain in knee still waiting on rehab placement, she understands no chest pain, no dyspnea, no cough, no fever/chills + right knee pain Review of Systems Review of Systems: All systems reviewed & are unremarkable except as noted in Subjective Physical Exam Constitutional: WD/WN, vitals as above Neck: trachea midline, no thyromegaly Respiratory: normal respiratory effort, lungs clear to auscultation Cardiovascular: RRR, no murmur, no edema Gastrointestinal (Abdomen): normal bowel sounds, soft, nontender, no hepatosplenomegaly Musculoskeletal: Head/Neck/Chest: normocephalic, head atraumatic and neck supple Extremities: strength 5/5 throughout; + extremities abnormal to inspection (right minimally swollen, minimal tenderness, stitches intact), no cyanosis, no clubbing and no petechiae Skin: no rashes, warm and dry Neurologic: patellar DTR's 2+ bilat, sensation intact and PERRL, EOMI, accommodation nl, no face palsy, no dysarthria Psychiatric: A+Ox3, euthymic affect Lymphatic: no cervical or axillary lymphadenopathy Results & Data Results & Data ([facility]) Vital Signs (Past 12 Hours) Vital Signs Temp Pulse Resp BP Pulse Ox 08/17/20 06:28 36.6 C 78 16 109/65 98 Medications Administered Current Inpatient Medications Acetaminophen (Acetaminophen 325 Mg Tab) 650 mg PO Q4H PRN PRN Reason: Pain or Fever Stop: 09/06/20 16:59 Last Admin: 08/13/20 13:25 Dose: 650 mg Documented by: Acetaminophen (Acetaminophen 500 Mg Tab) 1,000 mg PO HS PRN PRN Reason: Sleep Stop: 09/08/20 11:05 Last Admin: 08/16/20 21:32 Dose: 1,000 mg Documented by: Atorvastatin Calcium (Atorvastatin 20 Mg Tab) 20 mg PO DAILY ISHA Stop: 09/07/20 08:59 Last Admin: 08/17/20 07:44 Dose: 20 mg Documented by: Cefdinir (Cefdinir 300 Mg Cap) 300 mg PO Q12 ISHA Stop: 08/22/20 08:59 Last Admin: 08/17/20 07:45 Dose: 300 mg Documented by: Cetirizine HCl (Cetirizine Hcl 10 Mg Tablet) 10 mg PO DAILY ISHA Stop: 09/07/20 08:59 Last Admin: 08/17/20 07:46 Dose: 10 mg Documented by: Clobetasol Propionate (Clobetasol Propionate 0.05% Oint 15 Gm Tube) 1 appln EXT BID PRN PRN Reason: Skin Irritation Stop: 09/06/20 17:22 Diphenhydramine HCl (Diphenhydramine 50 Mg/Ml Vial) 25 mg IV Q8H PRN PRN Reason: Itching Stop: 09/06/20 16:30 Diphenhydramine HCl (Diphenhydramine Capsule 25 Mg Cap) 50 mg PO HS PRN PRN Reason: Sleep Stop: 09/08/20 11:05 Fentanyl (Fentanyl 25 Mcg/Hr Tdsy) 25 mcg TD Q3D@0900 [facility] Stop: 08/26/20 08:59 Last Admin: 08/15/20 08:48 Dose: 25 mcg Documented by: Fentanyl (Fentanyl 12 Mcg/Hr Tdsy) 12 mcg TD Q3D@0900 [facility] Stop: 08/26/20 08:59 Last Admin: 08/15/20 08:49 Dose: 12 mcg Documented by: Fluticasone Propionate (Fluticasone Propionate Na Spr 16 Gm Btl) 2 sprays NA DAILY PRN PRN Reason: allergy symptoms Stop: 09/06/20 16:59 Gabapentin (Gabapentin 300 Mg Cap) 300 mg PO TID [facility] Stop: 09/06/20 16:59 Last Admin: 08/17/20 07:44 Dose: 300 mg Documented by: HCTZ/Spironolactone (Spironolactone/Hctz 25-25) 1 tab PO BID [facility] Stop: 09/08/20 20:59 Last Admin: 08/17/20 07:44 Dose: 1 tab Documented by: Heparin Sodium (Porcine) (Heparin Sod 5,000 Unit/0.5 Ml Vial) 5,000 units SQ Q8 [facility]; Protocol Stop: 09/06/20 21:59 Last Admin: 08/17/20 06:16 Dose: 5,000 units Documented by: Heparin Sodium (Porcine) (Heparin 100 Unit/Ml 5ml Flush) 5 ml FLUSH PRN PRN PRN Reason: Flush Stop: 09/07/20 08:05 Last Admin: 08/17/20 08:06 Dose: 5 ml Documented by: Methylcellulose (Methylcellulose Powder 454 Gm Jar) 2 gm PO QID [facility] Stop: 09/06/20 20:59 Last Admin: 08/17/20 07:43 Dose: Not Given Documented by: Metoclopramide HCl (Metoclopramide Hcl Inj 5 Mg/Ml 2 Ml Vial) 10 mg IV Q6H PRN PRN Reason: Nausea And Vomiting Stop: 09/06/20 20:32 Miscellaneous (Denosumab [Xgeva] - Order Awaiting Action) 1 ea N/A QS [facility] Stop: 09/10/20 00:00 Last Admin: 08/17/20 07:43 Dose: Not Given Documented by: Miscellaneous (Check Fentanyl Patch Placement) 1 ea N/A QS [facility] Stop: 09/06/20 17:59 Last Admin: 08/17/20 07:42 Dose: 1 ea Documented by: Miscellaneous (Fentanyl Patch Remove & Waste) 1 ea N/A Q3D@0859 [facility] Stop: 09/11/20 08:58 Last Admin: 08/15/20 08:45 Dose: 1 ea Documented by: Multivitamins (Multivitamin Tab) 1 tab PO QAM [facility] Stop: 09/07/20 08:59 Last Admin: 08/17/20 07:45 Dose: 1 tab Documented by: Naloxone HCl (Naloxone Hcl 0.4 Mg/1 Ml Vial/Carp) 0.1 mg IV Q5M PRN PRN Reason: Oversedation/Resp Depression Stop: 09/06/20 20:32 Last Admin: 08/10/20 18:41 Dose: 0.1 mg Documented by: Naproxen (Naproxen 250 Mg Tab) 500 mg PO BID [facility] Stop: 09/13/20 20:59 Last Admin: 08/17/20 07:46 Dose: 500 mg Documented by: Systane: Non- Formulary Patient's Own Med 1 ea OP BID [facility] Stop: 09/09/20 20:59 Last Admin: 08/17/20 07:47 Dose: 1 drops Documented by: Ondansetron HCl (Ondansetron Inj 2 Mg/Ml 2 Ml Vial) 4 mg IV Q6H PRN PRN Reason: Nausea And Vomiting Stop: 09/06/20 20:32 Oxycodone HCl (Oxycodone Hcl Ir 5 Mg Tab (Immediate Release)) 10 mg PO Q6 PRN PRN Reason: Pain Stop: 08/21/20 16:59 Last Admin: 08/10/20 16:02 Dose: 10 mg Documented by: Pantoprazole Sodium (Pantoprazole 40 Mg Tab) 40 mg PO DAILY [facility] Stop: 09/07/20 08:59 Last Admin: 08/17/20 07:47 Dose: 40 mg Documented by: Potassium Chloride (Potassium Chloride Crtab 20 Meq Tabcr) 20 meq PO BID [facility] Stop: 09/06/20 20:59 Last Admin: 08/17/20 07:45 Dose: 20 meq Documented by: Prochlorperazine (Prochlorperazine Maleate 10 Mg Tab) 10 mg PO Q6H PRN PRN Reason: Nausea And Vomiting Stop: 09/06/20 16:59 Senna/Docusate Sodium (Docusate Sodium/Senna 50/8.6mg Tab) 1 tab PO HS PRN PRN Reason: Constipation Stop: 09/06/20 16:59 Last Admin: 08/07/20 21:59 Dose: 1 tab Documented by: Sennosides (Senna 8.6 Mg Tab) 17.2 mg PO HS ISHA Stop: 09/06/20 20:59 Last Admin: 08/16/20 20:03 Dose: 17.2 mg Documented by: Tramadol HCl (Tramadol Hcl 50 Mg Tablet) 50 mg PO DAILY PRN PRN Reason: Pain Stop: 09/06/20 16:59 Last Admin: 08/14/20 10:03 Dose: 50 mg Documented by: Vitamin B Complex (Vitamin B Complex Tab) 1 tab PO DAILY ISHA Stop: 09/09/20 08:59 Last Admin: 08/17/20 07:47 Dose: 1 tab Documented by: PG Care Time/CCT Total # of Minutes Spent Total Time Spent with Patient: Total time spent is greater than 50% in coordination of care (as documented) at patient's floor/unit and/or counseling patient: Coding Level of Care Code 08987 Subseq Hosp Care Lvl 2 Diagnoses Sepsis A41.9 Sepsis acute organ dysfunction status: unspecified Sepsis type: sepsis due to unspecified organism Acute knee pain M25.561 Laterality: right Metastatic breast cancer C50.919 Back pain M54.6 Back pain laterality: unspecified Back pain location: thoracic back pain Chronicity: unspecified Liver lesion K76.9 GERD (gastroesophageal reflux disease) K21.9 Esophagitis presence: with esophagitis Hypokalemia E87.6 Hyperglycemia R73.9 (1) Sepsis Sepsis acute organ dysfunction status: unspecified Sepsis type: sepsis due to unspecified organism Qualified Code(s): A41.9 - Sepsis, unspecified organism (2) Acute knee pain Laterality: right Qualified Code(s): M25.561 - Pain in right knee (3) Back pain Back pain laterality: unspecified Back pain location: thoracic back pain Chronicity: unspecified Qualified Code(s): M54.6 - Pain in thoracic spine (4) GERD (gastroesophageal reflux disease) Esophagitis presence: with esophagitis
[2020-08-17] MEDS: SENNA 8.6 MG TAB PO SCH (20:24)
[2020-08-17] MEDS: ACETAMINOPHEN 500 MG TAB PO PRN (22:13)
[2020-08-18] MEDS: ACETAMINOPHEN 325 MG TAB PO PRN (06:01)
[2020-08-18] MEDS: HEPARIN SOD 5,000 UNIT/0.5 ML VIAL SQ SCH ×3 (06:01→21:01)
[2020-08-18] MEDS: CHECK fentaNYL PATCH PLACEMENT SCH ×3 (08:29→23:23)
[2020-08-18] MEDS: POTASSIUM CHLORIDE CRTAB 20 MEQ TABCR PO SCH ×2 (08:30→20:25)
[2020-08-18] MEDS: GABAPENTIN 300 MG CAP PO SCH ×3 (08:30→20:26)
[2020-08-18] MEDS: CEFDINIR 300 MG CAP PO SCH ×2 (08:30→20:27)
[2020-08-18] MEDS: SPIRONOLACTONE/HCTZ 25-25 PO SCH ×2 (08:30→20:25)
[2020-08-18] MEDS: CETIRIZINE HCL 10 MG TABLET PO SCH (08:31)
[2020-08-18] MEDS: PANTOprazole 40 MG TAB PO SCH (08:31)
[2020-08-18] MEDS: ATORVASTATIN 20 MG TAB PO SCH (08:31)
[2020-08-18] MEDS: MULTIVITAMIN TAB PO SCH (08:31)
[2020-08-18] MEDS: NAPROXEN 250 MG TAB PO SCH ×2 (08:31→20:26)
[2020-08-18] MEDS: METHYLCELLULOSE POWDER 454 GM JAR PO SCH ×4 (08:33→20:24)
[2020-08-18] MEDS: SYSTANE OP SCH ×2 (08:33→20:24)
[2020-08-18] MEDS: fentaNYL 12 MCG/HR TDSY TD SCH (08:34)
[2020-08-18] MEDS: fentaNYL 25 MCG/HR TDSY TD SCH (08:35)
[2020-08-18] MEDS: VITAMIN B COMPLEX TAB PO SCH (08:36)
[2020-08-18] MEDS: HEPARIN 100 UNIT/ML 5ML FLUSH FLUSH PRN (08:55)
--- NOTE | 2020-08-18 09:20 | Hospitalist Progress Note ---
Date of Service August 18, 2020 Assessment & Plan (1) Sepsis: Immunocompromised- septic knee most likely source - Blood Cultures have been negative, twice - treated with Rocephin 2gm IV daily, change to Cefdinir, complete 4 weeks total from 08/08/20 last day at home would be 09/05 - Her medi-port site looks good with no surrounding erythema On 08/08 1. Right knee arthroscopic irrigation and debridement. 2. Right knee partial medial and lateral meniscectomies. Patient tolerated the procedure. On 08/09 Right Knee Arthroscopic Incision and Drainage(Right) Patient tolerated this procedure. 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 BID order PT/OT, WBAT on right leg, walking much better past few days (3) Metastatic breast cancer: As per HPI- Continues on Gemcitabine and Paclitaxel - Continue with Oncology next treatment due some time in August (4) Back pain: Chronic with metastatic disease appreciate pain management consultation decrease Fentanyl to 37mcg, use Tylenol and Oxycodone for breakthrough give prescription for Narcan on discharge (5) Liver lesion: As above (6) GERD (gastroesophageal reflux disease): Continue pantoprazole 40 mg daily - patient feels as symptoms are controlled (7) Hypokalemia: She is on home potassium chloride with her spironolactone (8) Hyperglycemia: Place on loose sliding scale with infection- follow - Aspart sliding scale - CF 35, 0 carb coverage for now - Goal <180 monitor for hypoglycemia, no episodes Admission and Anticipated Discharge Date Admission Date: August 07, 2020 Subjective pt has not acute issues at this time, knee is improving sutures out, consider CPPd arthritis pt looking forward to rehab and eventually home Review of Systems Review of Systems: Patient is weak and tired with minor fatigue no headache, no visual changes no speech or swallowing issues no chest pain, pressure or palpitations no shortness of breath, cough or wheezes no abdominal pain, nausea or vomiting, diarrhea or constipation no dysuria, hematuria or frequency Right knee is tender but incision looks good no back pain, CVA tenderness or radicular pain no bruising, bleeding or rashes no focal signs of weakness or numbness or altered sensation no complaints of anxiety or depression.. Physical Exam Physical Exam: The patient appeared well nourished and normally developed. Vital signs as documented. Head exam is normocephalic atraumatic Neck is without JVD, thyromegaly, or carotid bruits. Lungs are clear to auscultation, no focal loss of breath sounds Cardiac exam, Rhythm is regular.. No murmurs, rubs or gallops. Abdominal exam reveals normal bowel sounds, soft non tender, no masses Extremities are nonedematous and both pedal pulses are present Neurologic exam is alert and oriented, no focal loss of strength or sensation Skin is without bruises or rashes Psychologically is without concerns for anxiety or depression Results & Data Results & Data ([facility]) Vital Signs (Past 12 Hours) Vital Signs Temp Pulse Resp BP Pulse Ox 08/18/20 07:52 98.2 F 82 16 123/71 97 08/17/20 22:14 97.5 F L 79 16 138/77 99 PG Care Time/CCT Total # of Minutes Spent Total Time Spent with Patient: Total time spent is greater than 50% in coordination of care (as documented) at patient's floor/unit and/or counseling patient: Coding Level of Care Code 83528 Subseq Hosp Care Lvl 2 Diagnoses Sepsis A41.9 Sepsis acute organ dysfunction status: unspecified Sepsis type: sepsis due to unspecified organism Acute knee pain M25.561 Laterality: right Metastatic breast cancer C50.919 Back pain M54.6 Back pain laterality: unspecified Back pain location: thoracic back pain Chronicity: unspecified Liver lesion K76.9 GERD (gastroesophageal reflux disease) K21.9 Esophagitis presence: with esophagitis Hypokalemia E87.6 Hyperglycemia R73.9 (1) Acute knee pain Laterality: right Qualified Code(s): M25.561 - Pain in right knee (2) Back pain Back pain laterality: unspecified Back pain location: thoracic back pain Chronicity: unspecified Qualified Code(s): M54.6 - Pain in thoracic spine (3) Sepsis Sepsis acute organ dysfunction status: unspecified Sepsis type: sepsis due to unspecified organism Qualified Code(s): A41.9 - Sepsis, unspecified organism (4) GERD (gastroesophageal reflux disease) Esophagitis presence: with esophagitis
[2020-08-18 15:32] VITALS: TEMP 97.7
[2020-08-18] MEDS: SENNA 8.6 MG TAB PO SCH (20:25)
[2020-08-19] MEDS: HEPARIN SOD 5,000 UNIT/0.5 ML VIAL SQ SCH ×2 (05:29→13:40)
[2020-08-19 07:09] VITALS: BP 107/65; O2SAT 98
[2020-08-19] MEDS: CEFDINIR 300 MG CAP PO SCH (08:31)
[2020-08-19] MEDS: VITAMIN B COMPLEX TAB PO SCH (08:31)
[2020-08-19] MEDS: CETIRIZINE HCL 10 MG TABLET PO SCH (08:31)
[2020-08-19] MEDS: ATORVASTATIN 20 MG TAB PO SCH (08:31)
[2020-08-19] MEDS: NAPROXEN 250 MG TAB PO SCH (08:32)
[2020-08-19] MEDS: MULTIVITAMIN TAB PO SCH (08:32)
[2020-08-19] MEDS: GABAPENTIN 300 MG CAP PO SCH ×2 (08:32→13:40)
[2020-08-19] MEDS: POTASSIUM CHLORIDE CRTAB 20 MEQ TABCR PO SCH (08:32)
[2020-08-19] MEDS: SYSTANE OP SCH (08:33)
[2020-08-19] MEDS: METHYLCELLULOSE POWDER 454 GM JAR PO SCH ×2 (08:33→12:45)
[2020-08-19] MEDS: PANTOprazole 40 MG TAB PO SCH (08:33)
[2020-08-19] MEDS: SPIRONOLACTONE/HCTZ 25-25 PO SCH (08:33)
[2020-08-19] MEDS: CHECK fentaNYL PATCH PLACEMENT SCH (08:34)
[2020-08-19 14:00] VITALS: PULSE 98
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
== END 2020-08-19 15:36 | disposition home health service (06) | DRG 853 ==
LOC: ED 10:11 → 2S 15:14 → SUATTDRO 15:14 → 2S 16:32 → 3E 08-12 11:53

== ENCOUNTER 2020-09-14 22:58 | Inpatient (IN) ==
[2020-09-14] MEDS ORDERED: SODIUM CHLORIDE 0.9% 1000ML 1,000 ML IV SCH (23:15)
[2020-09-14 23:22] LABS: Hematocrit (blood only) 30.6 % (37-47); Hemoglobin 9.9 g/dL (12.0-16.0); Immature Granulocytes # (auto) 0.03 K/uL (0.00-0.02); Immature Granulocytes % (auto) 0.2 %; Lymphocytes # (auto) 0.15 K/uL (1.2-3.4); Lymphocytes % (auto) 1.2 %; Mean Corpuscular Hemoglobin 30.7 pg (25-34); Mean Corpuscular Hgb Conc 32.4 g/dL (32-36); Mean Platelet Volume 9.8 fL (7.4-10.4); Monocytes # (auto) 0.03 K/uL (0.11-0.59); Monocytes % (auto) 0.2 %; Neutrophils # (auto) 12.12 K/uL (1.4-6.5); Neutrophils % (auto) 98.4 %; Platelet Count 194 K/uL (130-400); RDW Coefficient of Variation 16.4 % (11.5-14.5); RDW Standard Deviation 55.2 fL (36.4-46.3); Red Blood Count 3.22 M/uL (4.2-5.4); White Blood Count 12.33 K/uL (4.8-10.8)
--- NOTE | 2020-09-14 23:25 | Emergency Department Note ---
Impression & Plan Sepsis ED Provider Note INFORMANT: Patient and ED PROVIDER(S): Trevor Lechuga MD CHIEF COMPLAINT: Weakness PLAN: Disposition: Admitted Condition: Good Outpatient prescription management: none Referral: None MEDICAL DECISION MAKING: Patient presented because of weakness and a fall. She did not suffer any significant injury. She was recently treated for a right knee infection. There does not appear to be any significant knee signs to suggest recurrent infection there. X-ray imaging did not reveal any issues. She underwent head CT imaging which did not reveal any acute findings. The patient has no evidence of pneumonia on chest x-ray. She had a benign abdomen. Blood work revealed a leukocytosis. Her urinalysis was unremarkable. Blood cultures pending. The patient was treated with empiric daptomycin and aztreonam. She was given Tylenol and gentle hydration. Her lactate was within normal limits. Further management will be necessary in the hospital. Consultation was made with Dr. Chin. Patient was evaluated in the ER and admitted for further management. Triage Nursing notes reviewed and agree them. Vital Signs: reviewed and remarkable for tachycardia and fever Differential diagnosis: Infection, dehydration, metabolic abnormality, hypo/hyperglycemia, electrolyte disturbance, anemia, hypoxia, cardiac sources, intracerebral event, toxicologic, neurologic, as well as other pathologies. Diagnostics interpreted by me: ECG: Twelve-lead ECG reveals sinus tachycardia at 117 bpm. Septal Q waves present. No ST elevation or depression. No PACs or PVCs. Cardiac Monitoring: Cardiac monitoring ordered by me: The patient was placed on continuous cardiac monitoring and observed. It revealed a normal sinus rhythm at 112 beats per minute without ectopy or evidence of dysrhythmia. Imaging studies: Head CT: A noncontrast CT scan of the head was performed and was negative for tumor, fracture, intracranial hemorrhage, or other acute pathology. Imaging studies: Chest x-ray. Findings: A chest x-ray was performed and revealed no pneumothorax, effusion, infiltrate, pulmonary edema, free air under the diaphragm, or wide mediastinum. Impression: No acute disease. Right knee x-ray does not reveal any evidence of fracture or dislocation. Minimal soft tissue swelling. HPI: The patient is a 75 year old female who presents to the Emergency Room with complaints of weakness. This started over the last few days and is worsening. The patient also notes the following associated symptoms, difficulty finding words, tremors, continued right knee pain. Was in the hospital 4 weeks ago after being treated for a right knee infection. The patient has found no relieving factors. Current pain is rated as 5/10. does note that the patient has not been doing well at home over the last few days and especially today. He does not believe she is safe to go home. He does note that when the ambulance arrived her heart rate was 140. Pt denies LOC, headache, fevers, chills, diaphoresis, visual changes, neck pain, chest pain, breathing difficulties, nausea, vomiting, abdominal pain, back pain, melena, hematochezia, urinary symptoms, numbness, weakness, lymphadenopathy, rash, or other complaints. ROS: See above HPI for pertinent positives & negatives. A total of 10 systems reviewed and were otherwise negative. PAST MEDICAL HISTORY:See Below , metastatic breast cancer PAST SURGICAL HISTORY:See Below, FAMILY HISTORY:See Below SOCIAL HISTORY:See Below, HOME MEDICATIONS:See Below ALLERGIES:See Below VITALS:See Below PHYSICAL EXAMINATION: GENERAL: Awake, tired-appearing, in no distress HENT: Normocephalic, atraumatic. Oropharynx unremarkable. EYES: Normal conjunctiva. Sclera non-icteric. PERRLA. EOMI. NECK: Inspection normal. Non-tender. Supple. No nuchal rigidity. FROM. No masses. RESPIRATORY: Clear to auscultation. No wheezes. No rales. Normal respiratory effort. CARDIAC: Tachycardic rate. Normal rhythm. No murmurs. No rubs. Extremities warm and well perfused. Pulses equal. No JVD. GI: Soft, non-distended. No tenderness to palpation. No rebound or guarding. No masses. RECTAL: Deferred. MUSCULOSKELETAL: Atraumatic. Chest examination reveals no tenderness. The back is symmetrical on inspection without obvious abnormality. There is no CVA tenderness to palpation. No joint edema. LOWER EXTREMITIES: Calves are equal size bilaterally and non-tender. No edema. No discoloration. Right knee swelling present without significant warmth or erythema. Surgical wound healing.. NEURO: Minimally confused with some mild dysarthria but otherwise normal sensorium. No sensory or motor deficits noted. SKIN: No rash or jaundice noted. Trevor Lechuga MD Past Med/Surg History Medical History BRCA1 positive GERD (gastroesophageal reflux disease) Hearing deficit History of breast cancer Hyperlipidemia Hypertension Liver lesion Lytic bone lesions on xray Pathologic compression fracture of spine Personal history of breast cancer (~1988) Seasonal allergic rhinitis Surgical History History of breast biopsy History of colonoscopy History of dilatation and curettage History of esophagogastroduodenoscopy (EGD) History of hysterectomy with bilateral oophorectomy History of loop electrosurgical excision procedure (LEEP) History of myringotomy History of tooth extraction History of total left knee replacement History of tubal ligation Hx of cholecystectomy Hx of fracture of femur Hx of tonsillectomy Port-A-Cath in place (04/09/19) S/P bilateral mastectomy (07/06/13) Family History Other Breast cancer Melanoma Denies family history of Ovarian cancer Colorectal cancer Social History Smoking Status: Never smoker Second Hand Exposure: No; Hx Alcohol Use: Yes Alcohol type: wine Hx Substance Use: Yes Preferred Language: Czech Communication Ability: Effective Visual Impairment: No 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: No Beliefs That Will Affect Care: None marital status: Current Living Situation: Spouse Current Living Situation Comment: LIVES WITH Feels Safe at Home: Yes Dental Care, Regularly: Yes Assistive Devices: Walker Allergies Allergies Allergy/AdvReac Type Severity Reaction Status Date / Time chlorhexidine Allergy Intermediate ITCHING Verified 09/14/20 23:58 cephalexin Allergy Mild SICK Verified 09/14/20 23:58 edetic acid Allergy Mild nausea Verified 09/14/20 23:58 propylene glycol Allergy Mild nausea Verified 09/14/20 23:58 regadenoson Allergy Mild nausea Verified 09/14/20 23:58 codeine AdvReac Intermediate N/V Verified 09/14/20 23:58 Home Meds Home Medications Medication Instructions Recorded Confirmed fluticasone propionate 50 2 sprays INTNAS DAILY 01/04/19 09/15/20 mcg/actuation nasal spray,suspension calcium carbonate-vitamin D3 600 1 cap PO BID 02/15/19 09/15/20 mg calcium-200 unit capsule (Calcium 600 + D(3)) prochlorperazine maleate 10 mg 10 mg PO Q6H PRN 10/25/19 09/15/20 tablet vit C 250 mg-vit E 90 mg-zinc 40 1 tab PO BIDM 10/25/19 09/15/20 mg-copper 1 wt-luavdj-gyigki capsule (PreserVision AREDS-2) fentanyl 25 mcg/hr transdermal 1 patch TRANSDERMAL Q72H 03/17/20 09/15/20 patch atorvastatin 20 mg tablet 20 mg PO HS 08/07/20 09/15/20 cetirizine 10 mg tablet 10 mg PO DAILY 08/07/20 09/15/20 gabapentin 300 mg capsule 300 mg PO TID 08/07/20 09/15/20 methylcellulose (laxative) 500 mg 1,000 mg PO BIDM 08/07/20 09/15/20 tablet (Citrucel) ondansetron HCl 8 mg tablet 8 mg PO DAILY PRN 08/07/20 09/15/20 potassium chloride 20 mEq 20 meq PO BID 08/07/20 09/15/20 tablet,extended release vitamin B comp and C no.3 15 mg-10 1 cap PO DAILY 08/07/20 09/15/20 mg-50 mg-5 mg-300 mg capsule (B Complex Plus Vitamin C) furosemide 20 mg tablet 20 mg PO DAILY 09/14/20 09/15/20 nutritional supplement-fiber oral 2 ea PO BIDM 09/14/20 09/15/20 liquid spironolactone 25 1 tab PO QAM 09/15/20 09/15/20 mg-hydrochlorothiazide 25 mg tablet Previous Rx's Medication Instructions Recorded fentanyl 12 mcg/hr transdermal 12 mcg TRANSDERMAL Q3D@0900 #10 ea 08/19/20 patch Results & Data (ED) Vital Signs Vital Signs - 24 hr 09/14/20 23:10 09/15/20 00:46 Temperature 39.1 C H Temperature Source Oral Pulse Rate 129 H 112 H Respiratory Rate 23 18 Respiratory Effort / Characteristics Non-Labored Spontaneous Respiratory Depth Normal Respiratory Pattern Regular Blood Pressure 103/74 Blood Pressure [Left Arm] 115/89 Blood Pressure Mean 83 Blood Pressure Mean [Left Arm] 97 Blood Pressure Position Sitting Pulse Oximetry 97 96 Oxygen Delivery Method Room Air Room Air Sepsis Recent Fever Within 48 Hours Yes Sepsis New/Unexplained Change in Mental Status N/A Sepsis Action Taken by Nursing Physician Notified Laboratory Data Result diagrams: 09/14/20 23:13 09/14/20 23:13 Lab Results 09/14/20 09/14/20 09/14/20 Range/Units 23:13 23:13 23:30 WBC 12.33 H (4.8-10.8) K/uL RBC 3.22 L (4.2-5.4) M/uL Hgb 9.9 L (12.0-16.0) g/dL Hct 30.6 L (37-47) % MCV 95.0 (80-100) fL MCH 30.7 (25-34) pg MCHC 32.4 (32-36) g/dL RDW Std Deviation 55.2 H (36.4-46.3) fL RDW Coeff of Jermaine 16.4 H (11.5-14.5) % Plt Count 194 (130-400) K/uL MPV 9.8 (7.4-10.4) fL Immature Gran % (Auto) 0.2 % Neut % (Auto) 98.4 % Lymph % (Auto) 1.2 % [place] % (Auto) 0.2 % Eos % (Auto) 0.0 % Baso % (Auto) 0.0 % Neut # (Auto) 12.12 H (1.4-6.5) K/uL Lymph # (Auto) 0.15 L (1.2-3.4) K/uL [place] # (Auto) 0.03 L (0.11-0.59) K/uL Eos # (Auto) 0.00 (0-0.5) K/uL Baso # (Auto) 0.00 (0-0.2) K/uL Immature Gran # (Auto) 0.03 H (0.00-0.02) K/uL Sodium 131 L (136-145) mmol/L Potassium 3.8 (3.5-5.1) mmol/L Chloride 96 L (98-107) mmol/L Carbon Dioxide 27 (21-32) mmol/L Anion Gap 8.0 (3-11) BUN 17 (7-18) mg/dl Creatinine 0.64 (0.6-1.2) mg/dl Est Cr Clr Drug Dosing 73.3 ml/min Est GFR ( Amer) 102.6 ml/min Est GFR (Non-Af Amer) 88.5 ml/min BUN/Creatinine Ratio 26.0 H (10-20) Glucose 112 H (70-99) mg/dl Lactate 1.8 (0.4-2.0) mmol/L Calcium 9.0 (8.5-10.1) mg/dl Total Bilirubin 1.7 H (0.2-1) mg/dl AST 51 H (15-37) U/L ALT 56 (12-78) U/L Alkaline Phosphatase 279 H (45-117) U/L Troponin I < 0.015 (0-0.045) ng/ml Total Protein 6.4 (6.4-8.2) gm/dl Albumin 2.7 L (3.4-5.0) gm/dl Globulin 3.7 (2.5-4.0) gm/dl Albumin/Globulin Ratio 0.7 L (0.9-2) TSH 2.490 (0.300-4.500) uIu/ml Urine Color Urine Appearance (Clear) Urine pH (4.5-7.5) Ur Specific [place] (1.000-1.030) Urine Protein (Negative) Urine Glucose (UA) (Negative) Urine Ketones (Negative) Urine Blood (Negative) Urine Nitrite (Negative) Urine Bilirubin (Negative) Urine Urobilinogen (Negative) Ur Leukocyte Esterase (Negative) Urine WBC (Auto) (0-5) /hpf Urine RBC (Auto) (0-4) /hpf U Hyaline Cast (Auto) (0-5) /lpf U Epithel Cells (Auto) (0-5) /lpf Urine Bacteria (Auto) (Negative) COVID-19 Eval Order SARS-CoV-2 (PCR) (Negative) 09/15/20 09/15/20 09/15/20 Range/Units 00:00 00:10 00:10 WBC (4.8-10.8) K/uL RBC (4.2-5.4) M/uL Hgb (12.0-16.0) g/dL Hct (37-47) % MCV (80-100) fL MCH (25-34) pg MCHC (32-36) g/dL RDW Std Deviation (36.4-46.3) fL RDW Coeff of Jermaine (11.5-14.5) % Plt Count (130-400) K/uL MPV (7.4-10.4) fL Immature Gran % (Auto) % Neut % (Auto) % Lymph % (Auto) % [place] % (Auto) % Eos % (Auto) % Baso % (Auto) % Neut # (Auto) (1.4-6.5) K/uL Lymph # (Auto) (1.2-3.4) K/uL [place] # (Auto) (0.11-0.59) K/uL Eos # (Auto) (0-0.5) K/uL Baso # (Auto) (0-0.2) K/uL Immature Gran # (Auto) (0.00-0.02) K/uL Sodium (136-145) mmol/L Potassium (3.5-5.1) mmol/L Chloride (98-107) mmol/L Carbon Dioxide (21-32) mmol/L Anion Gap (3-11) BUN (7-18) mg/dl Creatinine (0.6-1.2) mg/dl Est Cr Clr Drug Dosing ml/min Est GFR ( Amer) ml/min Est GFR (Non-Af Amer) ml/min BUN/Creatinine Ratio (10-20) Glucose (70-99) mg/dl Lactate (0.4-2.0) mmol/L Calcium (8.5-10.1) mg/dl Total Bilirubin (0.2-1) mg/dl AST (15-37) U/L ALT (12-78) U/L Alkaline Phosphatase (45-117) U/L Troponin I (0-0.045) ng/ml Total Protein (6.4-8.2) gm/dl Albumin (3.4-5.0) gm/dl Globulin (2.5-4.0) gm/dl Albumin/Globulin Ratio (0.9-2) TSH (0.300-4.500) uIu/ml Urine Color Dark Yellow Urine Appearance Cloudy A (Clear) Urine pH 6.0 (4.5-7.5) Ur Specific [place] 1.019 (1.000-1.030) Urine Protein Negative (Negative) Urine Glucose (UA) Negative (Negative) Urine Ketones Trace H (Negative) Urine Blood Negative (Negative) Urine Nitrite Negative (Negative) Urine Bilirubin Negative (Negative) Urine Urobilinogen Negative (Negative) Ur Leukocyte Esterase Negative (Negative) Urine WBC (Auto) 0 (0-5) /hpf Urine RBC (Auto) 0-4 (0-4) /hpf U Hyaline Cast (Auto) 1-5 (0-5) /lpf U Epithel Cells (Auto) 0-5 (0-5) /lpf Urine Bacteria (Auto) Negative (Negative) COVID-19 Eval Order Covid19 at [facility] SARS-CoV-2 (PCR) NEGATIVE (Negative) Administered Medications Sodium Chloride (Nss 1000ml) 1,000 mls @ 125 mls/hr IV .Q8H ISAH Stop: 09/15/20 07:14 Last Admin: 09/15/20 00:18 Dose: 125 mls/hr Documented by: [id number] Discontinued Medications Acetaminophen (Acetaminophen 500 Mg Tab) 1,000 mg PO NOW STA Stop: 09/15/20 00:06 Last Admin: 09/15/20 00:44 Dose: 1,000 mg Documented by: [id number] Sodium Chloride (Nss 1000ml) 500 mls @ 999 mls/hr IV .Q31M ONE Stop: 09/14/20 23:59 Last Infusion: 09/15/20 00:03 Dose: 0 mls/hr Documented by: [id number] Admin: 09/14/20 23:43 Dose: 999 mls/hr Documented by: [id number] Daptomycin 350 mg/ Syringe 7 mls @ 3.5 mls/min IV NOW ONE; Protocol Stop: 09/14/20 23:33 Last Admin: 09/15/20 00:18 Dose: 3.5 mls/min Documented by: [id number] Aztreonam 2,000 mg/ Dextrose 120 mls @ 100 mls/hr IV NOW STA; Protocol Stop: 09/15/20 00:43 Last Admin: 09/15/20 00:41 Dose: 100 mls/hr Documented by: [id number] Discharge Plan Visit Data Chief Complaint: Weakness Stated Complaint: WEAK/FALL ED Provider: Trevor Lechuga Discharge Problem: Sepsis Forms Stand Alone Forms: My [facility] Prescriptions Prescriptions: No Action fluticasone propionate 50 mcg/actuation spray,suspension 2 sprays INTNAS DAILY RF: 0 fentanyl 25 mcg/hr patch 72 hour 1 patch transdermal Q72H RF: 0 prochlorperazine maleate 10 mg tablet 10 mg PO Q6H PRN (Reason: Nausea And Vomiting) RF: 0 PreserVision AREDS-2 [id number] uw-iboh-nj-mg capsule 1 tab PO BIDM RF: 0 Calcium 600 + D(3) 600 mg calcium- 200 unit Capsule 1 cap PO BID RF: 0 ondansetron HCl 8 mg tablet 8 mg PO DAILY PRN (Reason: Nausea And Vomiting) RF: 0 gabapentin 300 mg capsule 300 mg PO TID RF: 0 B Complex Plus Vitamin C [id number] mg Capsule 1 cap PO DAILY RF: 0 potassium chloride 20 mEq tablet extended release 20 meq PO BID RF: 0 cetirizine 10 mg Tablet 10 mg PO DAILY RF: 0 atorvastatin 20 mg tablet 20 mg PO HS RF: 0 Citrucel 500 mg tablet 1,000 mg PO BIDM RF: 0 fentanyl 12 mcg/hr Patch 72 Hour 12 mcg transdermal Q3D@0900 Qty: 10 RF: 0 furosemide 20 mg tablet 20 mg PO DAILY RF: 0 Juice Plus Liquid 2 ea PO BIDM RF: 0 spironolacton-hydrochlorothiaz 25-25 mg tablet 1 tab PO QAM RF: 0 Referrals Referrals: Rad Tobias MD [Physician] -
[2020-09-14] MEDS ORDERED: SODIUM CHLORIDE 0.9% 1000ML 500 ML IV ONE (23:29)
[2020-09-14] MEDS ORDERED: DAPTOmycin 350 MG in SYRINGE 0 ML IV ONE (23:32)
[2020-09-14] MEDS ORDERED: AZTREONAM 2,000 MG in DEXTROSE 5% 100 ML IV STA (23:32)
[2020-09-14 23:41] LABS: Alanine Aminotransferase 56 U/L (12-78); Albumin Level 2.7 gm/dl (3.4-5.0); Aspartate Aminotransferase 51 U/L (15-37); Blood Urea Nitrogen 17 mg/dl (7-18); Carbon Dioxide 27 mmol/L (21-32); Chloride 96 mmol/L (98-107); Creatinine Clr Calc Pharmacy 73.3 ml/min; Est GFR (African American) 102.6 ml/min; Est GFR (Non-African American) 88.5 ml/min; Glucose 112 mg/dl (70-99); Potassium 3.8 mmol/L (3.5-5.1); Sodium 131 mmol/L (136-145)
[2020-09-14 23:55] LABS: Albumin Globulin Ratio 0.7 (0.9-2); Alkaline Phosphatase 279 U/L (45-117); Bilirubin,Total 1.7 mg/dl (0.2-1); Globulin 3.7 gm/dl (2.5-4.0); Total Protein 6.4 gm/dl (6.4-8.2); Troponin I < 0.015 ng/ml (0-0.045)
[2020-09-15] MEDS ORDERED: ACETAMINOPHEN 500 MG TAB PO STA (00:05)
[2020-09-15 00:20] LABS: Appearance Urine Cloudy (Clear); Bacteria Urine Automated Negative (Negative); Bilirubin Urine Negative (Negative); Blood Urine Negative (Negative); Color Urine Dark Yellow; Epithelial Cell Urine Auto 0-5 /lpf (0-5); Glucose Urine UA Negative (Negative); Ketones Urine Trace (Negative); Leukocyte Esterase Urine Negative (Negative); Nitrite Urine Negative (Negative); Protein Urine Negative (Negative); RBC Urine Automated 0-4 /hpf (0-4); Specific Gravity Urine 1.019 (1.000-1.030); Urobilinogen Urine Negative (Negative); WBC Urine Automated 0 /hpf (0-5)
[2020-09-15] MEDS ORDERED: ACETAMINOPHEN 325 MG TAB PO PRN (01:35)
[2020-09-15] MEDS ORDERED: ONDANSETRON INJ 2 MG/ML 2 ML VIAL IV PRN (01:35)
[2020-09-15] MEDS ORDERED: POLYETHYLENE (MIRALAX) 17 GM PACK PO PRN (01:35)
[2020-09-15] MEDS ORDERED: DOCUSATE SODIUM 100 MG CAP PO PRN (01:35)
[2020-09-15] MEDS: SODIUM CHLORIDE 0.9% 1000ML 1,000 ML IV SCH ×2 (02:00→09:30)
--- NOTE | 2020-09-15 03:47 | History & Physical Report ---
Date of Service September 15, 2020 History of Present Illness Primary Care Provider: CAROL Schmidt Allergies Allergy/AdvReac Type Severity Reaction Status Date / Time chlorhexidine Allergy Intermediate ITCHING Verified 09/14/20 23:58 cephalexin Allergy Mild SICK Verified 09/14/20 23:58 edetic acid Allergy Mild nausea Verified 09/14/20 23:58 propylene glycol Allergy Mild nausea Verified 09/14/20 23:58 regadenoson Allergy Mild nausea Verified 09/14/20 23:58 codeine AdvReac Intermediate N/V Verified 09/14/20 23:58 Home Medications Medication Instructions Recorded Confirmed Type fluticasone propionate 50 2 sprays INTNAS DAILY 01/04/19 09/15/20 History mcg/actuation nasal spray,suspension calcium carbonate-vitamin D3 600 1 cap PO BID 02/15/19 09/15/20 History mg calcium-200 unit capsule (Calcium 600 + D(3)) prochlorperazine maleate 10 mg 10 mg PO Q6H PRN 10/25/19 09/15/20 History tablet vit C 250 mg-vit E 90 mg-zinc 40 1 tab PO BIDM 10/25/19 09/15/20 History mg-copper 1 yq-aukcyw-zczacu capsule (PreserVision AREDS-2) fentanyl 25 mcg/hr transdermal 1 patch TRANSDERMAL Q72H 03/17/20 09/15/20 History patch atorvastatin 20 mg tablet 20 mg PO HS 08/07/20 09/15/20 History cetirizine 10 mg tablet 10 mg PO DAILY 08/07/20 09/15/20 History gabapentin 300 mg capsule 300 mg PO TID 08/07/20 09/15/20 History methylcellulose (laxative) 500 mg 1,000 mg PO BIDM 08/07/20 09/15/20 History tablet (Citrucel) ondansetron HCl 8 mg tablet 8 mg PO DAILY PRN 08/07/20 09/15/20 History potassium chloride 20 mEq 20 meq PO BID 08/07/20 09/15/20 History tablet,extended release vitamin B comp and C no.3 15 mg-10 1 cap PO DAILY 08/07/20 09/15/20 History mg-50 mg-5 mg-300 mg capsule (B Complex Plus Vitamin C) fentanyl 12 mcg/hr transdermal 12 mcg TRANSDERMAL Q3D@0900 #10 ea 08/19/20 09/15/20 Rx patch furosemide 20 mg tablet 20 mg PO DAILY 09/14/20 09/15/20 History nutritional supplement-fiber oral 2 ea PO BIDM 09/14/20 09/15/20 History liquid spironolactone 25 1 tab PO QAM 09/15/20 09/15/20 History mg-hydrochlorothiazide 25 mg tablet Past Med/Surg History Medical History BRCA1 positive GERD (gastroesophageal reflux disease) Hearing deficit History of breast cancer Hyperlipidemia Hypertension Liver lesion Lytic bone lesions on xray Pathologic compression fracture of spine Personal history of breast cancer (~1988) Seasonal allergic rhinitis Surgical History History of breast biopsy History of colonoscopy History of dilatation and curettage History of esophagogastroduodenoscopy (EGD) History of hysterectomy with bilateral oophorectomy History of loop electrosurgical excision procedure (LEEP) History of myringotomy History of tooth extraction History of total left knee replacement History of tubal ligation Hx of cholecystectomy Hx of fracture of femur Hx of tonsillectomy Port-A-Cath in place (04/09/19) S/P bilateral mastectomy (07/06/13) Family History Other Breast cancer Melanoma Denies family history of Ovarian cancer Colorectal cancer Social History Smoking Status: Never smoker Second Hand Exposure: No; Hx Alcohol Use: Yes Alcohol type: wine Hx Substance Use: Yes Preferred Language: Croatian Communication Ability: Effective Visual Impairment: No Limitations Shellfish Manager Required: No Beliefs That Will Affect Care: None marital status: Current Living Situation: Spouse Current Living Situation Comment: Lives with Feels Safe at Home: Yes Dental Care, Regularly: Yes Assistive Devices: Cane, Glasses, Hearing Aid - Bilateral, Walker and Wheelchair Results & Data Results & Data ([facility]) Vital Signs (Past 12 Hours) Vital Signs Temp Pulse Resp BP Pulse Ox 09/14/20 23:10 39.1 C H 129 H 23 103/74 97 Code Status & VTE Plan VTE Prophylaxis Plan VTE Prophylaxis will be ordered: Yes PG Care Time/CCT Total # of Minutes Spent Total Time Spent with Patient: Total time spent is greater than 50% in coordination of care (as documented) at patient's floor/unit and/or counseling patient: Coding
[2020-09-15] MEDS: fentaNYL 25 MCG/HR TDSY TD SCH (03:52)
[2020-09-15] MEDS: fentaNYL 12 MCG/HR TDSY TD SCH (04:59)
[2020-09-15] MEDS: ENOXAPARIN INJ 40 MG/0.4 ML SYR SQ SCH (06:11)
--- NOTE | 2020-09-15 07:00 | XRay Report ---
XR knee RT 3V CLINICAL HISTORY: Right knee pain following fall. Breast cancer. COMPARISON: Right femur radiographs March 03, 2020. CT of the right femur August 07, 2020. FINDINGS: Alignment of the right knee is anatomic. There is no acute fracture. There is severe media l compartment joint space narrowing. Chondrocalcinosis within the menisci. There is also moderate to severe joint space narrowing within the patellofemoral compartment. [id number] right knee join t effusion is present. There is soft tissue swelling, greater medially. IMPRESSION: 1. No acute fracture. 2. Severe right knee osteoarthritis. 3. Small to moderate right knee joint effusion. ACT 112: Negative or not required by law. Electronically signed by: Jay Jay Roldan M.D. 09/15/2020 6:58 AM
--- NOTE | 2020-09-15 07:15 | CT Scan Report ---
HEAD CT NONCONTRAST CT DOSE: 537.48 mGy.cm HISTORY: weakness, dysarthria TECHNIQUE: Multiaxial CT images of the head were performed without the use of intravenous contrast. A utomated exposure control was utilized for this study. A dose lowering technique was utilized adheri ng to the principles of ALARA. Comparison: Head CTA 08/10/2020. Findings: The paranasal sinuses and mastoid air cells are clear. The calvarium and skull base are int act. There is a 2 cm focal hypodensity within the subcortical white matter of the right frontal lobe which is new from the prior study. There is also a new 2 cm focal hypodensity within the left anterio r temporal lobe on image 6. The ventricles and sulci are within normal limits. There is no mass, deven pat, or midline shift. Impression: 1. A new 2 cm focal hypodensity within the subcortical white matter of right frontal lobe. This could represent a subacute ischemic change or focus of demyelination. 2. There is also a new 2 cm hypodensity within the left anterior temporal lobe which could also repre sent a subacute to chronic subcortical infarct. ACT 112: Negative or not required by law. Electronically signed by: Edgardo Reina M.D. 09/15/2020 7:13 AM
--- NOTE | 2020-09-15 07:38 | XRay Report ---
XR chest 1V portable HISTORY: weakness COMPARISON: Chest 08/07/2020. FINDINGS: No pneumothorax. Small bilateral pleural effusions persist. Increased density within the le ft lung base compared the prior study. The right lung is clear. Left subclavian Port-A-Cath remains a t the distal SVC. The heart is normal in size. There are surgical clips within the bilateral axilla. IMPRESSION: 1. Small bilateral pleural effusions, unchanged. 2. Left retrocardiac density is nonspecific but may represent atelectasis versus from the pleural eff usions. A pneumonia could also have a similar appearance. ACT 112: Negative or not required by law. Electronically signed by: Edgardo Reina M.D. 09/15/2020 7:37 AM
[2020-09-15] MEDS ORDERED: NON-FORMULARY MEDICATION (Nutritional Supplement-Fiber Liquid) PO SCH (08:00)
[2020-09-15] MEDS: CETIRIZINE HCL 10 MG TABLET PO SCH (08:29)
[2020-09-15] MEDS: FLUTICASONE PROPIONATE NA SPR 16 GM BTL SCH (08:30)
[2020-09-15] MEDS: GABAPENTIN 300 MG CAP PO SCH ×3 (08:30→20:54)
[2020-09-15] MEDS: CHECK fentaNYL PATCH PLACEMENT SCH ×2 (08:31→17:00)
[2020-09-15] MEDS: AZTREONAM 2,000 MG in DEXTROSE 5% 100 ML IV SCH ×2 (08:32→17:00)
[2020-09-15] MEDS ORDERED: VANCOMYCIN CONSULT ACTIVE PRN (08:49)
[2020-09-15] MEDS ORDERED: SPIRONOLACTONE/HCTZ 25-25 PO SCH (09:00)
[2020-09-15] MEDS ORDERED: FUROSEMIDE 20 MG TAB PO SCH (09:00)
[2020-09-15] MEDS ORDERED: POTASSIUM CHLORIDE CRTAB 20 MEQ TABCR PO SCH (09:00)
[2020-09-15] MEDS ORDERED: fentaNYL 12 MCG/HR TDSY TD SCH (09:00)
[2020-09-15 09:15] LABS: Eosinophils # (auto) 0.02 K/uL (0-0.5); Eosinophils % (auto) 0.2 %; Hematocrit (blood only) 23.8 % (37-47); Hemoglobin 7.8 g/dL (12.0-16.0); Immature Granulocytes # (auto) 0.04 K/uL (0.00-0.02); Immature Granulocytes % (auto) 0.4 %; Lymphocytes # (auto) 0.19 K/uL (1.2-3.4); Lymphocytes % (auto) 1.8 %; Mean Corpuscular Hemoglobin 30.8 pg (25-34); Mean Corpuscular Hgb Conc 32.8 g/dL (32-36); Mean Corpuscular Volume 94.1 fL (80-100); Mean Platelet Volume 9.7 fL (7.4-10.4); Monocytes # (auto) 0.06 K/uL (0.11-0.59); Monocytes % (auto) 0.6 %; Neutrophils # (auto) 10.04 K/uL (1.4-6.5); Platelet Count 171 K/uL (130-400); RDW Coefficient of Variation 16.6 % (11.5-14.5); RDW Standard Deviation 55.2 fL (36.4-46.3); Red Blood Count 2.53 M/uL (4.2-5.4); White Blood Count 10.35 K/uL (4.8-10.8)
--- NOTE | 2020-09-15 09:20 | Electrocardiogram Report ---
Test Reason : Blood Pressure : / mmHG Vent. Rate : 117 BPM Atrial Rate : 117 BPM P-R Int : 144 ms QRS Dur : 076 ms QT Int : 300 ms P-R-T Axes : 028 -02 052 degrees QTc Int : 418 ms Sinus tachycardia Normal ECG When compared with ECG of 07-AUG-2020 11:44, No significant change was found Confirmed by Jabari Villar ([id number]) on 09/15/2020 9:19:45 AM Referred By: REFERRED SELF Confirmed By:Jabari Villar
[2020-09-15 09:29] LABS: BUN Creatinine Ratio 30.9 (10-20); Calcium 8.1 mg/dl (8.5-10.1); Creatinine Clr Calc Pharmacy 93.8 ml/min; Est GFR (African American) 111.3 ml/min; Magnesium 1.8 mg/dl (1.8-2.4); Potassium 3.7 mmol/L (3.5-5.1)
[2020-09-15] MEDS ORDERED: VANCOMYCIN HCL 1,500 MG in SODIUM CHLORIDE 0.9% 500 ML IV ONE (09:30)
[2020-09-15 09:32] LABS: RBC Morphology Unremarkable
[2020-09-15 09:57] LABS: Albumin Globulin Ratio 0.7 (0.9-2); Bilirubin,Total 1.3 mg/dl (0.2-1); Globulin 3.1 gm/dl (2.5-4.0); Total Protein 5.1 gm/dl (6.4-8.2)
--- NOTE | 2020-09-15 10:23 | Pharmacy Report ---
Pharmacy Abx Dose Short Note - Date of Service September 15, 2020 - Assessment & Plan Assessment 75 year old presenting with weakness/fall. Per notes, recently treated for R knee infection. Given dose dapto/aztreonam in ER last evening. Vancomycin started this AM due to concerns for possible pneumonia. Aztreonam continued. Blood cultures are pending. Nasal swab pending Plan Vancomycin * Loading dose 1500 mg x 1 ordered (~25 mg/kg) * Plan to start vancomycin 750 mg iv q 8 hrs based upon Vancomycin AUC nomogram dosing. Last hospitalization had also been on vancomycin (1 gm iv q 10 hr). Trough level on this dosing was ~13 mcg/ml. Dosing selected comparable to previous dosing. Of note, patient's weight much less this admission. * Will plan to order vancomycin level if continued >48 hrs or sooner if renal function changes Pharmacy will continue to follow and will adjust dose/frequency as necessary. Thank you.
[2020-09-15] MEDS ORDERED: GADOBUTROL 65ML VIAL IV ONE (10:30)
--- NOTE | 2020-09-15 11:33 | Magnetic Resonance Report ---
Brain MRI WITH AND WITHOUT CONTRAST HISTORY: abnormal head CT,confusion,breast cancer TECHNIQUE: Multiplanar multisequence MRI of the brain was performed both before and after the intrave nous administration of contrast. COMPARISON STUDY: Head CT 09/15/2020. FINDINGS: No areas restricted diffusion to suggest acute infarction. The ventricles are normal in siz e. The major vascular flow-voids at the skull base are well-maintained. The orbits are unremarkable. The paranasal sinuses and mastoid air cells are clear. Postcontrast sequences demonstrate multiple sc attered enhancing lesion seen within the brain. These are most pronounced within the cerebellar hemis phere. These demonstrate areas of cystic change. Dominant enhancing lesion within the left anterior t emporal lobe measures 2.1 cm. These are consistent with metastatic disease. There are least 10 scatte red lesions identified. The majority demonstrate mild surrounding vasogenic edema. Sagittal sequences demonstrate a few hypointense lesions within the upper cervical spine. These also favor osteoblastic metastatic disease. There is also an enhancing lesion within the left cerebellopontine angle cistern which extends into the left internal auditory canal. This measures 1.5 cm and favors an acoustic laurita nolvia. IMPRESSION: 1. Multiple scattered enhancing cystic lesions within the brain consistent with metastatic disease. 2. There are few small hypointense lesions within the upper cervical spine which favor osteoblastic m etastatic disease. 3. There is also a 1.5 cm enhancing lesion within the left cerebellopontine angle cistern which exten ds into the left internal auditory canal. This favors an acoustic neuroma. ACT 112: Negative or not required by law. Electronically signed by: Edgardo Reina M.D. 09/15/2020 11:31 AM
--- NOTE | 2020-09-15 18:22 | History & Physical Bridge Note ---
Date of Service September 15, 2020 History & Physical Bridge Note I have examined the patient, reviewed the History & Physical and in the interval since the performance of the History & Physical I have noted the following changes of clinical significance: Pt feeling better than yesterday. No fevers today. Denies cough or SOB, no headache. No abd pain, nausea or diarrhea. No urinary symptoms. No weakness or numbness except chronic in feet from neuropathy. No increased pain in knee. Discussed results of her brain MRI and head CT with her. She is willing to undergo discussion with Rad-Onc and start Decadron. Informed her Oncology provider, Martha Federico who agrees with plan. Ms. Caballero also informed me her last Gemzar tx was 09/12 and this could also cause low grade fevers. Changed abx to Vanc and dcd Dapto in case of PNA on CXR. Continue Aztreonam -Consult Rad/Onc Start Decadron
[2020-09-15] MEDS: dexAMETHasone 4 MG in SYRINGE 0 ML IV SCH (18:44)
[2020-09-15] MEDS: VANCOMYCIN HCL 750 MG in SODIUM CHLORIDE 0.9% 250 ML IV SCH (20:50)
[2020-09-15] MEDS ORDERED: VANCOMYCIN HCL 1,000 MG in SODIUM CHLORIDE 0.9% 250 ML IV SCH (22:00)
[2020-09-16] MEDS ORDERED: DAPTOmycin 350 MG in SYRINGE 0 ML IV SCH
[2020-09-16] MEDS: dexAMETHasone 4 MG in SYRINGE 0 ML IV SCH ×4 (00:08→20:50)
[2020-09-16] MEDS: AZTREONAM 2,000 MG in DEXTROSE 5% 100 ML IV SCH ×3 (00:08→16:11)
[2020-09-16] MEDS: CHECK fentaNYL PATCH PLACEMENT SCH ×3 (00:09→16:11)
[2020-09-16] MEDS: VANCOMYCIN HCL 750 MG in SODIUM CHLORIDE 0.9% 250 ML IV SCH ×3 (03:43→20:50)
[2020-09-16 04:59] LABS: Hematocrit (blood only) 24.7 % (37-47); Hemoglobin 8.1 g/dL (12.0-16.0); Immature Granulocytes # (auto) 0.02 K/uL (0.00-0.02); Immature Granulocytes % (auto) 0.3 %; Lymphocytes # (auto) 0.09 K/uL (1.2-3.4); Lymphocytes % (auto) 1.5 %; Mean Corpuscular Hemoglobin 31.3 pg (25-34); Mean Corpuscular Hgb Conc 32.8 g/dL (32-36); Mean Corpuscular Volume 95.4 fL (80-100); Mean Platelet Volume 9.8 fL (7.4-10.4); Monocytes # (auto) 0.06 K/uL (0.11-0.59); Neutrophils # (auto) 6.02 K/uL (1.4-6.5); Neutrophils % (auto) 97.2 %; Platelet Count 193 K/uL (130-400); RDW Coefficient of Variation 16.4 % (11.5-14.5); RDW Standard Deviation 54.7 fL (36.4-46.3); Red Blood Count 2.59 M/uL (4.2-5.4); White Blood Count 6.19 K/uL (4.8-10.8)
[2020-09-16 05:17] LABS: BUN Creatinine Ratio 34.4 (10-20); Bilirubin Direct 0.2 mg/dl (0-0.2); Calcium 7.7 mg/dl (8.5-10.1); Creatinine Clr Calc Pharmacy 123.4 ml/min; Est GFR (African American) 121.8 ml/min; Est GFR (Non-African American) 105.1 ml/min; Potassium 3.7 mmol/L (3.5-5.1)
[2020-09-16 05:25] LABS: Bilirubin,Total 0.5 mg/dl (0.2-1); Total Protein 5.3 gm/dl (6.4-8.2)
[2020-09-16] MEDS: ENOXAPARIN INJ 40 MG/0.4 ML SYR SQ SCH (05:50)
[2020-09-16] MEDS: HEPARIN 100 UNIT/ML 5ML FLUSH FLUSH PRN ×2 (05:51→17:28)
[2020-09-16] MEDS: GABAPENTIN 300 MG CAP PO SCH ×3 (08:25→20:50)
[2020-09-16] MEDS: FLUTICASONE PROPIONATE NA SPR 16 GM BTL SCH (08:25)
[2020-09-16] MEDS: CETIRIZINE HCL 10 MG TABLET PO SCH (08:25)
--- NOTE | 2020-09-16 08:34 | Radiation OncologyConsultation ---
Date of Consultation September 16, 2020 Assessment & Plan (1) Brain metastases: Assessment: Ms. Golden is a 75-year-old female who presents with history of metastatic breast cancer. The patient has received multiple courses of radiation therapy in the past including treatment to the right breast (1988), left chest wall (2014), thoracic/lumbar spine (2019), Pelvis (2019), Right Femur (2020). The patient was most recently treated with Gemzar/paclitaxel by Dr. Griffin and Ashley Cardoso. The patient recently was having neurologic symptoms including weakness and twitching in her hand and presented to the emergency room on 09/14/2020. The patient was admitted to the hospital and underwent an MRI of the brain on 09/15/2020 which reveals widespread metastatic disease. The patient was started on dexamethasone 4 mg 4 times a day. The patient states that her symptoms have resolved and she is doing much better. I am now seeing her in consultation to discuss the role of radiation therapy. Treatment Options: 1. Whole brain radiation therapy. 2. Hippocampal avoidance whole brain radiation therapy with memantine. Recommendation: Hippocampal avoidance whole brain radiation therapy with memantine. I have discussed this plan with Dr. Blandon. Plan: 1. CT simulation scheduled for 09/18/2020. If patient is inpatient, plan to bring patient down for simulation that day. 2. Initiate memantine protocol in the outpatient setting. 3. I discussed with Dr. Blandon that she can consider reducing dexamethasone 4 mg PO BID. If the patient does not tolerate this then I would recommend increasing to dexamethasone 4 mg p.o. 3 times daily. 4. Follow-up with medical oncology in the outpatient setting. 5. Patient and family encouraged to call us with any further questions or concerns. Rationale/Explanation of Treatment: I explained the indications, alternatives, benefits, risks and side effects of external beam radiation therapy. I explain the most common side effects including but not limited to skin erythema, skin break down, hair loss, radiation necrosis, fatigue, short-term memory loss, decreased neurocognitive performance, cerebral edema, hearing loss, damage to cochlea structures, seizures, loss of sensory and or motor function. I explained the treatment planning process and what to expect before during and after treatment. The patient understands and would be willing to consent to treatment. I have explained to the patient that there is an increased risk of overlap from the previous course of radiation therapy and the current course of radiation therapy which can increase the risk of all acute and late side effects of radiation therapy. The patient had multiple questions which were answered to her full satisfaction. Thank you for allowing us to participate in the care of this patient. This chart was completed in part utilizing [employer] Speech Voice Recognition software. Attempts were made to minimize the grammatical errors, random word insertions, pronoun errors and incomplete sentences. Any formal questions or concerns about the content, text or information contained within the body of this dictation should be directly addressed to the provider for clarification. Clement Vásquez MD Department of Radiation Oncology [facility] History of Present Illness Attending Physician: Huyen Blandon MD History of Present Illness Status post ductal carcinoma in situ 1988, status post partial mastectomy with sentinel lymph node biopsy, status post radiation therapy completed June 1988 received 4930 cGy Abnormal mammogram 05/09/2012. Recheck in 6 months 11/13/2012 biopsy recommended Status post bilateral biopsies revealing invasive ductal carcinoma Status post bilateral mastectomies revealing invasive ductal carcinoma on the right [id number] Invasive ductal carcinoma on the left [id number](i+) M0 Status post systemic chemotherapy with 4 cycles of Taxol and Cytoxan Participation in REATA study Status post completion of radiation therapy 03/15/2014 received 6120 cGy to the left chest wall, and axilla She has been doing well over this past year. She had noticed no changes to her chest wall. She has noted no masses or tenderness and no changes of the axilla. She's had no problems with swelling of her arm. With a bilateral nipple sparing mastectomies she does not require mammography. She is seen regularly by medical oncology. She is on Arimidex. She denies any side effects. DEXA scanning is being followed by medical oncology. She recently had a pelvic examination and Pap smear by her pbx wire chief Dr. Vásquez. This was performed on 07/14/2016. Pap smear was negative for intraepithelial lesion or malignancy. Specimen [id number]. Patient continues to be followed by medical oncology and was recently seen by Georgie Wright on October 13, 2016. Patient continues on anastrozole which she is tolerating well. Recent DEXA scan showed normal mineralization. Her exam at that time showed no evidence of recurrence. 11/08/2017. Patient returns for annual radiation oncology follow-up visit. She had been previously seen and evaluated at the time of the diagnosis of skeletal metastasis. There was concern for the area of vertebral metastatic disease at T 10. Studies were completed. There was discussion of kyphoplasty or radiation therapy. The patient at that time improved with treatment. She did not feel that her discomfort warranted the kyphoplasty or radiation. She has managed her pain with tramadol and Tylenol. There has been no increase in discomfort. 08/28/2019 completed 6 cycles of systemic chemotherapy with Doxil. 09/26/2019. PET/CT. Findings compatible with progressive response to therapy with decreased size metabolic uptake of hipolito metastasis. Decreased uptake of skeletal metastasis and decreased size and metabolic activity of hepatic metastasis. 12/04/2019. Right femur x-ray. Moderate osteoarthritis involving the hip and knee. Skeletal metastasis involving the pelvis. 12/04/2019. Right hip x-ray. Multiple skeletal metastasis is again noted in the pelvis and proximal right femur. Moderate osteoarthritis of the right hip. 02/27/2020. PET/CT. Significant progression of hepatic, hipolito and skeletal metastasis since PET/CT of September 26, 2019. This includes an FDG avid proximal right femoral lesion which may increase risk for pathologic fracture. 03/03/2020. Right femoral x-ray. Numerous skeletal metastasis within the visualized portion of the right hemipelvis and proximal right femur, including an intertrochanteric/subtrochanteric right femoral lesion which was FDG avid on the PET/CT of February 27, 2020. No pathologic fracture identified on this study. This lesion may increase risk for pathologic fracture. 03/13/2020 - 03/26/2020. External beam radiation therapy to right femur. 3000 cGy. 10 fractions. 300 cGy per fraction. 07/01/2020. Status post 6 cycles of Gemzar/paclitaxel. 07/14/2020. PET/CT. IMPRESSION: 1. PET/CT evidence for a treatment response. 2. Only a single FDG avid hepatic mass remains. 3. Resolution of previously described FDG avid mediastinal and hilar adenopathy, with minimal residual FDG activity within a nonpathologically enlarged left hilar lymph node. 4. Diffuse mixed lytic and sclerotic skeletal metastasis with marked interval decrease in FDG activity. 08/29/2020. Medical oncology follow-up. Recommendation is for initiation of maintenance Gemzar. 09/14/2020. Patient presents to emergency room due to twitching and weakness. Patient admitted to hospital for further work-up and evaluation. 09/15/2020. MRI brain. IMPRESSION: 1. Multiple scattered enhancing cystic lesions within the brain consistent with metastatic disease. 2. There are few small hypointense lesions within the upper cervical spine which favor osteoblastic metastatic disease. 3. There is also a 1.5 cm enhancing lesion within the left cerebellopontine angle cistern which extends into the left internal auditory canal. This favors an acoustic neuroma. Allergies Allergy/AdvReac Type Severity Reaction Status Date / Time chlorhexidine Allergy Intermediate ITCHING Verified 09/14/20 23:58 cephalexin Allergy Mild SICK Verified 09/14/20 23:58 edetic acid Allergy Mild nausea Verified 09/14/20 23:58 propylene glycol Allergy Mild nausea Verified 09/14/20 23:58 regadenoson Allergy Mild nausea Verified 09/14/20 23:58 codeine AdvReac Intermediate N/V Verified 09/14/20 23:58 Home Medications Medication Instructions Recorded Confirmed Type fluticasone propionate 50 2 sprays INTNAS DAILY 01/04/19 09/15/20 History mcg/actuation nasal spray,suspension calcium carbonate-vitamin D3 600 1 cap PO BID 02/15/19 09/15/20 History mg calcium-200 unit capsule (Calcium 600 + D(3)) prochlorperazine maleate 10 mg 10 mg PO Q6H PRN 10/25/19 09/15/20 History tablet vit C 250 mg-vit E 90 mg-zinc 40 1 tab PO BIDM 10/25/19 09/15/20 History mg-copper 1 [id number] capsule (PreserVision AREDS-2) fentanyl 25 mcg/hr transdermal 1 patch TRANSDERMAL Q72H 03/17/20 09/15/20 History patch atorvastatin 20 mg tablet 20 mg PO HS 08/07/20 09/15/20 History cetirizine 10 mg tablet 10 mg PO DAILY 08/07/20 09/15/20 History gabapentin 300 mg capsule 300 mg PO TID 08/07/20 09/15/20 History methylcellulose (laxative) 500 mg 1,000 mg PO BIDM 08/07/20 09/15/20 History tablet (Citrucel) ondansetron HCl 8 mg tablet 8 mg PO DAILY PRN 08/07/20 09/15/20 History potassium chloride 20 mEq 20 meq PO BID 08/07/20 09/15/20 History tablet,extended release vitamin B comp and C no.3 15 mg-10 1 cap PO DAILY 08/07/20 09/15/20 History mg-50 mg-5 mg-300 mg capsule (B Complex Plus Vitamin C) fentanyl 12 mcg/hr transdermal 12 mcg TRANSDERMAL Q3D@0900 #10 ea 08/19/20 09/15/20 Rx patch furosemide 20 mg tablet 20 mg PO DAILY 09/14/20 09/15/20 History nutritional supplement-fiber oral 2 ea PO BIDM 09/14/20 09/15/20 History liquid spironolactone 25 1 tab PO QAM 09/15/20 09/15/20 History mg-hydrochlorothiazide 25 mg tablet Patient History Medical History (Updated 09/16/20 @ 08:42 by Clement Vásquez MD) Brain metastases BRCA1 positive GERD (gastroesophageal reflux disease) Hearing deficit History of breast cancer 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 Recheck in 6 months 11/13/2012 biopsy recommended Status post bilateral biopsies revealing invasive ductal carcinoma Status post bilateral mastectomies revealing invasive ductal carcinoma on the right [id number] Invasive ductal carcinoma on the left [id number](i+) M0 Status post systemic chemotherapy with 4 cycles of Taxol and Cytoxan Participation in REATA study Status post completion of radiation therapy 03/15/2014 received 6120 cGy to the left chest wall, and axilla" Seasonal allergic rhinitis Surgical History History of breast biopsy History of colonoscopy History of dilatation and curettage History of esophagogastroduodenoscopy (EGD) History of hysterectomy with bilateral oophorectomy History of loop electrosurgical excision procedure (LEEP) History of myringotomy History of tooth extraction History of total left knee replacement History of tubal ligation Hx of cholecystectomy Hx of fracture of femur WITH REPAIR TO LEFT Hx of tonsillectomy Port-A-Cath in place (04/09/19) Insertion of Mediport Left Cephalic vein Dr. Gabriel 04/09/19 S/P bilateral mastectomy (07/06/13) Family History Other Breast cancer Melanoma Denies family history of Ovarian cancer Colorectal cancer Social History Smoking Status: Never smoker Second Hand Exposure: No; Hx Alcohol Use: Yes Alcohol type: wine Hx Substance Use: Yes Preferred Language: [place] Communication Ability: Effective Visual Impairment: No Limitations Water Superintendent Required: No Beliefs That Will Affect Care: None marital status: Current Living Situation: Spouse Current Living Situation Comment: Lives with Feels Safe at Home: Yes Dental Care, Regularly: Yes Assistive Devices: Walker Review of Systems Neurologic: Patient notes that she does have a left facial droop which is from prior surgery. She states that overall she is feeling better since yesterday with no further twitching. She has no other complaints. Physical Exam Constitutional: WD/WN, vitals as above Neurologic: Left facial palsy involving left mouth. Otherwise neurologic exam is unremarkable. Psychiatric: A+Ox3, euthymic affect
--- NOTE | 2020-09-16 15:33 | Hospitalist Progress Note ---
Date of Service September 16, 2020 Assessment & Plan (1) Sepsis: Plan: 75yo female with history of metastatic breast cancer on chemotherapy treatment with last treatment 2 days prior to admission presenting with fever, weakness and fatigue. reports some issues with coordination, balance issues and difficulty walking. Sepsis in setting of possible pneumonia, also could be drug fever from antineoplastic agent Possible Pneumonia also seen on chest x-ray No evidence of UTI. No diarrhea or abdominal pain. LFTs mildly elevated but have been previously and are likely secondary to liver mets Still with a low-grade fever in the last 24 hours, but overall much improved. Has no cough or chest pain, no hypoxia-pneumonia is not likely at this point Blood cultures remain no growth to date -Continue empiric aztreonam and vancomycin, but if cultures remain negative greater than 48 hours, will discontinue all antibiotics -Follow blood cultures (2) Fever: Plan: As above (3) Brain metastases: Plan: Vasogenic edema in setting of Metastatic brain cancer Metastatic neoplasm of brain with vasogenic edema Unfortunately, CT of the head on admission showed hypodense lesions MRI of the brain with contrast confirms multiple cystic lesions with vasogenic edema consistent with metastatic disease Appreciate radiation oncology consultation-plan to start whole brain radiation sparing the hippocampus later this week after discharge -Continue Decadron but decrease dose to 4 mg IV twice daily and discharged to home on p.o. dosing -Discussed patient's diagnosis with her as well as her at the bedside at length today -Her neurological issues have already significantly improved since admission -PT/OT consults (4) Hypertension: Plan: Blood pressure stable Continue to hold Spironolactone/HCTZ -Continue to monitor (5) Metastatic breast cancer: Plan: Metastatic breast cancer with known mets to the liver and bones and now with mets to the brain as above Is on salvage therapy with Gemzar Follows with oncology -Continue Fentanyl for pain -Continue Gabapentin for neuropathy -Zofran PRN -Follow-up with oncology after discharge (6) Anemia: Plan: Hemoglobin low but slightly improved from previous at 8.1 This is likely secondary to chemotherapy Follow CBC and transfuse as needed (7) Hypercholesteremia: Plan: Continue atorvastatin (8) Elevated LFTs: Plan: Mildly elevated total bilirubin and alkaline phosphatase as well as AST This is similar to previous and is likely secondary to known liver metastases Follow LFTs (9) Acoustic neuroma: Plan: MRI of the brain also noted to have possible left-sided acoustic neuroma Discussed this with patient and her No issues related to tinnitus or hearing at this time but does wear hearing aids Follow-up as outpatient if desired with ENT (10) DVT prophylaxis: Plan: Lovenox SQ Disposition-continued stay, but if continues to do well and remains afebrile and no growth on blood cultures, could discharge to home tomorrow. PT/OT evaluations ordered Admission and Anticipated Discharge Date Admission Date: September 15, 2020 Results & Data Results & Data ([facility]) Vital Signs (Past 12 Hours) Vital Signs Temp Pulse Pulse Resp BP Pulse Ox 09/16/20 12:08 36.4 C L 80 18 101/53 L 98 09/16/20 08:02 66 09/16/20 07:12 36.4 C L 85 18 96/59 L 92 PG Care Time/CCT Total # of Minutes Spent Total Time Spent with Patient: Total time spent is greater than 50% in coordination of care (as documented) at patient's floor/unit and/or counseling patient: Coding Level of Care Code 69595 Subseq Hosp Care Lvl 3 Diagnoses Brain metastases C79.31 Hypercholesteremia E78.00 Hypertension I10 Metastatic breast cancer C50.919 Sepsis A41.9 Sepsis acute organ dysfunction status: unspecified Sepsis type: sepsis due to unspecified organism DVT prophylaxis Z29.9 Fever R50.9 Anemia D64.9 Elevated LFTs R79.89 Acoustic neuroma D33.3 (1) Sepsis Sepsis acute organ dysfunction status: unspecified Sepsis type: sepsis due to unspecified organism Qualified Code(s): A41.9 - Sepsis, unspecified organism
[2020-09-16] MEDS ORDERED: VANCOMYCIN TROUGH ONE (19:30)
[2020-09-16] MEDS: CALCIUM 600MG + VIT D 400 IU TAB PO SCH (20:50)
[2020-09-16] MEDS ORDERED: ATORVASTATIN 20 MG TAB PO SCH (21:00)
[2020-09-17] MEDS: AZTREONAM 2,000 MG in DEXTROSE 5% 100 ML IV SCH ×2 (00:06→07:58)
[2020-09-17] MEDS: CHECK fentaNYL PATCH PLACEMENT SCH ×4 (00:06→23:13)
[2020-09-17] MEDS: HEPARIN 100 UNIT/ML 5ML FLUSH FLUSH PRN ×6 (01:20→22:18)
[2020-09-17] MEDS: VANCOMYCIN HCL 750 MG in SODIUM CHLORIDE 0.9% 250 ML IV SCH ×2 (04:29→12:40)
[2020-09-17] MEDS: ENOXAPARIN INJ 40 MG/0.4 ML SYR SQ SCH (06:35)
[2020-09-17 06:51] LABS: Hematocrit (blood only) 23.7 % (37-47); Hemoglobin 7.7 g/dL (12.0-16.0); Immature Granulocytes # (auto) 0.03 K/uL (0.00-0.02); Immature Granulocytes % (auto) 0.4 %; Lymphocytes # (auto) 0.24 K/uL (1.2-3.4); Lymphocytes % (auto) 3.2 %; Mean Corpuscular Hemoglobin 30.6 pg (25-34); Mean Corpuscular Hgb Conc 32.5 g/dL (32-36); Mean Platelet Volume 10.1 fL (7.4-10.4); Monocytes # (auto) 0.11 K/uL (0.11-0.59); Monocytes % (auto) 1.5 %; Neutrophils # (auto) 7.14 K/uL (1.4-6.5); Neutrophils % (auto) 94.9 %; Platelet Count 185 K/uL (130-400); RDW Coefficient of Variation 16.4 % (11.5-14.5); RDW Standard Deviation 54.3 fL (36.4-46.3); Red Blood Count 2.52 M/uL (4.2-5.4); White Blood Count 7.52 K/uL (4.8-10.8)
[2020-09-17 07:18] LABS: RBC Morphology Unremarkable
[2020-09-17 07:48] LABS: Albumin Level 1.9 gm/dl (3.4-5.0); BUN Creatinine Ratio 50.2 (10-20); Calcium 8.1 mg/dl (8.5-10.1); Est GFR (African American) 125.1 ml/min; Potassium 3.7 mmol/L (3.5-5.1)
[2020-09-17 07:51] LABS: Albumin Globulin Ratio 0.6 (0.9-2); Bilirubin,Total 0.6 mg/dl (0.2-1); Globulin 3.3 gm/dl (2.5-4.0); Total Protein 5.2 gm/dl (6.4-8.2)
[2020-09-17] MEDS: CETIRIZINE HCL 10 MG TABLET PO SCH (07:53)
[2020-09-17] MEDS: dexAMETHasone 4 MG in SYRINGE 0 ML IV SCH ×2 (07:53→22:18)
[2020-09-17] MEDS: GABAPENTIN 300 MG CAP PO SCH ×3 (07:53→21:24)
[2020-09-17] MEDS: CALCIUM 600MG + VIT D 400 IU TAB PO SCH ×2 (07:54→17:06)
[2020-09-17] MEDS: FLUTICASONE PROPIONATE NA SPR 16 GM BTL SCH (07:54)
[2020-09-17] MEDS ORDERED: VANCOMYCIN TROUGH ONE (11:30)
--- NOTE | 2020-09-17 13:20 | Pharmacy Report ---
Pharmacy Abx Dose Short Note - Date of Service September 17, 2020 - Assessment & Plan Assessment 75 year old F receiving vancomycin/azacatam for treatment of possible pneumonia Day # 3 of antimicrobial therapy. Plan Vancomycin * Trough level came back therapeutic at ~15 mcg/ml (goal 15-20 mcg/ml) * Renal function remains stable, plan to continue same vancomycin dosing for now * Cultures remain negative thus far Pharmacy will continue to follow and will adjust dose/frequency as necessary. Thank you.
[2020-09-17] MEDS ORDERED: SODIUM CHLORIDE 0.9% 250 ML IV PRN (15:03)
--- NOTE | 2020-09-17 15:06 | Hospitalist Progress Note ---
Date of Service September 17, 2020 Assessment & Plan (1) Sepsis: Plan: 75yo female with history of metastatic breast cancer on chemotherapy treatment with last treatment 2 days prior to admission presenting with fever, weakness and fatigue. reports some issues with coordination, balance issues and difficulty walking. Sepsis in setting of possible pneumonia, also could be drug fever from antineoplastic agent Possible Pneumonia also seen on chest x-ray, but no symptoms or signs of pneumonia otherwise. No evidence of UTI. No diarrhea or abdominal pain. LFTs mildly elevated but have been previously and are likely secondary to liver mets. LFTs are higher to day but again asymptomatic No further fevers for several days and doing very well Has no cough or chest pain, no hypoxia-pneumonia is not likely at this point Blood cultures remain no growth to date -Received empiric aztreonam and vancomycin, but now cultures negative for greater than 48 hours-discontinue all antibiotics -Follow blood cultures (2) Fever: Plan: As above, now resolved (3) Brain metastases: Plan: Vasogenic edema in setting of Metastatic brain cancer Metastatic neoplasm of brain with vasogenic edema Unfortunately, CT of the head on admission showed hypodense lesions MRI of the brain with contrast confirms multiple cystic lesions with vasogenic edema consistent with metastatic disease Appreciate radiation oncology consultation-plan to start whole brain radiation sparing the hippocampus later this week -Continue Decadron 4 mg IV twice daily and discharge to home on p.o. dosing -Discussed patient's diagnosis with her as well as her at the bedside at length -Her neurological issues have already significantly improved since admission -PT/OT consults appreciated-is able to walk over 200 feet with rolling walker independently with physical therapy (4) Hypertension: Plan: Blood pressure stable Continue to hold Spironolactone/HCTZ -Continue to monitor-may not need to restart this on discharge (5) Metastatic breast cancer: Plan: Metastatic breast cancer with known mets to the liver and bones and now with mets to the brain as above Is on salvage therapy with Gemzar Follows with oncology -Continue Fentanyl for pain -Continue Gabapentin for neuropathy -Zofran PRN -Follow-up with oncology after discharge -has plans for labs on Tuesday with Xgeva shot (6) Anemia: Plan: Hemoglobin low but stable from previous at 7.7-we will transfuse 1 unit PRBCs today-consent obtained This is likely secondary to chemotherapy Follow CBC in the morning (7) Hypercholesteremia: Plan: hold atorvastatin for elevated LFTs (8) Elevated LFTs: Plan: Mildly elevated total bilirubin and alkaline phosphatase as well as AST initially, but now significantly increased on 09/17, nonobstructive pattern -likely secondary to known liver metastases-but could be side effect of antibiotics No abdominal pain, no nausea or vomiting -If worsening tomorrow, will obtain CT abdomen/pelvis -Discontinuing antibiotics today Follow LFTs (9) Acoustic neuroma: Plan: MRI of the brain also noted to have possible left-sided acoustic neuroma Discussed this with patient and her No issues related to tinnitus or hearing at this time but does wear hearing aids Follow-up as outpatient if desired with ENT (10) DVT prophylaxis: Plan: Lovenox SQ Disposition-continued stay for blood transfusion and elevated LFTs. Could discharge home tomorrow after simulation with radiation oncology if improved PT/OT evaluations appreciated-recommend home Admission and Anticipated Discharge Date Admission Date: September 15, 2020 Subjective Patient feeling fairly well today. No lightheadedness. She ambulated the hallways with physical therapy with a walker and did well. Denies chest pain shortness of breath, no cough. No abdominal pain but just some bloating. I discussed her care with her oncology PA who recommended that she would likely need a transfusion In the near future and so decision was made to keep her for transfusion today. Patient denies any abdominal pain or nausea. She is eating and drinking. Review of Systems Review of Systems: All systems reviewed & are unremarkable except as noted in HPI & below Physical Exam Constitutional: WD/WN, vitals as above ENMT: Right-sided facial paralysis Neck: trachea midline, no thyromegaly Respiratory: normal respiratory effort, lungs clear to auscultation Cardiovascular: RRR, no murmur, no edema Chest (Breasts): Chest: normal inspection of chest Gastrointestinal (Abdomen): normal bowel sounds, soft, nontender, no hepato splenomegaly Musculoskeletal: Extremities: extremities normal to inspection; no cyanosis and no clubbing Skin: no rashes, warm and dry Neurologic: moves all extremities and awake; no focal motor deficits Psychiatric: A+Ox3, euthymic affect Lymphatic: no lymphedema Results & Data Results & Data ([facility]) Vital Signs (Past 12 Hours) Vital Signs Temp Pulse Resp BP BP Pulse Ox 09/17/20 11:38 36.7 C 64 20 105/62 99 09/17/20 08:09 36.4 C L 64 20 95/53 L 98 09/17/20 04:00 36.5 C 65 18 101/60 97 Laboratory Results 09/17/20 09/17/20 09/17/20 Range/Units 16:02 11:26 06:28 WBC 7.52 (4.8-10.8) K/uL RBC 2.52 L (4.2-5.4) M/uL Hgb 7.7 L (12.0-16.0) g/dL Hct 23.7 L (37-47) % MCV 94.0 (80-100) fL MCH 30.6 (25-34) pg MCHC 32.5 (32-36) g/dL RDW Std Deviation 54.3 H (36.4-46.3) fL RDW Coeff of Jermaine 16.4 H (11.5-14.5) % Plt Count 185 (130-400) K/uL MPV 10.1 (7.4-10.4) fL Immature Gran % (Auto) 0.4 % Neut % (Auto) 94.9 % Lymph % (Auto) 3.2 % [place] % (Auto) 1.5 % Eos % (Auto) 0.0 % Baso % (Auto) 0.0 % Neut # (Auto) 7.14 H (1.4-6.5) K/uL Lymph # (Auto) 0.24 L (1.2-3.4) K/uL [place] # (Auto) 0.11 (0.11-0.59) K/uL Eos # (Auto) 0.00 (0-0.5) K/uL Baso # (Auto) 0.00 (0-0.2) K/uL Immature Gran # (Auto) 0.03 H (0.00-0.02) K/uL RBC Morphology Unremarkable Sodium (136-145) mmol/L Potassium (3.5-5.1) mmol/L Chloride (98-107) mmol/L Carbon Dioxide (21-32) mmol/L Anion Gap (3-11) BUN (7-18) mg/dl Creatinine (0.6-1.2) mg/dl Est Cr Clr Drug Dosing ml/min Est GFR ( Amer) ml/min Est GFR (Non-Af Amer) ml/min BUN/Creatinine Ratio (10-20) Glucose (70-99) mg/dl Calcium (8.5-10.1) mg/dl Total Bilirubin (0.2-1) mg/dl AST (15-37) U/L ALT (12-78) U/L Alkaline Phosphatase (45-117) U/L Total Protein (6.4-8.2) gm/dl Albumin (3.4-5.0) gm/dl Globulin (2.5-4.0) gm/dl Albumin/Globulin Ratio (0.9-2) Vancomycin Trough 15.5 (See Comment) mcg/ml Blood Type O Positive Antibody Screen NEGATIVE Crossmatch See Detail 09/17/20 Range/Units 06:28 WBC (4.8-10.8) K/uL RBC (4.2-5.4) M/uL Hgb (12.0-16.0) g/dL Hct (37-47) % MCV (80-100) fL MCH (25-34) pg MCHC (32-36) g/dL RDW Std Deviation (36.4-46.3) fL RDW Coeff of Jermaine (11.5-14.5) % Plt Count (130-400) K/uL MPV (7.4-10.4) fL Immature Gran % (Auto) % Neut % (Auto) % Lymph % (Auto) % [place] % (Auto) % Eos % (Auto) % Baso % (Auto) % Neut # (Auto) (1.4-6.5) K/uL Lymph # (Auto) (1.2-3.4) K/uL [place] # (Auto) (0.11-0.59) K/uL Eos # (Auto) (0-0.5) K/uL Baso # (Auto) (0-0.2) K/uL Immature Gran # (Auto) (0.00-0.02) K/uL RBC Morphology Sodium 137 (136-145) mmol/L Potassium 3.7 (3.5-5.1) mmol/L Chloride 108 H (98-107) mmol/L Carbon Dioxide 24 (21-32) mmol/L Anion Gap 5.0 (3-11) BUN 18 (7-18) mg/dl Creatinine 0.35 L (0.6-1.2) mg/dl Est Cr Clr Drug Dosing 134.0 ml/min Est GFR ( Amer) 125.1 ml/min Est GFR (Non-Af Amer) 108.0 ml/min BUN/Creatinine Ratio 50.2 H (10-20) Glucose 149 H (70-99) mg/dl Calcium 8.1 L (8.5-10.1) mg/dl Total Bilirubin 0.6 (0.2-1) mg/dl AST 124 H (15-37) U/L ALT 123 H (12-78) U/L Alkaline Phosphatase 210 H (45-117) U/L Total Protein 5.2 L (6.4-8.2) gm/dl Albumin 1.9 L (3.4-5.0) gm/dl Globulin 3.3 (2.5-4.0) gm/dl Albumin/Globulin Ratio 0.6 L (0.9-2) Vancomycin Trough (See Comment) mcg/ml Blood Type Antibody Screen Crossmatch PG Care Time/CCT Total # of Minutes Spent Total Time Spent with Patient: Total time spent is greater than 50% in coordination of care (as documented) at patient's floor/unit and/or counseling patient: Coding Level of Care Code 59624 Subseq Hosp Care Lvl 3 Diagnoses Sepsis A41.9 Sepsis acute organ dysfunction status: unspecified Sepsis type: sepsis due to unspecified organism Fever R50.9 Brain metastases C79.31 Hypertension I10 Metastatic breast cancer C50.919 Anemia D64.9 Hypercholesteremia E78.00 Elevated LFTs R79.89 Acoustic neuroma D33.3 DVT prophylaxis Z29.9 (1) Sepsis Sepsis acute organ dysfunction status: unspecified Sepsis type: sepsis due to unspecified organism Qualified Code(s): A41.9 - Sepsis, unspecified organism
[2020-09-18] MEDS: ENOXAPARIN INJ 40 MG/0.4 ML SYR SQ SCH (05:28)
[2020-09-18 06:25] LABS: Basophils # (auto) 0.01 K/uL (0-0.2); Basophils % (auto) 0.1 %; Hematocrit (blood only) 28.9 % (37-47); Hemoglobin 9.6 g/dL (12.0-16.0); Immature Granulocytes # (auto) 0.28 K/uL (0.00-0.02); Immature Granulocytes % (auto) 2.7 %; Lymphocytes # (auto) 0.41 K/uL (1.2-3.4); Mean Corpuscular Hemoglobin 30.9 pg (25-34); Mean Corpuscular Hgb Conc 33.2 g/dL (32-36); Mean Corpuscular Volume 92.9 fL (80-100); Mean Platelet Volume 9.7 fL (7.4-10.4); Monocytes # (auto) 0.94 K/uL (0.11-0.59); Monocytes % (auto) 9.1 %; Neutrophils % (auto) 84.1 %; Nucleated RBC # (auto) 0.11 K/uL (0-0); Nucleated RBC % (auto) 1.1 %; Platelet Count 168 K/uL (130-400); RDW Coefficient of Variation 16.2 % (11.5-14.5); RDW Standard Deviation 52.3 fL (36.4-46.3); Red Blood Count 3.11 M/uL (4.2-5.4); White Blood Count 10.34 K/uL (4.8-10.8)
[2020-09-18 06:53] LABS: BUN Creatinine Ratio 40.2 (10-20); Calcium 8.2 mg/dl (8.5-10.1); Creatinine Clr Calc Pharmacy 99.8 ml/min; Est GFR (African American) 113.6 ml/min; Magnesium 2.1 mg/dl (1.8-2.4); Potassium 3.8 mmol/L (3.5-5.1)
[2020-09-18 06:55] LABS: Albumin Globulin Ratio 0.6 (0.9-2); Bilirubin,Total 0.5 mg/dl (0.2-1); Globulin 3.1 gm/dl (2.5-4.0); Total Protein 5.1 gm/dl (6.4-8.2)
[2020-09-18] MEDS: GABAPENTIN 300 MG CAP PO SCH ×2 (07:49→13:22)
[2020-09-18] MEDS: CETIRIZINE HCL 10 MG TABLET PO SCH (07:49)
[2020-09-18] MEDS: CHECK fentaNYL PATCH PLACEMENT SCH ×2 (07:50→16:19)
[2020-09-18] MEDS: dexAMETHasone 4 MG in SYRINGE 0 ML IV SCH (07:50)
[2020-09-18] MEDS: FLUTICASONE PROPIONATE NA SPR 16 GM BTL SCH (07:51)
[2020-09-18] MEDS: HEPARIN 100 UNIT/ML 5ML FLUSH FLUSH PRN ×2 (07:58→17:32)
[2020-09-18] MEDS: fentaNYL 12 MCG/HR TDSY TD SCH (07:58)
[2020-09-18] MEDS: fentaNYL 25 MCG/HR TDSY TD SCH (07:59)
[2020-09-18] MEDS: CALCIUM 600MG + VIT D 400 IU TAB PO SCH ×2 (08:28→16:24)
[2020-09-18] MEDS ORDERED: OPTIRAY 320 100ml IV ONE (13:19)
[2020-09-18 15:44] VITALS: BP 125/75; PULSE 64; TEMP 97.5; O2SAT 100
--- NOTE | 2020-09-18 15:59 | CT Scan Report ---
CT abd pelvis oral and IV con CLINICAL HISTORY: elevated LFTs,metastatic breast CA COMPARISON STUDY: June 06, 2020 TECHNIQUE: A dose lowering technique was utilized adhering to the principles of ALARA. CT DOSE: 299.41 mGy.cm FINDINGS: Lower chest: Interval development of small to moderate bilateral pleural effusion associated with com pressive atelectasis at dependent portions of bilateral lower lobes.. Liver: Multiple ill-defined heterogeneously hypoattenuating lesions are seen within the right and lef t lobes of the liver, appear worsened since prior study; for example previously seen 1.8 cm lesion wi thin segment 8 now measures 3.1 x 2.7 cm (04/15) and also there is interval development of adjacent ar ea of decreased heterogeneous attenuation within posterior inferior right lobe of the liver which was not seen on prior. Gallbladder: Surgically absent. Spleen: Normal in size and attenuation. Pancreas: Is atrophic. Adrenal glands: Unremarkable. Kidneys: There is symmetric renal cortical enhancement. The kidneys are normal in size without hydron ephrosis. Pelvic viscera: Urinary bladder is partially decompressed which limits evaluation. Uterus is surgical ly absent. Bowel: Bowel loops are nondilated. Appendix is not well seen and could be surgically absent. Moderate amount of stool is seen within colonic loops. Peritoneum: There is no intraperitoneal free air or abdominal ascites. Mild diffuse mesenteric edema is seen. Vasculature: Abdominal aorta is nondilated. Scattered calcifications of aortic wall are seen. Adenopathy: None. Skeletal structures: Extensive sclerotic and lytic lesions are again seen throughout all visualized o sseous structures, appear grossly stable since prior study however comparison is difficult due to prasad y large amount of osseous lesions. IMPRESSION: 1. Interval worsening of multifocal hypoattenuating heterogeneous liver lesions most likely represen ting progression of metastatic disease. 2. Interval development of bilateral pleural effusion associated with compressive atelectasis at dep endent portions of bilateral lower lobes. 3. Extensive osseous metastatic disease, grossly unchanged since prior. ACT 112: Negative or not required by law. The above report was generated using voice recognition software. It may contain grammatical, syntax o r spelling errors. Electronically signed by: Valery Johnson DO 09/18/2020 3:58 PM
--- NOTE | 2020-09-18 17:11 | Discharge Summary ---
Date of Service September 18, 2020 Admission HPI Per Admitting Provider Chief Complaint: illness Primary Care Provider: Rad Tobias MD Brittney Golden is a 75yo female with history of metastatic breast cancer on chemotherapy with last treatment received 2 days ago presenting with several days of weakness, fatigue. reports some word finding issues as well as episodes of confusion and tremor. states that she loses coordination at times and has difficulty with ambulation. Patient had a low grade fever this afternoon. This evening she fell asleep on the couch. woke her up around 9:00 to go put pajamas on. He states that she was confused for a minute and was unable to get up and walk - required health aide to help her to the bedroom. She stumbled and started to fall but her caught her. She did bang her left knee off the wall. Was hospitalized 08/07 - 08/19 for septic right knee s/p I/D performed on 08/08 and 08/09. She was discharged on PO Cefdinir and complete her course on 09/05. ER Course: Daptomycin, Aztreonam, NSS Principal Diagnosis Fever, metastatic breast cancer with metastases to the brain, liver, bones Discharge Exam Constitutional WD/WN, vitals as above Neck trachea midline, no thyromegaly Respiratory normal respiratory effort, lungs clear to auscultation Cardiovascular RRR, no murmur, no edema Chest (Breasts) Chest: normal inspection of chest Gastrointestinal (Abdomen) normal bowel sounds, soft, nontender, no hepatosplenomegaly Musculoskeletal Extremities: extremities normal to inspection; no cyanosis and no clubbing Skin no rashes, warm and dry Neurologic moves all extremities and awake; no focal motor deficits Psychiatric A+Ox3, euthymic affect Lymphatic no lymphedema Discharge Data Allergies Allergy/AdvReac Type Severity Reaction Status Date / Time chlorhexidine Allergy Intermediate ITCHING Verified 09/14/20 23:58 cephalexin Allergy Mild SICK Verified 09/14/20 23:58 edetic acid Allergy Mild nausea Verified 09/14/20 23:58 propylene glycol Allergy Mild nausea Verified 09/14/20 23:58 regadenoson Allergy Mild nausea Verified 09/14/20 23:58 codeine AdvReac Intermediate N/V Verified 09/14/20 23:58 Consultations 09/15/20 00:06 ED Decision to Admit Stat 09/15/20 18:01 Consult Radiation Oncology Routine Ordered Studies 09/14/20 23:26 CT head/brain wo con Urgent 09/15/20 08:51 MR brain wo/w con Urgent 09/18/20 09:10 CT abd pelvis oral and IV con Routine 09/18/20 09:31 CT guide rad therapy head Routine Hospital Course (1) Sepsis: 75yo female with history of metastatic breast cancer on chemotherapy t reatment with last treatment 2 days prior to admission presenting with fever, weakness and fatigue. reports some issues with coordination, balance issues and difficulty walking. Sepsis in setting of possible pneumonia, also could be drug fever from antineoplastic agent Possible Pneumonia also seen on chest x-ray, but no symptoms or signs of pneumonia otherwise. No evidence of UTI. No diarrhea or abdominal pain. LFTs mildly elevated but have been previously and are likely secondary to liver mets. LFTs are higher today but again asymptomatic-CT abdomen/pelvis performed and showed increase in size of liver metastases, but no evidence of acute infection No further fevers for several days and doing very well Has no cough or chest pain, no hypoxia-pneumonia is not likely at this point Blood cultures remain no growth to date -Received empiric aztreonam and vancomycin, but now cultures negative for greater than 48 hours-discontinue all antibiotics -Follow blood cultures after discharge but doubtful they will grow anything Fever most likely secondary to drug reaction (2) Fever: As above, now resolved (3) Brain metastases: Vasogenic edema in setting of Metastatic brain cancer Metastatic neoplasm of brain with vasogenic edema Unfortunately, CT of the head on admission showed hypodense lesions MRI of the brain with contrast confirms multiple cystic lesions with vasogenic edema consistent with metastatic disease Appreciate radiation oncology consultation-plan to start whole brain radiation sparing the hippocampus later this week -Continue Decadron 4 mg IV twice daily and discharge to home on p.o. dosing -Discussed patient's diagnosis with her as well as her at the bedside at length-she would like to pursue all treatment options at this point -I have also communicated with her oncology provider, Ms. Ashley Caballero, with updates on her condition -Her neurological issues have already significantly improved since admission -PT/OT consults appreciated-is able to walk over 200 feet with rolling walker independently with physical therapy (4) Hypertension: Blood pressure stable Discontinued Spironolactone/HCTZ, but can continue daily furosemide with potassium chloride upon discharge (5) Metastatic breast cancer: Metastatic breast cancer with known mets to the liver (now known to be increasing) and bones and now with mets to the brain as above Is on salvage therapy with Gemzar Follows with oncology -Continue Fentanyl for pain -Continue Gabapentin for neuropathy -Zofran PRN -Follow-up with oncology after discharge -has plans for labs on Tuesday with Xgeva shot (6) Anemia: Hemoglobin low but stable from previous at 7.7- transfused 1 unit PRBCs the day prior to discharge This is likely secondary to chemotherapy Hemoglobin up appropriately to 9.6 on the day of discharge Follow-up with oncology as an outpatient in 1 week g (7) Hypercholesteremia: hold atorvastatin for elevated LFTs (8) Elevated LFTs: Mildly elevated total bilirubin and alkaline phosphatase as well as AST initially, but now significantly increased on 09/17, nonobstructive pattern -likely secondary to known worsening liver metastases-but could be side effect of antibiotics No abdominal pain, no nausea or vomiting CT abdomen/pelvis with increasing size and number of liver metastases, but no evidence of acute infection in the biliary tract Follow LFTs as an outpatient Discontinue atorvastatin (9) Acoustic neuroma: MRI of the brain also noted to have possible left-sided acoustic neuroma Discussed this with patient and her No issues related to tinnitus or hearing at this time but does wear hearing aids Follow-up as outpatient if desired with ENT (10) DVT prophylaxis: Lovenox SQ Disposition-discharge to home PT/OT evaluations appreciated-recommend home Total Time Total Time Spent Total Time Spent (In Minutes): 35 minutes Discharge Plan Discharge Items Patient Disposition: Home - Self-Care Reason For Visit: SEPSIS Discharge Diagnosis: Fever, weakness-likely secondary to chemotherapy Brain and liver metastases Condition on Discharge: Fair Activity: Resume your previous activity Non-emergency contact: Primary Care Provider and Oncologist Call non-emergency contact if: you have any medication questions, your symptoms worsen and you have a fever Follow-up/Referrals: Sisi Chin CRNP [Primary Care Provider] - (Please follow-up within 1 to 2 weeks) Diet: Regular Addtl Attending Provider Instructions: You are admitted with a fever and weakness which was likely secondary to your chemotherapy as your infectious work-up was negative. You were treated with antibiotics initially but your blood cultures did not grow any bacteria out and there was no source of infection found. The antibiotics were discontinued. Unfortunately, you were found to have spread of cancer to your brain and an increase in the tumors in your liver while you are in the hospital. Please continue taking the dexamethasone steroid pill twice a day and follow-up with the radiation oncologist as scheduled. Keep your appointment on Tuesday for blood work and your Xgeva shot. Your oncologist provider will contact you with an appointment date and time to discuss further treatment of your cancer. Your Spironolactone/HCTZ was discontinued as you do not need it. Your atorvastatin was also discontinued as this can affect the liver. You can continue taking the Lasix but reduce the potassium down to once a day. It was a pleasure taking care of you. Take care, -Huyen Blandon MD Pending Studies at Discharge: No Stand-Alone Forms: My [facility] Medications and DC Order Prescriptions: New dexamethasone 4 mg tablet 4 mg PO BID Qty: 28 RF: 0 Continued fluticasone propionate 50 mcg/actuation spray,suspension 2 sprays INTNAS DAILY RF: 0 fentanyl 25 mcg/hr patch 72 hour 1 patch transdermal Q72H RF: 0 prochlorperazine maleate 10 mg tablet 10 mg PO Q6H PRN (Reason: Nausea And Vomiting) RF: 0 PreserVision AREDS-2 [id number]-nd-mg capsule 1 tab PO BIDM RF: 0 Calcium 600 + D(3) 600 mg calcium- 200 unit Capsule 1 cap PO BID RF: 0 ondansetron HCl 8 mg tablet 8 mg PO DAILY PRN (Reason: Nausea And Vomiting) RF: 0 gabapentin 300 mg capsule 300 mg PO TID RF: 0 B Complex Plus Vitamin C [id number] mg Capsule 1 cap PO DAILY RF: 0 cetirizine 10 mg Tablet 10 mg PO DAILY RF: 0 Citrucel 500 mg tablet 1,000 mg PO BIDM RF: 0 fentanyl 12 mcg/hr Patch 72 Hour 12 mcg transdermal Q3D@0900 Qty: 10 RF: 0 furosemide 20 mg tablet 20 mg PO DAILY RF: 0 nutritional supplement-fiber Liquid 2 ea PO BIDM RF: 0 Changed potassium chloride 20 mEq tablet extended release 20 meq PO QAM Qty: 0 RF: 0 Discontinued memantine [Namenda Titration Allan] 5-10 mg tablets,dose pack See Rx Instructions .ROUTE .COMPLEX Qty: 49 RF: 0 memantine [Namenda] 10 mg tablet 10 mg PO BID Qty: 60 RF: 4 atorvastatin 20 mg tablet 20 mg PO HS RF: 0 spironolacton-hydrochlorothiaz 25-25 mg tablet 1 tab PO QAM RF: 0 Discharge Orders: Discharge Order (Routine); Ordered 09/18/20 Ordered By: Huyen Blandon Admission Data Admit Date/Time: 09/15/20 00:26 Attending Provider: Huyen Blandon Admit Provider: Dot Chin Primary Care Provider: Sisi Chin Other Providers: Dot Chin ; Clement Vásquez Other Interventions: Discharge Summary Assessment (RN) Last Done: 09/18/20 17:49 Coding Level of Care Code D/C DAY MANAGEMENT >30 MINS Diagnoses Sepsis A41.9 Sepsis acute organ dysfunction status: unspecified Sepsis type: sepsis due to unspecified organism Fever R50.9 Brain metastases C79.31 Hypertension I10 Metastatic breast cancer C50.919 Anemia D64.9 Hypercholesteremia E78.00 Elevated LFTs R79.89 Acoustic neuroma D33.3 DVT prophylaxis Z29.9
== END 2020-09-18 18:20 | disposition home or self-care (01) | DRG 864 ==
LOC: ED 22:58 → SUATTDRO 09-15 00:26 → 2N 09-15 00:26 → 3E 09-17 21:57

== ENCOUNTER 2020-10-29 22:39 | Inpatient (IN) ==
[2020-10-29] MEDS ORDERED: ACETAMINOPHEN 1,000 MG/100 ML VIAL IV STA (23:38)
[2020-10-29] MEDS ORDERED: SODIUM CHLORIDE 0.9% 1000ML 1,000 ML IV SCH (23:45)
[2020-10-29 23:59] LABS: Basophils # (auto) 0.02 K/uL (0-0.2); Basophils % (auto) 0.1 %; Eosinophils # (auto) 0.01 K/uL (0-0.5); Eosinophils % (auto) 0.1 %; Hematocrit (blood only) 43.7 % (37-47); Hemoglobin 14.6 g/dL (12.0-16.0); Immature Granulocytes # (auto) 0.11 K/uL (0.00-0.02); Immature Granulocytes % (auto) 0.8 %; Lymphocytes % (auto) 3.5 %; Mean Corpuscular Hemoglobin 32.1 pg (25-34); Mean Corpuscular Hgb Conc 33.4 g/dL (32-36); Mean Platelet Volume 11.7 fL (7.4-10.4); Monocytes % (auto) 3.5 %; Neutrophils # (auto) 12.97 K/uL (1.4-6.5); Nucleated RBC # (auto) 0.07 K/uL (0-0); Nucleated RBC % (auto) 0.5 %; Platelet Count 150 K/uL (130-400); RDW Coefficient of Variation 20.8 % (11.5-14.5); RDW Standard Deviation 72.2 fL (36.4-46.3); Red Blood Count 4.55 M/uL (4.2-5.4); White Blood Count 14.11 K/uL (4.8-10.8)
[2020-10-30] MEDS ORDERED: CEFEPIME 2,000 MG/20 ML VIAL IV STA (00:05)
[2020-10-30 00:08] LABS: Alanine Aminotransferase 496 U/L (12-78); Albumin Level 2.4 gm/dl (3.4-5.0); Aspartate Aminotransferase 780 U/L (15-37); Blood Urea Nitrogen 19 mg/dl (7-18); Calcium 8.7 mg/dl (8.5-10.1); Carbon Dioxide 28 mmol/L (21-32); Chloride 103 mmol/L (98-107); Est GFR (African American) 94.7 ml/min; Est GFR (Non-African American) 81.7 ml/min; Glucose 120 mg/dl (70-99); Magnesium 2.2 mg/dl (1.8-2.4); Potassium 3.7 mmol/L (3.5-5.1); Sodium 138 mmol/L (136-145)
[2020-10-30 00:13] LABS: Albumin Globulin Ratio 0.6 (0.9-2); Alkaline Phosphatase 510 U/L (45-117); Globulin 3.8 gm/dl (2.5-4.0); Total Protein 6.2 gm/dl (6.4-8.2); Troponin I < 0.015 ng/ml (0-0.045)
[2020-10-30 00:41] LABS: Anisocytosis Present; Polychromasia 1+
--- NOTE | 2020-10-30 01:01 | Emergency Department Note ---
History of Present Illness General Chief complaint: TIA Symptoms Time Seen by Provider: 10/29/20 23:15 Source: family Mode of arrival: ambulatory Limitations: altered mental status History of Present Illness Provider complaint: Mild confusion, fever Onset (ago): hour(s) This is a 75-year-old female brought in by her due to concern for confusion, difficulty with word finding and development of a fever this evening at home. Patient has had similar episodes of confusion and difficulty with words, estimates 3-4 times over the last several months. Patient has metastatic breast cancer with known metastases to the brain. Patient was just seen and evaluated here on Tuesday and had both CT and MRI imaging. states she recently started a new chemotherapy regimen on Tuesday. He states she had not had any other complaints earlier in the day, there was no change in her appetite or other ongoing problems related to her cancer. Patient does take steroids due to the brain metastases. He states she did not complain of a headache, dizziness, or nausea. Patient at this time denies any pain, states her appetite is not good and that she feels tired. The states that she sleeps most of the day typically. did share a video on his cell phone at bedside that demonstrated some of the confusion he first noted in her at home. Pt seen during a time of high acuity and national emergency pandemic while wearing PPE. Home Medications Medication Instructions Recorded Confirmed Type prochlorperazine maleate 10 mg 10 mg PO Q6H PRN 10/25/19 10/29/20 History tablet vit C 250 mg-vit E 90 mg-zinc 40 1 tab PO BIDM 10/25/19 10/29/20 History mg-copper 1 [id number] capsule (PreserVision AREDS-2) fentanyl 25 mcg/hr transdermal 1 patch TRANSDERMAL Q72H 03/17/20 10/29/20 History patch cetirizine 10 mg tablet 10 mg PO DAILY 08/07/20 10/29/20 History ondansetron HCl 8 mg tablet 8 mg PO DAILY PRN 08/07/20 10/29/20 History vitamin B comp and C no.3 15 mg-10 1 cap PO DAILY 08/07/20 10/29/20 History mg-50 mg-5 mg-300 mg capsule (B Complex Plus Vitamin C) furosemide 20 mg tablet 20 mg PO DAILY 09/14/20 10/29/20 History nutritional supplement-fiber oral 2 ea PO BIDM 09/14/20 10/29/20 History liquid potassium chloride 20 mEq 20 meq PO QAM #0 tab 09/18/20 10/29/20 Rx tablet,extended release sennosides 8.6 mg-docusate sodium 1 tab-cap PO BID 10/24/20 10/29/20 History 50 mg tablet (Senokot-S) aspirin 81 mg chewable tablet 81 mg PO DAILY 10/29/20 10/29/20 History calcium carbonate 600 mg calcium 600 mg PO QDD 10/29/20 10/29/20 History (1,500 mg) tablet fentanyl 12 mcg/hr transdermal 12 mcg TRANSDERMAL Q72H 10/29/20 10/29/20 History patch gabapentin 600 mg tablet 600 mg PO TID 10/29/20 10/29/20 History lactulose 10 gram/15 mL oral 15 ml PO BID PRN 10/29/20 10/29/20 History solution oxycodone 5 mg tablet 5 - 10 mg PO Q6H PRN 10/29/20 10/29/20 History tramadol 50 mg tablet 50 mg PO Q6H PRN 10/29/20 10/29/20 History Allergies Allergy/AdvReac Type Severity Reaction Status Date / Time chlorhexidine Allergy Intermediate ITCHING Verified 10/29/20 23:11 cephalexin Allergy Mild SICK Verified 10/29/20 23:11 edetic acid Allergy Mild nausea Verified 10/29/20 23:11 propylene glycol Allergy Mild nausea Verified 10/29/20 23:11 regadenoson Allergy Mild nausea Verified 10/29/20 23:11 codeine AdvReac Intermediate N/V Verified 10/29/20 23:11 Past Med/Surg History Medical History Acoustic neuroma Brain metastases BRCA1 positive GERD (gastroesophageal reflux disease) Hearing deficit History of breast cancer 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 Recheck in 6 months 11/13/2012 biopsy recommended Status post bilateral biopsies revealing invasive ductal carcinoma Status post bilateral mastectomies revealing invasive ductal carcinoma on the right [id number] Invasive ductal carcinoma on the left [id number](i+) M0 Status post systemic chemotherapy with 4 cycles of Taxol and Cytoxan Participation in REATA study Status post completion of radiation therapy 03/15/2014 received 6120 cGy to the left chest wall, and axilla" Seasonal allergic rhinitis Surgical History History of breast biopsy History of colonoscopy History of dilatation and curettage History of esophagogastroduodenoscopy (EGD) History of hysterectomy with bilateral oophorectomy History of loop electrosurgical excision procedure (LEEP) History of myringotomy History of tooth extraction History of total left knee replacement History of tubal ligation Hx of cholecystectomy Hx of fracture of femur WITH REPAIR TO LEFT Hx of tonsillectomy Port-A-Cath in place (04/09/19) Insertion of Mediport Left Cephalic vein Dr. 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 Beliefs That Will Affect Care: None marital status: Current Living Situation: Spouse Current Living Situation Comment: Lives with Feels Safe at Home: Yes Dental Care, Regularly: Yes Assistive Devices: Walker Review of Systems A total of 10 systems reviewed and were otherwise negative All systems reviewed & are unremarkable except as noted in HPI & below Physical Exam Vital Signs Vital Signs - 24 hr 10/29/20 23:07 10/30/20 00:28 10/30/20 00:30 Temperature 39.6 C H Temperature Source Oral Pulse Rate 119 H 116 H 115 H Pulse Rate from SpO2 Sensor 116 H 115 H Respiratory Rate 13 24 18 Respiratory Effort / Characteristics Non-Labored Spontaneous Blood Pressure 141/86 H Blood Pressure Mean 104 Pulse Oximetry 97 95 96 Oxygen Delivery Method Room Air Room Air Room Air Sepsis New/Unexplained Change in Mental Status Yes Sepsis Action Taken by Nursing No Action Required 10/30/20 00:54 10/30/20 01:00 10/30/20 01:13 Temperature 37.4 C Temperature Source Oral Pulse Rate 93 H Pulse Rate from SpO2 Sensor 94 H Respiratory Rate 19 Respiratory Effort / Characteristics Non-Labored Spontaneous Blood Pressure 116/69 Blood Pressure Mean 84 Pulse Oximetry 95 Oxygen Delivery Method Room Air Sepsis New/Unexplained Change in Mental Status Sepsis Action Taken by Nursing GENERAL: alert, ill appearing, well nourished, no distress, non-toxic, alopecia noted with scarf on her head EYE EXAM: normal conjunctiva, PERRL and EOM's grossly intact OROPHARYNX: no exudate, no erythema, lips, buccal mucosa, and tongue normal and mucous membranes are moist NECK: supple, no nuchal rigidity, no adenopathy, non-tender LUNGS: Clear to auscultation. Normal chest wall mechanics, no w/r/r HEART: no murmurs, S1 normal and S2 normal ABDOMEN: abdomen soft, non-tender, normo-active bowel sounds, no masses, no rebound or guarding. BACK: Back is symmetrical on inspection and there is no deformity, no midline tenderness, no CVA tenderness. SKIN: no rashes and no bruising UPPER EXTREMITIES: upper extremities are grossly normal. FROM, nml pulses b/l. LOWER EXTREMITIES: No pitting edema. FROM, nml pulses b/l. Right lower extremity in a distal posterior leg brace chronically. NEURO EXAM: Normal sensorium, cranial nerves II-XII grossly intact, normal speech although some difficulty with words, no gross weakness of arms, no gross weakness of legs. Gross sensation intact. Course Administered Medications Acetaminophen (Acetaminophen 325 Mg Tab) 650 mg PO Q4H PRN PRN Reason: pain/fever Stop: 11/29/20 03:26 Last Admin: 10/30/20 14:31 Dose: 650 mg Documented by: [id number] Aspirin (Aspirin 81 Mg Chew) 81 mg PO DAILY ISHA Stop: 11/29/20 08:59 Last Admin: 10/30/20 08:19 Dose: 81 mg Documented by: [id number] Cetirizine HCl (Cetirizine Hcl 10 Mg Tablet) 10 mg PO DAILY ISHA Stop: 11/29/20 08:59 Last Admin: 10/30/20 08:19 Dose: 10 mg Documented by: [id number] Enoxaparin Sodium (Enoxaparin Inj 40 Mg/0.4 Ml Syr) 40 mg SQ Q24H ISHA Stop: 11/29/20 05:59 Last Admin: 10/31/20 06:45 Dose: 40 mg Documented by: [id number] Admin: 10/30/20 05:17 Dose: 40 mg Documented by: [id number] Fentanyl (Fentanyl 12 Mcg/Hr Tdsy) 12 mcg TD Q72H ISHA Stop: 11/13/20 05:59 Last Admin: 10/30/20 05:17 Dose: 12 mcg Documented by: [id number] Fentanyl (Fentanyl 25 Mcg/Hr Tdsy) 25 mcg TD Q72H [facility] Stop: 11/13/20 05:59 Last Admin: 10/30/20 05:17 Dose: 25 mcg Documented by: [id number] Furosemide (Furosemide 20 Mg Tab) 20 mg PO DAILY [facility] Stop: 11/29/20 08:59 Last Admin: 10/30/20 08:19 Dose: 20 mg Documented by: [id number] Gabapentin (Gabapentin 600 Mg Tab) 600 mg PO TID [facility] Stop: 11/29/20 08:59 Last Admin: 10/30/20 20:36 Dose: 600 mg Documented by: [id number] Admin: 10/30/20 14:30 Dose: 600 mg Documented by: [id number] Admin: 10/30/20 08:19 Dose: 600 mg Documented by: [id number] Cefepime HCl 2,000 mg/ Syringe 20 mls @ 5 mls/min IV Q8H [facility]; Protocol Stop: 11/01/20 07:59 Last Admin: 10/30/20 23:56 Dose: 5 mls/min Documented by: [id number] Admin: 10/30/20 17:03 Dose: 5 mls/min Documented by: [id number] Admin: 10/30/20 08:18 Dose: 5 mls/min Documented by: [id number] Miscellaneous (Fentanyl Patch Remove & Waste (X2 Patches)) 1 ea N/A Q72H [facility] Stop: 11/29/20 05:58 Last Admin: 10/30/20 05:17 Dose: 1 ea Documented by: [id number] Cosigned by: [id number] Miscellaneous (Check Fentanyl Patch Placement (X2 Patches)) 1 ea N/A QS [facility] Stop: 11/29/20 15:59 Last Admin: 10/30/20 23:56 Dose: 1 ea Documented by: [id number] Admin: 10/30/20 17:03 Dose: 1 ea Documented by: [id number] Polyethylene Glycol (Polyethylene (Miralax) 17 Gm Pack) 17 gm PO DAILY ISHA Stop: 11/29/20 17:29 Last Admin: 10/30/20 17:50 Dose: 17 gm Documented by: [id number] Potassium Chloride (Potassium Chloride Crtab 20 Meq Tabcr) 20 meq PO QAM [facility] Stop: 11/29/20 08:59 Last Admin: 10/30/20 08:19 Dose: 20 meq Documented by: [id number] Senna/Docusate Sodium (Docusate Sodium/Senna 50/8.6mg Tab) 1 tab PO BID [facility] Stop: 11/29/20 08:59 Last Admin: 10/30/20 20:36 Dose: 1 tab Documented by: [id number] Admin: 10/30/20 08:19 Dose: 1 tab Documented by: [id number] Discontinued Medications Sodium Chloride (Nss 1000ml) 1,000 mls @ 999 mls/hr IV .Q1H1M ISHA Stop: 10/30/20 00:45 Last Infusion: 10/30/20 01:47 Dose: 0 mls/hr Documented by: [id number] Admin: 10/30/20 00:30 Dose: 999 mls/hr Documented by: [id number] Acetaminophen (Ofirmev) 1,000 mg in 100 mls @ 400 mls/hr IV NOW STA Stop: 10/29/20 23:52 Last Infusion: 10/30/20 00:51 Dose: 0 mls/hr Documented by: [id number] Admin: 10/30/20 00:30 Dose: 400 mls/hr Documented by: [id number] Cefepime HCl (Maxipime) 2,000 mg in 20 mls @ 5 mls/min IV NOW STA; Protocol Stop: 10/30/20 00:08 Last Admin: 10/30/20 01:01 Dose: 5 mls/min Documented by: [id number] Sodium Chloride (Nss 1000ml) 1,000 mls @ 999 mls/hr IV .Q1H1M ONE Stop: 10/30/20 02:14 Last Infusion: 10/30/20 03:50 Dose: 0 mls/hr Documented by: [id number] Admin: 10/30/20 02:40 Dose: 999 mls/hr Documented by: [id number] Sodium Chloride (Nss) 500 mls @ 999 mls/hr IV .Q31M ONE Stop: 10/30/20 03:24 Last Infusion: 10/30/20 03:58 Dose: 0 mls/hr Documented by: [id number] Admin: 10/30/20 03:51 Dose: 999 mls/hr Documented by: [id number] Vancomycin HCl 1,250 mg/ (Sodium Chloride) 525 mls @ 200 mls/hr IV NOW ONE Stop: 10/30/20 05:32 Last Infusion: 10/30/20 07:21 Dose: 0 mls/hr Documented by: [id number] Admin: 10/30/20 04:43 Dose: 200 mls/hr Documented by: [id number] Sodium Chloride (Nss 1000ml) 500 mls @ 999 mls/hr IV .Q31M ONE Stop: 10/30/20 17:52 Last Infusion: 10/30/20 18:22 Dose: 0 mls/hr Documented by: [id number] Admin: 10/30/20 17:50 Dose: 999 mls/hr Documented by: [id number] Medical Decision Making Differential Diagnosis Differential diagnoses includes but is not limited to toxic, metabolic, infectious, traumatic, cardiac, neurologic, hematologic, psychiatric and inflammatory etiologies. Medical Records Attestation: I reviewed the patient's medical records. Home Medications Current Medication List: was personally reviewed by ak Laboratory Data Attestation: I reviewed the patient's lab results. Result diagrams: 10/30/20 06:32 10/30/20 06:32 Lab Results 10/29/20 10/29/20 10/30/20 Range/Units Unknown Unknown 00:23 WBC 14.11 H (4.8-10.8) K/uL RBC 4.55 (4.2-5.4) M/uL Hgb 14.6 (12.0-16.0) g/dL Hct 43.7 (37-47) % MCV 96.0 (80-100) fL MCH 32.1 (25-34) pg MCHC 33.4 (32-36) g/dL RDW Std Deviation 72.2 H (36.4-46.3) fL RDW Coeff of Jermaine 20.8 H (11.5-14.5) % Plt Count 150 (130-400) K/uL MPV 11.7 H (7.4-10.4) fL Immature Gran % (Auto) 0.8 % Neut % (Auto) 92.0 % Lymph % (Auto) 3.5 % Hendricks % (Auto) 3.5 % Eos % (Auto) 0.1 % Baso % (Auto) 0.1 % Neut # (Auto) 12.97 H (1.4-6.5) K/uL Lymph # (Auto) 0.50 L (1.2-3.4) K/uL Hendricks # (Auto) 0.50 (0.11-0.59) K/uL Eos # (Auto) 0.01 (0-0.5) K/uL Baso # (Auto) 0.02 (0-0.2) K/uL Immature Gran # (Auto) 0.11 H (0.00-0.02) K/uL Absolute Nucleated RBC 0.07 H (0-0) K/uL Nucleated RBC % (auto) 0.5 % Polychromasia 1+ Anisocytosis Present Sodium 138 (136-145) mmol/L Potassium 3.7 (3.5-5.1) mmol/L Chloride 103 (98-107) mmol/L Carbon Dioxide 28 (21-32) mmol/L Anion Gap 7.0 (3-11) BUN 19 H (7-18) mg/dl Creatinine 0.73 (0.6-1.2) mg/dl Est Cr Clr Drug Dosing Not Reportable Est GFR ( Amer) 94.7 ml/min Est GFR (Non-Af Amer) 81.7 ml/min BUN/Creatinine Ratio 26.0 H (10-20) Glucose 120 H (70-99) mg/dl Lactate 2.4 H* (0.4-2.0) mmol/L Calcium 8.7 (8.5-10.1) mg/dl Magnesium 2.2 (1.8-2.4) mg/dl Total Bilirubin 1.0 (0.2-1) mg/dl AST 780 H (15-37) U/L ALT 496 H (12-78) U/L Alkaline Phosphatase 510 H (45-117) U/L Troponin I < 0.015 (0-0.045) ng/ml Total Protein 6.2 L (6.4-8.2) gm/dl Albumin 2.4 L (3.4-5.0) gm/dl Globulin 3.8 (2.5-4.0) gm/dl Albumin/Globulin Ratio 0.6 L (0.9-2) Procalcitonin (0-0.5) ng/ml COVID-19 Eval Order SARS-CoV-2 (PCR) (Negative) 10/30/20 10/30/20 10/30/20 Range/Units 00:23 00:44 00:44 WBC (4.8-10.8) K/uL RBC (4.2-5.4) M/uL Hgb (12.0-16.0) g/dL Hct (37-47) % MCV (80-100) fL MCH (25-34) pg MCHC (32-36) g/dL RDW Std Deviation (36.4-46.3) fL RDW Coeff of Jermaine (11.5-14.5) % Plt Count (130-400) K/uL MPV (7.4-10.4) fL Immature Gran % (Auto) % Neut % (Auto) % Lymph % (Auto) % Hendricks % (Auto) % Eos % (Auto) % Baso % (Auto) % Neut # (Auto) (1.4-6.5) K/uL Lymph # (Auto) (1.2-3.4) K/uL Hendricks # (Auto) (0.11-0.59) K/uL Eos # (Auto) (0-0.5) K/uL Baso # (Auto) (0-0.2) K/uL Immature Gran # (Auto) (0.00-0.02) K/uL Absolute Nucleated RBC (0-0) K/uL Nucleated RBC % (auto) % Polychromasia Anisocytosis Sodium (136-145) mmol/L Potassium (3.5-5.1) mmol/L Chloride (98-107) mmol/L Carbon Dioxide (21-32) mmol/L Anion Gap (3-11) BUN (7-18) mg/dl Creatinine (0.6-1.2) mg/dl Est Cr Clr Drug Dosing Est GFR ( Amer) ml/min Est GFR (Non-Af Amer) ml/min BUN/Creatinine Ratio (10-20) Glucose (70-99) mg/dl Lactate (0.4-2.0) mmol/L Calcium (8.5-10.1) mg/dl Magnesium (1.8-2.4) mg/dl Total Bilirubin (0.2-1) mg/dl AST (15-37) U/L ALT (12-78) U/L Alkaline Phosphatase (45-117) U/L Troponin I (0-0.045) ng/ml Total Protein (6.4-8.2) gm/dl Albumin (3.4-5.0) gm/dl Globulin (2.5-4.0) gm/dl Albumin/Globulin Ratio (0.9-2) Procalcitonin 2.12 H (0-0.5) ng/ml COVID-19 Eval Order Covid19 at [facility] SARS-CoV-2 (PCR) NEGATIVE (Negative) Imaging Data My Impression: X-ray: I interpreted the following studies. Chest: A single view study of the chest was reviewed and was negative for cardiomegaly, focal infiltrate, effusion, pulmonary edema, or wide mediastinum. Port noted as well as surgical clips. No change compared to prior. Radiologist's Impression: Chest X-Ray 10/29/20 23:38 INDICATION: [place] ^SEPSIS . TECHNIQUE: Single frontal radiograph of the chest was obtained. Comparison: Comparison is made to Chest 1 view 10/24/2020 FINDINGS: Stable port catheter and bilateral axillary surgical clips. The cardiomediastinal silhouette is normal. The right hemidiaphragm is again noted to be elevated. There is trace blunting of the right costophrenic angle. No pneumothorax or left effusion seen. IMPRESSION: Trace blunting of the right costophrenic angle may represent atelectasis or tiny pleural effusion. ACT 112: Negative or not required by law. Electronically signed by: Diogo Govea M.D. 10/30/2020 8:[address] 10/29/20 23:38 CT SCAN OF THE BRAIN WITHOUT IV CONTRAST CLINICAL HISTORY: Change in mental status. Intracranial metastatic disease. COMPARISON STUDY: CT an MRI of the brain dated 10/24/2020. TECHNIQUE: Unenhanced axial CT scan of the brain is performed from the vertex to the skull base. A dose lowering technique was utilized adhering to the principles of ALARA. CT DOSE: 537.48 mGy.cm FINDINGS: Brain parenchyma: There are age-related involutional changes noting mild subcortical and periventricular microangiopathic change. There is no hemorrhage, midline shift, or evidence of acute territorial ischemia by CT criteria. A small focus of edema within the high right frontal lobe seen on image #22, the left temporal lobe seen on image #7, and the right cerebellar hemisphere on image #9 are consistent with known intracranial metastatic lesions. Additional small lesions seen by MRI are not visible on CT. No extra-axial fluid collection is seen. Ventricles, sulci, cisterns: Prominent secondary to involutional change. Intracranial vasculature: There is atherosclerotic calcification of the cavernous carotid arteries. Calvarium: Small sclerotic metastatic lesions are seen in the left external condyle and in the clivus. Sinuses and mastoids: The visualized paranasal sinuses are clear. There is a left mastoid effusion. The right mastoid air cells are well pneumatized. Orbits: The bony orbits are grossly intact. There are bilateral ocular lens implants. IMPRESSION: 1. There is no hemorrhage, midline shift, or evidence of acute territorial ischemia by CT criteria. 2. Small foci of edema within the right frontal lobe, the right cerebellar hemisphere, and the left temporal lobe consistent with known intracranial metastases. Additional smaller lesions seen by MRI are not apparent on CT. 3. Osteoblastic metastatic lesions are again seen at the skull base. ACT 112: Negative or not required by law. Electronically signed by: Jose Moore M.D. 10/30/2020 7:[address] head: No significant interval change compared to the will 10/24/2020. No acute intracranial hemorrhage, progressive mass-effect, or midline shift. No evidence of large acute territorial ischemia. Stable appearance of metastatic parenchymal lesions in the right posterior frontal and left anterior temporal lobe. Vague hypodensity is visualized at the junction of right middle cerebellar peduncle and cerebellar hemisphere. Other enhancing metastatic lesions demonstrated an MRI study dated 10/24/2020 are not apparent on noncontrast CT study. Small sclerotic metastatic lesions are redemonstrated at the skull base and on the right occipital condyle. Radiologist: Sosa Tompkins MD ECG Data Attestation: I personally reviewed and interpreted this ECG as follows: Indication: + weakness Rate (beats per minute): 119 Rhythm: + sinus tachycardia ECG Intervals/blocks: + Normal QRS and + Normal QT ECG Brewster: + Left axis deviation ECG ST segments: + Normal ST segments MDM Narrative This is a 75-year-old female patient with known metastatic breast cancer who recently started new chemotherapy regimen brought in by her due to concern for confusion. On arrival here patient also found to be febrile. A septic evaluation was started. Patient found to have an elevated procalcitonin, lactic acid, and leukocytosis. Patient covered with broad-spectrum antibiotics. Patient was rehydrated here and after treatment of her fever, her mild confusion did improve. No evidence of neutropenic fever. No obvious source noted at bedside. No known sick contacts. Patient's LFTs found to be significantly elevated compared to prior. While they were high previously and patient does have a known liver lesion, they have now gone up considerably. Is unclear if this is related to the patient's new chemo regimen as denies any of her other medications have changed. Given lack of abdominal pain, vomiting, or change in bowel movements, at this time I do not suspect acute hepatobiliary pathology. Patient was hemodynamically stable in the emergency department. She was given 30 mL/KG of normal saline as part of her sepsis evaluation this patient has had poor p.o. intake and family is also concern for dehydration. An order was placed for continuous cardiac monitoring. The monitor shows a rate of _106_ with sinus tachycardia_ rhythm. Impression & Plan Fever, Metastatic breast cancer, Abnormal LFTs, Confusion Discharge Plan Visit Data Chief Complaint: TIA Symptoms ED Provider: Tanna Vieira Discharge Problem: Fever, Metastatic breast cancer, Abnormal LFTs, Confusion Patient Disposition: Admitted As Inpatient Discharge Instructions Interventions: ED Discharge Assessment Last Done: 10/30/20 02:55 Discharge Problem: Fever Qualifiers: Fever type: unspecified Qualified Code(s): R50.9 - Fever, unspecified
[2020-10-30] MEDS ORDERED: SODIUM CHLORIDE 0.9% 1000ML 1,000 ML IV ONE (01:14)
--- NOTE | 2020-10-30 01:36 | History & Physical Report ---
Date of Service October 30, 2020 Assessment & Plan (1) Expressive aphasia: Plan: 75-year-old female with history of metastatic breast cancer presently on chemotherapy presenting with transient episode of word finding difficulty and confusion. Patient febrile in the ER. Symptoms have resolved, patient feels back to baseline at this time. reports the patient demonstrates occasional episodes of confusion. She was seen in the ER on 10/24/2020 for such episode. Had unchanged CT of the head and MRI brain at that time and was started on aspirin 81 mg for possible TIA. CT head today with no acute changes. Question if fever, dehydration may have played a role as well. Continue aspirin 81 mg p.o. daily Neurochecks per protocol (2) Fever: Plan: Patient febrile at 39.6 in the ER. She was given Tylenol with resolution, presently 37.4. She has elevated white blood cells at 14.11 as well as mildly elevated lactate and procalcitonin at 2.4 and 2.12, respectively. Source unclear at this time. Patient provides no history suggesting infection. Patient with known liver lesions which may be contributing to fever. She has history of septic joint of the right knee. Knee is cool with no edema at this time. Awaiting UA and culture Follow blood culture sent in ER No obvious infiltrate noted on chest x-ray We will continue cefepime 2 g IV every 8 and follow cultures (3) Elevated LFTs: Plan: Patient with known metastatic liver lesion. Today she has worsening of her LFTs. AST = 780, ALT = 496, alk phos = 510. She has no tenderness of the right upper quadrant. Check right upper quadrant ultrasound Repeat LFTs in the morning Check INR and ammonia level with a.m. labs (4) Metastatic breast cancer: Plan: Patient presently undergoing chemotherapy with Navelbine, first treatment 10/24/2020. She follows with Dr. Mccabe of oncology. She is on Xgeva q. 28 days for osseous disease. Continue fentanyl transdermal 25 mcg +12 mcg. She is due to have her patch changed this evening Continue oxycodone as needed Continue bowel regimenlactulose, Senokot as needed Colace as needed Zofran as needed for nausea History of Present Illness Chief Complaint: confusion, fever Primary Care Provider: CAROL Schmidt Brittney Golden is a pleasant 75yo female with history of metastatic breast cancer s/p 6 cycles of Gemzar/Paclitaxel. Patient with known hepatic mass as well as lytic and sclerotic skeletal lesions and brain metastasis. She had WBR performed in September 2020. She has had rising transaminase levels and had a CT abdomen performed which revealed progression of hepatic disease. She was recently started on Navelbine - first dose administered on 10/28/20. Patient was seen in the ER on 10/24/20 with generalized weakness/trouble ambulating and word finding difficulty. She had a CT of the brain as well as MRI which revealed stable lesions and decrease in vasogenic edema. Symptoms lasted appx 2 hours then resolved. She was started on ASA 81mg daily for possible TIA. Patient presents today with similar symptoms. She had transient word finding problems as well as mild confusion. Febrile in the ER at 39.6 and tachycardic. Patient states that she "feels pretty good now" after receiving Tylenol and resolution of fever as well as IVF. She denies BLAS, visual changes, cough, SOB, chest pain, abdominal pain, nausea, vomiting, diarrhea or constipation. Denies dysuria, rashes, lesions, joint pain or oral lesions. She does report decreased energy and poor sleep. No additional complaints at this time. ER Course: Tylenol 1gm, Cefepime 2gm, NSS Allergies Allergy/AdvReac Type Severity Reaction Status Date / Time chlorhexidine Allergy Intermediate ITCHING Verified 10/29/20 23:11 cephalexin Allergy Mild SICK Verified 10/29/20 23:11 edetic acid Allergy Mild nausea Verified 10/29/20 23:11 propylene glycol Allergy Mild nausea Verified 10/29/20 23:11 regadenoson Allergy Mild nausea Verified 10/29/20 23:11 codeine AdvReac Intermediate N/V Verified 10/29/20 23:11 Home Medications Medication Instructions Recorded Confirmed Type prochlorperazine maleate 10 mg 10 mg PO Q6H PRN 10/25/19 10/29/20 History tablet vit C 250 mg-vit E 90 mg-zinc 40 1 tab PO BIDM 10/25/19 10/29/20 History mg-copper 1 [id number] capsule (PreserVision AREDS-2) fentanyl 25 mcg/hr transdermal 1 patch TRANSDERMAL Q72H 03/17/20 10/29/20 History patch cetirizine 10 mg tablet 10 mg PO DAILY 08/07/20 10/29/20 History ondansetron HCl 8 mg tablet 8 mg PO DAILY PRN 08/07/20 10/29/20 History vitamin B comp and C no.3 15 mg-10 1 cap PO DAILY 08/07/20 10/29/20 History mg-50 mg-5 mg-300 mg capsule (B Complex Plus Vitamin C) furosemide 20 mg tablet 20 mg PO DAILY 09/14/20 10/29/20 History nutritional supplement-fiber oral 2 ea PO BIDM 09/14/20 10/29/20 History liquid potassium chloride 20 mEq 20 meq PO QAM #0 tab 09/18/20 10/29/20 Rx tablet,extended release sennosides 8.6 mg-docusate sodium 1 tab-cap PO BID 10/24/20 10/29/20 History 50 mg tablet (Senokot-S) aspirin 81 mg chewable tablet 81 mg PO DAILY 10/29/20 10/29/20 History calcium carbonate 600 mg calcium 600 mg PO QDD 10/29/20 10/29/20 History (1,500 mg) tablet fentanyl 12 mcg/hr transdermal 12 mcg TRANSDERMAL Q72H 10/29/20 10/29/20 History patch gabapentin 600 mg tablet 600 mg PO TID 10/29/20 10/29/20 History lactulose 10 gram/15 mL oral 15 ml PO BID PRN 10/29/20 10/29/20 History solution oxycodone 5 mg tablet 5 - 10 mg PO Q6H PRN 10/29/20 10/29/20 History tramadol 50 mg tablet 50 mg PO Q6H PRN 10/29/20 10/29/20 History Past Med/Surg History Medical History Acoustic neuroma Brain metastases BRCA1 positive GERD (gastroesophageal reflux disease) Hearing deficit History of breast cancer 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 Recheck in 6 months 11/13/2012 biopsy recommended Status post bilateral biopsies revealing invasive ductal carcinoma Status post bilateral mastectomies revealing invasive ductal carcinoma on the right [id number] Invasive ductal carcinoma on the left [id number](i+) M0 Status post systemic chemotherapy with 4 cycles of Taxol and Cytoxan Participation in REATA study Status post completion of radiation therapy 03/15/2014 received 6120 cGy to the left chest wall, and axilla" Seasonal allergic rhinitis Surgical History History of breast biopsy History of colonoscopy History of dilatation and curettage History of esophagogastroduodenoscopy (EGD) History of hysterectomy with bilateral oophorectomy History of loop electrosurgical excision procedure (LEEP) History of myringotomy History of tooth extraction History of total left knee replacement History of tubal ligation Hx of cholecystectomy Hx of fracture of femur WITH REPAIR TO LEFT Hx of tonsillectomy Port-A-Cath in place (04/09/19) Insertion of Mediport Left Cephalic vein Dr. Gabriel 04/09/19 S/P bilateral mastectomy (07/06/13) Family History Other Breast cancer Melanoma Denies family history of Ovarian cancer Colorectal cancer Social History Smoking Status: Never smoker Second Hand Exposure: No; Hx Alcohol Use: Yes Alcohol type: wine Hx Substance Use: Yes Preferred Language: [place] Communication Ability: Effective Visual Impairment: No Limitations Drum Drier Required: No Beliefs That Will Affect Care: None marital status: Current Living Situation: Spouse Current Living Situation Comment: Lives with Feels Safe at Home: Yes Dental Care, Regularly: Yes Assistive Devices: Cane, Walker and Wheelchair Review of Systems Review of Systems: All systems reviewed & are unremarkable except as noted in HPI & below Physical Exam Physical Exam: General: ill in appearance, NAD, answering questions appropriately and following commands. Skin: warm, dry, intact, scattered bruises, no rashes/lesions HEENT: NC/AT, PERRL, EOMI, anicteric sclera, conjunctiva without injection, external ear normal to inspection and nontender, nares patent, moist mucus membranes, dentition intact, no oropharyngeal lesions, neck supple, trachea midline, no LAD, no thyromegaly, no JVD Heart: +S1/S2, regular, no m/r/g Lungs: equal air entry bilaterally, no rales/rhonchi/wheezes Abd: +BS, soft, NT/ND, no masses/organomegaly/ascites Ext: warm, 2+ pulses in UE/LE bilaterally, no clubbing/cyanosis, 1+ edema of bilateral LE, mild swelling of LUE Neuro: nonfocal, patient AA&O x 3, speech intact, no facial droop, moving all extremities on command with equal strength 5/5 Results & Data Results & Data ([facility]) Vital Signs (Past 12 Hours) Vital Signs Temp Pulse Resp BP Pulse Ox 10/30/20 01:13 37.4 C 10/30/20 01:00 93 H 19 116/69 95 10/30/20 00:30 115 H 18 96 10/30/20 00:28 116 H 24 95 10/29/20 23:07 39.6 C H 119 H 13 141/86 H 97 Laboratory Results Laboratory Results WBC 14.11 K/uL (4.8-10.8) H 10/29/20 Unknown RBC 4.55 M/uL (4.2-5.4) 10/29/20 Unknown Hgb 14.6 g/dL (12.0-16.0) 10/29/20 Unknown Hct 43.7 % (37-47) 10/29/20 Unknown MCV 96.0 fL (80-100) 10/29/20 Unknown MCH 32.1 pg (25-34) 10/29/20 Unknown MCHC 33.4 g/dL (32-36) 10/29/20 Unknown RDW Std Deviation 72.2 fL (36.4-46.3) H 10/29/20 Unknown RDW Coeff of Jermaine 20.8 % (11.5-14.5) H 10/29/20 Unknown Plt Count 150 K/uL (130-400) 10/29/20 Unknown MPV 11.7 fL (7.4-10.4) H 10/29/20 Unknown Immature Gran % (Auto) 0.8 % 10/29/20 Unknown Neut % (Auto) 92.0 % 10/29/20 Unknown Lymph % (Auto) 3.5 % 10/29/20 Unknown [place] % (Auto) 3.5 % 10/29/20 Unknown Eos % (Auto) 0.1 % 10/29/20 Unknown Baso % (Auto) 0.1 % 10/29/20 Unknown Neut # (Auto) 12.97 K/uL (1.4-6.5) H 10/29/20 Unknown Lymph # (Auto) 0.50 K/uL (1.2-3.4) L 10/29/20 Unknown [place] # (Auto) 0.50 K/uL (0.11-0.59) 10/29/20 Unknown Eos # (Auto) 0.01 K/uL (0-0.5) 10/29/20 Unknown Baso # (Auto) 0.02 K/uL (0-0.2) 10/29/20 Unknown Immature Gran # (Auto) 0.11 K/uL (0.00-0.02) H 10/29/20 Unknown Absolute Nucleated RBC 0.07 K/uL (0-0) H 10/29/20 Unknown Nucleated RBC % (auto) 0.5 % 10/29/20 Unknown Polychromasia 1+ 10/29/20 Unknown Anisocytosis Present 10/29/20 Unknown Sodium 138 mmol/L (136-145) 10/29/20 Unknown Potassium 3.7 mmol/L (3.5-5.1) 10/29/20 Unknown Chloride 103 mmol/L (98-107) 10/29/20 Unknown Carbon Dioxide 28 mmol/L (21-32) 10/29/20 Unknown Anion Gap 7.0 (3-11) 10/29/20 Unknown BUN 19 mg/dl (7-18) H 10/29/20 Unknown Creatinine 0.73 mg/dl (0.6-1.2) 10/29/20 Unknown Est Cr Clr Drug Dosing Not Reportable 10/29/20 Unknown Est GFR ( Amer) 94.7 ml/min 10/29/20 Unknown Est GFR (Non-Af Amer) 81.7 ml/min 10/29/20 Unknown BUN/Creatinine Ratio 26.0 (10-20) H 10/29/20 Unknown Glucose 120 mg/dl (70-99) H 10/29/20 Unknown Lactate 2.4 mmol/L (0.4-2.0) H* 10/30/20 00:23 Calcium 8.7 mg/dl (8.5-10.1) 10/29/20 Unknown Magnesium 2.2 mg/dl (1.8-2.4) 10/29/20 Unknown Total Bilirubin 1.0 mg/dl (0.2-1) 10/29/20 Unknown AST 780 U/L (15-37) H 10/29/20 Unknown ALT 496 U/L (12-78) H 10/29/20 Unknown Alkaline Phosphatase 510 U/L (45-117) H 10/29/20 Unknown Troponin I < 0.015 ng/ml (0-0.045) 10/29/20 Unknown Total Protein 6.2 gm/dl (6.4-8.2) L 10/29/20 Unknown Albumin 2.4 gm/dl (3.4-5.0) L 10/29/20 Unknown Globulin 3.8 gm/dl (2.5-4.0) 10/29/20 Unknown Albumin/Globulin Ratio 0.6 (0.9-2) L 10/29/20 Unknown Procalcitonin 2.12 ng/ml (0-0.5) H 10/30/20 00:23 COVID-19 Eval Order Covid19 at [facility] 10/30/20 00:[address] Head - per STAT rad: No significant interval change compared to 10/24/2020. No acute intracranial hemorrhage, progressive mass-effect, or midline shift. No evidence of large acute territorial ischemia. Stable appearance of metastatic parenchymal lesions in the right posterior frontal left anterior temporal lobe. Vague hypodensity is visualized at the junction of right middle cerebral peduncle and suprapatellar hemisphere. Other enhancing metastatic lesions demo nstrated an MRI study dating 10/24/2020 are not apparent on noncontrast CT study. Small sclerotic metastatic lesions are redemonstrated at the skull base and in the right occipital condyle. Chest x-rayper my assessmentproper positioning of left chest port, surgical clips present in right hemithorax, no suggestion of pulmonary edema, infiltrate, pneumothorax. ECG Additional Comments: EKG was sinus tachycardia 119 bpm, left axis deviation, OH = 114, QRS = 78, QTc = [address] changes in inferior lateral leads. Code Status & VTE Plan VTE Prophylaxis Plan VTE Prophylaxis will be ordered: Yes PG Care Time/CCT Total # of Minutes Spent Total Time Spent with Patient: Total time spent is greater than 50% in coordination of care (as documented) at patient's floor/unit and/or counseling patient: Coding Level of Care Code 10822 Initial Inpt Care Lvl 3 Diagnoses Expressive aphasia R47.01 Fever R50.9 Elevated LFTs R79.89 Metastatic breast cancer C50.919
[2020-10-30] MEDS ORDERED: SODIUM CHLORIDE 0.9% 500 ML IV ONE (02:54)
[2020-10-30] MEDS ORDERED: VANCOMYCIN HCL 1,250 MG in SODIUM CHLORIDE 0.9% 500 ML IV ONE (02:55)
[2020-10-30] MEDS ORDERED: VANCOMYCIN CONSULT ACTIVE PRN (02:55)
[2020-10-30] MEDS ORDERED: fentaNYL 25 MCG/HR TDSY TD SCH (03:27)
[2020-10-30] MEDS ORDERED: traMADol HCL 50 MG TABLET PO PRN (03:27)
[2020-10-30] MEDS ORDERED: ONDANSETRON INJ 2 MG/ML 2 ML VIAL IV PRN (03:27)
[2020-10-30] MEDS ORDERED: DOCUSATE SODIUM 100 MG CAP PO PRN (03:27)
[2020-10-30] MEDS ORDERED: oxyCODONE HCL IR 5 MG TAB (IMMEDIATE RELEASE) PO PRN (03:27)
[2020-10-30] MEDS ORDERED: LACTULOSE SYRUP 20 GM/30 ML UDC PO PRN (03:41)
[2020-10-30] MEDS: [UNRECOGNIZED DRUG - REMARK] SCH (05:17)
[2020-10-30] MEDS: ENOXAPARIN INJ 40 MG/0.4 ML SYR SQ SCH (05:17)
[2020-10-30] MEDS: fentaNYL 12 MCG/HR TDSY TD SCH (05:17)
[2020-10-30] MEDS: fentaNYL 25 MCG/HR TDSY TD SCH (05:17)
[2020-10-30 06:44] LABS: Basophils # (auto) 0.01 K/uL (0-0.2); Basophils % (auto) 0.1 %; Eosinophils # (auto) 0.01 K/uL (0-0.5); Eosinophils % (auto) 0.1 %; Hematocrit (blood only) 33.4 % (37-47); Immature Granulocytes # (auto) 0.04 K/uL (0.00-0.02); Immature Granulocytes % (auto) 0.4 %; Lymphocytes % (auto) 3.9 %; Mean Corpuscular Hemoglobin 32.4 pg (25-34); Mean Corpuscular Hgb Conc 32.9 g/dL (32-36); Mean Corpuscular Volume 98.5 fL (80-100); Mean Platelet Volume 10.3 fL (7.4-10.4); Monocytes # (auto) 0.21 K/uL (0.11-0.59); Neutrophils # (auto) 9.66 K/uL (1.4-6.5); Neutrophils % (auto) 93.5 %; Platelet Count 89 K/uL (130-400); RDW Coefficient of Variation 20.7 % (11.5-14.5); RDW Standard Deviation 74.2 fL (36.4-46.3); Red Blood Count 3.39 M/uL (4.2-5.4); White Blood Count 10.33 K/uL (4.8-10.8)
[2020-10-30 06:57] LABS: Platelet Estimate Decreased (Normal); RBC Morphology Unremarkable
--- NOTE | 2020-10-30 07:31 | CT Scan Report ---
CT SCAN OF THE BRAIN WITHOUT IV CONTRAST CLINICAL HISTORY: Change in mental status. Intracranial metastatic disease. COMPARISON STUDY: CT an MRI of the brain dated 10/24/2020. TECHNIQUE: Unenhanced axial CT scan of the brain is performed from the vertex to the skull base. A do se lowering technique was utilized adhering to the principles of ALARA. CT DOSE: 537.48 mGy.cm FINDINGS: Brain parenchyma: There are age-related involutional changes noting mild subcortical and periventric ular microangiopathic change. There is no hemorrhage, midline shift, or evidence of acute territorial ischemia by CT criteria. A small focus of edema within the high right frontal lobe seen on image #22 , the left temporal lobe seen on image #7, and the right cerebellar hemisphere on image #9 are consis tent with known intracranial metastatic lesions. Additional small lesions seen by MRI are not visible on CT. No extra-axial fluid collection is seen. Ventricles, sulci, cisterns: Prominent secondary to involutional change. Intracranial vasculature: There is atherosclerotic calcification of the cavernous carotid arteries. Calvarium: Small sclerotic metastatic lesions are seen in the left external condyle and in the clivus . Sinuses and mastoids: The visualized paranasal sinuses are clear. There is a left mastoid effusion. T he right mastoid air cells are well pneumatized. Orbits: The bony orbits are grossly intact. There are bilateral ocular lens implants. IMPRESSION: 1. There is no hemorrhage, midline shift, or evidence of acute territorial ischemia by CT criteria. 2. Small foci of edema within the right frontal lobe, the right cerebellar hemisphere, and the left t emporal lobe consistent with known intracranial metastases. Additional smaller lesions seen by MRI ar e not apparent on CT. 3. Osteoblastic metastatic lesions are again seen at the skull base. ACT 112: Negative or not required by law. Electronically signed by: Jose Moore M.D. 10/30/2020 7:30 AM
[2020-10-30 08:03] LABS: Albumin Level 1.6 gm/dl (3.4-5.0); BUN Creatinine Ratio 41.6 (10-20); Bilirubin Direct 0.6 mg/dl (0-0.2); Bilirubin,Total 1.3 mg/dl (0.2-1); Calcium 6.7 mg/dl (8.5-10.1); Creatinine Clr Calc Pharmacy 111.7 ml/min; Est GFR (African American) 117.9 ml/min; Est GFR (Non-African American) 101.7 ml/min; Potassium 3.6 mmol/L (3.5-5.1); Total Protein 4.4 gm/dl (6.4-8.2)
--- NOTE | 2020-10-30 08:16 | XRay Report ---
INDICATION: MN ^SEPSIS . TECHNIQUE: Single frontal radiograph of the chest was obtained. Comparison: Comparison is made to Chest 1 view 10/24/2020 FINDINGS: Stable port catheter and bilateral axillary surgical clips. The cardiomediastinal silhouette is eulogio l. The right hemidiaphragm is again noted to be elevated. There is trace blunting of the right costop hrenic angle. No pneumothorax or left effusion seen. IMPRESSION: Trace blunting of the right costophrenic angle may represent atelectasis or tiny pleural effusion. ACT 112: Negative or not required by law. Electronically signed by: Diogo Govea M.D. 10/30/2020 8:14 AM
[2020-10-30] MEDS: CEFEPIME 2,000 MG in SYRINGE 0 ML IV SCH ×3 (08:18→23:56)
[2020-10-30] MEDS: FUROSEMIDE 20 MG TAB PO SCH (08:19)
[2020-10-30] MEDS: POTASSIUM CHLORIDE CRTAB 20 MEQ TABCR PO SCH (08:19)
[2020-10-30] MEDS: GABAPENTIN 600 MG TAB PO SCH ×3 (08:19→20:36)
[2020-10-30] MEDS: CETIRIZINE HCL 10 MG TABLET PO SCH (08:19)
[2020-10-30] MEDS: DOCUSATE SODIUM/SENNA 50/8.6MG TAB PO SCH ×2 (08:19→20:36)
[2020-10-30] MEDS: ASPIRIN 81 MG CHEW PO SCH (08:19)
--- NOTE | 2020-10-30 08:42 | Ultrasound Report ---
ULTRASOUND RIGHT UPPER QUADRANT ABDOMEN CLINICAL HISTORY: Elevated hepatic transaminases. COMPARISON STUDY: Abdominal CT dated 09/18/2020. TECHNIQUE: Real-time, grayscale, and color flow sonography of the right upper quadrant of the abdomen was performed. Images are reviewed in the transverse and longitudinal planes. FINDINGS: Liver: The liver is normal in size and heterogeneous and echotexture. Again seen is evidence of multi focal hepatic metastatic disease. The largest lesion measures up to 2.8 cm. A 1.7 cm well-circumscrib ed echogenic focus in the right lobe may represent a hemangioma. A 0.8 cm cyst is incidentally noted. There is no intrahepatic biliary ductal dilatation. The main portal vein is patent. Gallbladder: The gallbladder is surgically absent. The common bile duct measures up to 0.5 cm in diam eter. Pancreas: Question hypoechoic lesions within the pancreatic head versus peripancreatic lymph nodes wh ich measure up to 2.6 cm. The peripancreatic duct is normal in caliber. The splenic vein is patent. Right kidney: Survey images of the right kidney demonstrate normal size and echotexture. There is no hydronephrosis. Ascites: None. IMPRESSION: 1. Heterogeneous liver with evidence of multifocal hepatic metastatic disease. 2. Question hypoechoic lesions within the pancreatic head versus peripancreatic lymphadenopathy. 3. Status post cholecystectomy. ACT 112: Negative or not required by law. Electronically signed by: Jose Moore M.D. 10/30/2020 8:41 AM
[2020-10-30 10:21] LABS: Appearance Urine Clear (Clear); Bacteria Urine Automated Negative (Negative); Bilirubin Urine Negative (Negative); Blood Urine Negative (Negative); Color Urine Dark Yellow; Glucose Urine UA Negative (Negative); Ketones Urine Negative (Negative); Leukocyte Esterase Urine Trace (Negative); Nitrite Urine Negative (Negative); Protein Urine Negative (Negative); RBC Urine Automated 0-4 /hpf (0-4); Specific Gravity Urine 1.019 (1.000-1.030); Urobilinogen Urine Negative (Negative)
[2020-10-30 12:55] LABS: INR 1.3 (0.9-1.1); Prothrombin Time 13.1 Seconds (9.0-12.0)
[2020-10-30] MEDS: ACETAMINOPHEN 325 MG TAB PO PRN (14:31)
--- NOTE | 2020-10-30 16:10 | Hospitalist Progress Note ---
Date of Service October 30, 2020 Assessment & Plan (1) Sepsis: Plan: Patient is a 75 y/o female with a history of breast cancer with known metastases to brain and liver, who presented for evaluation of new onset fever, confusion, and expressive aphasia, all of which have resolved since onset. -Patient met SIRS criteria on admission (Temp: 39.6 HR 119) -Treated with Tylenol and IVF in the ED, fever has since resolved, presently (37) -WBC were elevated at 14.11 on ED arrival -Lactate and ProCal were mildly elevated at 2.4 and 2.12, respectively -UA unremarkable, COVID testing negative, Chest CT unremarkable -Patient has since been treated empirically with IV cefepime, will continue as we await blood culture -She has a history of septic arthritis in the RT Knee. Knee is cool with no signs of redness or swelling -Current, no source of infection has been found, Await blood culture (2) TIA (transient ischemic attack): Plan: -Episodic confusion and Expressive aphasia -Symptoms have since resolved -Patient was seen in the ER last Tuesday (10/24/20) for similar symptoms of confusion and expressive aphasia that resolved similarly. -Unchanged head CT from previous ER visit. No evidence of acute ischemia. -Known history of brain metastasis likely the cause of symptoms vs embolic cause -Patient is concerned about frequency of symptoms and would like palliative care consult. -Plan to discuss palliative care with and patient. (3) Metastatic breast cancer: Plan: -Metastases to brain and liver -Currently on Navelbine (day 1, 8, 15) 21-day cycle -First dose on 10/28, plan to continue Admission and Anticipated Discharge Date Admission Date: October 30, 2020 Supervising Physician Co-Signing Physician Notes I saw the patient and performed a history examination along with medical student and resident physician team. Briefly, a 75-year-old female admitted through the emergency department earlier this morning with fever and mental status change. She had an episode of confusion with expressive aphasia. She has a history of metastatic breast cancer, presently undergoing chemotherapy.She was febrile in the emergency department on presentation. She is also found to have a leukocytosis and a mildly elevated lactate and pro calcitonin. She was started on cefepime 2 g IV every 8 hours. On our exam midmorning, she is generally feeling better. She notes that her sensorium has cleared. She denies any chest pain or shortness of breath. She denies headache. She denies abdominal pain. She denies urinary symptoms. Exam 135/85, 108, 17, 37.8, 96% on room air Skin is pink warm and dry Heart regular rate and rhythm. Lungs essentially clear with nonlabored respirations Abdomen soft without tenderness. Data White blood cell count 10.33, hemoglobin 11, platelet count 89 PT 13.1, INR 1.3 BUN 18, creatinine 0.42 A chest x-ray taken upon admission shows trace blunting of the right costophrenic angle, suggesting atelectasis or small pleural effusion. A CT scan of the head demonstrates no evidence of ischemia. There is evidence of intracranial metastatic disease. There is also evidence of osteoblastic metastatic lesions at the skull base. Liver ultrasound demonstrates multifocal hepatic metastatic disease Blood cultures are pending Assessment and Plan Mental status change SIRS Question TIA Difficult to say if her neurological symptoms or secondary to infection or simply due to her intracranial metastatic disease. She could have had a TIA, difficult to say. She does have elevated white count and fever which does suggest infection. Continue cefepime pending blood cultures Monitor for the potential site/sources Consider palliative care consultation Subjective No acute changes overnight. She feels slightly fatigued and weak and finds it difficult to move around on her own. She no longer feels confused and no longer has difficulty finding words. No SOB, chest pain, headache, lightheadedness, or dizziness reported. Review of Systems Review of Systems: All systems reviewed & are unremarkable except as noted in Subjective Physical Exam Physical Exam: General: Pleasant woman, alert and responsive in bed, in no acute distress HEENT: PERRL, EOM intact, No nuchal rigidity, No pharyngeal erythema Cardiovascular: Regular rhythm, tachycardic, Normal S1 and S2, No murmurs, rubs, or gallops Respiratory: Lungs clear to auscultation, good breath sounds bilaterally, no crackles or wheezing Abdominal: Normal bowel sounds. Abdomen soft and nondistended. No tenderness to palpation or any palpable masses. No hepatomegaly Extremities: No cyanosis. No edema. Neuro: Alert and oriented. Speech is clear without aphasia or dysarthria. CN II- intact. CN VII notable for weakness + asymmetrical mouth drooping. CN VIII notable for bilateral hearing loss, more significant loss on the LT side, CN IX- XII intact. Motor strength 5/5 bilateral UE, 5/5 LLE, 2/5 RLE (no antigravity movement), Negative pronator drift of out-stretched arms. Sensations intact. Coordination is normal, No dysmetria on [id number]. Results & Data Results & Data ([facility]) Vital Signs (Past 12 Hours) Vital Signs Temp Pulse Pulse Resp BP Pulse Ox 10/30/20 15:44 37.8 C H 10/30/20 15:03 38.0 C H 10/30/20 14:25 38.2 C H 108 H 17 135/85 96 10/30/20 07:29 37.0 C 80 16 114/77 96 (1) Sepsis Sepsis acute organ dysfunction status: unspecified Sepsis type: sepsis due to unspecified organism Qualified Code(s): A41.9 - Sepsis, unspecified organism
[2020-10-30] MEDS: CHECK FENTANYL SCH ×2 (17:03→23:56)
[2020-10-30] MEDS ORDERED: SODIUM CHLORIDE 0.9% 1000ML 500 ML IV ONE (17:22)
[2020-10-30] MEDS: POLYETHYLENE (MIRALAX) 17 GM PACK PO SCH (17:50)
--- NOTE | 2020-10-30 18:25 | Electrocardiogram Report ---
Test Reason : Blood Pressure : / mmHG Vent. Rate : 119 BPM Atrial Rate : 119 BPM P-R Int : 114 ms QRS Dur : 078 ms QT Int : 286 ms P-R-T Axes : 000 -32 063 degrees QTc Int : 402 ms Sinus tachycardia Left axis deviation Nonspecific T wave abnormality Abnormal ECG When compared with ECG of 24-OCT-2020 12:13, Nonspecific T wave abnormality, worse in Inferior leads Nonspecific T wave abnormality now evident in Lateral leads Confirmed by Maximo Calix ([id number]) on 10/30/2020 6:25:26 PM Referred By: REFERRED SELF Confirmed By:Slick Calix
[2020-10-31] MEDS: ENOXAPARIN INJ 40 MG/0.4 ML SYR SQ SCH (06:45)
[2020-10-31 08:28] LABS: Eosinophils # (auto) 0.01 K/uL (0-0.5); Eosinophils % (auto) 0.1 %; Hematocrit (blood only) 33.2 % (37-47); Hemoglobin 10.8 g/dL (12.0-16.0); Immature Granulocytes # (auto) 0.03 K/uL (0.00-0.02); Immature Granulocytes % (auto) 0.3 %; Lymphocytes # (auto) 0.32 K/uL (1.2-3.4); Lymphocytes % (auto) 2.7 %; Mean Corpuscular Hemoglobin 31.9 pg (25-34); Mean Corpuscular Hgb Conc 32.5 g/dL (32-36); Mean Corpuscular Volume 97.9 fL (80-100); Mean Platelet Volume 11.1 fL (7.4-10.4); Monocytes # (auto) 0.18 K/uL (0.11-0.59); Monocytes % (auto) 1.5 %; Neutrophils # (auto) 11.38 K/uL (1.4-6.5); Neutrophils % (auto) 95.4 %; Platelet Count 102 K/uL (130-400); RDW Coefficient of Variation 20.6 % (11.5-14.5); RDW Standard Deviation 74.2 fL (36.4-46.3); Red Blood Count 3.39 M/uL (4.2-5.4); White Blood Count 11.92 K/uL (4.8-10.8)
[2020-10-31 08:42] LABS: Anisocytosis Present
[2020-10-31 09:05] LABS: Albumin Level 1.6 gm/dl (3.4-5.0); BUN Creatinine Ratio 40.4 (10-20); Calcium 7.3 mg/dl (8.5-10.1); Creatinine Clr Calc Pharmacy 104.2 ml/min; Est GFR (African American) 115.2 ml/min; Est GFR (Non-African American) 99.4 ml/min; Potassium 3.2 mmol/L (3.5-5.1)
[2020-10-31] MEDS: GABAPENTIN 600 MG TAB PO SCH ×3 (09:06→20:05)
[2020-10-31] MEDS: CETIRIZINE HCL 10 MG TABLET PO SCH (09:06)
[2020-10-31] MEDS: DOCUSATE SODIUM/SENNA 50/8.6MG TAB PO SCH ×2 (09:06→20:05)
[2020-10-31] MEDS: CEFEPIME 2,000 MG in SYRINGE 0 ML IV SCH ×3 (09:06→23:27)
[2020-10-31] MEDS: POTASSIUM CHLORIDE CRTAB 20 MEQ TABCR PO SCH (09:07)
[2020-10-31] MEDS: ASPIRIN 81 MG CHEW PO SCH (09:14)
[2020-10-31] MEDS: POLYETHYLENE (MIRALAX) 17 GM PACK PO SCH (09:14)
[2020-10-31] MEDS: HEPARIN 100 UNIT/ML 5ML FLUSH FLUSH PRN ×2 (09:14→20:05)
[2020-10-31] MEDS: CHECK FENTANYL SCH ×2 (09:14→17:13)
[2020-10-31 09:29] LABS: Bilirubin Direct 0.9 mg/dl (0-0.2); Bilirubin,Total 1.7 mg/dl (0.2-1); Total Protein 4.8 gm/dl (6.4-8.2)
[2020-10-31] MEDS ORDERED: VANCOMYCIN CONSULT ACTIVE PRN ×2 (11:06)
[2020-10-31] MEDS ORDERED: VANCOMYCIN HCL 1,250 MG in SODIUM CHLORIDE 0.9% 250 ML IV STA (11:56)
[2020-10-31] MEDS: levoFLOXacin 750 MG TAB PO SCH (13:15)
--- NOTE | 2020-10-31 13:29 | Pharmacy Report ---
Pharmacy Vanc AUC Short Note - Date of Service October 31, 2020 - Assessment & Plan Assessment 75 year old F receiving empiric Vancomycin. Talked with primary team, and right now unclear source of infection and they would like double pseudomonas coverage Patient also receiving Cefepime and Levaquin empirically Day # 1 of antimicrobial therapy. Plan Vancomycin * AUC/AVE is the preferred PK/PD target for vancomycin * AUC guided dosing is effective and associated with decreased risk of nephrotoxicity compared to traditional trough targets * Maintenance dose of 1250 mg IV every 12 hours * Trough level will be ordered if therapy to extend beyond 48 hrs Pharmacy will continue to follow and will adjust dose/frequency as necessary. Thank you.
[2020-10-31] MEDS: FUROSEMIDE 20 MG TAB PO SCH (13:46)
--- NOTE | 2020-10-31 17:26 | Hospitalist Progress Note ---
Date of Service October 31, 2020 Assessment & Plan (1) Sepsis: Plan: Patient is a 75 y/o female with a history of breast cancer with known metastases to brain and liver, who presented for evaluation of new onset fever, confusion, and expressive aphasia, all of which have resolved since onset. -Patient met SIRS criteria on admission (Temp: 39.6 HR 119, leukocytosis of 14) -Treated with Tylenol and IVF in the ED, fever has since resolved, presently (37) - Unclear etiology but suspect possible bacterial etiology given continued elevation in Procal (2-->5) - UA bland, COVID neg, CT Chest without infiltrate - blood cultures without growth x 24 hours - Started empiric MRSA coverage with vanc today while MRSA swab is pending. Can d/c if MRSA swab is negative. Appreciate pharmacy assistance with vanc management. - Started Levaquin in addition to continuing cefepime for double pseudomonas coverage (2) TIA (transient ischemic attack): Plan: -Episodic confusion and expressive aphasia; now resolved. - May also be secondary to brain mets. -Patient was seen in the ER last Tuesday (10/24/20) for similar symptoms of confusion and expressive aphasia that resolved similarly. -Unchanged head CT from previous ER visit. No evidence of acute ischemia. -Known history of brain metastasis likely the cause of symptoms vs embolic cause -Patient is concerned about frequency of symptoms and wanted us to discuss possible palliative care consult with the patient -Plan to consult with palliative care today and follow up with on final decision for ongoing palliative care upon discharge. (3) Metastatic breast cancer: Plan: -Metastases to brain and liver -Currently on Navelbine (day 1, 8, 15) 21-day cycle -First dose on 10/28, plan to continue Admission and Anticipated Discharge Date Admission Date: October 30, 2020 Supervising Physician Co-Signing Physician Notes Patient seen and examined with PGY-2 Dr. Pires and MS2 Patrick Webster. Agree with history, exam findings, assessment and plan of care as outlined. In brief, Brittney is a 75 year old female with history of metastatic breast cancer admitted with new fever, confusion and expressive aphasia. Today, feels a bit better than yesterday. No recurrence of fever. Vital signs and nursing notes reviewed. Nontoxic appearing. Heart with regular rate and rhythm. No edema. Lungs are clear to auscultation. Labs and imaging reviewed. 1. SIRS, possible sepsis but unclear source. Blood cultures without growth x 24 hours. Did broaden antibiotic coverage as increasing leukocytosis and procal today. Started but then stopped vanc when MRSA swab was neg. Added levaquin to cefepime for double pseudomonas coverage. Maybe need to consider CT A/P with her significantly elevated LFTs--?hepatic abscesses? in the setting of known liver mets. 2. Confusion and expressive aphasia. Resolved. Possibly secondary to either TIA vs brain mets. 3. metastatic breast cancer. ok to continue Navelbine on her regular cycle. 4. elevated LFTs. Higher than what is has been in the past. Consider CT A/P if not clinically improving. RUQ with known mets and ?peripancreatic lymphadenopathy. 5. Goals of care. Not ready for hospice. Appreciate palliative taking the time to discuss with patient. Dispo: pending clinical improvement. Subjective No acute changes overnight. Today she reports feeling a lack of energy. She does not report confusion or difficulty finding words. No SOB, chest pain, headache, lightheadedness, or dizziness reported. Review of Systems Review of Systems: All systems reviewed & are unremarkable except as noted in Subjective Physical Exam Physical Exam: General: Pleasant woman, alert and responsive in bed, in no acute distress Cardiovascular: Regular rhythm, tachycardic, Normal S1 and S2, No murmurs, rubs, or gallops Respiratory: Lungs clear to auscultation, good breath sounds bilaterally, no cr ackles or wheezing Abdominal: Normal bowel sounds. Abdomen soft and nondistended. No tenderness to palpation or any palpable masses. No hepatomegaly Extremities: No cyanosis. No edema. Neuro: Alert and oriented. Speech is clear without aphasia or dysarthria. CN II- intact. CN VII notable for weakness + asymmetrical mouth drooping. CN VIII notable for bilateral hearing loss, more significant loss on the LT side, CN IX- XII intact. Motor strength 5/5 bilateral UE, 5/5 LLE, 2/5 RLE (no antigravity movement). Results & Data Results & Data ([facility]) Vital Signs (Past 12 Hours) Vital Signs Temp Pulse Pulse Resp BP Pulse Ox 10/31/20 16:19 95 H 10/31/20 15:00 37.6 C H 96 H 16 126/75 97 10/31/20 11:50 36.9 C 87 16 116/76 97 10/31/20 07:56 100 H 10/31/20 06:38 37.0 C 102 H 18 117/72 96 (1) Sepsis Sepsis acute organ dysfunction status: unspecified Sepsis type: sepsis due to unspecified organism Qualified Code(s): A41.9 - Sepsis, unspecified organism
--- NOTE | 2020-10-31 22:47 | Palliative Care Consultation ---
Date of Consultation October 31, 2020 Assessment & Plan (1) Palliative care encounter: Ms. Golden is a 75 year old female who presented to the [facility] with difficulty with word finding and increased confusion. She has metastatic breast cancer with a hepatic mass, lytic and skeletal lesions and brain metastasis. She sees Dr. Griffin for her cancer management and Ashley Friedman PA-C for her opioid management. She has completed 6 cycles of Gemzar/Paclitaxel and on October 24, received her first dose of Navelbine and Xgenva for the osseous part of the disease.An MRI and CT of the brain were completed and its questionable that she is experiencing TIA's. Palliative Medicine was consulted to discuss overall goals of care. I met with Brittney in her room. She was sitting in her bed, AAOx3 and in no apparent distress. She was receptive to our conversation, and was open to discussing how she felt. She said that her goal right now is to feel emotionally and physically in a good place. She said emotionally she is tearful, but feels that she is processing her diagnosis. 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 She and her Teja have been 47 years. They have two adult children: Silvia and Gloria, both of them have three kids each and live local. It would be helpful to have Dr. Griffin weigh in regarding overall big picture from an onc standpoint. When I asked her if things weren't moving in the right direction how would she feel and what does she envision she would want done. She became tearing and she never has really thought about it. I explained the imporance of decision making, etc. while she is still able to have these challenging and hard conversations. She agreed. I talked with case management who spoke with her Teja and he was very overwhelmed. I did not want to over fuel that stimulation for him, so will reach out on Tuesday. I encouraged Brittney to start discussing more in detail. For now, remain a full code. Palliative will follow. (2) Confusion: Possible TIA's. MRI and CT done (3) Expressive aphasia: Able to speak in complete sentences and hold meaningful conversation. (4) Metastatic breast cancer: Follows Dr. Griffin. She has completed 6 cycles of Gemzar/Paclitaxel and on October 24, received her first dose of Navelbine and Xgenva for the osseous part of the disease. (5) Weakness: (6) Bone pain: Opioid management done by Ashley Benedict PA-C On Fentanyl patch 37.5 mcg On Oxycodone 10 mg PO Q6 PRN History of Present Illness Reason for Consultation: Goals of care Requesting Physician: Dr. Walls Attending Physician: Dre Russo DO History of Present Illness Ms. Golden is a 75 year old female who presented to the [facility] with difficulty with word finding and increased confusion. She has metastatic breast cancer with a hepatic mass, lytic and skeletal lesions and brain metastasis. She sees Dr. Griffin for her cancer management and Ashley Friedman for her opioid management. She has completed 6 cycles of Gemzar/Paclitaxel and on October 24, received her first dose of Navelbine and Xgenva for the osseous part of the disease. Palliative Medicine was consulted to discuss overall goals of care. Please see A/P for further information. Thanks for involving Palliative Medicine with this individual. Allergies Allergy/AdvReac Type Severity Reaction Status Date / Time chlorhexidine Allergy Intermediate ITCHING Verified 10/29/20 23:11 cephalexin Allergy Mild SICK Verified 10/29/20 23:11 edetic acid Allergy Mild nausea Verified 10/29/20 23:11 propylene glycol Allergy Mild nausea Verified 10/29/20 23:11 regadenoson Allergy Mild nausea Verified 10/29/20 23:11 codeine AdvReac Intermediate N/V Verified 10/29/20 23:11 Home Medications Medication Instructions Recorded Confirmed Type prochlorperazine maleate 10 mg 10 mg PO Q6H PRN 10/25/19 10/29/20 History tablet vit C 250 mg-vit E 90 mg-zinc 40 1 tab PO BIDM 10/25/19 10/29/20 History mg-copper 1 in-phqeat-asguse capsule (PreserVision AREDS-2) fentanyl 25 mcg/hr transdermal 1 patch TRANSDERMAL Q72H 03/17/20 10/29/20 History patch cetirizine 10 mg tablet 10 mg PO DAILY 08/07/20 10/29/20 History ondansetron HCl 8 mg tablet 8 mg PO DAILY PRN 08/07/20 10/29/20 History vitamin B comp and C no.3 15 mg-10 1 cap PO DAILY 08/07/20 10/29/20 History mg-50 mg-5 mg-300 mg capsule (B Complex Plus Vitamin C) furosemide 20 mg tablet 20 mg PO DAILY 09/14/20 10/29/20 History nutritional supplement-fiber oral 2 ea PO BIDM 09/14/20 10/29/20 History liquid potassium chloride 20 mEq 20 meq PO QAM #0 tab 09/18/20 10/29/20 Rx tablet,extended release sennosides 8.6 mg-docusate sodium 1 tab-cap PO BID 10/24/20 10/29/20 History 50 mg tablet (Senokot-S) aspirin 81 mg chewable tablet 81 mg PO DAILY 10/29/20 10/29/20 History calcium carbonate 600 mg calcium 600 mg PO QDD 10/29/20 10/29/20 History (1,500 mg) tablet fentanyl 12 mcg/hr transdermal 12 mcg TRANSDERMAL Q72H 10/29/20 10/29/20 History patch gabapentin 600 mg tablet 600 mg PO TID 10/29/20 10/29/20 History lactulose 10 gram/15 mL oral 15 ml PO BID PRN 10/29/20 10/29/20 History solution oxycodone 5 mg tablet 5 - 10 mg PO Q6H PRN 10/29/20 10/29/20 History tramadol 50 mg tablet 50 mg PO Q6H PRN 10/29/20 10/29/20 History Patient History Medical History (Updated 10/31/20 @ 23:03 by CAROL Jordan) Acoustic neuroma Bone pain Brain metastases BRCA1 positive GERD (gastroesophageal reflux disease) Hearing deficit History of breast cancer 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 Recheck in 6 months 11/13/2012 biopsy recommended Status post bilateral biopsies revealing invasive ductal carcinoma Status post bilateral mastectomies revealing invasive ductal carcinoma on the right [id number] Invasive ductal carcinoma on the left [id number](i+) M0 Status post systemic chemotherapy with 4 cycles of Taxol and Cytoxan Participation in REATA study Status post completion of radiation therapy 03/15/2014 received 6120 cGy to the left chest wall, and axilla" Seasonal allergic rhinitis Surgical History History of breast biopsy History of colonoscopy History of dilatation and curettage History of esophagogastroduodenoscopy (EGD) History of hysterectomy with bilateral oophorectomy History of loop electrosurgical excision procedure (LEEP) History of myringotomy History of tooth extraction History of total left knee replacement History of tubal ligation Hx of cholecystectomy Hx of fracture of femur WITH REPAIR TO LEFT Hx of tonsillectomy Port-A-Cath in place (04/09/19) Insertion of Mediport Left Cephalic vein Dr. Gabriel 04/09/19 S/P bilateral mastectomy (07/06/13) Family History Other Breast cancer Melanoma Denies family history of Ovarian cancer Colorectal cancer Social History Smoking Status: Never smoker Second Hand Exposure: No; Hx Alcohol Use: No Hx Substance Use: No Preferred Language: Wolof Communication Ability: Effective Visual Impairment: No Limitations Kennel Aide Required: No Beliefs That Will Affect Care: None marital status: Current Living Situation: Spouse Current Living Situation Comment: Lives with Feels Safe at Home: Yes Dental Care, Regularly: Yes Assistive Devices: Walker Review of Systems Review of Systems: Everetts System Assessment Scale: Pain: 0/3 Nausea: 1/3 SOB: 0/3 Tiredness: 1/3 Lack of Appetite: 0/3 Palliative Performance Scale: 40% Physical Exam Constitutional: + frail appearing, cooperative and comfortable Respiratory: normal respiratory effort Cardiovascular: Rate/Rhythm: regular rate and regular rhythm Gastrointestinal (Abdomen): normal bowel sounds, soft, nontender, no hepatosplenomegaly Skin: + ecchymosis and + pallor Psychiatric: Orientation: alert and oriented x 3 Insight: good insight Results & Data ([facility]) Vital Signs (Past 12 Hours) Vital Signs Temp Pulse Pulse Resp BP Pulse Ox 10/31/20 19:20 37.5 C 120 H 20 126/81 96 10/31/20 16:19 95 H 10/31/20 15:00 37.6 C H 96 H 16 126/75 97 10/31/20 11:50 36.9 C 87 16 116/76 97 PG Care Time/CCT Total # of Minutes Spent Total Time Spent with Patient: Total time spent is greater than 50% in coordination of care (as documented) at patient's floor/unit and/or counseling patient: 70 minutes with >50% of that time spent assessing the patient, discussing goals of care with the patient, addressing symptom management needs and collaborating with the IDT. Coding Level of Care Code 12877 Initial Inpt Care Lvl 3 Diagnoses Palliative care encounter Z51.5 Confusion R41.0 Expressive aphasia R47.01 Metastatic breast cancer C50.919 Weakness R53.1 Bone pain M89.8X9 Time Spent (min) 70
[2020-10-31] MEDS: ACETAMINOPHEN 325 MG TAB PO PRN (23:27)
[2020-11-01] MEDS: CHECK FENTANYL SCH ×4 (00:24→23:11)
[2020-11-01] MEDS ORDERED: VANCOMYCIN HCL 1,250 MG in SODIUM CHLORIDE 0.9% 250 ML IV SCH (02:00)
[2020-11-01] MEDS: ENOXAPARIN INJ 40 MG/0.4 ML SYR SQ SCH (06:04)
[2020-11-01 07:09] LABS: Basophils # (auto) 0.01 K/uL (0-0.2); Basophils % (auto) 0.1 %; Eosinophils # (auto) 0.04 K/uL (0-0.5); Eosinophils % (auto) 0.5 %; Hematocrit (blood only) 31.5 % (37-47); Hemoglobin 10.3 g/dL (12.0-16.0); Immature Granulocytes # (auto) 0.04 K/uL (0.00-0.02); Immature Granulocytes % (auto) 0.5 %; Lymphocytes # (auto) 0.32 K/uL (1.2-3.4); Mean Corpuscular Hgb Conc 32.7 g/dL (32-36); Mean Corpuscular Volume 97.8 fL (80-100); Mean Platelet Volume 10.6 fL (7.4-10.4); Monocytes # (auto) 0.24 K/uL (0.11-0.59); Neutrophils # (auto) 7.39 K/uL (1.4-6.5); Neutrophils % (auto) 91.9 %; Platelet Count 113 K/uL (130-400); RDW Coefficient of Variation 20.3 % (11.5-14.5); RDW Standard Deviation 73.7 fL (36.4-46.3); Red Blood Count 3.22 M/uL (4.2-5.4); White Blood Count 8.04 K/uL (4.8-10.8)
[2020-11-01 07:37] LABS: Anisocytosis Present
[2020-11-01 07:40] LABS: BUN Creatinine Ratio 40.4 (10-20); Calcium 7.2 mg/dl (8.5-10.1); Creatinine Clr Calc Pharmacy 117.3 ml/min; Est GFR (African American) 119.8 ml/min; Est GFR (Non-African American) 103.3 ml/min; Potassium 3.7 mmol/L (3.5-5.1)
[2020-11-01] MEDS: GABAPENTIN 600 MG TAB PO SCH ×3 (09:24→20:31)
[2020-11-01] MEDS: CETIRIZINE HCL 10 MG TABLET PO SCH (09:24)
[2020-11-01] MEDS: FUROSEMIDE 20 MG TAB PO SCH (09:24)
[2020-11-01] MEDS: DOCUSATE SODIUM/SENNA 50/8.6MG TAB PO SCH ×2 (09:26→20:34)
[2020-11-01] MEDS: POLYETHYLENE (MIRALAX) 17 GM PACK PO SCH (09:26)
[2020-11-01] MEDS: POTASSIUM CHLORIDE CRTAB 20 MEQ TABCR PO SCH (09:27)
[2020-11-01 09:35] LABS: Albumin Level 1.5 gm/dl (3.4-5.0); Bilirubin Direct 0.6 mg/dl (0-0.2); Bilirubin,Total 1.3 mg/dl (0.2-1); Total Protein 4.7 gm/dl (6.4-8.2)
[2020-11-01] MEDS: ASPIRIN 81 MG CHEW PO SCH (10:31)
[2020-11-01] MEDS ORDERED: levoFLOXacin 500 MG TAB PO SCH (11:00)
[2020-11-01] MEDS: levoFLOXacin 750 MG TAB PO SCH (13:06)
[2020-11-01] MEDS ORDERED: POLYETHYLENE (MIRALAX) 17 GM PACK PO STA (14:31)
[2020-11-01] MEDS ORDERED: OPTIRAY 320 100ml IV ONE (14:47)
--- NOTE | 2020-11-01 15:22 | CT Scan Report ---
ABDOMEN AND PELVIS CT WITH IV CONTRAST CT DOSE: 304.50 mGy.cm HISTORY: Elevated LFTs with known hepatic metastasis elevated lfts, liver mets TECHNIQUE: Multiaxial CT images of the abdomen and pelvis were performed following the IV administrat ion of 94 cc of Optiray, A dose lowering technique was utilized adhering to the principles of ALARA. COMPARISON STUDY: Abdominal ultrasound 10/30/2020, CT abdomen and pelvis 09/18/2020, PET CT 07/14/2020, M RI lumbar spine 08/06/2020. FINDINGS: Small moderate layering pleural effusions with right greater than left dependent bibasilar consolidation suggestive of compressive atelectasis. The right pleural effusion has increased in size from comparison. Unchanged right hemidiaphragmatic elevation. No pneumatosis or pneumoperitoneum. Th e imaged inferior cardiac chambers are unremarkable. Coronary artery calcifications. [id number] ca theter distal tip terminates within the right atrium. Unremarkable spleen and pancreas. Lesions of the adrenal glands measure up to 1.7 cm on the right and 1.9 cm on the left. These are new from 07/14/2020 compatible with metastasis. Cholecystectomy. Extens nicole hepatic metastatic disease has mildly progressed from 09/18/2020. Portal vein. Unremarkable kidneys. There is no hydronephrosis. Moderate urinary bladder distention. Uterus appears surgically absent. Atherosclerosis of the aorta without aneurysm. There is mild wall thickening of t he distal stomach and duodenal bulb. Small ill-defined abdominal pelvic ascites is new from compariso n. Moderate fecal retention. Noninflamed appendix. Indeterminate 8 mm nodule of the left lower quadra nt mesentery on image 318 series 2. Bilateral breast implants. Extensive osseous metastatic disease r edemonstrated with subacute to chronic pathologic bilateral rib fractures. No acute pathologic fractu re identified. Cortical thickening of the proximal left femoral diaphysis is suggestive of a healed p athologic fracture. IMPRESSION: 1. Extensive hepatic metastatic disease has progressively worsened from 09/18/2020. 2. Small to moderate layering pleural effusions with new small volume of abdominal pelvic ascites. 3. Bilateral adrenal metastasis. 4. Extensive osseous metastatic disease redemonstrated. 5. Nonspecific mild wall thickening of the distal stomach. 6. Additional findings as above. ACT 112: Negative or not required by law. The above report was generated using voice recognition software. It may contain grammatical, syntax o r spelling errors. Electronically signed by: Tre Farfan M.D. 11/01/2020 3:21 PM
[2020-11-01] MEDS: HEPARIN 100 UNIT/ML 5ML FLUSH FLUSH PRN (16:32)
--- NOTE | 2020-11-01 17:48 | Hospitalist Progress Note ---
Date of Service November 01, 2020 Assessment & Plan (1) Sepsis: Plan: Patient is a 75 y/o female with a history of breast cancer with known metastases to brain and liver, who presented for evaluation of new onset fever, confusion, and expressive aphasia, all of which have resolved since onset. -Patient met SIRS criteria on admission (Temp: 39.6 HR 119, leukocytosis of 14) -Treated with Tylenol and IVF in the ED, fever has since resolved, presently (37) -Unclear etiology but suspect possible bacterial etiology given continued elevation in Procal (2-->5) * UA bland, COVID neg, CT Chest without infiltrate * blood cultures without growth x 48 hours * CT A/P non-revelatory w/ respect to infectious etiology (see#2) -Vanc d/c (MRSA swab negative) -Now on Levaquin, plus continued cefepime, for double pseudomonas coverage -WBC improved at 8, from 11.9 yesterday; continue to monitor -Anticipate d/c on Levaquin PO (2) Metastatic breast cancer: Plan: -To brain, adrenals, bone, and liver -CT A/P today: * Extensive hepatic metastatic disease has progressively worsened from 09/18/2020 * Small to moderate layering pleural effusions with new small volume of abdominal pelvic ascites * Bilateral adrenal metastasis. * Extensive osseous metastatic disease redemonstrated * Nonspecific mild wall thickening of the distal stomach -Currently on Navelbine (day 1, 8, 15) 21-day cycle -First dose on 10/28, plan to continue (3) Abnormal LFTs: Plan: -AST 99, down from 188 yesterday (max of 780 on 10/29) -ALT 164, down from 229 yesterday (max of 496 on 10/29) -Alk phos 208, down from 308 yesterday (max of 510 on 10/29) -likely related to worsening hepatic metastasis found on CT A/P, though rapid rise and fall of LFT values suggest more acute process (meds vs. ischemia) -continue to follow (4) TIA (transient ischemic attack): Plan: -Episodic confusion and expressive aphasia; resolved. -May also be secondary to brain mets. -Patient was seen in the ER last Tuesday (10/24/20) for similar symptoms of confusion and expressive aphasia that resolved similarly. * Unchanged head CT from previous ER visit. No evidence of acute ischemia. * Known history of brain metastasis potential cause of symptoms (vs embolic attack) - is concerned about frequency of stroke-like symptoms and negative workups thus far; sought guidance on care approach in the event of future recurrence * spoke with ; addressed concerns about plan in the event of TIA-like symptom recurrence; discussed plan to involve palliative care * Palliative care consult placed 10/30; met with patient; recommended creating an action/life plan in the event her prognosis continues to worsen * Palliative will continue to follow to further discuss plan of action * updated regarding palliative discussion (5) Constipation: Plan: -last BM 4 days ago -currently on Senokot, Lactulose, Miralax, Docusate bowel regimen -consider soap enema, fecal disimpaction alternatives, should bowel regimen fail to relieve constipation Admission and Anticipated Discharge Date Admission Date: October 30, 2020 Supervising Physician Co-Signing Physician Notes Patient seen and examined independently of PGY-1 Dr. Walls. Agree with history, exam findings, assessment and plan of care as outlined. In brief, Brittney is a 75 year old female with history of metastatic breast cancer admitted with new fever, confusion and expressive aphasia. Today, feels well. No nausea, vomiting. She is concerned about the fact that she has not had a bowel movement in 2 days. Takes Sennakot at home. She has not thought much about future options. She has not discussed this with her ; however appreciates Vital signs and nursing notes reviewed. Nontoxic appearing. Heart with regular rate and rhythm. No edema. Lungs are clear to auscultation. Labs and imaging reviewed. 1. SIRS, possible sepsis but unclear source. Blood cultures without growth x 48 hours. Added levaquin to cefepime for double pseudomonas coverage. Leukocytosis improving. Wonder if with worsening mets (see below), may have caused an inflammatory response and this is not necessarily infectious in nature. 2. Confusion and expressive aphasia. Resolved. Possibly secondary to either TIA vs brain mets. 3. metastatic breast cancer. ok to continue Navelbine on her regular cycle. Repeat CT Abd/Pelvis with increasing mets in the liver, bilateral adrenal mets. 4. elevated LFTs. Higher than what is has been in the past, but trending down. CT Abd/Pelvis with IV contrast showing worsening of hepatic mets, no evidence of hepatic abscess. Some non-specific wall thickening of the distal stomach. 5. Goals of care. Not ready for hospice. Appreciate palliative taking the time to discuss with patient. Dispo: possible discharge tomorrow if continues to do well. Subjective No acute changes overnight. Feels a little fatigued and bit bored. Otherwise, she denies confusion, dysarthria, or focal weakness. Review of Systems Constitutional: as per Subjective / HPI Physical Exam Constitutional: WD/WN, vitals as above Respiratory: Auscultation: + crackles (mild; on right lower lung field) Cardiovascular: RRR, no murmur, no edema Results & Data Results & Data ([facility]) Vital Signs (Past 12 Hours) Vital Signs Temp Pulse Pulse Resp BP Pulse Ox 11/01/20 15:36 36.5 C 92 H 20 132/84 99 11/01/20 15:00 85 11/01/20 11:40 36.8 C 94 H 20 123/78 98 11/01/20 07:13 36.7 C 85 16 116/68 97 11/01/20 07:00 79 Resident Activity Tracking Resident Involvement: Resident Care Provided Care Provided: Adult [facility]
[2020-11-01 19:50] VITALS: O2SAT 97
[2020-11-01] MEDS: DOCUSATE SODIUM 100 MG CAP PO SCH (20:30)
[2020-11-01] MEDS: ACETAMINOPHEN 325 MG TAB PO PRN (23:10)
[2020-11-02] MEDS: ENOXAPARIN INJ 40 MG/0.4 ML SYR SQ SCH (05:42)
[2020-11-02 06:07] LABS: Hematocrit (blood only) 30.2 % (37-47); Hemoglobin 9.8 g/dL (12.0-16.0); Mean Corpuscular Hemoglobin 31.8 pg (25-34); Mean Corpuscular Hgb Conc 32.5 g/dL (32-36); Mean Corpuscular Volume 98.1 fL (80-100); Mean Platelet Volume 10.7 fL (7.4-10.4); Platelet Count 132 K/uL (130-400); RDW Coefficient of Variation 20.1 % (11.5-14.5); RDW Standard Deviation 71.4 fL (36.4-46.3); Red Blood Count 3.08 M/uL (4.2-5.4); White Blood Count 5.02 K/uL (4.8-10.8)
[2020-11-02 06:35] LABS: Albumin Level 1.3 gm/dl (3.4-5.0); BUN Creatinine Ratio 33.8 (10-20); Calcium 7.1 mg/dl (8.5-10.1); Creatinine Clr Calc Pharmacy 120.3 ml/min; Est GFR (African American) 120.8 ml/min; Est GFR (Non-African American) 104.2 ml/min; Potassium 3.8 mmol/L (3.5-5.1)
[2020-11-02 06:38] LABS: Albumin Globulin Ratio 0.4 (0.9-2); Bilirubin,Total 1.2 mg/dl (0.2-1); Globulin 3.1 gm/dl (2.5-4.0); Total Protein 4.4 gm/dl (6.4-8.2)
[2020-11-02] MEDS: fentaNYL 25 MCG/HR TDSY TD SCH (07:19)
[2020-11-02] MEDS: [UNRECOGNIZED DRUG - REMARK] SCH (07:19)
[2020-11-02] MEDS: fentaNYL 12 MCG/HR TDSY TD SCH (07:19)
[2020-11-02] MEDS: GABAPENTIN 600 MG TAB PO SCH ×2 (08:42→14:37)
[2020-11-02] MEDS: FUROSEMIDE 20 MG TAB PO SCH (08:42)
[2020-11-02] MEDS: CETIRIZINE HCL 10 MG TABLET PO SCH (08:42)
[2020-11-02] MEDS: CHECK FENTANYL SCH ×2 (08:43→16:45)
[2020-11-02] MEDS: DOCUSATE SODIUM/SENNA 50/8.6MG TAB PO SCH (08:43)
[2020-11-02] MEDS: DOCUSATE SODIUM 100 MG CAP PO SCH (08:44)
[2020-11-02] MEDS: POTASSIUM CHLORIDE CRTAB 20 MEQ TABCR PO SCH (08:46)
[2020-11-02] MEDS: ASPIRIN 81 MG CHEW PO SCH (08:47)
[2020-11-02] MEDS ORDERED: POLYETHYLENE (MIRALAX) 17 GM PACK PO SCH (09:00)
[2020-11-02 11:53] VITALS: BP 113/76; TEMP 98.2
--- NOTE | 2020-11-02 14:40 | Discharge Summary ---
Date of Service November 02, 2020 Admission HPI Per Admitting Provider Brittney Golden is a pleasant 75yo female with history of metastatic breast cancer s/p 6 cycles of Gemzar/Paclitaxel. Patient with known hepatic mass as well as lytic and sclerotic skeletal lesions and brain metastasis. She had WBR performed in September 2020. She has had rising transaminase levels and had a CT abdomen performed which revealed progression of hepatic disease. She was recently started on Navelbine - first dose administered on 10/28/20. Patient was seen in the ER on 10/24/20 with generalized weakness/trouble ambulating and word finding difficulty. She had a CT of the brain as well as MRI which revealed stable lesions and decrease in vasogenic edema. Symptoms lasted appx 2 hours then resolved. She was started on ASA 81mg daily for possible TIA. Patient presents today with similar symptoms. She had transient word finding problems as well as mild confusion. Febrile in the ER at 39.6 and tachycardic. Patient states that she "feels pretty good now" after receiving Tylenol and resolution of fever as well as IVF. She denies BLAS, visual changes, cough, SOB, chest pain, abdominal pain, nausea, vomiting, diarrhea or constipation. Denies dysuria, rashes, lesions, joint pain or oral lesions. She does report decreased energy and poor sleep. No additional complaints at this time. ER Course: Tylenol 1gm, Cefepime 2gm, NSS Principal Diagnosis TIA with sepsis Discharge Exam Constitutional + frail appearing and comfortable Respiratory normal respiratory effort Auscultation: + crackles Cardiovascular RRR, no murmur, no edema Extremities: no edema Gastrointestinal (Abdomen) normal bowel sounds, soft, nontender, no hepatosplenomegaly Discharge Data Allergies Allergy/AdvReac Type Severity Reaction Status Date / Time chlorhexidine Allergy Intermediate ITCHING Verified 10/29/20 23:11 cephalexin Allergy Mild SICK Verified 10/29/20 23:11 edetic acid Allergy Mild nausea Verified 10/29/20 23:11 propylene glycol Allergy Mild nausea Verified 10/29/20 23:11 regadenoson Allergy Mild nausea Verified 10/29/20 23:11 codeine AdvReac Intermediate N/V Verified 10/29/20 23:11 Consultations 10/30/20 00:07 ED Decision to Admit Stat 10/30/20 17:51 Consult Palliative Care Routine Ordered Studies 10/29/20 23:38 CT head/brain wo con Urgent 10/30/20 08:00 US liver Routine 11/01/20 14:33 CT abd pelvis IV con only Routine Hospital Course (1) Sepsis: Patient is a 75 y/o female with a history of breast cancer with known metastases to brain and liver, who presented for evaluation of new onset fever, confusion, and expressive aphasia, all of which have resolved since onset. -Patient met SIRS criteria on admission (Temp: 39.6 HR 119, leukocytosis of 14) -Treated with Tylenol and IVF in the ED, fever has since resolved, presently (37) -Unclear etiology but suspect possible bacterial etiology given continued elevation in Procal (2-->5) * UA bland, COVID neg, CT Chest without infiltrate * blood cultures without growth x 48 hours * CT A/P non-revelatory w/ respect to infectious etiology (see#2) -Vanc d/c (MRSA swab negative) -Now on Levaquin, plus continued cefepime, for double pseudomonas coverage -WBC improved at 8, from 11.9 yesterday; continue to monitor -Discharge on Levaquin PO 750 mg once daily for 7 days (2) Metastatic breast cancer: -To brain and liver -CT A/P today: * Extensive hepatic metastatic disease has progressively worsened from 09/18/2020 * Small to moderate layering pleural effusions with new small volume of abdominal pelvic ascites * Bilateral adrenal metastasis. * Extensive osseous metastatic disease redemonstrated * Nonspecific mild wall thickening of the distal stomach -Currently on Navelbine (day 1, 8, 15) 21-day cycle -First dose on 10/28, plan to continue. -Next dose 11/04 (3) Abnormal LFTs: -AST 76, down from 99 yesterday, 188 on 10/31 (max of 780 on 10/29) -ALT 128, down from 164 yesterday, 229 on 10/31 (max of 496 on 10/29) -Alk phos 278, down from 282 yesterday 308 on 10/31 (max of 510 on 10/29) -likely related to worsening hepatic metastasis found on CT A/P, though rapid rise and fall of LFT values suggest more acute process (meds vs. ischemia) (4) TIA (transient ischemic attack): -Episodic confusion and expressive aphasia; resolved. -May also be secondary to brain mets. -Patient was seen in the ER last Tuesday (10/24/20) for similar symptoms of confusion and expressive aphasia that resolved similarly. * Unchanged head CT from previous ER visit. No evidence of acute ischemia. * Known history of brain metastasis potential cause of symptoms (vs embolic attack) - is concerned about frequency of stroke-like symptoms and negative workups thus far; sought guidance on care approach in the event of future recurrence * spoke with ; addressed concerns about plan in the event of TIA-like symptom recurrence; discussed plan to involve palliative care * Palliative care consult placed 10/30; met with patient; recommended creating an action/life plan in the event her prognosis continues to worsen * Palliative will continue to follow to further discuss plan of action * updated regarding palliative discussion (5) Constipation: -last BM 4 days ago -currently on Senokot, Lactulose, Miralax, Docusate bowel regimen Total Time Total Time Spent Total Time Spent (In Minutes): 20 Discharge Plan Discharge Items Patient Disposition: Home - Self-Care Reason For Visit: CONFUSION, FEVER Discharge Diagnosis: TIA with sepsis Activity: Per Instructions section Non-emergency contact: Primary Care Provider and Oncologist Call non-emergency contact if: your symptoms worsen, your pain is unusual for you and you have a fever Follow-up/Referrals: Sisi Chin CRNP [Primary Care Provider] - 11/18/20 2:00 pm Diet: Regular Addtl Attending Provider Instructions: You were admitted to the hospital for a transient ischemic attack (TIA) with sepsis. You were treated with antibiotics. A discharge summary will be sent to your primary care physician to ensure continuity of care. Please bring this discharge summary with you to your next office appointment so that your provider can review it at that time. Follow-up appointments: You have an appointment with Sisi Chin on 11/18/20 at 2:00 PM. If you are unable to make this appointment, or have any other questions, their office can be reached at [phone]. Keep all your follow-up appointments as already scheduled. If you cannot make an appointment, notify your provider. Medications: Your medication list has been reviewed and reconciled upon discharge to ensure accuracy and continuity of care. An updated list of all your medications is included with your hospital discharge paperwork. Please review this list closely, and make note of any changes. * We sent a new medication called Levofloxacin to your pharmacy. Take Levofloxacin (750 mg) one tablet daily for 7 days. Take your medications as instructed; do not skip a dose of your medicines. Make sure all of your doctors know every medicine you are taking (including aipj-zrb-qpzlhyr medicines, vitamins, and supplements). Call your primary care provider before taking any new medicines (including qjpz-ufg-trkuvhb medicines, vitamins, and supplements), because some of these may interact with your current medications, or may make your symptoms worse. Tell your primary care provider if you cannot afford your medications. CONTACT YOUR PRIMARY CARE PROVIDER if you experience any of the following: Fever, or chills Confusion or disorientation Difficulty following your treatment plan, or difficulty taking medications CALL 911 OR GO TO THE EMERGENCY DEPARTMENT if you experience any of the following: Sudden, severe abdominal pain or nausea/vomiting Severe chest pain, or chest pain that radiates (moves) to your jaw or arm Sudden, severe shortness of breath or difficulty breathing Thank you for allowing us to participate in your care. Pending Studies at Discharge: No Stand-Alone Forms: My [facility], Smoking Cessation Medications and DC Order Prescriptions: New levofloxacin 750 mg tablet 750 mg PO DAILY 7 Days Qty: 7 RF: 0 Continued fentanyl 25 mcg/hr patch 72 hour 1 patch transdermal Q72H RF: 0 prochlorperazine maleate 10 mg tablet 10 mg PO Q6H PRN (Reason: Nausea And Vomiting) RF: 0 PreserVision AREDS-2 [id number] hj-kuvx-yi-mg capsule 1 tab PO BIDM RF: 0 ondansetron HCl 8 mg tablet 8 mg PO DAILY PRN (Reason: Nausea And Vomiting) RF: 0 B Complex Plus Vitamin C 60-03-70-5-300 mg Capsule 1 cap PO DAILY RF: 0 cetirizine 10 mg Tablet 10 mg PO DAILY RF: 0 furosemide 20 mg tablet 20 mg PO DAILY RF: 0 nutritional supplement-fiber Liquid 2 ea PO BIDM RF: 0 potassium chloride 20 mEq tablet extended release 20 meq PO QAM Qty: 0 RF: 0 sennosides-docusate sodium [Senokot-S] 8.6-50 mg Tablet 1 tab-cap PO BID RF: 0 gabapentin 600 mg tablet 600 mg PO TID RF: 0 tramadol 50 mg Tablet 50 mg PO Q6H PRN (Reason: Pain, Moderate) RF: 0 calcium carbonate 600 mg calcium (1,500 mg) Tablet 600 mg PO QDD RF: 0 aspirin 81 mg Tablet,Chewable 81 mg PO DAILY RF: 0 oxycodone 5 mg Tablet 5 - 10 mg PO Q6H PRN (Reason: MOD TO SEVERE PAIN) RF: 0 lactulose 10 gram/15 mL solution 15 ml PO BID PRN (Reason: Constipation) RF: 0 fentanyl 12 mcg/hr patch 72 hour 12 mcg transdermal Q72H RF: 0 Discharge Orders: Discharge Order (Routine); Ordered 11/02/20 Ordered By: Clark Walls Admission Data Admit Date/Time: 10/30/20 01:23 Attending Provider: Goto,Kiyomi K. Admit Provider: Dot Chin Primary Care Provider: Sisi Chin. Other Providers: Dot Chin ; Tanna Velásquez. Other Interventions: Discharge Summary Assessment (RN) Last Done: 11/02/20 14:39 Supervising Physician Co-Signing Physician Notes Patient seen and examined independently of PGY-1 Dr. Walls. Agree with history, exam findings, assessment and plan of care as outlined. In brief, Brittney is a 75 year old female with history of metastatic breast cancer admitted with new fever, confusion and expressive aphasia. Feels well. No concerns. No fevers. No episodes of confusion since admission. Vital signs and nursing notes reviewed. Nontoxic appearing. Heart with regular rate and rhythm. No edema. Lungs are clear to auscultation. Labs and imaging reviewed. 1. SIRS, possible sepsis but unclear source. Blood cultures without growth x 3 days. Wonder if with worsening mets (see below), may have caused an inflammatory response and this is not necessarily infectious in nature. Will discharge with Levaquin course. 2. Confusion and expressive aphasia. Resolved. Possibly secondary to either TIA vs brain mets. 3. metastatic breast cancer. ok to continue Navelbine on her regular cycle. Repeat CT Abd/Pelvis with increasing mets in the liver, bilateral adrenal mets. 4. elevated LFTs. Higher than what is has been in the past, but trending down. CT Abd/Pelvis with IV contrast showing worsening of hepatic mets, no evidence of hepatic abscess. Some non-specific wall thickening of the distal stomach. 5. Goals of care. Not ready for hospice. Appreciate palliative taking the time to discuss with patient. Dispo: discharge home today. I personally spent 35 minutes discharge planning for this patient. Resident Activity Tracking Resident Involvement: Resident Care Provided Care Provided: Adult Hospital Medicine
[2020-11-02 15:18] VITALS: PULSE 96
== END 2020-11-02 17:05 | disposition home or self-care (01) | DRG 872 ==
LOC: ED 22:39 → SUATTDRO 10-30 01:23 → 3N 10-30 01:23 → 2W 10-30 18:49

== ENCOUNTER 2020-11-12 11:08 | Inpatient (IN) ==
[2020-11-12 12:20] LABS: Hematocrit (blood only) 38.2 % (37-47); Hemoglobin 12.2 g/dL (12.0-16.0); Mean Corpuscular Hemoglobin 32.4 pg (25-34); Mean Corpuscular Hgb Conc 31.9 g/dL (32-36); Mean Corpuscular Volume 101.3 fL (80-100); Mean Platelet Volume 9.9 fL (7.4-10.4); Platelet Count 205 K/uL (130-400); RDW Coefficient of Variation 19.6 % (11.5-14.5); RDW Standard Deviation 71.6 fL (36.4-46.3); Red Blood Count 3.77 M/uL (4.2-5.4); White Blood Count 13.16 K/uL (4.8-10.8)
[2020-11-12] MEDS ORDERED: SODIUM CHLORIDE 0.9% 500 ML IV ONE (12:38)
--- NOTE | 2020-11-12 12:38 | Emergency Department Note ---
History of Present Illness General Chief complaint: Tachycardia Time Seen by Provider: 11/12/20 12:16 Source: patient and family (Daughter who is at the bedside) Mode of arrival: ambulatory Limitations: no limitations History of Present Illness This patient is a 75-year-old female with history of metastatic breast cancer to the bones liver and brain, comes in after having increasing weakness. She is supposed be on chemo but is unable to have chemo for last 2 to 3 weeks secondary to being too weak. She had episodes of confusion like today she got confused and had a hard time with getting the words out her daughter says she has had s everal episodes like this. Her weakness has been increasing. No fall. No fever or chills. She felt like she had abdominal distention earlier but now feels like it is better. No blood in her stool she is had some loose stools. She has no history of paracentesis before. No headache. No change in vision. She has a Covid that vaccine x2. No chest pain or shortness of breath. The daughter says they been trying to get her in to [facility] but were denied Home Medications Medication Instructions Recorded Confirmed Type prochlorperazine maleate 10 mg 10 mg PO Q6H PRN 10/25/19 11/12/20 History tablet vit C 250 mg-vit E 90 mg-zinc 40 1 tab PO BIDM 10/25/19 11/12/20 History mg-copper 1 pf-icvgaz-gskulf capsule (PreserVision AREDS-2) cetirizine 10 mg tablet 10 mg PO DAILY 08/07/20 11/12/20 History ondansetron HCl 8 mg tablet 8 mg PO DAILY PRN 08/07/20 11/12/20 History vitamin B comp and C no.3 15 mg-10 1 cap PO DAILY 08/07/20 11/12/20 History mg-50 mg-5 mg-300 mg capsule (B Complex Plus Vitamin C) furosemide 20 mg tablet 20 mg PO DAILY 09/14/20 11/12/20 History nutritional supplement-fiber oral 2 ea PO BIDM 09/14/20 11/12/20 History liquid potassium chloride 20 mEq 20 meq PO QAM #0 tab 09/18/20 11/12/20 Rx tablet,extended release sennosides 8.6 mg-docusate sodium 1 tab-cap PO BID 10/24/20 11/12/20 History 50 mg tablet (Senokot-S) aspirin 81 mg chewable tablet 81 mg PO DAILY 10/29/20 11/12/20 History calcium carbonate 600 mg calcium 600 mg PO QDD 10/29/20 11/12/20 History (1,500 mg) tablet fentanyl 12 mcg/hr transdermal 12 mcg TRANSDERMAL Q72H 10/29/20 11/12/20 History patch gabapentin 600 mg tablet 600 mg PO TID 10/29/20 11/12/20 History lactulose 10 gram/15 mL oral 15 ml PO BID PRN 10/29/20 11/12/20 History solution oxycodone 5 mg tablet 5 - 10 mg PO Q6H PRN 10/29/20 11/12/20 History tramadol 50 mg tablet 50 mg PO Q6H PRN 10/29/20 11/12/20 History Allergies Allergy/AdvReac Type Severity Reaction Status Date / Time chlorhexidine Allergy Intermediate ITCHING Verified 10/29/20 23:11 cephalexin Allergy Mild SICK Verified 10/29/20 23:11 edetic acid Allergy Mild nausea Verified 10/29/20 23:11 propylene glycol Allergy Mild nausea Verified 10/29/20 23:11 regadenoson Allergy Mild nausea Verified 10/29/20 23:11 codeine AdvReac Intermediate N/V Verified 10/29/20 23:11 Past Med/Surg History Medical History Acoustic neuroma Bone pain Brain metastases BRCA1 positive GERD (gastroesophageal reflux disease) Hearing deficit History of breast cancer 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 Recheck in 6 months 11/13/2012 biopsy recommended Status post bilateral biopsies revealing invasive ductal carcinoma Status post bilateral mastectomies revealing invasive ductal carcinoma on the right [id number] Invasive ductal carcinoma on the left [id number](i+) M0 Status post systemic chemotherapy with 4 cycles of Taxol and Cytoxan Participation in REATA study Status post completion of radiation therapy 03/15/2014 received 6120 cGy to the left chest wall, and axilla" Seasonal allergic rhinitis Surgical History History of breast biopsy History of colonoscopy History of dilatation and curettage History of esophagogastroduodenoscopy (EGD) History of hysterectomy with bilateral oophorectomy History of loop electrosurgical excision procedure (LEEP) History of myringotomy History of tooth extraction History of total left knee replacement History of tubal ligation Hx of cholecystectomy Hx of fracture of femur WITH REPAIR TO LEFT Hx of tonsillectomy Port-A-Cath in place (04/09/19) Insertion of Mediport Left Cephalic vein Dr. Gabriel 04/09/19 S/P bilateral mastectomy (07/06/13) Family History Other Breast cancer Melanoma Denies family history of Ovarian cancer Colorectal cancer Social History Smoking Status: Never smoker Second Hand Exposure: No; Hx Alcohol Use: No Hx Substance Use: No Preferred Language: Faroese Communication Ability: Effective Visual Impairment: No Limitations Tree Chipper Required: No Beliefs That Will Affect Care: None marital status: Current Living Situation: Spouse Current Living Situation Comment: Lives with Feels Safe at Home: Yes Dental Care, Regularly: Yes Assistive Devices: Walker and Wheelchair Review of Systems A total of 10 systems reviewed and were otherwise negative Physical Exam Vital Signs Vital Signs - 24 hr 11/12/20 11:24 11/12/20 11:30 11/12/20 11:45 Temperature 37.0 C Temperature Source Oral Pulse Rate 122 H 119 H 118 H Pulse Rate from SpO2 Sensor 121 H 119 H 117 H Pulse Rhythm Regular Pulse Strength Normal Respiratory Rate Respiratory Effort / Characteristics Non-Labored Respiratory Depth Normal Respiratory Pattern Regular Blood Pressure 132/89 132/91 124/92 Blood Pressure Mean 103 104 102 Blood Pressure Position Lying Pulse Oximetry 96 96 96 Oxygen Delivery Method Room Air Room Air Room Air Sepsis Recent Fever Within 48 Hours No Sepsis New/Unexplained Change in Mental Status N/A Sepsis Action Taken by Nursing No Action Required 11/12/20 12:00 11/12/20 12:15 11/12/20 12:30 Temperature Temperature Source Pulse Rate 119 H 115 H 117 H Pulse Rate from SpO2 Sensor 127 H 116 H Pulse Rhythm Pulse Strength Respiratory Rate 23 21 20 Respiratory Effort / Characteristics Respiratory Depth Respiratory Pattern Blood Pressure 135/89 143/87 H 134/93 Blood Pressure Mean 104 105 106 Blood Pressure Position Pulse Oximetry 95 94 95 Oxygen Delivery Method Room Air Room Air Room Air Sepsis Recent Fever Within 48 Hours Sepsis New/Unexplained Change in Mental Status Sepsis Action Taken by Nursing 11/12/20 13:00 11/12/20 13:22 11/12/20 13:30 Temperature Temperature Source Pulse Rate 104 H Pulse Rate from SpO2 Sensor 107 H 104 H Pulse Rhythm Pulse Strength Respiratory Rate 20 Respiratory Effort / Characteristics Non-Labored Respiratory Depth Respiratory Pattern Blood Pressure 126/78 Blood Pressure Mean 94 Blood Pressure Position Pulse Oximetry 94 93 Oxygen Delivery Method Room Air Room Air Sepsis Recent Fever Within 48 Hours Sepsis New/Unexplained Change in Mental Status Sepsis Action Taken by Nursing 11/12/20 13:45 11/12/20 14:00 11/12/20 14:15 Temperature Temperature Source Pulse Rate 103 H 108 H 103 H Pulse Rate from SpO2 Sensor 103 H 106 H 103 H Pulse Rhythm Pulse Strength Respiratory Rate 17 19 18 Respiratory Effort / Characteristics Respiratory Depth Respiratory Pattern Blood Pressure 125/87 137/75 134/97 Blood Pressure Mean 99 95 109 Blood Pressure Position Pulse Oximetry 96 94 95 Oxygen Delivery Method Room Air Room Air Room Air Sepsis Recent Fever Within 48 Hours Sepsis New/Unexplained Change in Mental Status Sepsis Action Taken by Nursing General: Well developed well nourished chronically ill-appearing older female who appears in no acute distress, breathing comfortably on room air. Normal speech HEENT: Normal cephalic atraumatic. Pupils are equal round and reactive to light. Extraocular movements are intact. Oropharynx is pink with moist mucous membranes. No swelling of the mouth lips or tongue. Neck: Supple with a midline trachea. No meningeal signs or stiffness, no JVD or bruits. No Stridor. Chest: Clear to auscultation bilaterally. No wheezes or rhonchi. No increased work of breathing. Heart: Regular rate and rhythm without murmurs or gallops. Abdomen: Soft, nontender, mildly distended distended without rebound guarding or rigidity. Extremities: No cyanosis clubbing or edema. No calf tenderness or assymetry Spine/Back. Non tender to palpation. No CVA tenderness Skin: Good turgor without rashes. Neurologic exam: Cranial nerves two through 12 are intact. Her lower extremities seem weak bilaterally Course Administered Medications Discontinued Medications Dexamethasone Sodium Phosphate (DexamethasonePf 10 Mg/Ml Vial) 6 mg IV NOW ONE Stop: 11/12/20 13:21 Last Admin: 11/12/20 14:22 Dose: 6 mg Documented by: [id number] Sodium Chloride (Nss) 500 mls @ 999 mls/hr IV .Q31M ONE Stop: 11/12/20 13:08 Last Infusion: 11/12/20 14:47 Dose: 0 mls/hr Documented by: [id number] Admin: 11/12/20 13:10 Dose: 999 mls/hr Documented by: [id number] Cefepime HCl (Maxipime) 20 mls @ 5 mls/min IV NOW STA Stop: 11/12/20 13:33 Last Admin: 11/12/20 14:22 Dose: 5 mls/min Documented by: [id number] Medical Decision Making Differential Diagnosis Complication related to metastatic breast cancer, intracranial process, CVA, intra-abdominal process, ascites, infection, dehydration, arrhythmia, electrolyte or metabolic abnormality Medical Records Attestation: I reviewed the patient's medical records. Home Medications Current Medication List: was personally reviewed by me Laboratory Data Attestation: I reviewed the patient's lab results. Result diagrams: 11/12/20 12:10 11/12/20 12:10 Lab Results 11/12/20 11/12/20 11/12/20 Range/Units 12:10 12:10 12:10 WBC 13.16 H (4.8-10.8) K/uL RBC 3.77 L (4.2-5.4) M/uL Hgb 12.2 (12.0-16.0) g/dL Hct 38.2 (37-47) % MCV 101.3 H (80-100) fL MCH 32.4 (25-34) pg MCHC 31.9 L (32-36) g/dL RDW Std Deviation 71.6 H (36.4-46.3) fL RDW Coeff of Jermaine 19.6 H (11.5-14.5) % Plt Count 205 (130-400) K/uL MPV 9.9 (7.4-10.4) fL Immature Gran % (Auto) 2.7 % Neut % (Auto) 81.7 % Lymph % (Auto) 11.3 % [place] % (Auto) 4.0 % Eos % (Auto) 0.1 % Baso % (Auto) 0.2 % Neut # (Auto) 10.76 H (1.4-6.5) K/uL Lymph # (Auto) 1.49 (1.2-3.4) K/uL [place] # (Auto) 0.53 (0.11-0.59) K/uL Eos # (Auto) 0.01 (0-0.5) K/uL Baso # (Auto) 0.02 (0-0.2) K/uL Immature Gran # (Auto) 0.35 H (0.00-0.02) K/uL PT 13.7 H (9.0-12.0) Seconds INR 1.4 H (0.9-1.1) APTT 33.3 H (21.0-31.0) Seconds PTT Ratio 1.3 Sodium 134 L (136-145) mmol/L Potassium 3.4 L D (3.5-5.1) mmol/L Chloride 99 (98-107) mmol/L Carbon Dioxide 24 (21-32) mmol/L Anion Gap 11.0 (3-11) BUN 16 (7-18) mg/dl Creatinine 0.66 (0.6-1.2) mg/dl Est Cr Clr Drug Dosing 71.1 ml/min Est GFR ( Amer) 101.6 ml/min Est GFR (Non-Af Amer) 87.6 ml/min BUN/Creatinine Ratio 23.7 H (10-20) Glucose 180 H (70-99) mg/dl Lactate (0.4-2.0) mmol/L Calcium 8.5 (8.5-10.1) mg/dl Magnesium 1.9 (1.8-2.4) mg/dl Total Bilirubin 1.0 (0.2-1) mg/dl AST 358 H (15-37) U/L ALT 157 H (12-78) U/L Alkaline Phosphatase 368 H (45-117) U/L Ammonia (11-32) umol/L Troponin I < 0.015 (0-0.045) ng/ml Total Protein 4.8 L (6.4-8.2) gm/dl Albumin 1.6 L (3.4-5.0) gm/dl Globulin 3.2 (2.5-4.0) gm/dl Albumin/Globulin Ratio 0.5 L (0.9-2) TSH 4.060 (0.300-4.500) uIu/ml COVID-19 Eval Order SARS-CoV-2 (PCR) (Negative) 11/12/20 11/12/20 11/12/20 Range/Units 12:59 12:59 13:25 WBC (4.8-10.8) K/uL RBC (4.2-5.4) M/uL Hgb (12.0-16.0) g/dL Hct (37-47) % MCV (80-100) fL MCH (25-34) pg MCHC (32-36) g/dL RDW Std Deviation (36.4-46.3) fL RDW Coeff of Jermaine (11.5-14.5) % Plt Count (130-400) K/uL MPV (7.4-10.4) fL Immature Gran % (Auto) % Neut % (Auto) % Lymph % (Auto) % [place] % (Auto) % Eos % (Auto) % Baso % (Auto) % Neut # (Auto) (1.4-6.5) K/uL Lymph # (Auto) (1.2-3.4) K/uL [place] # (Auto) (0.11-0.59) K/uL Eos # (Auto) (0-0.5) K/uL Baso # (Auto) (0-0.2) K/uL Immature Gran # (Auto) (0.00-0.02) K/uL PT (9.0-12.0) Seconds INR (0.9-1.1) APTT (21.0-31.0) Seconds PTT Ratio Sodium (136-145) mmol/L Potassium (3.5-5.1) mmol/L Chloride (98-107) mmol/L Carbon Dioxide (21-32) mmol/L Anion Gap (3-11) BUN (7-18) mg/dl Creatinine (0.6-1.2) mg/dl Est Cr Clr Drug Dosing ml/min Est GFR ( Amer) ml/min Est GFR (Non-Af Amer) ml/min BUN/Creatinine Ratio (10-20) Glucose (70-99) mg/dl Lactate 4.2 H* (0.4-2.0) mmol/L Calcium (8.5-10.1) mg/dl Magnesium (1.8-2.4) mg/dl Total Bilirubin (0.2-1) mg/dl AST (15-37) U/L ALT (12-78) U/L Alkaline Phosphatase (45-117) U/L Ammonia 51.7 H (11-32) umol/L Troponin I (0-0.045) ng/ml Total Protein (6.4-8.2) gm/dl Albumin (3.4-5.0) gm/dl Globulin (2.5-4.0) gm/dl Albumin/Globulin Ratio (0.9-2) TSH (0.300-4.500) uIu/ml COVID-19 Eval Order Covid19 at [facility] SARS-CoV-2 (PCR) (Negative) 11/12/20 Range/Units 13:25 WBC (4.8-10.8) K/uL RBC (4.2-5.4) M/uL Hgb (12.0-16.0) g/dL Hct (37-47) % MCV (80-100) fL MCH (25-34) pg MCHC (32-36) g/dL RDW Std Deviation (36.4-46.3) fL RDW Coeff of Jermaine (11.5-14.5) % Plt Count (130-400) K/uL MPV (7.4-10.4) fL Immature Gran % (Auto) % Neut % (Auto) % Lymph % (Auto) % [place] % (Auto) % Eos % (Auto) % Baso % (Auto) % Neut # (Auto) (1.4-6.5) K/uL Lymph # (Auto) (1.2-3.4) K/uL [place] # (Auto) (0.11-0.59) K/uL Eos # (Auto) (0-0.5) K/uL Baso # (Auto) (0-0.2) K/uL Immature Gran # (Auto) (0.00-0.02) K/uL PT (9.0-12.0) Seconds INR (0.9-1.1) APTT (21.0-31.0) Seconds PTT Ratio Sodium (136-145) mmol/L Potassium (3.5-5.1) mmol/L Chloride (98-107) mmol/L Carbon Dioxide (21-32) mmol/L Anion Gap (3-11) BUN (7-18) mg/dl Creatinine (0.6-1.2) mg/dl Est Cr Clr Drug Dosing ml/min Est GFR ( Amer) ml/min Est GFR (Non-Af Amer) ml/min BUN/Creatinine Ratio (10-20) Glucose (70-99) mg/dl Lactate (0.4-2.0) mmol/L Calcium (8.5-10.1) mg/dl Magnesium (1.8-2.4) mg/dl Total Bilirubin (0.2-1) mg/dl AST (15-37) U/L ALT (12-78) U/L Alkaline Phosphatase (45-117) U/L Ammonia (11-32) umol/L Troponin I (0-0.045) ng/ml Total Protein (6.4-8.2) gm/dl Albumin (3.4-5.0) gm/dl Globulin (2.5-4.0) gm/dl Albumin/Globulin Ratio (0.9-2) TSH (0.300-4.500) uIu/ml COVID-19 Eval Order SARS-CoV-2 (PCR) NEGATIVE (Negative) Imaging Data Attestation: I personally reviewed and interpreted this imaging study as follows: My Impression: Chest x-raythere are some effusions in the bases as well as bilateral haziness/infiltrates/atelectasis Radiologist's Impression: Head CT 11/12/20 12:32 CT OF THE HEAD WITHOUT CONTRAST CLINICAL HISTORY: Weakness. Confusion. History of metastatic breast cancer. COMPARISON STUDY: MRI of the brain November 03, 2020. Head CT October 30, 2020. TECHNIQUE: Helical axial images of the head were obtained without IV contrast. Automated exposure control was utilized for the study. A dose lowering technique was utilized adhering to the principles of ALARA. FINDINGS: No acute intracranial hemorrhage, midline shift or mass effect is present. Several metastases are again noted. These include a right frontal lobe lesion which was shown on prior CT and MRI. The extent of vasogenic edema measures 2.7 cm. This has increased since head CT of October 30, 2020 when it measured 2.1 cm. Edema associated with a right cerebellar metastasis has also increased. Appearance of a left upper temporal metastasis is unchanged. The smaller lesions shown on MRI are not evident by CT. Left cerebellopontine angle lesion extending into the internal auditory canal is better depicted on MRI as well. A few sclerotic metastases within the skull base are again noted. These are unchanged. IMPRESSION: 1. Mild interval increase in vasogenic edema associated with the right frontal lobe and right cerebellar hemisphere metastases since head CT of October 30, 2020. Otherwise, no change in appearance of the brain, as described above. 2. No change in several skull base sclerotic metastases. ACT 112: Negative or not required by law. Electronically signed by: Jay Jay Roldan M.D. 11/12/2020 1:06 PM Abdomen/Pelvis CT 11/12/20 12:38 CT SCAN OF THE ABDOMEN AND PELVIS WITHOUT IV CONTRAST CLINICAL HISTORY: Abdominal distention. Breast cancer. COMPARISON STUDY: Abdominal CT dated 11/01/2020. TECHNIQUE: CT scan of the abdomen and pelvis is performed from the lung bases to the proximal femora. Images are reviewed in the axial, sagittal, and coronal planes. IV contrast was not administered for this examination. Note that the examination was performed in suboptimal fashion without oral and IV contrast. A dose lowering technique was utilized adhering to the principles of ALARA. CT DOSE: 1132.83 mGy.cm FINDINGS: Lung bases: Degenerative a central venous infusion port is seen at the cavoatrial junction. The heart is normal in size and without pericardial effusion. There are calcifications of the coronary arteries and mitral annulus. There are small to moderate pleural effusions with bibasilar atelectasis. Bilateral breast implants are in place. Liver: The unenhanced liver is enlarged and heterogeneous, measuring 21 cm in length. There is no intrahepatic biliary ductal dilatation. Multifocal hepatic m etastatic disease is not significantly changed from 11/01/2020. Gallbladder: Surgically absent noting clips in the gallbladder fossa. Spleen: Normal in size and attenuation. Pancreas: The unenhanced pancreas is moderately atrophic and grossly unremarkable. Adrenal glands: Bilateral adrenal nodules measure up to 2.6 cm are unchanged. Kidneys: The unenhanced kidneys are normal in size and without hydronephrosis. There are no renal calculi identified. There is no evidence of contour deforming renal mass lesion. Abdominal vasculature: The abdominal aorta is normal in course and caliber noting moderate atherosclerotic calcification. Bowel: There is moderate constipation. No bowel obstruction is seen. The appendix is well-visualized and normal. Peritoneum: There is trace perihepatic and perisplenic ascites, as well as a small volume of ascites in the pelvis. No intraperitoneal free air is identified. There is a small fat-containing umbilical hernia. Lymphadenopathy: None. Pelvic viscera: The bladder is distended but otherwise normal in appearance. The uterus is surgically absent. No adnexal lesion is seen. Skeletal structures: The skeletal structures are osteopenic. Multifocal/diffuse mixed lytic/blastic disease has not significantly changed. There are is a a compression deformity of T11 is unchanged, as are healed bilateral rib fractures. Soft tissues: There is body wall edema. IMPRESSION: 1. Findings of multifocal osseous metastatic disease, multifocal hepatic metastatic disease, and adrenal metastases have not significantly changed from 11/01/2020. 2. Small to moderate pleural effusions are unchanged. 3. There is body wall edema and a small volume of abdominopelvic ascites. This is similar to previous. 4. Moderate constipation. 5. Additional findings as above. Electronically signed by: Jose Moore M.D. 11/12/2020 1:42 PM Chest X-Ray 11/12/20 13:30 SINGLE VIEW CHEST CLINICAL HISTORY: Tachycardia FINDINGS: An AP, portable, upright chest radiograph is compared to study dated 10/29/2020. Correlation is made with chest CT dated 08/10/2020. A left subclavian central venous infusion port is in place. The cardiomediastinal silhouette is unremarkable noting atherosclerotic calcification of the thoracic aorta. There are layering pleural effusions with bibasilar consolidation. No pneumothorax is seen. The skeletal structures are osteopenic. There are healed bilateral rib fractures. No osseous metastatic disease is not well-visualized by x-ray. Surgical clips are seen in the axillae. IMPRESSION: Layering pleural effusions with bibasilar consolidation. ACT 112: Negative or not required by law. Electronically signed by: Jose Moore M.D. 11/12/2020 2:06 PM ECG Data Attestation: I personally reviewed and interpreted this ECG as follows: Indication: + tachycardia Rate (beats per minute): 122 Rhythm: + sinus tachycardia ECG Intervals/blocks: + Normal QRS, + Normal QT and + Normal GA ECG [place]: + Normal ECG ST segments: + T-wave inversions ECG Findings: no PACs or no PVCs Comparison ECG Date: from (10/29/20) Change: no significant change MDM Narrative This patient comes in as described above. She was placed in room before. She is here for treatment and evaluation of weakness and tachycardia. She has metastatic breast cancer. She has had increasing lower extremity edema as well. She is at increased abdominal distention at times that she is episodes of confusion. She looks better at present. She has had generalized weakness and decline. IV access with established, EKG, chest x-ray CAT scan of her head and abdomen were ordered and she was further reassessed. She was given a 500 cc normal saline bolus. Given her generalized fluid overload I was judicious with the fluids given she is also hemodynamically stable this did help her heart rate came down to just above 100. EKG shows sinus tachycardia without ischemic changes. Her lactic acid was found to be elevated that could be elevated with infection but all other multiple etiologies. CAT scan of her head shows metastases which have increased edema she was given Decadron 6 mg IV. She was given cefepime IV as well for broad-spectrum antibiotic coverage. Her ammonia is also mildly elevated which could cause some of her symptoms as well. I do think she needs to be admitted for further treatment evaluation of the consult Dr. Lemus to see her in ER for these measures. Continuous cardiac monitoring: Orders placed in EMR for continuous vehicle monitor technician. Upon my interpretation the patient was noted to be in sinus tachycardia with a rate of 110. Impression & Plan Vasogenic brain edema, Metastatic breast cancer, Weakness, Pleural effusion, Elevated lactic acid level, Lab test negative for COVID-19 virus Discharge Plan Visit Data Chief Complaint: Tachycardia ED Provider: Louis Cobb Discharge Problem: Vasogenic brain edema, Metastatic breast cancer, Weakness, Pleural effusion, Elevated lactic acid level, Lab test negative for COVID-19 virus Forms Stand Alone Forms: [facility] Prescriptions Prescriptions: No Action prochlorperazine maleate 10 mg tablet 10 mg PO Q6H PRN (Reason: Nausea And Vomiting) RF: 0 PreserVision AREDS-2 [id number] al-jfml-go-mg capsule 1 tab PO BIDM RF: 0 ondansetron HCl 8 mg tablet 8 mg PO DAILY PRN (Reason: Nausea And Vomiting) RF: 0 B Complex Plus Vitamin C [id number] mg Capsule 1 cap PO DAILY RF: 0 cetirizine 10 mg Tablet 10 mg PO DAILY RF: 0 furosemide 20 mg tablet 20 mg PO DAILY RF: 0 nutritional supplement-fiber Liquid 2 ea PO BIDM RF: 0 potassium chloride 20 mEq tablet extended release 20 meq PO QAM Qty: 0 RF: 0 sennosides-docusate sodium [Senokot-S] 8.6-50 mg Tablet 1 tab-cap PO BID RF: 0 gabapentin 600 mg tablet 600 mg PO TID RF: 0 tramadol 50 mg Tablet 50 mg PO Q6H PRN (Reason: Pain, Moderate) RF: 0 calcium carbonate 600 mg calcium (1,500 mg) Tablet 600 mg PO QDD RF: 0 aspirin 81 mg Tablet,Chewable 81 mg PO DAILY RF: 0 oxycodone 5 mg Tablet 5 - 10 mg PO Q6H PRN (Reason: MOD TO SEVERE PAIN) RF: 0 lactulose 10 gram/15 mL solution 15 ml PO BID PRN (Reason: Constipation) RF: 0 fentanyl 12 mcg/hr patch 72 hour 12 mcg transdermal Q72H RF: 0 Referrals Referrals: Sisi Chin CRNP [Primary Care Provider] -
[2020-11-12 12:41] LABS: Alanine Aminotransferase 157 U/L (12-78); Albumin Level 1.6 gm/dl (3.4-5.0); Aspartate Aminotransferase 358 U/L (15-37); BUN Creatinine Ratio 23.7 (10-20); Blood Urea Nitrogen 16 mg/dl (7-18); Calcium 8.5 mg/dl (8.5-10.1); Carbon Dioxide 24 mmol/L (21-32); Chloride 99 mmol/L (98-107); Creatinine Clr Calc Pharmacy 71.1 ml/min; Est GFR (African American) 101.6 ml/min; Est GFR (Non-African American) 87.6 ml/min; Glucose 180 mg/dl (70-99); Magnesium 1.9 mg/dl (1.8-2.4); Potassium 3.4 mmol/L (3.5-5.1); Sodium 134 mmol/L (136-145)
[2020-11-12 12:51] LABS: Basophils # (auto) 0.02 K/uL (0-0.2); Basophils % (auto) 0.2 %; Eosinophils # (auto) 0.01 K/uL (0-0.5); Eosinophils % (auto) 0.1 %; Immature Granulocytes # (auto) 0.35 K/uL (0.00-0.02); Immature Granulocytes % (auto) 2.7 %; Lymphocytes # (auto) 1.49 K/uL (1.2-3.4); Lymphocytes % (auto) 11.3 %; Monocytes # (auto) 0.53 K/uL (0.11-0.59); Neutrophils # (auto) 10.76 K/uL (1.4-6.5); Neutrophils % (auto) 81.7 %
[2020-11-12 12:52] LABS: Albumin Globulin Ratio 0.5 (0.9-2); Alkaline Phosphatase 368 U/L (45-117); Globulin 3.2 gm/dl (2.5-4.0); Total Protein 4.8 gm/dl (6.4-8.2)
[2020-11-12 12:53] LABS: INR 1.4 (0.9-1.1); Partial Thromboplastin Ratio 1.3; Partial Thromboplastin Time 33.3 Seconds (21.0-31.0); Prothrombin Time 13.7 Seconds (9.0-12.0)
--- NOTE | 2020-11-12 13:07 | CT Scan Report ---
CT OF THE HEAD WITHOUT CONTRAST CLINICAL HISTORY: Weakness. Confusion. History of metastatic breast cancer. COMPARISON STUDY: MRI of the brain November 03, 2020. Head CT October 30, 2020. TECHNIQUE: Helical axial images of the head were obtained without IV contrast. Automated exposure con trol was utilized for the study. A dose lowering technique was utilized adhering to the principles o f ALARA. FINDINGS: No acute intracranial hemorrhage, midline shift or mass effect is present. Several metastas es are again noted. These include a right frontal lobe lesion which was shown on prior CT and MRI. Th e extent of vasogenic edema measures 2.7 cm. This has increased since head CT of October 30, 2020 wh en it measured 2.1 cm. Edema associated with a right cerebellar metastasis has also increased. Appear ance of a left upper temporal metastasis is unchanged. The smaller lesions shown on MRI are not evide nt by CT. Left cerebellopontine angle lesion extending into the internal auditory canal is better dep icted on MRI as well. A few sclerotic metastases within the skull base are again noted. These are unc hanged. IMPRESSION: 1. Mild interval increase in vasogenic edema associated with the right frontal lobe and right cerebel lar hemisphere metastases since head CT of October 30, 2020. Otherwise, no change in appearance of t he brain, as described above. 2. No change in several skull base sclerotic metastases. ACT 112: Negative or not required by law. Electronically signed by: Jay Jay Roldan M.D. 11/12/2020 1:06 PM
[2020-11-12 13:11] LABS: Troponin I < 0.015 ng/ml (0-0.045)
[2020-11-12] MEDS ORDERED: dexAMETHasone**PF** 10 MG/ML VIAL IV ONE (13:20)
[2020-11-12] MEDS ORDERED: CEFEPIME 20 ML IV STA (13:30)
--- NOTE | 2020-11-12 13:44 | CT Scan Report ---
CT SCAN OF THE ABDOMEN AND PELVIS WITHOUT IV CONTRAST CLINICAL HISTORY: Abdominal distention. Breast cancer. COMPARISON STUDY: Abdominal CT dated 11/01/2020. TECHNIQUE: CT scan of the abdomen and pelvis is performed from the lung bases to the proximal femora. Images are reviewed in the axial, sagittal, and coronal planes. IV contrast was not administered for this examination. Note that the examination was performed in suboptimal fashion without oral and IV contrast. A dose lowering technique was utilized adhering to the principles of ALARA. CT DOSE: 1132.83 mGy.cm FINDINGS: Lung bases: Degenerative a central venous infusion port is seen at the cavoatrial junction. The heart is normal in size and without pericardial effusion. There are calcifications of the coronary arterie s and mitral annulus. There are small to moderate pleural effusions with bibasilar atelectasis. Bilat eral breast implants are in place. Liver: The unenhanced liver is enlarged and heterogeneous, measuring 21 cm in length. There is no int rahepatic biliary ductal dilatation. Multifocal hepatic metastatic disease is not significantly sanford ed from 11/01/2020. Gallbladder: Surgically absent noting clips in the gallbladder fossa. Spleen: Normal in size and attenuation. Pancreas: The unenhanced pancreas is moderately atrophic and grossly unremarkable. Adrenal glands: Bilateral adrenal nodules measure up to 2.6 cm are unchanged. Kidneys: The unenhanced kidneys are normal in size and without hydronephrosis. There are no renal tiffanie culi identified. There is no evidence of contour deforming renal mass lesion. Abdominal vasculature: The abdominal aorta is normal in course and caliber noting moderate atheroscle rotic calcification. Bowel: There is moderate constipation. No bowel obstruction is seen. The appendix is well-visualized and normal. Peritoneum: There is trace perihepatic and perisplenic ascites, as well as a small volume of ascites in the pelvis. No intraperitoneal free air is identified. There is a small fat-containing umbilical h ernia. Lymphadenopathy: None. Pelvic viscera: The bladder is distended but otherwise normal in appearance. The uterus is surgically absent. No adnexal lesion is seen. Skeletal structures: The skeletal structures are osteopenic. Multifocal/diffuse mixed lytic/blastic d isease has not significantly changed. There are is a a compression deformity of T11 is unchanged, as are healed bilateral rib fractures. Soft tissues: There is body wall edema. IMPRESSION: 1. Findings of multifocal osseous metastatic disease, multifocal hepatic metastatic disease, and adre nal metastases have not significantly changed from 11/01/2020. 2. Small to moderate pleural effusions are unchanged. 3. There is body wall edema and a small volume of abdominopelvic ascites. This is similar to previous . 4. Moderate constipation. 5. Additional findings as above. Electronically signed by: Jose Moore M.D. 11/12/2020 1:42 PM
--- NOTE | 2020-11-12 14:07 | XRay Report ---
SINGLE VIEW CHEST CLINICAL HISTORY: Tachycardia FINDINGS: An AP, portable, upright chest radiograph is compared to study dated 10/29/2020. Correlation is made with chest CT dated 08/10/2020. A left subclavian central venous infusion port is in place. Th e cardiomediastinal silhouette is unremarkable noting atherosclerotic calcification of the thoracic a heather. There are layering pleural effusions with bibasilar consolidation. No pneumothorax is seen. The skeletal structures are osteopenic. There are healed bilateral rib fractures. No osseous metastatic disease is not well-visualized by x-ray. Surgical clips are seen in the axillae. IMPRESSION: Layering pleural effusions with bibasilar consolidation. ACT 112: Negative or not required by law. Electronically signed by: Jose Moore M.D. 11/12/2020 2:06 PM
--- NOTE | 2020-11-12 14:26 | History & Physical Report ---
Date of Service November 12, 2020 Assessment & Plan (1) Metastatic breast cancer: Plan: Primary metastatic breast cancer to multiple sites patient however does not wish to pursue comfort or palliative care measures is a full code we did discuss the possibility of transitioning to palliative care both her and her daughter confirmed that they are not at that point and wish for aggressive treatment measures continuing to follow with Dr. [facility]cc[facility] (2) Abnormal LFTs: Plan: Patient is transaminitis this is been variable over the last few months likely from her liver metastatic disease (3) Brain metastases: Plan: Increased vasogenic edema surrounding her brain metastasis. Metastasis themselves seems stable but the vasogenic edema is worsened. We will reinstitute dexamethasone therapy starting the a.m. after after cortisol is drawn (4) Acute metabolic encephalopathy: Plan: Reportedly some weakness and word finding issues. Concern for metabolic encephalopathy. Chest x-ray shows bibasilar consolidative change with poor inspiratory film. Will check attempted two view tomorrow we will get a urine culture blood cultures were obtained emergency medicine gave the patient a dose of cefepime will hold on additional antibiotics unless the patient declares an infectious source. Patient does have elevation of her lactic acid this will be repeated this likely may be from poor nutritional intake and dehydration. We will hydrate her and follow her lactic acid Given the patient's adrenal metastasis will check a.m. cortisol in case that her weakness is from cortisol deficiency however the patient did receive a dose of dexamethasone in the emergency department (5) Moderate protein malnutrition: Plan: Patient be offered nutritional supplements. (6) Constipation: Plan: The patient is again seen on CT scan will offer escalating bowel regiment this may be related to opiate-induced constipation associate with treating malignant pain may also consider Relistor if the regiment does not work (7) DVT prophylaxis: Plan: Heparin for DVT prevention Initiate PT OT evaluation Case management assistance in placement to residential facility for subacute rehab Patient confirms she is a full code History of Present Illness Primary Care Provider: CAROL Schmidt 75 F with history of widely metastatic breast cancer to bone, liver, adrenal, with vasogenic edema seen on head CT who presents with weakness and some intermittent confusion. no fevers or chills at home . She has significant persistent constipation her cancer pain seems to be well controlled with fentanyl patch and as needed medications. They do remember being on dexamethasone at some time in the past and says they do not know why it was stopped. The family is slightly upset as last time she is in the hospital she is discharged home she lives with her elderly reportedly according to the daughter she could not walk they definitely wished for her to go to residential facility at time of discharge as they cannot care for her at home Allergies Allergy/AdvReac Type Severity Reaction Status Date / Time chlorhexidine Allergy Intermediate ITCHING Verified 10/29/20 23:11 cephalexin Allergy Mild SICK Verified 10/29/20 23:11 edetic acid Allergy Mild nausea Verified 10/29/20 23:11 propylene glycol Allergy Mild nausea Verified 10/29/20 23:11 regadenoson Allergy Mild nausea Verified 10/29/20 23:11 codeine AdvReac Intermediate N/V Verified 10/29/20 23:11 Home Medications Medication Instructions Recorded Confirmed Type prochlorperazine maleate 10 mg 10 mg PO Q6H PRN 10/25/19 11/12/20 History tablet vit C 250 mg-vit E 90 mg-zinc 40 1 tab PO BIDM 10/25/19 11/12/20 History mg-copper 1 [id number] capsule (PreserVision AREDS-2) cetirizine 10 mg tablet 10 mg PO DAILY 08/07/20 11/12/20 History ondansetron HCl 8 mg tablet 8 mg PO DAILY PRN 08/07/20 11/12/20 History vitamin B comp and C no.3 15 mg-10 1 cap PO DAILY 08/07/20 11/12/20 History mg-50 mg-5 mg-300 mg capsule (B Complex Plus Vitamin C) furosemide 20 mg tablet 20 mg PO DAILY 09/14/20 11/12/20 History nutritional supplement-fiber oral 2 ea PO BIDM 09/14/20 11/12/20 History liquid potassium chloride 20 mEq 20 meq PO QAM #0 tab 09/18/20 11/12/20 Rx tablet,extended release sennosides 8.6 mg-docusate sodium 1 tab-cap PO BID 10/24/20 11/12/20 History 50 mg tablet (Senokot-S) aspirin 81 mg chewable tablet 81 mg PO DAILY 10/29/20 11/12/20 History calcium carbonate 600 mg calcium 600 mg PO QDD 10/29/20 11/12/20 History (1,500 mg) tablet fentanyl 12 mcg/hr transdermal 12 mcg TRANSDERMAL Q72H 10/29/20 11/12/20 History patch gabapentin 600 mg tablet 600 mg PO TID 10/29/20 11/12/20 History lactulose 10 gram/15 mL oral 15 ml PO BID PRN 10/29/20 11/12/20 History solution oxycodone 5 mg tablet 5 - 10 mg PO Q6H PRN 10/29/20 11/12/20 History tramadol 50 mg tablet 50 mg PO Q6H PRN 10/29/20 11/12/20 History Past Med/Surg History Medical History Acoustic neuroma Bone pain Brain metastases BRCA1 positive GERD (gastroesophageal reflux disease) Hearing deficit History of breast cancer 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 Recheck in 6 months 11/13/2012 biopsy recommended Status post bilateral biopsies revealing invasive ductal carcinoma Status post bilateral mastectomies revealing invasive ductal carcinoma on the right [id number] Invasive ductal carcinoma on the left [id number](i+) M0 Status post systemic chemotherapy with 4 cycles of Taxol and Cytoxan Participation in REATA study Status post completion of radiation therapy 03/15/2014 received 6120 cGy to the left chest wall, and axilla" Seasonal allergic rhinitis Surgical History History of breast biopsy History of colonoscopy History of dilatation and curettage History of esophagogastroduodenoscopy (EGD) History of hysterectomy with bilateral oophorectomy History of loop electrosurgical excision procedure (LEEP) History of myringotomy History of tooth extraction History of total left knee replacement History of tubal ligation Hx of cholecystectomy Hx of fracture of femur WITH REPAIR TO LEFT Hx of tonsillectomy Port-A-Cath in place (04/09/19) Insertion of Mediport Left Cephalic vein Dr. Gabriel 04/09/19 S/P bilateral mastectomy (07/06/13) Family History Other Breast cancer Melanoma Denies family history of Ovarian cancer Colorectal cancer Social History Smoking Status: Never smoker Second Hand Exposure: No; Hx Alcohol Use: No Hx Substance Use: No Preferred Language: Sudanese Communication Ability: Effective Visual Impairment: No Limitations Stopping Builder Required: No Beliefs That Will Affect Care: None marital status: Current Living Situation: Spouse Current Living Situation Comment: Lives with Feels Safe at Home: Yes Dental Care, Regularly: Yes Assistive Devices: Walker and Wheelchair Review of Systems Review of Systems: Mild distress and moderate fatigue no headache, no visual changes no speech or swallowing issues no speech issues were noted family did note some speech issues at home she is some slight confusion with her speech but no articulation and pronunciation issues no chest pain, pressure or palpitations no shortness of breath, cough or wheezes no abdominal pain, nausea or vomiting, diarrhea or constipation no dysuria, hematuria or frequency no focal joint pain or swelling no back pain, CVA tenderness or radicular pain no bruising, bleeding or rashes no focal signs of weakness or numbness or altered neurologic sensation no complaints of anxiety or depression.. Physical Exam Physical Exam: The patient appeared chronically ill alopecic malnourished Vital signs as documented. Head exam is normocephalic atraumatic Neck is without JVD, thyromegaly, or carotid bruits. Mediport in left upper chest is without tenderness or erythema Lungs are clear to auscultation, there is effort diminished breath sounds Cardiac exam, Rhythm is regular.. No murmurs, rubs or gallops. Abdominal exam reveals normal bowel sounds, soft non tender, no masses Extremities are 2+ edema bilaterally to her lower extremities Neurologic exam is alert and oriented x2, some confusion with general conversation no focal loss of strength or sensation overall significantly weak Skin is without bruises or rashes Psychologically is without concerns for anxiety or depression Results & Data Results & Data ([facility]) Vital Signs (Past 12 Hours) Vital Signs Temp Pulse Resp BP Pulse Ox 11/12/20 13:22 94 11/12/20 12:30 117 H 20 134/93 95 11/12/20 12:15 115 H 21 143/87 H 94 11/12/20 12:00 119 H 23 135/89 95 11/12/20 11:45 118 H 22 124/92 96 11/12/20 11:30 119 H 21 132/91 96 11/12/20 11:24 98.6 F 122 H 22 132/[address] scan abdomen pelvis 04/14/2020 impression multifocal osseous metastatic disease, multifocal hepatic metastatic disease, adrenal metastasis. These have not significantly changed from November 01 of this year. Mild to moderate pleural effusions which are unchanged. Body wall edema and small amount of abdominal pelvic ascites similar to previous. Moderate constipation. CT scan of the head 11/12/2020 mild interval increase in vasogenic edema associate with the right frontal lobe and right cerebellar hemisphere since a CT of October 30, 2020 no other changes seen changes in several skull base sclerotic metastasis Chest x-ray layering pleural effusions with bilateral bibasilar consolidation ECG Additional Comments: Normal sinus rhythm sinus tach no acute ST or T wave changes PG Care Time/CCT Total # of Minutes Spent Total Time Spent with Patient: Total time spent is greater than 50% in coordination of care (as documented) at patient's floor/unit and/or counseling patient: Coding Level of Care Code 05885 Initial Inpt Care Lvl 3 Diagnoses Metastatic breast cancer C50.919 Abnormal LFTs R94.5 Brain metastases C79.31 Acute metabolic encephalopathy G93.41 Moderate protein malnutrition E44.0 Constipation K59.00 DVT prophylaxis Z29.9
--- NOTE | 2020-11-12 15:54 | Electrocardiogram Report ---
Test Reason : Blood Pressure : / mmHG Vent. Rate : 122 BPM Atrial Rate : 122 BPM P-R Int : 122 ms QRS Dur : 080 ms QT Int : 330 ms P-R-T Axes : 011 -25 092 degrees QTc Int : 470 ms Sinus tachycardia Diffuse Nonspecific T wave abnormality Abnormal ECG When compared with ECG of 29-OCT-2020 23:58, No significant change Confirmed by Jabari Villar ([id number]) on 11/12/2020 3:54:47 PM Referred By: Confirmed By:Jabari Villar
[2020-11-12] MEDS ORDERED: LACTULOSE SYRUP 10 GM/15 ML BTL 960 ML PO PRN (16:47)
[2020-11-12] MEDS ORDERED: ONDANSETRON INJ 2 MG/ML 2 ML VIAL IV PRN (16:47)
[2020-11-12] MEDS ORDERED: CARBOHYDRATES FOR HYPOGLYCEMIA PO PRN (16:47)
[2020-11-12] MEDS ORDERED: DEXTROSE 50% 50 ML SYRINGE IV PRN (16:47)
[2020-11-12] MEDS ORDERED: ALUMINUM/MAGNESIUM SUSP 30 ML UDC PO PRN (16:47)
[2020-11-12] MEDS ORDERED: PROMETHAZINE HCL 12.5 MG in SODIUM CHLORIDE 0.9% 50 ML IV PRN (16:47)
[2020-11-12] MEDS ORDERED: GLUCAGON FOR INJ 1 MG VIAL SQ PRN (16:47)
[2020-11-12] MEDS ORDERED: oxyCODONE HCL IR 5 MG TAB (IMMEDIATE RELEASE) PO PRN (16:47)
[2020-11-12] MEDS ORDERED: ACETAMINOPHEN 325 MG TAB PO PRN (16:47)
[2020-11-12] MEDS ORDERED: GLUCOSE 10 TABS/TUBE PO PRN (16:47)
[2020-11-12] MEDS ORDERED: GLUCOSE 40% GEL 15 GM TUBE PO PRN (16:47)
[2020-11-12] MEDS ORDERED: MoRPHine SULFATE 4 MG/ML 1 ML CARP\\VIAL IV PRN (16:47)
[2020-11-12] MEDS: PSYLLIUM 58.6% POWDER PACKET PO SCH (18:16)
[2020-11-12] MEDS: SODIUM CHLORIDE 0.9% 1000ML 1,000 ML IV SCH (18:21)
[2020-11-12] MEDS: CHECK fentaNYL PATCH PLACEMENT SCH ×2 (18:42→23:38)
[2020-11-12] MEDS: INSULIN ASPART 100 UNITS/ML 3 ML PEN SC SCH ×2 (18:47→20:55)
[2020-11-12] MEDS: DOCUSATE SODIUM/SENNA 50/8.6MG TAB PO SCH (20:47)
[2020-11-12] MEDS: HEPARIN SOD 5,000 UNIT/0.5 ML VIAL SQ SCH (20:47)
[2020-11-12] MEDS: GABAPENTIN 300 MG CAP PO SCH (20:59)
[2020-11-12] MEDS ORDERED: fentaNYL 12 MCG/HR TDSY TD SCH (21:00)
[2020-11-13] MEDS: SODIUM CHLORIDE 0.9% 1000ML 1,000 ML IV SCH (04:21)
[2020-11-13 07:18] LABS: Appearance Urine Clear (Clear); Bilirubin Urine Negative (Negative); Blood Urine Negative (Negative); Color Urine Dark Yellow; Glucose Urine UA Negative (Negative); Ketones Urine Negative (Negative); Leukocyte Esterase Urine Negative (Negative); Nitrite Urine Negative (Negative); Protein Urine Negative (Negative); Specific Gravity Urine 1.016 (1.000-1.030); Urobilinogen Urine Negative (Negative)
[2020-11-13 08:07] LABS: Hematocrit (blood only) 31.9 % (37-47); Hemoglobin 10.1 g/dL (12.0-16.0); Mean Corpuscular Hgb Conc 31.7 g/dL (32-36); Mean Corpuscular Volume 100.9 fL (80-100); Mean Platelet Volume 10.7 fL (7.4-10.4); Platelet Count 164 K/uL (130-400); RDW Coefficient of Variation 19.4 % (11.5-14.5); Red Blood Count 3.16 M/uL (4.2-5.4); White Blood Count 9.13 K/uL (4.8-10.8)
[2020-11-13 08:37] LABS: Albumin Level 1.3 gm/dl (3.4-5.0); BUN Creatinine Ratio 38.7 (10-20); Calcium 7.6 mg/dl (8.5-10.1); Creatinine Clr Calc Pharmacy 88.5 ml/min; Est GFR (African American) 109.2 ml/min; Est GFR (Non-African American) 94.2 ml/min; Magnesium 1.9 mg/dl (1.8-2.4); Potassium 3.9 mmol/L (3.5-5.1)
[2020-11-13 08:40] LABS: Albumin Globulin Ratio 0.5 (0.9-2); Bilirubin,Total 0.8 mg/dl (0.2-1); Globulin 2.7 gm/dl (2.5-4.0)
[2020-11-13] MEDS: GABAPENTIN 300 MG CAP PO SCH ×3 (08:48→20:44)
[2020-11-13] MEDS: DOCUSATE SODIUM/SENNA 50/8.6MG TAB PO SCH ×2 (08:49→20:44)
[2020-11-13] MEDS: PSYLLIUM 58.6% POWDER PACKET PO SCH ×2 (08:49→18:18)
[2020-11-13] MEDS: POTASSIUM CHLORIDE CRTAB 20 MEQ TABCR PO SCH (08:49)
[2020-11-13] MEDS: ASPIRIN 81 MG ECTAB PO SCH (08:49)
[2020-11-13] MEDS: CETIRIZINE HCL 10 MG TABLET PO SCH (08:49)
[2020-11-13] MEDS: HEPARIN SOD 5,000 UNIT/0.5 ML VIAL SQ SCH ×2 (08:50→20:44)
[2020-11-13] MEDS: CHECK fentaNYL PATCH PLACEMENT SCH ×3 (08:50→23:37)
[2020-11-13] MEDS ORDERED: dexAMETHasone 4 MG in SYRINGE 0 ML IV SCH (09:00)
[2020-11-13] MEDS: INSULIN ASPART 100 UNITS/ML 3 ML PEN SC SCH ×4 (09:37→20:42)
--- NOTE | 2020-11-13 15:01 | Hospitalist Progress Note ---
Date of Service November 13, 2020 Assessment & Plan (1) Metastatic breast cancer: Plan: Attending: Dr. Blandon Impression: 75-year-old female with metastatic breast cancer to the brain bone and liver. Presents with falls and encephalopathy. Unclear if enc ephalopathy is from vasogenic edema/radiation/metastatic breast cancer. Treatment as outlined above in HPI Primary oncologist Dr. Griffin Completed radiation to the brain 10/08/2020 Currently undergoing chemotherapy with Navelbine Further management per oncology (2) Abnormal LFTs: Plan: Significant elevation of LFTs * AST 296 * ALT 144 * Alkaline phosphatase 278 This is secondary to liver mets and is improved from previous Continue to monitor Coagulation factors monitored INR 1.2 (3) Constipation due to opioid therapy: Plan: Lactulose 10 g p.o. twice daily Senokot S twice daily Monitor output (4) Brain metastases: Plan: Some expressive aphasia and difficulty with word finding and short-term memory Status post radiation of the brain as above Further management per oncology and radiation oncology. With vasogenic edema-started back on IV dexamethasone here (5) Malignant neoplasm of breast metastatic to bone: Plan: Patient denies any significant bone pain at this time Continue treatment for metastatic breast cancer as described above in HPI Continue chronic pain control with fentanyl patch Oxycodone IV morphine as needed as needed (6) Pleural effusion: Plan: Patient does not appear to be in any acute distress We will check repeat chest x-ray tomorrow Currently not being diuresed I do not see any prior evidence of thoracentesis 99% on room air Continue to monitor for now Repeat chest x-ray in the morning (7) Moderate protein malnutrition: Plan: Secondary to consumptive disease Protein on today's LFTs looks improved Consult nutrition for recommendation on supplements (8) GERD (gastroesophageal reflux disease): Plan: Continue PPI (9) DVT prophylaxis: Plan: Heparin 5000 units subcutaneously every 12 hours Admission and Anticipated Discharge Date Admission Date: November 12, 2020 Supervising Physician Co-Signing Physician Notes PA Supervision Note: I did not personally see or examine the patient today, but I verified all teran points of BARBARA Singh's assessment and plan with the following exceptions/additions: We will increase Decadron to twice daily Make lactulose scheduled twice daily Will discuss with radiation oncology about whether she needs further treatment Subjective Attending: Dr. Blandon Impression: 75-year-old female with metastatic breast cancer to the brain and bone, vasogenic brain edema, encephalopathy, TIA, acoustic neuroma, chronic anemia, atypical endometrial hyperplasia, hyperglycemia, and GERD. Patient follows with Dr. Griffin and with Ashley Friedman PA-C. Patient was admitted yesterday for falls. Status post mastectomy with sentinel lymph node biopsy and radiation therapy in June 1988. Recurrent disease in 2014. Recurrent disease again in 2019. Metastasis with progression of hepatic hipolito and skeletal metastasis identified by PET/CT 03/08/2020. Completed external beam radiation therapy to the right femur 03/26/2020. Patient underwent 6 cycles of Gemzar / paclitaxel 07/01/2020 and completed radiation to the brain 10/08/2020. She started weekly maintenance on Gemzar on days 1 8 and 15 of a 28-day cycle on 08/29/2020. She then developed sepsis. Current plan is for patient to start Navelbine on days 1 8 and 15 of a 21-day cycle beginning 10/28/2020. Patient seen and examined at bedside today in room 312. She has difficulty finding words. She is not able to give me a full review of systems. She denies any significant pain. She has no headache. She denies any fever. Patient is hemodynamically stable. She is afebrile. She is not hypoxic. White count is improved from 13.16 to 9.13. No hyponatremia or significant electrolyte imbalance. Lactic acid was slightly elevated yesterday at 2.3. Patient does not appear to be septic. Suspect that encephalopathy is secondary to brain metastasis and vasogenic edema. Review of Systems Review of Systems: All systems reviewed & are unremarkable except as noted in Subjective Physical Exam Physical Exam: GENERAL : No acute distress. Patient was some expressive aphasia. EYES: No icterus, gaze conjugate. Pupils equal round and reactive to light NOSE: No evidence of epistaxis MOUTH: No lesions or candidiasis NECK: Supple LUNGS: CTA B/L, no wheezes, rales or rhonchi HEART: Regular, rate controlled ABDOMEN: Soft, NT, ND, BS Present EXTREMITIES: +1 LE edema on the right, pedal pulses intact and equal bilaterally. +2 edema to the left upper extremity. NEURO: A&OX3 Results & Data Results & Data ([facility]) Vital Signs (Past 12 Hours) Vital Signs Temp Pulse Resp BP Pulse Ox 11/13/20 14:54 36.3 C L 89 16 112/69 99 11/13/20 14:37 36.3 C L 90 18 110/75 97 11/13/20 07:26 36.3 C L 79 18 96/64 L 97 Laboratory Results 11/13/20 07:40 11/13/20 07:40 Diagnostic Findings No further diagnostic imaging PG Care Time/CCT Total # of Minutes Spent Total Time Spent with Patient: Total time spent is greater than 50% in coordinat ion of care (as documented) at patient's floor/unit and/or counseling patient: Coding Level of Care Code 96891 Subseq Hosp Care Lvl 3 Diagnoses Metastatic breast cancer C50.919 Abnormal LFTs R94.5 Constipation due to opioid therapy K59.03; T40.2X5A Brain metastases C79.31 Malignant neoplasm of breast metastatic to bone C50.919; C79.51 Pleural effusion J90 Moderate protein malnutrition E44.0 GERD (gastroesophageal reflux disease) K21.9 Esophagitis presence: with esophagitis DVT prophylaxis Z29.9 Time Spent (min) 40 (1) GERD (gastroesophageal reflux disease) Esophagitis presence: with esophagitis
[2020-11-13] MEDS: fentaNYL 12 MCG/HR TDSY TD SCH (20:51)
[2020-11-14] MEDS: dexAMETHasone 4 MG in SYRINGE 0 ML IV SCH ×2 (00:19→08:42)
[2020-11-14] MEDS: HEPARIN 100 UNIT/ML 5ML FLUSH FLUSH PRN ×2 (00:19→08:53)
[2020-11-14 06:10] LABS: Hematocrit (blood only) 32.7 % (37-47); Hemoglobin 10.5 g/dL (12.0-16.0); Mean Corpuscular Hemoglobin 31.6 pg (25-34); Mean Corpuscular Hgb Conc 32.1 g/dL (32-36); Mean Corpuscular Volume 98.5 fL (80-100); Mean Platelet Volume 10.1 fL (7.4-10.4); Nucleated RBC # (auto) 0.06 K/uL (0-0); Nucleated RBC % (auto) 0.5 %; Platelet Count 176 K/uL (130-400); RDW Coefficient of Variation 19.6 % (11.5-14.5); RDW Standard Deviation 69.7 fL (36.4-46.3); Red Blood Count 3.32 M/uL (4.2-5.4); White Blood Count 12.67 K/uL (4.8-10.8)
[2020-11-14 06:36] LABS: Albumin Level 1.4 gm/dl (3.4-5.0); BUN Creatinine Ratio 36.4 (10-20); Calcium 7.5 mg/dl (8.5-10.1); Creatinine Clr Calc Pharmacy 71.1 ml/min; Est GFR (African American) 101.6 ml/min; Est GFR (Non-African American) 87.6 ml/min
[2020-11-14 06:38] LABS: Albumin Globulin Ratio 0.5 (0.9-2); Bilirubin,Total 0.6 mg/dl (0.2-1); Globulin 2.8 gm/dl (2.5-4.0); Total Protein 4.2 gm/dl (6.4-8.2)
--- NOTE | 2020-11-14 07:47 | XRay Report ---
XR chest 1V portable CLINICAL HISTORY: Pleural effusions. Breast cancer. COMPARISON STUDY: Chest radiograph November 12, 2020. Chest CT August 10, 2020. FINDINGS: Left subclavian [id number] is in place. There are bilateral axillary surgical clips. Car diac size is normal. There is no pneumothorax. Elevation of the right hemidiaphragm is noted. Small t o moderate right pleural effusion is noted. This is similar to prior exam. A left pleural effusion das s decreased in size. There are persistent bibasilar opacities. Skeletal lesions are better depicted o n prior CT. IMPRESSION: Small to moderate right pleural effusion, similar to prior exam. Small left pleural effusion, slightl y decreased. Persistent bibasilar opacities. ACT 112: Negative or not required by law. Electronically signed by: Jay Jay Roldan M.D. 11/14/2020 7:46 AM
[2020-11-14] MEDS: INSULIN ASPART 100 UNITS/ML 3 ML PEN SC SCH ×4 (08:27→21:19)
[2020-11-14] MEDS: PSYLLIUM 58.6% POWDER PACKET PO SCH ×2 (08:39→17:45)
[2020-11-14] MEDS: POTASSIUM CHLORIDE CRTAB 20 MEQ TABCR PO SCH (08:41)
[2020-11-14] MEDS: DOCUSATE SODIUM/SENNA 50/8.6MG TAB PO SCH ×2 (08:41→20:42)
[2020-11-14] MEDS: CHECK fentaNYL PATCH PLACEMENT SCH ×2 (08:41→16:15)
[2020-11-14] MEDS: ASPIRIN 81 MG ECTAB PO SCH (08:41)
[2020-11-14] MEDS: GABAPENTIN 300 MG CAP PO SCH ×3 (08:42→20:43)
[2020-11-14] MEDS: HEPARIN SOD 5,000 UNIT/0.5 ML VIAL SQ SCH ×2 (08:42→20:43)
[2020-11-14] MEDS: CETIRIZINE HCL 10 MG TABLET PO SCH (08:42)
[2020-11-14] MEDS: LACTULOSE SYRUP 20 GM/30 ML UDC PO SCH ×2 (08:42→20:43)
--- NOTE | 2020-11-14 11:49 | Magnetic Resonance Report ---
MR brain wo/w con INDICATION: Brain metastases TECHNIQUE: Multiplanar and multisequence MR images of the brain were obtained prior to and following administration of gadolinium contrast. Comparison: Comparison is made to MR brain 11/23/2020 FINDINGS: No abnormal restricted diffusion is identified. Multiple enhancing or rim-enhancing nodules are essen tially unchanged from prior exam. For example, a 14 mm enhancing lesion in the left cerebellopontine angle, a 10 mm lesion in the left cerebellar hemisphere, and tiny lesions in the left cerebellar xenia sphere are essentially unchanged from prior exam allowing for differences in slice positioning. A lef t cerebellar lesion measuring 7 mm is slightly decreased in size from prior exam where it measured ap proximately 11 mm. 8mm enhancing focus in the parafalcine right frontal lobe is unchanged. Left tempo ral lobe lesion is unchanged. Surrounding vasogenic edema is seen in the supratentorial lesions, unch anged. No extra axial fluid collections are seen. There are no masses, mass effect, or midline shift. No abnormal enhancement is seen. Ex vacuo ventriculomegaly and sulcal enlargement is noted compatibl e with diffuse encephalomalacia. The pituitary is unremarkable. Flow voids of the major intracranial arterial vessels are identified. The imaged portions of the para nasal sinuses, mastoid air cells, and orbits are unremarkable. IMPRESSION: Multiple enhancing/rim-enhancing nodules which are essentially unchanged from prior exam, except for a left cerebellar lesion which may have slightly decreased in size. ACT 112: Negative or not required by law. Electronically signed by: Diogo Govea M.D. 11/14/2020 11:47 AM
[2020-11-14] MEDS ORDERED: bisacodyL 10 MG SUPP PR STA (12:40)
--- NOTE | 2020-11-14 12:42 | Hospitalist Progress Note ---
Date of Service November 14, 2020 Assessment & Plan (1) Acute encephalopathy: Plan: 75-year-old female with metastatic breast cancer with metastases to the brain, bone, and liver. Presents with falls and encephalopathy. Unclear if encephalopathy is from vasogenic edema/radiation/metastatic breast cancer. No evidence of infection, no fevers, urinalysis without infection, chest x-ray with small pleural effusions and elevated right hemidiaphragm but improved from previous CT head with slightly increased vasogenic edema around one of her brain mets from previous Completed radiation to the brain 10/08/2020 Currently undergoing chemotherapy with Navelbine with 1 dose completed on 10/28 Was placed on dexamethasone upon admission due to worsening vasogenic edema around the brain metastases Seems somewhat improved today although just generally weak. She is extremely malnourished and albumin low at 1.4 MRI of the brain with and without contrast on 11/14 shows stable metastases and decrease in size of the left cerebellar met. Also with significant encep halomalacia-this could be side effect of recent radiation therapy Overall encephalopathy likely secondary to combination of side effect of chemotherapy, severe protein calorie malnutrition, side effect of whole brain radiation, and brain metastases with vasogenic edema Improved somewhat today Discussed case with oncology, radiation oncology-no plans for further radiation at this time -Continue dexamethasone but decrease to 4 mg once daily -Continue supportive care -Family expressed interest in discussing her care with palliative medicine to discuss goals of care (2) Metastatic breast cancer: Plan: With mets to the brain, bone, liver-diffuse. With multiple episodes of recurrence. Completed whole brain radiation with hippocampal sparing 10/08/2020 Currently undergoing chemotherapy with Navelbine with 1 dose completed on 10/28 Performance status continues to go down Question if she can tolerate further chemotherapy? She will follow-up with oncology to discuss this Hold off on further chemotherapy at this time Start Marinol 5 mg p.o. twice daily for appetite stimulation in addition to dexamethasone for vasogenic edema as above-discussed this with her primary oncologist Continue pain control for bony mets with fentanyl patch Bowel regimen-make lactulose scheduled twice daily, add bisacodyl suppository (3) Abnormal LFTs: Plan: Significant elevation of LFTs * AST 296 * ALT 144 * Alkaline phosphatase 278 This is secondary to liver mets and is improved from previous Continue to monitor Coagulation factors monitored INR 1.2 (4) Constipation due to opioid therapy: Plan: Lactulose 10 g p.o. twice daily Senokot S twice daily Add on bisacodyl suppository (5) Brain metastases: Plan: Some expressive aphasia and difficulty with word finding and short-term memory Status post radiation of the brain as above Further management per oncology and radiation oncology. With vasogenic edema-started back on IV dexamethasone here as above (6) Malignant neoplasm of breast metastatic to bone: Plan: As above (7) Pleural effusion: Plan: Patient does not appear to be in any acute distress -repeat chest x-ray today is improved but still with small effusions-could be seen Mann to hypoalbuminemia -Restart Lasix which is actually recently increased as an outpatient 40 mg daily Watch renal function with diuresis (8) Moderate protein malnutrition: Plan: Secondary to metastatic cancer, poor nutrition Albumin 1.4 With weight loss, temporal wasting Consult nutrition for recommendation on supplements (9) GERD (gastroesophageal reflux disease): Plan: Continue PPI (10) Edema: Plan: Left upper extremity, and bilateral lower extremities Most likely secondary to hypoalbuminemia, but given that she has a port in the left subclavian, will check Doppler of left upper extremity and bilateral lower extremities (11) DVT prophylaxis: Plan: Heparin 5000 units subcutaneously every 12 hours Disposition-continued stay, await placement, [facility] but needs insurance authorization Admission and Anticipated Discharge Date Admission Date: November 12, 2020 Subjective Pt denies BLAS, feeling ok today, appetite low, can't remember if she ate today. Has significant lower extremity edema as well as left upper extremity edema that she thinks has been there for at least a week. Her daughter on phone reports has been there for several weeks. She denies nausea or abdominal pain. I discussed her care with Dr. Griffin of oncology, Dr. Vásquez of radiation oncology, BARBARA Borrero of oncology, as well as the patient's daughter on the phone. Daughter is asking if Marinol can be started in the hospital as it was to be started as an outpatient. We discussed her poor performance status and whether or not she would be able to withstand further chemotherapy. Discussed MRI of the brain results. All are in agreement that she should go to rehab. Review of Systems Review of Systems: All systems reviewed & are unremarkable except as noted in HPI & below Physical Exam Constitutional: + ill appearing; no acute distress Eyes: PERRL, conjunctivae normal, anicteric sclerae ENMT: external ear and nose normal, oropharynx normal Neck: trachea midline, no thyromegaly Respiratory: normal respiratory effort Auscultation: + crackles Cardiovascular: Rate/Rhythm: regular rate and regular rhythm Heart Sounds: no murmur Extremities: + edema (LUE 3+ pitting edema of the distal humerus and forearm, 2+ legs) Chest (Breasts): Chest: normal inspection of chest Gastrointestinal (Abdomen): normal bowel sounds, soft, nontender, no hepatosplenomegaly Musculoskeletal: Extremities: no cyanosis and no clubbing Skin: no rashes, warm and dry Neurologic: moves all extremities and awake; no focal motor deficits Psychiatric: Orientation: alert, oriented to person and cooperative Results & Data Results & Data ([facility]) Vital Signs (Past 12 Hours) Vital Signs Temp Pulse Resp BP Pulse Ox 11/14/20 07:32 36.8 C 76 16 111/73 96 Laboratory Results 11/14/20 11/14/20 11/14/20 Range/Units 20:30 17:12 12:18 WBC (4.8-10.8) K/uL RBC (4.2-5.4) M/uL Hgb (12.0-16.0) g/dL Hct (37-47) % MCV (80-100) fL MCH (25-34) pg MCHC (32-36) g/dL RDW Std Deviation (36.4-46.3) fL RDW Coeff of Jermaine (11.5-14.5) % Plt Count (130-400) K/uL MPV (7.4-10.4) fL Absolute Nucleated RBC (0-0) K/uL Nucleated RBC % (auto) % Sodium (136-145) mmol/L Potassium (3.5-5.1) mmol/L Chloride (98-107) mmol/L Carbon Dioxide (21-32) mmol/L Anion Gap (3-11) BUN (7-18) mg/dl Creatinine (0.6-1.2) mg/dl Est Cr Clr Drug Dosing ml/min Est GFR ( Amer) ml/min Est GFR (Non-Af Amer) ml/min BUN/Creatinine Ratio (10-20) Glucose (70-99) mg/dl POC Glucose 142 H 132 H 136 H (70-99) mg/dl Calcium (8.5-10.1) mg/dl Total Bilirubin (0.2-1) mg/dl AST (15-37) U/L ALT (12-78) U/L Alkaline Phosphatase (45-117) U/L Total Protein (6.4-8.2) gm/dl Albumin (3.4-5.0) gm/dl Globulin (2.5-4.0) gm/dl Albumin/Globulin Ratio (0.9-2) 11/14/20 11/14/20 11/14/20 Range/Units 08:13 05:46 05:46 WBC 12.67 H (4.8-10.8) K/uL RBC 3.32 L (4.2-5.4) M/uL Hgb 10.5 L (12.0-16.0) g/dL Hct 32.7 L (37-47) % MCV 98.5 (80-100) fL MCH 31.6 (25-34) pg MCHC 32.1 (32-36) g/dL RDW Std Deviation 69.7 H (36.4-46.3) fL RDW Coeff of Jermaine 19.6 H (11.5-14.5) % Plt Count 176 (130-400) K/uL MPV 10.1 (7.4-10.4) fL Absolute Nucleated RBC 0.06 H (0-0) K/uL Nucleated RBC % (auto) 0.5 % Sodium 135 L (136-145) mmol/L Potassium 4.0 (3.5-5.1) mmol/L Chloride 104 (98-107) mmol/L Carbon Dioxide 24 (21-32) mmol/L Anion Gap 7.0 (3-11) BUN 24 H (7-18) mg/dl Creatinine 0.66 (0.6-1.2) mg/dl Est Cr Clr Drug Dosing 71.1 ml/min Est GFR ( Amer) 101.6 ml/min Est GFR (Non-Af Amer) 87.6 ml/min BUN/Creatinine Ratio 36.4 H (10-20) Glucose 124 H (70-99) mg/dl POC Glucose 118 H (70-99) mg/dl Calcium 7.5 L (8.5-10.1) mg/dl Total Bilirubin 0.6 (0.2-1) mg/dl AST 286 H (15-37) U/L ALT 161 H (12-78) U/L Alkaline Phosphatase 317 H (45-117) U/L Total Protein 4.2 L (6.4-8.2) gm/dl Albumin 1.4 L (3.4-5.0) gm/dl Globulin 2.8 (2.5-4.0) gm/dl Albumin/Globulin Ratio 0.5 L (0.9-2) PG Care Time/CCT Total # of Minutes Spent Total Time Spent with Patient: Total time spent is greater than 50% in coordination of care (as documented) at patient's floor/unit and/or counseling patient: Coding Level of Care Code 29303 Subseq Hosp Care Lvl 3 Diagnoses Metastatic breast cancer C50.919 Abnormal LFTs R94.5 Constipation due to opioid therapy K59.03; T40.2X5A Brain metastases C79.31 Malignant neoplasm of breast metastatic to bone C50.919; C79.51 Pleural effusion J90 Moderate protein malnutrition E44.0 GERD (gastroesophageal reflux disease) K21.9 Esophagitis presence: with esophagitis DVT prophylaxis Z29.9 Acute encephalopathy G93.40 Edema R60.9 (1) GERD (gastroesophageal reflux disease) Esophagitis presence: with esophagitis
--- NOTE | 2020-11-14 14:50 | Ultrasound Report ---
US venous doppler LE BI INDICATION: MN ^bilat edema, metastatic cancer, r/o DVT. COMPARISON: None available at the time of this dictation. TECHNIQUE: Bilateral lower extremity real-time compression venous ultrasound with Color Doppler imagi ng. Utilizing real-time ultrasonic imaging multiple real time high-resolution ultrasonic images with comp ression and noncompression maneuvers of the deep venous system in addition to color doppler imaging w ere performed from the common femoral vein through the proximal calf veins. FINDINGS: Currently there is normal compressibility of the deep venous system from the common femoral vein thro ugh the proximal calf veins. No current evidence of acute thrombosis is identified. Mild soft tissue edema is seen bilaterally in the calf. Impression: No evidence of deep venous thrombus. ACT 112: Negative or not required by law. Electronically signed by: Diogo Govea M.D. 11/14/2020 2:49 PM
[2020-11-14] MEDS ORDERED: bisacodyL 10 MG SUPP PR ONE (14:54)
--- NOTE | 2020-11-14 14:56 | Ultrasound Report ---
US venous doppler UE LT HISTORY: 75 years-old Female LUE edema,met CA,port,r/o DVT acute pain and swelling of the left upper extremity COMPARISON: None TECHNIQUE: Multiple real-time sonographic images of the left upper extremity deep structures were obt ained assessing grayscale appearance, color and spectral flow FINDINGS: Study is somewhat limited. The mid to distal subclavian vein cannot be evaluated secondary to Infuse- a-Port catheter. The left cephalic vein is not diagnostically visualized. Normal flow and phasicity o f the left upper extremity deep venous structures without thrombus identified. Subcutaneous edema. IMPRESSION: No sonographic evidence of deep venous thrombosis. ACT 112: Negative or not required by law. The above report was generated using voice recognition software. It may contain grammatical, syntax o r spelling errors. Electronically signed by: Tre Farfan M.D. 11/14/2020 2:55 PM
[2020-11-14] MEDS: FUROSEMIDE 40 MG TAB PO SCH (14:58)
[2020-11-14] MEDS: fentaNYL 12 MCG/HR TDSY TD SCH (16:14)
[2020-11-15] MEDS: CHECK fentaNYL PATCH PLACEMENT SCH ×4 (00:01→23:10)
[2020-11-15 06:31] LABS: Hemoglobin 12.6 g/dL (12.0-16.0); Mean Corpuscular Hemoglobin 32.6 pg (25-34); Mean Corpuscular Hgb Conc 32.3 g/dL (32-36); Mean Platelet Volume 10.6 fL (7.4-10.4); Nucleated RBC # (auto) 0.69 K/uL (0-0); Nucleated RBC % (auto) 4.3 %; Platelet Count 176 K/uL (130-400); RDW Coefficient of Variation 19.8 % (11.5-14.5); RDW Standard Deviation 71.6 fL (36.4-46.3); Red Blood Count 3.86 M/uL (4.2-5.4); White Blood Count 16.12 K/uL (4.8-10.8)
[2020-11-15 07:06] LABS: Albumin Globulin Ratio 0.5 (0.9-2); Albumin Level 1.6 gm/dl (3.4-5.0); BUN Creatinine Ratio 40.4 (10-20); Bilirubin,Total 0.9 mg/dl (0.2-1); Calcium 7.8 mg/dl (8.5-10.1); Creatinine Clr Calc Pharmacy 82.3 ml/min; Est GFR (African American) 106.6 ml/min; Total Protein 4.6 gm/dl (6.4-8.2)
[2020-11-15] MEDS: INSULIN ASPART 100 UNITS/ML 3 ML PEN SC SCH ×4 (08:42→20:52)
[2020-11-15] MEDS: POTASSIUM CHLORIDE CRTAB 20 MEQ TABCR PO SCH (09:05)
[2020-11-15] MEDS: dexAMETHasone 4 MG TAB PO SCH (09:05)
[2020-11-15] MEDS: CETIRIZINE HCL 10 MG TABLET PO SCH (09:05)
[2020-11-15] MEDS: GABAPENTIN 300 MG CAP PO SCH ×3 (09:05→20:51)
[2020-11-15] MEDS: DOCUSATE SODIUM/SENNA 50/8.6MG TAB PO SCH ×2 (09:05→20:50)
[2020-11-15] MEDS: LACTULOSE SYRUP 20 GM/30 ML UDC PO SCH (09:06)
[2020-11-15] MEDS: HEPARIN SOD 5,000 UNIT/0.5 ML VIAL SQ SCH ×2 (09:06→20:51)
[2020-11-15] MEDS: PSYLLIUM 58.6% POWDER PACKET PO SCH ×2 (09:06→17:40)
[2020-11-15] MEDS: POTASSIUM CHLORIDE / WTR 20 MEQ/100 ML PLCT IV SCH ×2 (09:15→11:21)
--- NOTE | 2020-11-15 10:30 | Hospitalist Progress Note ---
Date of Service November 15, 2020 Assessment & Plan (1) Acute encephalopathy: Plan: 75-year-old female with metastatic breast cancer with metastases to the brain, bone, and liver. Presents with falls, worsening generalized weakness, and encephalopathy. No evidence of infection, no fevers, urinalysis without infection, chest x-ray with small pleural effusions and elevated right hemidiaphragm but improved from previous No electrolyte abnormalities or renal failure, but does have significant elevation LFTs from hepatic metastases CT head with slightly increased vasogenic edema around one of her brain mets from previous Completed radiation to the brain 10/08/2020 Currently undergoing chemotherapy with Navelbine with 1 dose completed on 10/28 Was placed on dexamethasone upon admission due to worsening vasogenic edema around the brain metastases Seems somewhat improved although just generally weak. She is extremely malnourished and albumin low at 1.4, now improved 1.6 MRI of the brain with and without contrast on 11/14 shows stable metastases and d ecrease in size of the left cerebellar met. Also with significant encephalomalacia-this could be side effect of recent radiation therapy Ammonia level elevated at 51.7, with known liver mets-could also be component of hepatic encephalopathy Overall encephalopathy likely secondary to combination of side effect of chemotherapy, severe protein calorie malnutrition, side effect of whole brain radiation, hepatic encephalopathy, constipation, and brain metastases with vasogenic edema Waxes and wanes with delirium. Does not seem to comprehend her condition or be able to make decisions at this time. Must rely on family members to assist with decision-making and goals of care Discussed case with oncology, radiation oncology-no plans for further radiation at this time -Continue dexamethasone 4 mg p.o. once daily -Continue supportive care -Family expressed interest in discussing her care with palliative medicine to discuss goals of care-hoping for in person meeting during this hospitalization -Continue bowel regimen with lactulose and increase to 3 times daily -Follow ammonia level (2) Metastatic breast cancer: Plan: With mets to the brain, bone, liver-diffuse. With multiple episodes of recurrence. Completed whole brain radiation with hippocampal sparing 10/08/2020 Currently undergoing chemotherapy with Navelbine with 1 dose completed on 10/28 Performance status continues to go down Question if she can tolerate further chemotherapy? She will follow-up with onco logy to discuss this Hold off on further chemotherapy at this time, but will follow up with oncology Started Marinol 5 mg p.o. twice daily for appetite stimulation in addition to dexamethasone for vasogenic edema as above-discussed this with her primary oncologist Continue pain control for bony mets with fentanyl patch, oxycodone as needed Bowel regimen-make lactulose scheduled twice daily, added bisacodyl suppository- had a large bowel movement on 11/14 (3) Abnormal LFTs: Plan: Significant elevation of LFTs * AST up to 337 * ALT up to 201 * Alkaline phosphatase up further to 441 This is secondary to liver mets and worsening now from yesterday Continue to monitor Coagulation factors monitored INR 1.2 Check ammonia level in the morning- was elevated on admission 51 Continue lactulose and increase to 3 times daily (4) Constipation due to opioid therapy: Plan: Lactulose to be increased to 3 times daily Senokot S twice daily Continue bisacodyl suppository as needed (5) Brain metastases: Plan: Some expressive aphasia and difficulty with word finding and short-term memory Status post radiation of the brain as above Further management per oncology and radiation oncology. With vasogenic edema-started back on dexamethasone here as above (6) Malignant neoplasm of breast metastatic to bone: Plan: As above (7) Pleural effusion: Plan: Patient does not appear to be in any acute distress -repeat chest x-ray is improved but still with small effusions-could be secondary to hypoalbuminemia -Restarted Lasix which is actually recently increased as an outpatient 40 mg daily Watch renal function with diuresis (8) Moderate protein malnutrition: Plan: Secondary to metastatic cancer, poor nutrition Albumin 1.4 and slightly improved 1.6 With weight loss, temporal wasting Consult nutrition for recommendation on supplements -Started Marinol for appetite stimulant as well as now on Decadron (9) GERD (gastroesophageal reflux disease): Plan: Continue PPI (10) Edema: Plan: Left upper extremity, and bilateral lower extremities Most likely secondary to hypoalbuminemia, but given that she has a port in the left subclavian Venous Dopplers of left upper extremity and bilateral lower extremities negative for DVT (11) Hypokalemia: Plan: Replace with IV potassium chloride Follow BMP and magnesium in the morning (12) Toe pain, left: Plan: Left great toe exquisitely tender, small area of ecchymosis X-rays performed which are negative for fracture or evidence of lytic bone lesion Unclear cause-perhaps neuropathy? Continue to follow Continue pain control with opioids as needed (13) Weakness: Plan: Severe, secondary to metastatic cancer, chemotherapy, brain metastases, malnutrition, and steroid use for the last 2 months Treatment outlined as above PT/OT recommends rehab placement (14) DVT prophylaxis: Plan: Heparin 5000 units subcutaneously every 12 hours Disposition-continued stay, await placement, accepted at [facility] but needs insurance authorization Palliative medicine consulted for goals of care discussion with family hopefully on Tuesday I discussed her care with her daughter, Inez, on the phone at length on 11/14 and 11/15 Admission and Anticipated Discharge Date Admission Date: November 12, 2020 Subjective Patient seems little more confused this morning than yesterday. She reports pain in her right great toe that she thinks has been going on for months but seems to be severe. She was not complaining of this when I saw her yesterday. She denies any injury to the toe. I tried to discuss with her her debilitated condition and the possibility of not being able to tolerate future chemotherapy and introduced the idea of hospice if she chose to go that route. She did not seem to comprehend what I was saying and did not really respond one way or the other. I also discussed her care with her daughter at length on the phone who wanted us to know that they would certainly like to be present for any decisions on her future care since the patient is not able to comprehend and effectively express her wishes. For now, the daughter states that the family is definitely interested in continuing her chemotherapy. I advised that she continue follow- up discussions on this topic with her primary oncologist managing her chemotherapy. However, I will place a palliative care consultation to discuss goals of care and to help arrange a family meeting. Daughter is hoping for an in person meeting. Review of Systems Review of Systems: All systems reviewed & are unremarkable except as noted in HPI & below Physical Exam Constitutional: + ill appearing; no acute distress Eyes: + anicteric sclerae Neck: trachea midline, no thyromegaly Respiratory: normal respiratory effort, lungs clear to auscultation Cardiovascular: Rate/Rhythm: regular rate and regular rhythm Heart Sounds: no murmur Extremities: + edema (LUE 3+ pitting edema of the distal humerus and forearm, 1+ legs) Chest (Breasts): Chest: normal inspection of chest Gastrointestinal (Abdomen): normal bowel sounds, soft, nontender, no hepatosplenomegaly Musculoskeletal: Extremities: no cyanosis and no clubbing Left great toe with small area of purple ecchymosis on dorsal surface, exquisitely tenderness to palpation of the toe, neurovascularly intact, normal pedal pulses No edema or erythema of the toe Skin: no rashes, warm and dry Neurologic: moves all extremities and awake; no focal motor deficits Psychiatric: Orientation: alert, oriented to person and cooperative Results & Data Results & Data ([facility]) Vital Signs (Past 12 Hours) Vital Signs Temp Pulse Resp BP Pulse Ox 11/15/20 07:23 118/76 11/15/20 07:04 36.5 C 109 H 20 92 11/14/20 22:34 36.4 C L 100 H 18 137/81 97 Laboratory Results 11/15/20 11/15/20 11/15/20 Range/Units 16:50 11:59 08:00 WBC (4.8-10.8) K/uL RBC (4.2-5.4) M/uL Hgb (12.0-16.0) g/dL Hct (37-47) % MCV (80-100) fL MCH (25-34) pg MCHC (32-36) g/dL RDW Std Deviation (36.4-46.3) fL RDW Coeff of Jermaine (11.5-14.5) % Plt Count (130-400) K/uL MPV (7.4-10.4) fL Absolute Nucleated RBC (0-0) K/uL Nucleated RBC % (auto) % Sodium (136-145) mmol/L Potassium (3.5-5.1) mmol/L Chloride (98-107) mmol/L Carbon Dioxide (21-32) mmol/L Anion Gap (3-11) BUN (7-18) mg/dl Creatinine (0.6-1.2) mg/dl Est Cr Clr Drug Dosing ml/min Est GFR ( Amer) ml/min Est GFR (Non-Af Amer) ml/min BUN/Creatinine Ratio (10-20) Glucose (70-99) mg/dl POC Glucose 125 H 119 H 97 (70-99) mg/dl Calcium (8.5-10.1) mg/dl Total Bilirubin (0.2-1) mg/dl AST (15-37) U/L ALT (12-78) U/L Alkaline Phosphatase (45-117) U/L Total Protein (6.4-8.2) gm/dl Albumin (3.4-5.0) gm/dl Globulin (2.5-4.0) gm/dl Albumin/Globulin Ratio (0.9-2) 11/15/20 11/15/20 11/14/20 Range/Units 05:45 05:45 20:30 WBC 16.12 H (4.8-10.8) K/uL RBC 3.86 L (4.2-5.4) M/uL Hgb 12.6 (12.0-16.0) g/dL Hct 39.0 (37-47) % MCV 101.0 H (80-100) fL MCH 32.6 (25-34) pg MCHC 32.3 (32-36) g/dL RDW Std Deviation 71.6 H (36.4-46.3) fL RDW Coeff of Jermaine 19.8 H (11.5-14.5) % Plt Count 176 (130-400) K/uL MPV 10.6 H (7.4-10.4) fL Absolute Nucleated RBC 0.69 H (0-0) K/uL Nucleated RBC % (auto) 4.3 % Sodium 136 (136-145) mmol/L Potassium 3.0 L D (3.5-5.1) mmol/L Chloride 104 (98-107) mmol/L Carbon Dioxide 23 (21-32) mmol/L Anion Gap 9.0 (3-11) BUN 23 H (7-18) mg/dl Creatinine 0.57 L (0.6-1.2) mg/dl Est Cr Clr Drug Dosing 82.3 ml/min Est GFR ( Amer) 106.6 ml/min Est GFR (Non-Af Amer) 92.0 ml/min BUN/Creatinine Ratio 40.4 H (10-20) Glucose 91 (70-99) mg/dl POC Glucose 142 H (70-99) mg/dl Calcium 7.8 L (8.5-10.1) mg/dl Total Bilirubin 0.9 (0.2-1) mg/dl AST 337 H (15-37) U/L ALT 201 H (12-78) U/L Alkaline Phosphatase 441 H (45-117) U/L Total Protein 4.6 L (6.4-8.2) gm/dl Albumin 1.6 L (3.4-5.0) gm/dl Globulin 3.0 (2.5-4.0) gm/dl Albumin/Globulin Ratio 0.5 L (0.9-2) PG Care Time/CCT Total # of Minutes Spent Total Time Spent with Patient: Total time spent is greater than 50% in coordination of care (as documented) at patient's floor/unit and/or counseling patient: Coding Level of Care Code 93556 Subseq Hosp Care Lvl 3 Diagnoses Acute encephalopathy G93.40 Metastatic breast cancer C50.919 Abnormal LFTs R94.5 Constipation due to opioid therapy K59.03; T40.2X5A Brain metastases C79.31 Malignant neoplasm of breast metastatic to bone C50.919; C79.51 Pleural effusion J90 Moderate protein malnutrition E44.0 GERD (gastroesophageal reflux disease) K21.9 Esophagitis presence: with esophagitis Edema R60.9 DVT prophylaxis Z29.9 Hypokalemia E87.6 Toe pain, left M79.675 Weakness R53.1 (1) GERD (gastroesophageal reflux disease) Esophagitis presence: with esophagitis
--- NOTE | 2020-11-15 11:21 | XRay Report ---
XR toe(s) LT min 2V HISTORY: 75 years-old Female left great toe pain,h/o metastatic bone CA acute pain of the left great toe COMPARISON: None TECHNIQUE: 3 views of the left great toe FINDINGS: Demineralized appearance of the bones. Mild to moderate multifocal osteoarthritis. Dystrophic calcifi cations of the plantar fascia with spurring of the calcaneus. Arterial calcifications. Mild dorsal fo refoot soft tissue swelling. Mild soft tissue calcifications surround the first MTP joint. No acute f racture, dislocation or osseous erosion. No suspicious bone lesions. IMPRESSION: 1. Mild soft tissue swelling of the forefoot without acute fracture or dislocation. 2. Mild to moderate multifocal osteoarthritis. ACT 112: Negative or not required by law. The above report was generated using voice recognition software. It may contain grammatical, syntax o r spelling errors. Electronically signed by: Tre Farfan M.D. 11/15/2020 11:19 AM
[2020-11-15] MEDS: FUROSEMIDE 40 MG TAB PO SCH (11:29)
[2020-11-15] MEDS: LACTULOSE SYRUP 10 GM/15 ML BTL 960 ML PO SCH (20:51)
[2020-11-16 06:25] LABS: Hematocrit (blood only) 41.1 % (37-47); Hemoglobin 12.9 g/dL (12.0-16.0); Mean Corpuscular Hemoglobin 31.9 pg (25-34); Mean Corpuscular Hgb Conc 31.4 g/dL (32-36); Mean Corpuscular Volume 101.7 fL (80-100); Mean Platelet Volume 10.6 fL (7.4-10.4); Nucleated RBC # (auto) 0.64 K/uL (0-0); Nucleated RBC % (auto) 3.7 %; Platelet Count 143 K/uL (130-400); RDW Coefficient of Variation 20.3 % (11.5-14.5); RDW Standard Deviation 73.4 fL (36.4-46.3); Red Blood Count 4.04 M/uL (4.2-5.4); White Blood Count 17.37 K/uL (4.8-10.8)
[2020-11-16 06:32] LABS: INR 1.4 (0.9-1.1); Prothrombin Time 13.7 Seconds (9.0-12.0)
[2020-11-16 07:12] LABS: Albumin Level 1.7 gm/dl (3.4-5.0); Bilirubin Direct 0.6 mg/dl (0-0.2); Calcium 7.8 mg/dl (8.5-10.1); Est GFR (African American) 100.6 ml/min; Est GFR (Non-African American) 86.8 ml/min; Magnesium 2.2 mg/dl (1.8-2.4); Potassium 3.7 mmol/L (3.5-5.1)
[2020-11-16 07:26] LABS: Bilirubin,Total 1.1 mg/dl (0.2-1); Total Protein 4.8 gm/dl (6.4-8.2)
[2020-11-16] MEDS: LACTULOSE SYRUP 10 GM/15 ML BTL 960 ML PO SCH ×4 (08:47→20:41)
[2020-11-16] MEDS: HEPARIN SOD 5,000 UNIT/0.5 ML VIAL SQ SCH ×3 (08:48→20:42)
[2020-11-16] MEDS: POTASSIUM CHLORIDE CRTAB 20 MEQ TABCR PO SCH (08:48)
[2020-11-16] MEDS: GABAPENTIN 300 MG CAP PO SCH ×3 (08:48→20:33)
[2020-11-16] MEDS: dexAMETHasone 4 MG TAB PO SCH (08:49)
[2020-11-16] MEDS: DOCUSATE SODIUM/SENNA 50/8.6MG TAB PO SCH ×2 (08:49→20:40)
[2020-11-16] MEDS: PSYLLIUM 58.6% POWDER PACKET PO SCH ×2 (08:49→16:43)
[2020-11-16] MEDS: CETIRIZINE HCL 10 MG TABLET PO SCH (08:49)
[2020-11-16] MEDS: FUROSEMIDE 40 MG TAB PO SCH (08:49)
[2020-11-16] MEDS: CHECK fentaNYL PATCH PLACEMENT SCH ×2 (08:50→16:43)
[2020-11-16] MEDS: INSULIN ASPART 100 UNITS/ML 3 ML PEN SC SCH ×4 (08:58→20:34)
[2020-11-16] MEDS ORDERED: bisacodyL 10 MG SUPP PR STA (12:31)
--- NOTE | 2020-11-16 12:45 | Hospitalist Progress Note ---
Date of Service November 16, 2020 Assessment & Plan (1) Acute encephalopathy: Plan: 75-year-old female with metastatic breast cancer with metastases to the brain, bone, and liver. Presents with falls, worsening generalized weakness, and encephalopathy. No evidence of infection, no fevers, urinalysis without infection, chest x-ray with small pleural effusions and elevated right hemidiaphragm but improved from previous No electrolyte abnormalities or renal failure, but does have significant elevation LFTs from hepatic metastases CT head with slightly increased vasogenic edema around one of her brain mets from previous Completed radiation to the brain 10/08/2020 Currently undergoing chemotherapy with Navelbine with 1 dose completed on 10/28 Was placed on dexamethasone upon admission due to worsening vasogenic edema around the brain metastases Was somewhat improved on hospital day#2 but since then waxes and wanes, very lethargic, confused, and severely generally weak. She is extremely malnourished and albumin low at 1.4, now improved to 1.7 MRI of the brain with and without contrast on 11/14 shows stable metastases and decrease in size of the left cerebellar met. Also with significant encephalomalacia-this could be side effect of recent radiation therapy Ammonia level elevated at 51.7 upon arrival, with known liver mets-could also be component of hepatic encephalopathy. NH3 level down today to 43 Overall encephalopathy likely secondary to combination of side effect of chemotherapy, severe protein calorie malnutrition, side effect of whole brain radiation with encephalomalacia, hepatic encephalopathy, constipation, and brain metastases with vasogenic edema Waxes and wanes with delirium. Does not seem to comprehend her condition or be able to make decisions at this time. Must rely on family members to assist with decision-making and goals of care Discussed case with oncology, radiation oncology-no plans for further radiation at this time -Continue dexamethasone 4 mg p.o. once daily for now although some weakness may be due to steroid myopathy? -Continue supportive care -Family expressed interest in discussing her care with palliative medicine to discuss goals of care-hoping for in person meeting during this hospitalization- consultation placed -Continue bowel regimen with lactulose and increased to 3 times daily, bisacodyl LA daily prn -Follow ammonia level again in AM -continue to encourage po intake. Marinol started for appetite stimulant (2) Metastatic breast cancer: Plan: With mets to the brain, bone, liver-diffuse. With multiple episodes of recurrence. Completed whole brain radiation with hippocampal sparing 10/08/2020 Currently undergoing chemotherapy with Navelbine with 1 dose completed on 10/28 Performance status continues to go down Question if she can tolerate further chemotherapy? She will follow-up with oncology to discuss this Hold off on further chemotherapy at this time, but will follow up with oncology Started Marinol 5 mg p.o. twice daily for appetite stimulation in addition to dexamethasone for vasogenic edema as above-discussed this with her primary oncologist Continue pain control for bony mets with fentanyl patch, oxycodone as needed (3) Abnormal LFTs: Plan: Significant elevation of LFTs-continue to rise each day * AST up to 378 * ALT up to 221 * Alkaline phosphatase up further to 488 * Tbili up to 1.1 This is secondary to liver mets Continue to monitor Coagulation factors monitored INR 1.4 NH3 level high as well as above Continue lactulose and increased to 3 times daily (4) Constipation due to opioid therapy: Plan: Severe; is contributing to encephalopathy-had a large bowel movement on 11/14 but none since then Lactulose increased to 3 times daily Senokot S twice daily Continue bisacodyl suppository as needed-give another dose today (5) Brain metastases: Plan: Some expressive aphasia and difficulty with word finding and short-term memory Status post radiation of the brain as above Further management per oncology and radiation oncology. With vasogenic edema-started back on dexamethasone here as above (6) Malignant neoplasm of breast metastatic to bone: Plan: As above (7) Pleural effusion: Plan: Patient does not appear to be in any acute distress -repeat chest x-ray is improved but still with small effusions-could be secondary to hypoalbuminemia -Restarted Lasix which is actually recently increased as an outpatient 40 mg daily Watch renal function with diuresis (8) Moderate protein malnutrition: Plan: Secondary to metastatic cancer, poor nutrition Albumin 1.4 and slightly improved 1.7 With weight loss, temporal wasting Consult nutrition for recommendation on supplements -Started Marinol for appetite stimulant as well as now on Decadron (9) GERD (gastroesophageal reflux disease): Plan: Continue PPI (10) Edema: Plan: Left upper extremity, and bilateral lower extremities Most likely secondary to hypoalbuminemia, but given that she has a port in the left subclavian Venous Dopplers of left upper extremity and bilateral lower extremities negative for DVT (11) Hypokalemia: Plan: Replace with po potassium chloride 20meq daily Follow BMP and magnesium in the morning (12) Toe pain, left: Plan: Left great toe exquisitely tender on 11/16, small area of ecchymosis X-rays performed which are negative for fracture or evidence of lytic bone lesion Unclear cause-perhaps neuropathy? Continues to have some intermittent sharp pains but currently resolved Continue to follow Continue pain control with opioids as needed (13) Weakness: Plan: Severe, secondary to metastatic cancer, chemotherapy, brain metastases, malnutrition, and steroid use for the last 2 months Treatment outlined as above PT/OT recommends rehab placement (14) Elevated creatine kinase: Plan: elevated at 1026 unclear reason--> ?myopathy follow CK level no IVFs to be given as she is volume overloaded follow (15) DVT prophylaxis: Plan: Heparin 5000 units subcutaneously every 12 hours Disposition-continued stay, await placement, accepted at center care but needs insurance authorization Palliative medicine consulted for goals of care discussion with family hopefully on Tuesday I discussed her care with her daughter, Inez, on the phone at length on 11/14 and 11/15 Admission and Anticipated Discharge Date Admission Date: November 12, 2020 Subjective Pt still very tired today and falls asleep while I talk to her. She reports she has had 2 more episode of pain in the left great toe but currently no pain. She is oriented to person and "[facility]," but does not know year (says "20") or month/date. She says she ate breakfast but falls asleep when I ask her what she ate today. Review of Systems Review of Systems: All systems reviewed & are unremarkable except as noted in HPI & below Physical Exam Constitutional: + ill appearing; no acute distress Eyes: + anicteric sclerae Neck: trachea midline, no thyromegaly Respiratory: normal respiratory effort Auscultation: + crackles (bibasilar); no wheezes Cardiovascular: Rate/Rhythm: regular rate and regular rhythm Heart Sounds: no murmur Extremities: + edema (LUE 3+ pitting edema of the distal humerus and forearm, 1+ legs) Chest (Breasts): Chest: normal inspection of chest Gastrointestinal (Abdomen): normal bowel sounds, soft, nontender, no hepatosplenomegaly Musculoskeletal: Extremities: no cyanosis and no clubbing Skin: no rashes, warm and dry Neurologic: moves all extremities and awake; no focal motor deficits generally weak throughout, can barely stay sitting up with me holding her up for lung exam Psychiatric: Orientation: alert, oriented to person and cooperative Results & Data Results & Data ([facility]) Vital Signs (Past 12 Hours) Vital Signs Temp Pulse Resp BP Pulse Ox 11/16/20 06:18 36.4 C L 109 H 20 117/77 97 Laboratory Results 11/16/20 11/16/20 11/16/20 Range/Units 12:05 07:53 06:13 WBC (4.8-10.8) K/uL RBC (4.2-5.4) M/uL Hgb (12.0-16.0) g/dL Hct (37-47) % MCV (80-100) fL MCH (25-34) pg MCHC (32-36) g/dL RDW Std Deviation (36.4-46.3) fL RDW Coeff of Jermaine (11.5-14.5) % Plt Count (130-400) K/uL MPV (7.4-10.4) fL Absolute Nucleated RBC (0-0) K/uL Nucleated RBC % (auto) % PT (9.0-12.0) Seconds INR (0.9-1.1) Sodium (136-145) mmol/L Potassium (3.5-5.1) mmol/L Chloride (98-107) mmol/L Carbon Dioxide (21-32) mmol/L Anion Gap (3-11) BUN (7-18) mg/dl Creatinine (0.6-1.2) mg/dl Est Cr Clr Drug Dosing ml/min Est GFR ( Amer) ml/min Est GFR (Non-Af Amer) ml/min BUN/Creatinine Ratio (10-20) Glucose (70-99) mg/dl POC Glucose 114 H 100 H (70-99) mg/dl Calcium (8.5-10.1) mg/dl Magnesium (1.8-2.4) mg/dl Total Bilirubin (0.2-1) mg/dl Direct Bilirubin (0-0.2) mg/dl AST (15-37) U/L ALT (12-78) U/L Alkaline Phosphatase (45-117) U/L Ammonia 43.0 H (11-32) umol/L Total Creatine Kinase (26-192) U/L Total Protein (6.4-8.2) gm/dl Albumin (3.4-5.0) gm/dl 11/16/20 11/16/20 11/16/20 Range/Units 06:13 06:13 06:13 WBC 17.37 H (4.8-10.8) K/uL RBC 4.04 L (4.2-5.4) M/uL Hgb 12.9 (12.0-16.0) g/dL Hct 41.1 (37-47) % MCV 101.7 H (80-100) fL MCH 31.9 (25-34) pg MCHC 31.4 L (32-36) g/dL RDW Std Deviation 73.4 H (36.4-46.3) fL RDW Coeff of Jermaine 20.3 H (11.5-14.5) % Plt Count 143 (130-400) K/uL MPV 10.6 H (7.4-10.4) fL Absolute Nucleated RBC 0.64 H (0-0) K/uL Nucleated RBC % (auto) 3.7 % PT 13.7 H (9.0-12.0) Seconds INR 1.4 H (0.9-1.1) Sodium 136 (136-145) mmol/L Potassium 3.7 D (3.5-5.1) mmol/L Chloride 105 (98-107) mmol/L Carbon Dioxide 20 L (21-32) mmol/L Anion Gap 11.0 (3-11) BUN 25 H (7-18) mg/dl Creatinine 0.68 (0.6-1.2) mg/dl Est Cr Clr Drug Dosing 69.0 ml/min Est GFR ( Amer) 100.6 ml/min Est GFR (Non-Af Amer) 86.8 ml/min BUN/Creatinine Ratio 37.0 H (10-20) Glucose 109 H (70-99) mg/dl POC Glucose (70-99) mg/dl Calcium 7.8 L (8.5-10.1) mg/dl Magnesium 2.2 (1.8-2.4) mg/dl Total Bilirubin 1.1 H (0.2-1) mg/dl Direct Bilirubin 0.6 H (0-0.2) mg/dl AST 378 H (15-37) U/L ALT 221 H (12-78) U/L Alkaline Phosphatase 488 H (45-117) U/L Ammonia (11-32) umol/L Total Creatine Kinase 1026 H (26-192) U/L Total Protein 4.8 L (6.4-8.2) gm/dl Albumin 1.7 L (3.4-5.0) gm/dl 11/15/20 11/15/20 Range/Units 20:48 16:50 WBC (4.8-10.8) K/uL RBC (4.2-5.4) M/uL Hgb (12.0-16.0) g/dL Hct (37-47) % MCV (80-100) fL MCH (25-34) pg MCHC (32-36) g/dL RDW Std Deviation (36.4-46.3) fL RDW Coeff of Jermaine (11.5-14.5) % Plt Count (130-400) K/uL MPV (7.4-10.4) fL Absolute Nucleated RBC (0-0) K/uL Nucleated RBC % (auto) % PT (9.0-12.0) Seconds INR (0.9-1.1) Sodium (136-145) mmol/L Potassium (3.5-5.1) mmol/L Chloride (98-107) mmol/L Carbon Dioxide (21-32) mmol/L Anion Gap (3-11) BUN (7-18) mg/dl Creatinine (0.6-1.2) mg/dl Est Cr Clr Drug Dosing ml/min Est GFR ( Amer) ml/min Est GFR (Non-Af Amer) ml/min BUN/Creatinine Ratio (10-20) Glucose (70-99) mg/dl POC Glucose 131 H 125 H (70-99) mg/dl Calcium (8.5-10.1) mg/dl Magnesium (1.8-2.4) mg/dl Total Bilirubin (0.2-1) mg/dl Direct Bilirubin (0-0.2) mg/dl AST (15-37) U/L ALT (12-78) U/L Alkaline Phosphatase (45-117) U/L Ammonia (11-32) umol/L Total Creatine Kinase (26-192) U/L Total Protein (6.4-8.2) gm/dl Albumin (3.4-5.0) gm/dl PG Care Time/CCT Total # of Minutes Spent Total Time Spent with Patient: Total time spent is greater than 50% in coordination of care (as documented) at patient's floor/unit and/or counseling patient: Coding Level of Care Code 89083 Subseq Hosp Care Lvl 3 Diagnoses Acute encephalopathy G93.40 Metastatic breast cancer C50.919 Abnormal LFTs R94.5 Constipation due to opioid therapy K59.03; T40.2X5A Brain metastases C79.31 Malignant neoplasm of breast metastatic to bone C50.919; C79.51 Pleural effusion J90 Moderate protein malnutrition E44.0 GERD (gastroesophageal reflux disease) K21.9 Esophagitis presence: with esophagitis Edema R60.9 Hypokalemia E87.6 Toe pain, left M79.675 Weakness R53.1 DVT prophylaxis Z29.9 Elevated creatine kinase R74.8 (1) GERD (gastroesophageal reflux disease) Esophagitis presence: with esophagitis
[2020-11-16] MEDS: fentaNYL 12 MCG/HR TDSY TD SCH (20:34)
[2020-11-17] MEDS: CHECK fentaNYL PATCH PLACEMENT SCH ×4 (00:09→20:23)
[2020-11-17] MEDS: HEPARIN 100 UNIT/ML 5ML FLUSH FLUSH PRN (06:16)
[2020-11-17 06:27] LABS: Hematocrit (blood only) 38.1 % (37-47); Hemoglobin 12.3 g/dL (12.0-16.0); Mean Corpuscular Hemoglobin 32.2 pg (25-34); Mean Corpuscular Hgb Conc 32.3 g/dL (32-36); Mean Corpuscular Volume 99.7 fL (80-100); Mean Platelet Volume 11.6 fL (7.4-10.4); Nucleated RBC % (auto) 1.6 %; Platelet Count 107 K/uL (130-400); RDW Coefficient of Variation 20.7 % (11.5-14.5); RDW Standard Deviation 72.9 fL (36.4-46.3); Red Blood Count 3.82 M/uL (4.2-5.4); White Blood Count 19.28 K/uL (4.8-10.8)
[2020-11-17 06:49] LABS: INR 1.5 (0.9-1.1); Prothrombin Time 14.5 Seconds (9.0-12.0)
[2020-11-17 06:53] LABS: Anisocytosis Present; Basophils # (auto) 0.04 K/uL (0-0.2); Basophils % (auto) 0.2 %; Eosinophils # (auto) 0.02 K/uL (0-0.5); Eosinophils % (auto) 0.1 %; Immature Granulocytes # (auto) 0.87 K/uL (0.00-0.02); Immature Granulocytes % (auto) 4.5 %; Lymphocytes # (auto) 0.35 K/uL (1.2-3.4); Lymphocytes % (auto) 1.8 %; Monocytes # (auto) 1.65 K/uL (0.11-0.59); Monocytes % (auto) 8.6 %; Neutrophils # (auto) 16.35 K/uL (1.4-6.5); Neutrophils % (auto) 84.8 %; Polychromasia 1+
[2020-11-17 07:20] LABS: Albumin Level 1.3 gm/dl (3.4-5.0); BUN Creatinine Ratio 44.8 (10-20); Bilirubin Direct 0.9 mg/dl (0-0.2); Bilirubin,Total 1.3 mg/dl (0.2-1); Calcium 7.3 mg/dl (8.5-10.1); Creatinine Clr Calc Pharmacy 71.1 ml/min; Est GFR (African American) 101.6 ml/min; Est GFR (Non-African American) 87.6 ml/min; Magnesium 2.2 mg/dl (1.8-2.4); Potassium 3.6 mmol/L (3.5-5.1); Total Protein 4.3 gm/dl (6.4-8.2)
[2020-11-17] MEDS: INSULIN ASPART 100 UNITS/ML 3 ML PEN SC SCH ×4 (08:38→20:22)
[2020-11-17] MEDS: PSYLLIUM 58.6% POWDER PACKET PO SCH ×2 (08:40→17:44)
[2020-11-17] MEDS: GABAPENTIN 300 MG CAP PO SCH ×4 (08:45→20:17)
[2020-11-17] MEDS: POTASSIUM CHLORIDE CRTAB 20 MEQ TABCR PO SCH (08:46)
[2020-11-17] MEDS: LACTULOSE SYRUP 10 GM/15 ML BTL 960 ML PO SCH ×3 (08:46→20:21)
[2020-11-17] MEDS: FUROSEMIDE 40 MG TAB PO SCH (08:46)
[2020-11-17] MEDS: dexAMETHasone 4 MG TAB PO SCH (08:46)
[2020-11-17] MEDS: CETIRIZINE HCL 10 MG TABLET PO SCH (08:46)
[2020-11-17] MEDS: HEPARIN SOD 5,000 UNIT/0.5 ML VIAL SQ SCH ×2 (08:46→20:21)
[2020-11-17] MEDS: DOCUSATE SODIUM/SENNA 50/8.6MG TAB PO SCH ×2 (08:46→20:21)
[2020-11-17 09:45] LABS: Lyme Ab IgM w/WB Rflx Negative (Negative)
[2020-11-17 09:47] LABS: Lyme Ab IgG w/WB Rflx Positive (Negative)
--- NOTE | 2020-11-17 13:01 | Hospitalist Progress Note ---
Date of Service November 17, 2020 Assessment & Plan (1) Acute encephalopathy: Plan: 75-year-old female with metastatic breast cancer with metastases to the brain, bone, and liver. Presents with falls, worsening generalized weakness, and encephalopathy. No evidence of infection, no fevers, urinalysis without infection, chest x-ray with small pleural effusions and elevated right hemidiaphragm but improved from previous given leukocytosis/thrombocytopenia and transaminitis (all which can be explaned by metastatic dz and ongoing prednisone)--> anaplasma smear/PCR ordered and this far, smear is neg. Lyme IgG positive/IgM pending No electrolyte abnormalities or renal failure, but does have significant elevation LFTs from hepatic metastases CT head with slightly increased vasogenic edema around one of her brain mets from previous Completed radiation to the brain 10/08/2020 Currently undergoing chemotherapy with Navelbine with 1 dose completed on 10/28 Was placed on dexamethasone upon admission due to worsening vasogenic edema around the brain metastases Was somewhat improved on hospital day#2 but since then waxes and wanes, very lethargic, confused, and severely generally weak. She is extremely malnourished and albumin low at 1.4, now improved to 1.7 MRI of the brain with and without contrast on 11/14 shows stable metastases and decrease in size of the left cerebellar met. Also with significant encephalomalacia-this could be side effect of recent radiation therapy Ammonia level elevated at 51.7 upon arrival, with known liver mets-could also be component of hepatic encephalopathy. NH3 level down today to 44. On lactulose and moving bowels. Overall encephalopathy likely secondary to combination of side effect of chemoth erapy, severe protein calorie malnutrition, side effect of whole brain radiation with encephalomalacia, hepatic encephalopathy, constipation, and brain metastases with vasogenic edema Waxes and wanes with delirium. Does not seem to comprehend her condition or be able to make decisions at this time. Must rely on family members to assist with decision-making and goals of care. Initially when seen today (11/17/20)- seemed to be answering questions analisaiat chandni: "was telling me that she lives with her father who has been helping to take care of her. That her mother is and that her sister, Silvia, recently moved in to help as well as this is a lot for her father. Patient told me that she is not and doesn't have any children". I was able to touch base with patient's DAUGHTER- Silvia who reports that patient's mother and father are dece ased and that she does in fact have a with whom she resides and that it is her daughter named Silvia and not a sister. Spoke with both children who seem to have realistic expectations and are interested in patient coming home ([facility]) with hospice) per oncology/radiation oncology-no plans for further radiation at this time -Continue dexamethasone 4 mg p.o. once daily for now although some weakness may be due to steroid myopathy? -Continue supportive care -Family expressed interest in discussing her care with palliative medicine who has been consulted. Appreciate recommendations. Patient currently a full code but family has realistic expectations. Would like to discuss further with bartolo hoffman. -Continue bowel regimen with lactulose and increased to 3 times daily, bisacodyl MO daily prn -continue to encourage po intake. Marinol started for appetite stimulant (2) Metastatic breast cancer: Plan: With mets to the brain, bone, liver-diffuse. With multiple episodes of recurrence. Completed whole brain radiation with hippocampal sparing 10/08/2020 Currently undergoing chemotherapy with Navelbine with 1 dose completed on 10/28 Performance status continues to go down Question if she can tolerate further chemotherapy? She will follow-up with oncology to discuss this; however, comfort seems to be the way they are leaning. Family requesting hospice. Hold off on further chemotherapy at this time, but will follow up with oncology Started Marinol 5 mg p.o. twice daily for appetite stimulation in addition to dexamethasone for vasogenic edema as above-discussed this with her primary oncologist Continue pain control for bony mets with fentanyl patch, oxycodone as needed (3) Abnormal LFTs: Plan: Significant elevation of LFTs-continue to rise each day * AST up to 411 * ALT up to 219 * Alkaline phosphatase up further to 488 * Tbili up to 1.3 This is likely secondary to liver mets. again, anaplasma smear done and negative/PCR pending (unlikely but recent hospitalization 10/30 for sepsis syndrome with unknown etiology) Continue to monitor Coagulation factors monitored--> patient autoanticoagulated INR 1.5 NH3 level high as well as above Continue lactulose and increased to 3 times daily. Goal is 2-3 BMs/day. Incontinent of stool overnight. (4) Constipation due to opioid therapy: Plan: Severe; is contributing to encephalopathy-had a large bowel movement on 11/14 but none since then Lactulose increased to 3 times daily Senokot S twice daily Continue bisacodyl suppository as needed (5) Brain metastases: Plan: Some expressive aphasia and difficulty with word finding and short-term memory Status post radiation of the brain as above Further management per oncology and radiation oncology. With vasogenic edema-started back on dexamethasone here as above (6) Malignant neoplasm of breast metastatic to bone: Plan: As above (7) Pleural effusion: Plan: Patient does not appear to be in any acute distress -repeat chest x-ray is improved but still with small effusions-could be secondary to hypoalbuminemia -Restarted Lasix which is actually recently increased as an outpatient 40 mg daily Watch renal function with diuresis (8) Moderate protein malnutrition: Plan: Secondary to metastatic cancer, poor nutrition Albumin 1.4 and slightly improved 1.7 With weight loss, temporal wasting Consult nutrition for recommendation on supplements -Started Marinol for appetite stimulant as well as now on Decadron (9) GERD (gastroesophageal reflux disease): Plan: Continue PPI (10) Edema: Plan: Left upper extremity, and bilateral lower extremities Most likely secondary to hypoalbuminemia, but given that she has a port in the left subclavian Venous Dopplers of left upper extremity and bilateral lower extremities negative for DVT (11) Hypokalemia: Plan: Replace with po potassium chloride 20meq daily Follow BMP and magnesium in the morning (12) Toe pain, left: Plan: Left great toe exquisitely tender on 11/16, small area of ecchymosis X-rays performed which are negative for fracture or evidence of lytic bone lesion Unclear cause-perhaps neuropathy? Continues to have some intermittent sharp pains but currently resolved Continue to follow Continue pain control with opioids as needed (13) Weakness: Plan: Severe, secondary to metastatic cancer, chemotherapy, brain metastases, malnutrition, and steroid use for the last 2 months Treatment outlined as above PT/OT recommends rehab placement (14) Elevated creatine kinase: Plan: elevated at 882 unclear reason--> ?myopathy follow CK level IVF held upfront as she was volume overloaded (likely 3rd spacing from hypoalbuminemia) (15) DVT prophylaxis: Plan: Heparin 5000 units subcutaneously every 12 hours I discussed her care with her daughter, Inez, on the phone at length. She has realistic expectations and plan is for home with hospice. case mgmt and palliative on board. Admission and Anticipated Discharge Date Admission Date: November 12, 2020 Subjective Patient seen on daily rounds today. Initially when seen, seemed to be answering all questions appropriately and voiced no c/c; however, after talking with her daughter-- these answers were not appropriate Review of Systems Review of Systems: Questionable historianROS limited Physical Exam Physical Exam: General: Resting comfortably in her hospital bed. Appears chronically but not acutely ill. Does not appear toxic. NAD. HEENT: Head is AT/NC buccal mucosa is moist and pink Neck: No JVD. Negative hepatojugular reflex Cardiac: RRR Lungs: Diminished breath sounds without W/R/R Abdomen: Normoactive X4. Soft and nontender in all quadrants. Extremities: No peripheral clubbing cyanosis or edema Neuro: Initially, patient seem to answer all questions appropriately. She was o riented to time, place and somewhat to situation but upon further questioning and discussion with daughter, the rest of her history was not reliable Skin: No obvious skin lesions or rashes Psych: Very withdrawn Results & Data Results & Data ([facility]) Vital Signs (Past 12 Hours) Vital Signs Temp Pulse Resp BP Pulse Ox 11/17/20 07:24 36.5 C 92 H 16 121/83 98 Laboratory Results 11/17/20 06:16 11/17/20 06:16 PG Care Time/CCT Total # of Minutes Spent Total Time Spent with Patient: Total time spent is greater than 50% in coordination of care (as documented) at patient's floor/unit and/or counseling patient: C[place] [address] Subseq Hosp Care Lvl 3 Patient Type Established History Detailed Exam Detailed Medical Decision Making High Complexity Diagnoses Acute encephalopathy G93.40 Metastatic breast cancer C50.919 Abnormal LFTs R94.5 Constipation due to opioid therapy K59.03; T40.2X5A Brain metastases C79.31 Malignant neoplasm of breast metastatic to bone C50.919; C79.51 Pleural effusion J90 Moderate protein malnutrition E44.0 GERD (gastroesophageal reflux disease) K21.9 Esophagitis presence: with esophagitis Edema R60.9 Hypokalemia E87.6 Toe pain, left M79.675 Weakness R53.1 Elevated creatine kinase R74.8 DVT prophylaxis Z29.9 (1) GERD (gastroesophageal reflux disease) Esophagitis presence: with esophagitis
--- NOTE | 2020-11-17 13:20 | Palliative Care Consultation ---
Date of Consultation November 17, 2020 Assessment & Plan (1) Palliative care encounter: Ms. Golden is a 75 year old female who presented to the [facility] with difficulty with word finding and increased confusion. She has metastatic breast cancer with a hepatic mass, lytic and skeletal lesions and brain metastasis. She sees Dr. Griffin for her cancer management and Ashley Friedman PA-C for her opioid management. She has completed 6 cycles of Gemzar/Paclitaxel and on October 24, received her first dose of Navelbine and Xgenva for the osseous part of the disease.An MRI and CT of the brain were completed and its questionable that she is experiencing TIA's. She was recently admitted and we were involved at that time. She has become progressively weaker over the past month and radiation oncology and hematology oncology has suggested conservative management as additional aggressive treatment may not be tolerated. Palliative Medicine was re-consulted to discuss overall goals of care. I met with Brittney in her room. She was lying in her bed and in no apparent distress. She was visibly weaker with an even weaker voice. She was tearful this admission as well as last admission and stated that she is ready to be at home with her family. We discussed hospice at length and she said that her and her family has decided on her returning home with hospice support. At this time, she denies pain and additional concerns. I did ask her if she was fearful of dying and she said no, where as last admission she felt she was not ready. I was able to talk with her daughters Gloria Wiley and the patients Teja at length on the phone at [phone]. We discussed her prognosis and expectations from the family. Everyone would like her at home. We discussed hospice and how it works and I answered their questions. They would like additional caregiver support at home, which I relayed to the case consultant who will provide a private caregiver list to the family. We did discuss her code status and everyone agreed, including Brittney, that she would not want to be resuscitated in the event of cardiac or respiratory arrest. DNR reflected in the computer. All of the above has been discussed with the PA and case consultant. Plan for equipment delivery today and discharge home with hospice tomorrow, Saturday 11/18. Thanks for re-involving palliative medicine with this patient. Should additional needs arise, please advise. (2) Metastatic breast cancer: (3) Weakness: (4) Anxiety: History of Present Illness Reason for Consultation: Goals of care Requesting Physician: Dr. Blandon Attending Physician: Gaudencio Andino MD History of Present Illness Ms. Golden is a 75 year old female who presented to the [facility] with difficulty with word finding and increased confusion. She has metastatic breast cancer with a hepatic mass, lytic and skeletal lesions and brain metastasis. She sees Dr. Griffin for her cancer management and Ashley Friedman PA-C for her opioid management. She has completed 6 cycles of Gemzar/Paclitaxel and on October 24, received her first dose of Navelbine and Xgenva for the osseous part of the disease.An MRI and CT of the brain were completed and its questionable that she is experiencing TIA's. She was recently admitted and we were involved at that time. She has become progressively weaker over the past month and radiation oncology and hematology oncology has suggested conservative management as additional aggressive treatment may not be tolerated. Palliative Medicine was re-consulted to discuss overall goals of care. Please see A/P for further details. Thanks for re-involving Palliative medicine with this individual. Allergies Allergy/AdvReac Type Severity Reaction Status Date / Time chlorhexidine Allergy Intermediate ITCHING Verified 10/29/20 23:11 cephalexin Allergy Mild SICK Verified 10/29/20 23:11 edetic acid Allergy Mild nausea Verified 10/29/20 23:11 propylene glycol Allergy Mild nausea Verified 10/29/20 23:11 regadenoson Allergy Mild nausea Verified 10/29/20 23:11 codeine AdvReac Intermediate N/V Verified 10/29/20 23:11 Home Medications Medication Instructions Recorded Confirmed Type prochlorperazine maleate 10 mg 10 mg PO Q6H PRN 10/25/19 11/12/20 History tablet vit C 250 mg-vit E 90 mg-zinc 40 1 tab PO BIDM 10/25/19 11/12/20 History mg-copper 1 [id number] capsule (PreserVision AREDS-2) cetirizine 10 mg tablet 10 mg PO DAILY 08/07/20 11/12/20 History ondansetron HCl 8 mg tablet 8 mg PO DAILY PRN 08/07/20 11/12/20 History vitamin B comp and C no.3 15 mg-10 1 cap PO DAILY 08/07/20 11/12/20 History mg-50 mg-5 mg-300 mg capsule (B Complex Plus Vitamin C) furosemide 20 mg tablet 20 mg PO DAILY 09/14/20 11/12/20 History nutritional supplement-fiber oral 2 ea PO BIDM 09/14/20 11/12/20 History liquid potassium chloride 20 mEq 20 meq PO QAM #0 tab 09/18/20 11/12/20 Rx tablet,extended release sennosides 8.6 mg-docusate sodium 1 tab-cap PO BID 10/24/20 11/12/20 History 50 mg tablet (Senokot-S) aspirin 81 mg chewable tablet 81 mg PO DAILY 10/29/20 11/12/20 History calcium carbonate 600 mg calcium 600 mg PO QDD 10/29/20 11/12/20 History (1,500 mg) tablet fentanyl 12 mcg/hr transdermal 12 mcg TRANSDERMAL Q72H 10/29/20 11/12/20 History patch gabapentin 600 mg tablet 600 mg PO TID 10/29/20 11/12/20 History lactulose 10 gram/15 mL oral 15 ml PO BID PRN 10/29/20 11/12/20 History solution oxycodone 5 mg tablet 5 - 10 mg PO Q6H PRN 10/29/20 11/12/20 History tramadol 50 mg tablet 50 mg PO Q6H PRN 10/29/20 11/12/20 History Patient History Medical History (Updated 11/17/20 @ 13:20 by CAROL Jordan) Acoustic neuroma Anxiety Bone pain Brain metastases BRCA1 positive GERD (gastroesophageal reflux disease) Hearing deficit History of breast cancer 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 Recheck in 6 months 11/13/2012 biopsy recommended Status post bilateral biopsies revealing invasive ductal carcinoma Status post bilateral mastectomies revealing invasive ductal carcinoma on the right [id number] Invasive ductal carcinoma on the left [id number](i+) M0 Status post systemic chemotherapy with 4 cycles of Taxol and Cytoxan Participation in REATA study Status post completion of radiation therapy 03/15/2014 received 6120 cGy to the left chest wall, and axilla" Seasonal allergic rhinitis Surgical History History of breast biopsy History of colonoscopy History of dilatation and curettage History of esophagogastroduodenoscopy (EGD) History of hysterectomy with bilateral oophorectomy History of loop electrosurgical excision procedure (LEEP) History of myringotomy History of tooth extraction History of total left knee replacement History of tubal ligation Hx of cholecystectomy Hx of fracture of femur WITH REPAIR TO LEFT Hx of tonsillectomy Port-A-Cath in place (04/09/19) Insertion of Mediport Left Cephalic vein Dr. Gabriel 04/09/19 S/P bilateral mastectomy (07/06/13) Family History Other Breast cancer Melanoma Denies family history of Ovarian cancer Colorectal cancer Social History Smoking Status: Never smoker Second Hand Exposure: No; Hx Alcohol Use: No Hx Substance Use: No Preferred Language: Senegalese Communication Ability: Effective Visual Impairment: No Limitations Director Of Radiology Required: No Beliefs That Will Affect Care: None marital status: Current Living Situation: Spouse Current Living Situation Comment: Lives with Feels Safe at Home: Yes Dental Care, Regularly: Yes Assistive Devices: Walker Review of Systems Review of Systems: [place] System Assessment Scale: Pain: 0/3 SOB: 0/3 Anxiety: 1/3 Tiredness: 1/3 Palliative Performance Scale: 30% Physical Exam Constitutional: + ill appearing, + frail appearing, cooperative and comfortable ENMT: Mouth: + dry oral mucous membranes Respiratory: normal respiratory effort; no labored breathing and does not use accessory muscles Cardiovascular: Rate/Rhythm: regular rate and regular rhythm Heart Sounds: normal S1 and normal S2 Extremities: + edema Gastrointestinal (Abdomen): Inspection/Auscultation: abdomen normal to inspection Percussion/Palpation: abdomen soft Skin: + skin tightening and + pallor Psychiatric: Orientation: alert and oriented x 3 Insight: good insight Judgement: good judgement Results & Data ([facility]) Vital Signs (Past 12 Hours) Vital Signs Temp Pulse Resp BP Pulse Ox 11/17/20 07:24 36.5 C 92 H 16 121/83 98 PG Care Time/CCT Total # of Minutes Spent Total Time Spent with Patient: Total time spent is greater than 50% in coordination of care (as documented) at patient's floor/unit and/or counseling patient: 70 minutes with > 50% of that time spent assessing the patient, discussing goals of care with family and patient, and collaborating with IDT Coding Level of Care Code 83411 Inpt Consult Level 3 Diagnoses Palliative care encounter Z51.5 Metastatic breast cancer C50.919 Weakness R53.1 Anxiety F41.9 Time Spent (min) 70
[2020-11-17 22:20] VITALS: PULSE 107; TEMP 97; O2SAT 96
[2020-11-18] MEDS ORDERED: MoRPHine SULFATE 4 MG/ML 1 ML CARP\\VIAL IV PRN (07:23)
[2020-11-18] MEDS ORDERED: SCOPOLAMINE 1 MG TDSY TD ONE (07:23)
[2020-11-18] MEDS ORDERED: LORazepam 0.5 MG/1 ML VIAL IV PRN (07:23)
[2020-11-18] MEDS ORDERED: ATROPINE SULFATE 1% OP SOLN 5 ML BTL PO PRN (07:23)
[2020-11-18] MEDS: CHECK fentaNYL PATCH PLACEMENT SCH (08:58)
[2020-11-18 09:26] VITALS: BP 103/71
--- NOTE | 2020-11-18 13:05 | Death Pronouncement Note ---
Date of Service November 18, 2020 Pronouncement Note Admission Date Admission Date: November 12, 2020 Date and Time of Date of : 11/18/20 Time of : 07:25 PCOD Preliminary cause of : Respiratory failure Contributing Factors (1) Brain cancer: (2) Metastatic breast cancer: Additional Data Attending physician: Gaudencio Andino MD Coding Diagnoses Metastatic breast cancer C50.919 Brain cancer C71.9
--- NOTE | 2020-11-18 13:10 | Death Summary ---
Date of Service November 18, 2020 Pronouncement Note Date and Time of Date of : 11/18/20 Time of : 13:09 PCOD Preliminary cause of : Acute respiratory failure Contributing Factors (1) Brain cancer: (2) Metastatic breast cancer: Additional Data Attending physician: Gaudencio Andino MD Coding Level of Care Code None Diagnoses Brain cancer C71.9 Metastatic breast cancer C50.919
--- NOTE | 2020-11-18 13:12 | Discharge Summary ---
Date of Service November 18, 2020 Admission HPI Per Admitting Provider 75 F with history of widely metastatic breast cancer to bone, liver, adrenal, with vasogenic edema seen on head CT who presents with weakness and some intermittent confusion. no fevers or chills at home . She has significant persistent constipation her cancer pain seems to be well controlled with fentanyl patch and as needed medications. They do remember being on dexamethasone at some time in the past and says they do not know why it was stopped. The family is slightly upset as last time she is in the hospital she is discharged home she lives with her elderly reportedly according to the daughter she could not walk they definitely wished for her to go to residential facility at time of discharge as they cannot care for her at home Principal Diagnosis Immediate Cause of : Acute Respiratory Failure Secondary to: Brain Malignancy Secondary to: Metastatic Breast Cancer Discharge Exam Notified at 0721 that patient was activity passing (weak pulse, period of apnea and nonresponsive) At 0725, patient Ceased to Breath At 0730, I arrived at the bedside. Patient was not breathing No pulse palpable. No cardiac sounds auscultated Patient prounced . Discharge Data Allergies Allergy/AdvReac Type Severity Reaction Status Date / Time chlorhexidine Allergy Intermediate ITCHING Verified 10/29/20 23:11 cephalexin Allergy Mild SICK Verified 10/29/20 23:11 edetic acid Allergy Mild nausea Verified 10/29/20 23:11 propylene glycol Allergy Mild nausea Verified 10/29/20 23:11 regadenoson Allergy Mild nausea Verified 10/29/20 23:11 codeine AdvReac Intermediate N/V Verified 10/29/20 23:11 Consultations 11/12/20 13:31 ED Decision to Admit Stat 11/14/20 21:01 Consult Palliative Care Routine Date of Consultation November 17, 2020 Assessment & Plan (1) Palliative care encounter: Ms. Golden is a 75 year old female who presented to the [facility] with difficulty with word finding and increased confusion. She has metastatic breast cancer with a hepatic mass, lytic and skeletal lesions and brain metastasis. She sees Dr. Griffin for her cancer management and Ashley Friedman PA-C for her opioid management. She has completed 6 cycles of Gemzar/Paclitaxel and on October 24, received her first dose of Navelbine and Xgenva for the osseous part of the disease.An MRI and CT of the brain were completed and its questionable that she is experiencing TIA's. She was recently admitted and we were involved at that time. She has become progressively weaker over the past month and radiation oncology and hematology oncology has suggested conservative management as additional aggressive treatment may not be tolerated. Palliative Medicine was re-consulted to discuss overall goals of care. I met with Brittney in her room. She was lying in her bed and in no apparent distress. She was visibly weaker with an even weaker voice. She was tearful this admission as well as last admission and stated that she is ready to be at home with her family. We discussed hospice at length and she said that her and her family has decided on her returning home with hospice support. At this time, she denies pain and additional concerns. I did ask her if she was fearful of dying and she said no, where as last admission she felt she was not ready. I was able to talk with her daughters Inez, Gloria and the patients Teja at length on the phone at [phone]. We discussed her prognosis and expectations from the family. Everyone would like her at home. We discussed hospice and how it works and I answered their questions. They would like additional caregiver support at home, which I relayed to the rn case manager who will provide a private caregiver list to the family. We did discuss her code status and everyone agreed, including Brittney, that she would not want to be resuscitated in the event of cardiac or respiratory arrest. DNR reflected in the computer. All of the above has been discussed with the PA and rn case manager. Plan for equipment delivery today and discharge home with hospice tomorrow, Saturday 11/18. Thanks for re-involving palliative medicine with this patient. Should additional needs arise, please advise. (2) Metastatic breast cancer: (3) Weakness: (4) Anxiety: Ordered Studies 11/12/20 12:32 CT head/brain wo con Stat IMPRESSION: 1. Mild interval increase in vasogenic edema associated with the right frontal lobe and right cerebellar hemisphere metastases since head CT of October 30, 2020. Otherwise, no change in appearance of the brain, as described above. 2. No change in several skull base sclerotic metastases 11/12/20 12:38 CT abd pelvis wo con Stat IMPRESSION: 1. Findings of multifocal osseous metastatic disease, multifocal hepatic metastatic disease, and adrenal metastases have not significantly changed from 11/01/2020. 2. Small to moderate pleural effusions are unchanged. 3. There is body wall edema and a small volume of abdominopelvic ascites. This is similar to previous. 4. Moderate constipation. 5. Additional findings as above. 11/14/20 08:42 MR brain wo/w con Urgent IMPRESSION: Multiple enhancing/rim-enhancing nodules which are essentially unchanged from prior exam, except for a left cerebellar lesion which may have slightly decreased in size. 11/14/20 14:00 US venous doppler LE BI Urgent FINDINGS: Currently there is normal compressibility of the deep venous system from the common femoral vein through the proximal calf veins. No current evidence of acute thrombosis is identified. Mild soft tissue edema is seen bilaterally in the calf. US venous doppler UE LT Urgent IMPRESSION: No sonographic evidence of deep venous thrombosis. Hospital Course (1) Acute respiratory failure: - yesterday when seen, patient was not actively passing - No issues or complaints reported by staff overnight - at shift change this am (~0700), it was noted by nursing staff that patient was nonresponsive, her pulse was weak and had period of apnea - I was notified at 0710. Initially plan was for DC to home with hospice knowing that her ultimate prognosis was poor - I ordered comfort meds (morphine/atropine oral gtts/scopalamine patch and ativan) and encouraged family be notified to come in to update them and allow them to come in - Family was called - at 0725, patient ceased to breath (no comfort meds given) - at 0730, patient seen. Unresponsive, pulseless, no heart sounds and pronounced - I personally called and updated the family (daughter) and updated hospice (as patient was established yesterday with plan to DC to home today - patient went very quickly and peacefully. (2) Brain cancer: - Patient initially hospitalized with AMS - W/U showed No evidence of infection, no fevers, urinalysis without infection, chest x-ray with small pleural effusions and elevated right hemidiaphragm but improved from previous given leukocytosis/thrombocytopenia and transaminitis (all which can be explained by metastatic dz and ongoing prednisone)--> anaplasma smear/PCR ordered and this far, smear is neg. Lyme IgG positive/IgM pending No electrolyte abnormalities or renal failure, but does have significant elevation LFTs from hepatic metastases CT head with slightly increased vasogenic edema around one of her brain mets from previous Completed radiation to the brain 10/08/2020 Currently undergoing chemotherapy with Navelbine with 1 dose completed on 10/28 Was placed on dexamethasone upon admission due to worsening vasogenic edema around the brain metastases Was somewhat improved on hospital day#2 but since then waxes and wanes, very lethargic, confused, and severely generally weak. MRI of the brain with and without contrast on 11/14 shows stable metastases and decrease in size of the left cerebellar met. Also with significant encephalomalacia-this could be side effect of recent radiation therapy Ammonia level elevated at 51.7 upon arrival, with known liver mets-could also be component of hepatic encephalopathy. Lactulose ordered resulting in multiple BM's. Mentation remained unchanged. Overall encephalopathy likely secondary to combination of side effect of chemotherapy, severe protein calorie malnutrition, side effect of whole brain radiation with encephalomalacia, hepatic encephalopathy, constipation, and brain metastases with vasogenic edema Waxes and wanes with delirium. Does not seem to comprehend her condition or be able to make decisions at this time. Must rely on family members to assist with decision-making and goals of care. per oncology/radiation oncology-no plans for further radiation at this time as benefit no longer outweighing the side effects -Continue dexamethasone 4 mg p.o. once daily for now although some weakness may be due to steroid myopathy? -Continue supportive care When seen on 11/17: seemed to be answering questions appropriately upfront: "was telling me that she lives with her father who has been helping to take care of her. That her mother is and that her sister, Silvia, recently moved in to help as well as this is a lot for her father. Patient told me that she is not and didn't have any children". I was able to touch base with patient's DAUGHTER- Inez who reported that patient's mother and father are and that she does in fact have a with whom she resides and that she is her daughter named Inez and not a sister. Spoke with both children at length who seem to have realistic expectations and are interested in patient coming home (NIYAH) with hospice Palliative care consulted and discussed this case with them. Case mgmt asked to make a hospice referral with anticipated D/C to home with poor prognosis and palliative care/[employer] Inadvertently, patient rapidly declined in early morning babysitter hours awaiting her D/C to home and (as outlined above) (3) Metastatic breast cancer: With mets to the brain, bone, liver-diffuse. With multiple episodes of recurrence. Completed whole brain radiation with hippocampal sparing 10/08/2020 Total Time Total Time Spent Total Time Spent (In Minutes): 35 min including calling family, updating palliative care and hospice. Discharge Plan Discharge Items Patient Disposition: Other Date/Time: 11/18/20 07:25 Coding Level of Care Code Established Pt D/C DAY MANAGEMENT >30 MINS Patient Type Established Diagnoses Brain cancer C71.9 Metastatic breast cancer C50.919 Acute respiratory failure J96.00 Time Spent (min) 35
[2020-11-18] MEDS ORDERED: CHECK SCOPOLAMINE PATCH PLACEMENT SCH (16:00)
[2020-11-19 14:46] LABS: 18KDIGG Band NON-REACTIVE; 23KDIGG Band NON-REACTIVE; 23KDIGM Band NON-REACTIVE; 28KDIGG Band NON-REACTIVE; 30KDIGG Band NON-REACTIVE; 39KDIGG Band NON-REACTIVE; 39KDIGM Band NON-REACTIVE; 41KDIGG Band NON-REACTIVE; 41KDIGM Band NON-REACTIVE; 45KDIGG Band NON-REACTIVE; 58KDIGG Band NON-REACTIVE; 66KDIGG Band NON-REACTIVE; 93KDIGG Band NON-REACTIVE; Lyme Antibodies, WB IgG NEGATIVE (NEGATIVE); Lyme Antibodies, WB IgM NEGATIVE (NEGATIVE)
== END 2020-11-18 09:26 | disposition expired | DRG 54 ==
LOC: ED 11:08 → SUATTDRO 14:32 → 3E 14:32